=== PATIENT | female | born 1950 | race Caucasian/White ===

== ENCOUNTER 2020-09-25 08:26 | Outpatient (REF) | payer OTHER, SELFPAY ==
--- NOTE | 2020-09-25 08:32 | MM_ITS ---
EXAMINATION: MM SCREENING DIGITAL BREAST TOMOSYNTHESIS, BILATERAL CLINICAL INFORMATION: Left lumpectomy for breast cancer 2011. Due for yearly exam. COMPARISON: Mammography: 02/02/2019, 01/25/2018, 01/10/2017 TECHNIQUE: Digital breast tomosynthesis is performed in both the craniocaudal and mediolateral oblique views along with computer-aided detection (CAD). Synthesized 2D images are generated from the tomosynthesis. Additional exaggerated left view is provided. FINDINGS: There are scattered areas of fibroglandular density (ACR BI-RADS breast composition Category b). There are post therapy changes left breast with reduced breast size and scarring. There is a biopsy clip marker again seen adjacent to the scar and benign dystrophic calcifications within the scar. Bilateral breast parenchymal pattern is similar to prior studies. There is no developing density or interval mass or interval architectural abnormality. Scattered bilateral benign predominantly coarse calcifications and some vascular and punctate round calcifications are again seen. No significant changes from prior studies. MM/MM tomosynthesis screening BI IMPRESSION: No significant changes from prior studies. Post therapy changes left breast. ASSESSMENT: BI-RADS 2: Benign RECOMMENDATION: Routine annual mammography screening. This patient's information was entered into a reminder system with a target due date for their next mammogram.
--- NOTE | 2020-09-25 08:41 | MM_ITS ---
EXAMINATION: BONE DENSITOMETRY CLINICAL INDICATION: Osteopenia. COMPARISON: Previous BD dated 10/06/2017 and baseline BD dated 05/20/2013. TECHNIQUE: Using a [employer] DXA System (software version: 13.1) manufactured by [employer], dual-energy x-ray absorptiometry was performed of the lumbar spine and left hip. The images are of good technical quality. Summary results are attached. FINDINGS: AP SPINE L1-L4: Current: BMD 1.022 g/cm2, Z-score 0.4, T-score -1.3, osteopenia, 2.9% decrease from previous, 4.0% increase from baseline (<5% change is not significant). Prior: BMD 1.052 g/cm2. Baseline: BMD 0.983 g/cm2. LEFT FEMUR, NECK: Current: BMD 0.788 g/cm2, Z-score 0.0, T-score -1.8, osteopenia. Prior: BMD 0.762 g/cm2. Baseline: BMD 0.708 g/cm2. LEFT FEMUR, TOTAL: Current: BMD 0.859 g/cm2, Z-score 0.4, T-score -1.2, osteopenia, 1.3% increase from previous, 9.6% increase from baseline (<5% change is not significant). Prior: BMD 0.848 g/cm2. Baseline: BMD 0.784 g/cm2. IDENTIFIED RISK FACTORS: Early menopause, low calcium intake, osteoporosis, secondary osteoporosis, tobacco use (current smoker). HISTORY OF FRACTURE: None listed. MEDICATIONS: None listed. MM/XR DEXA axial skeleton IMPRESSION: 1. DIAGNOSIS: Osteopenia based on the lowest T-score value of -1.8 in the femoral neck applying World Health Organization criteria. 2. 10-YEAR FRACTURE RISK PREDICTION, FRAX: Major osteoporotic fracture (clinical spine, forearm, hip or shoulder) 11.7%. Hip fracture 3.4%. 3. Treatment Recommendations: NOF guidelines recommend consideration for treatment in postmenopausal women and men age 50 and older presenting with the following: -A hip or vertebral (clinical or morphometric) fracture. -T-score less than or equal to -2.5 at the femoral neck or spine after appropriate evaluation to exclude secondary causes. -Low bone mass at the hip or spine and a 10-year fracture probability by FRAX of greater than or equal to 3% for hip fracture or greater than or equal to 20% for major osteoporotic fracture based on the [place] adapted WHO algorithm. 4. Other Recommendations: All treatment decisions require clinical judgment and consideration of individual patient factors, including patient preferences, comorbidities, previous drug use, risk factors not captured in the FRAX model (e.g. frailty, falls, vitamin D deficiency, increased bone turnover, interval significant decline in bone density) and possible under or overestimation of fracture risk by FRAX. Additional medical evaluation for secondary cause of low bone mineral density may be appropriate. FUTURE SCAN RECOMMENDATION: People with diagnosed cases of osteoporosis or at high risk for fracture should have regular bone mineral density tests. For patients eligible for Medicare, routine testing is allowed once every 2 years. The testing frequency can be increased to one year for patients who have rapidly progressing disease, those who are receiving or discontinuing medical therapy to restore bone mass, or have additional risk factors.
== END 2020-09-25 08:27 | disposition home or self-care (01) ==
LOC: HO.MAMMO 08:26
PROVIDERS: PCP Physician Assistant; Visit Provider Physician Assistant
DX: M85.89 Other specified disorders of bone density and structure, multiple sites (principal); Z12.31 Encounter for screening mammogram for malignant neoplasm of breast
CPT/HCPCS: 77063; 77067; 77080

== ENCOUNTER 2021-05-31 06:36 | Outpatient (REF) | payer OTHER, SELFPAY ==
[2021-05-31 08:47] LABS: Hematocrit 41.3 % (37-47); Hemoglobin 13.5 g/dl (12.0-16.0); Mean Corpuscular HGB Conc 32.7 g/dl (31.0-35.0); Mean Corpuscular Hemoglobin 31.8 pg (27.0-33.0); Mean Corpuscular Volume 97.4 fL (80-98); Mean Platelet Volume 10.7 fL (9.4-12.3); Platelet Count 187 X10*3/uL (160-400); Red Blood Count 4.24 X10*6/uL (4.20-5.50); Red Cell Distribution Width 12.5 % (11.0-16.0); White Blood Count 7.7 X10*3/uL (4.8-10.8)
[2021-05-31 09:35] LABS: Alanine Aminotransferase 11 U/L (0-31); Albumin Level 3.8 g/dL (3.5-5.0); Alkaline Phosphatase 67 U/L (39-117); Anion Gap 12 (12-20); Aspartate Amino Transferase 16 U/L (5-31); Bilirubin Total 0.5 mg/dL (0.0-1.0); Blood Urea Nitrogen 12 mg/dL (9-16); Carbon Dioxide 26 mmol/L (22-29); Chloride 109 mmol/L (96-108); Cholesterol 260 mg/dL; Estimated Glomerular Filt Rate > 60; Glucose Fasting 92 mg/dL (60-99); HDL Cholesterol 36 mg/dL; LDL Cholesterol Calculated 175 mg/dl; Potassium 4.6 mmol/L (3.3-5.1); Sodium 142 mmol/L (135-145); Total Protein 6.8 g/dL (6.5-8.0); Triglycerides 246 mg/dL
[2021-05-31 09:39] LABS: TSH reflex Free T4 2.55 uIU/mL (0.32-4.0)
[2021-05-31 10:33] LABS: Creatinine Urine 42.93 mg/dL; Microalbumin Urine < 5.0 mg/L
== END 2021-05-31 06:37 | disposition home or self-care (01) ==
LOC: HO.LAB 06:36
PROVIDERS: Visit Provider Physician Assistant
DX: I10 Essential (primary) hypertension (principal)
CPT/HCPCS: 36415; 80053; 80061; 82043; 84443; 85027

== ENCOUNTER 2021-06-12 12:42 | Outpatient (REF) | payer OTHER, SELFPAY ==
--- NOTE | ~2021-06-12 | CT_ITS ---
EXAMINATION: CT HEAD WITHOUT CONTRAST CLINICAL INFORMATION: Benign paroxysmal vertigo. COMPARISON: CT brain 01/09/2016. TECHNIQUE: Contiguous axial imaging was performed from the skull base to vertex without intravenous administration of contrast. This CT examination was performed using dose optimization techniques as appropriate, variously including the following: *Automated exposure control *Adjustment of mA and/or kV according to patient size (this includes techniques or standardized protocols for targeted exams where dose is matched to indication/reason for exam; i.e. extremities or head) *Use of iterative reconstruction technique DLP: 677 mGy-cm FINDINGS: There is no acute intra-axial or extra-axial bleed, masses or midline shift. There is a focal hypodensity in the anterior limb of bilateral internal capsule slightly more prominent on the left side. This likely lies on previous 2016 scan. There is no acute infarct. Especially there is no abnormality seen in the posterior fossa. No abnormal mass effect or midline shift is seen. Bark[place] to white matter differentiation is well preserved. No extra-axial fluid collections are identified. The ventricles are normal in size. There is no abnormal attenuation within the brain parenchyma. The osseous structures and soft tissues are normal. The mastoid air cells and visualized portions of the paranasal sinuses are well aerated. CT/CT head/brain wo con IMPRESSION: No acute intracranial process seen. Likely chronic ischemic changes in the anterior limb of bilateral internal capsules slightly greater on the left, unchanged to 2016 CT exam.
== END 2021-06-12 12:43 | disposition home or self-care (01) ==
LOC: HO.CT 12:42
PROVIDERS: Visit Provider Physician Assistant
DX: H81.10 Benign paroxysmal vertigo, unspecified ear (principal)
CPT/HCPCS: 70450

== ENCOUNTER 2021-06-20 13:55 | Outpatient (REF) | payer OTHER, SELFPAY ==
--- NOTE | ~2021-06-20 | US_ITS ---
EXAMINATION: US EXTRACRANIAL CAROTID DUPLEX, BILATERAL CLINICAL INFORMATION: Other specified symptoms involving the circulatory system COMPARISON: Ultrasound 01/09/2016 TECHNIQUE: Real-time ultrasound and Doppler techniques (integrating B-mode 2-D vascular images, Doppler spectral analysis and color-flow Doppler imaging) were utilized to interrogate the extracranial carotid arteries, the vertebral arteries and proximal subclavian arteries bilaterally. The degree of stenosis is determined by criteria similar to NASCET. FINDINGS: Right Side: 1. There is extensive calcified atherosclerotic plaque seen in the bifurcation/proximal ICA region. 2. The common carotid artery PSV proximally is 99 cm/s and distally 87.4 cm/s. 3. The proximal internal carotid artery velocities are 110 cm/s systolic and 17.3 cm/s diastolic. The mid internal carotid artery velocities are 186 cm/s systolic and 47.1 cm/s diastolic. 4. The proximal external carotid artery PSV is 117 cm/s. 5. The vertebral artery shows antegrade flow. 6. The subclavian artery waveforms are normal. Left Side: 1. There is extensive calcified atherosclerotic plaque seen in the bifurcation/proximal ICA region. 2. The common carotid artery PSV proximally is 104 cm/s and distally 70.3 cm/s. 3. The proximal internal carotid artery velocities are 194 cm/s systolic and 52.4 cm/s diastolic. 4. The proximal external carotid artery PSV is 185 cm/s. 5. The vertebral artery shows antegrade flow. 6. The subclavian artery waveforms are high resistance high velocity with peak systolic velocity 471 cm/s. US/US carotid duplex BI IMPRESSION: 1. RIGHT: Minimal, non-hemodynamically significant stenosis of the proximal right internal carotid artery corresponding to a 0-49% stenosis by velocity criteria. There is probable moderate stenosis at the midportion of the right internal carotid artery. 2. LEFT: Moderate, hemodynamically significant stenosis of the proximal left internal carotid artery corresponding to a 50-79% stenosis by velocity criteria. 3. Elevated peak systolic velocity of the left subclavian artery suggestive of a subclavian artery stenosis. Further evaluation of probable stenosis can be considered with CT angiography.
== END 2021-06-20 13:56 | disposition home or self-care (01) ==
LOC: HO.US 13:55
PROVIDERS: PCP Physician Assistant; Visit Provider Physician Assistant
DX: R09.89 Other specified symptoms and signs involving the circulatory and respiratory systems (principal)
CPT/HCPCS: 93880

== ENCOUNTER → 2021-07-25 15:22 | Outpatient (BNVA) | payer OTHER, SELFPAY | PROVIDERS: PCP Physician Assistant; Visit Provider Surgery Vascular Surgery ==

== ENCOUNTER 2021-08-20 08:20 | Outpatient (REF) | payer OTHER, SELFPAY ==
[2021-08-20 09:33] LABS: Blood Urea Nitrogen 10 mg/dL (9-16); Estimated Glomerular Filt Rate > 60
== END 2021-08-20 08:21 | disposition home or self-care (01) ==
LOC: HO.LAB 08:20
PROVIDERS: PCP Physician Assistant; Visit Provider Surgery Vascular Surgery
DX: I65.23 Occlusion and stenosis of bilateral carotid arteries (principal)
CPT/HCPCS: 36415; 82565; 84520

== ENCOUNTER 2021-08-27 07:47 | Outpatient (REF) | payer OTHER, SELFPAY ==
--- NOTE | ~2021-08-27 | CT_ITS ---
EXAMINATION: CT ANGIOGRAM NECK CLINICAL INFORMATION: 70-year-old with left carotid stenosis by duplex carotid ultrasound. COMPARISON: 06/20/2021 duplex study. TECHNIQUE: Volumetric CT angiography of the neck was performed from the upper thorax to the base of the skull with multiplanar 2-D reformatted reconstructions and 3-D MIP reconstructions performed on the CT console following the bolus intravenous administration of 70 mL of Omnipaque 350 contrast material. The degree of stenosis determined by NASCET criteria. This CT examination was performed using dose optimization techniques as appropriate, variously including the following: *Automated exposure control *Adjustment of mA and/or kV according to patient size (this includes techniques or standardized protocols for targeted exams where dose is matched to indication/reason for exam; i.e. extremities or head) *Use of iterative reconstruction technique DLP: 283.30 mGy-cm. FINDINGS: VASCULAR: The thoracic aortic arch is normal in caliber and configuration. There are partially calcified atheromatous plaques within the thoracic aortic arch with no significant luminal diameter reduction. Calcified plaque is seen in the proximal left subclavian artery, with both calcified and noncalcified plaque at adjacent to the origin of the left vertebral artery. There is a moderate short-segment focal stenosis of the left subclavian artery at this level and there is mild stenosis at the origin of the left vertebral artery. There is luminal irregularity in the subclavian artery distal to this consistent with atheromatous change without significant focal stenosis. There is calcified plaque in the origin of the left common carotid artery without significant focal stenosis. Calcified plaques are seen within the proximal right subclavian artery and innominate artery with less than 50% the stenosis of the proximal right subclavian artery. There is luminal irregularity in the more distal aspect of the right subclavian artery without significant stenosis. There is a calcified plaque at the origin of the right vertebral artery without stenosis. The right vertebral artery is dominant and is normal in caliber throughout. The remainder of the left vertebral artery also demonstrates normal caliber. Multifocal calcified plaque is noted within the proximal right ICA and at the right carotid bifurcation, spanning the bulb. Based on NASCET criteria, there is a 70% diameter reduction stenosis within the origin of the right ICA and a less than 50% diameter reduction stenosis 1 cm distal to this. There is calcified plaque at the left carotid bifurcation with eccentric narrowing of the proximal left ICA, with 65% diameter reduction stenosis by NASCET criteria. More distally, the cervical ICAs are smoothly contoured and normal in caliber. The external carotid arteries are patent and normal in caliber. There is a luminal irregularity in the carotid siphons bilaterally with some mural calcifications without significant focal stenosis. The visualized intracranial vessels are patent and normal in caliber. NON-VASCULAR: Visualized brain parenchyma appears grossly unremarkable. Soft tissue neck structures appear unremarkable. Pulmonary emphysematous changes are noted bilaterally. Visualized mediastinum demonstrates multiple lymph nodes in the region of the AP window and prevascular anterior mediastinal space as well as the right paratracheal space, which are not pathologically enlarged. Skeletal structures: There is lordotic reversal centered at C4 with discogenic degenerative changes and spondylosis at C4-5 and C5-6. 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 CT/CT angio neck IMPRESSION: 1. Extensive the atheromatous calcified plaque at both carotid bifurcations and proximal ICAs as discussed above with 65% diameter reduction stenosis in the proximal left ICA and 70% diameter reduction stenosis in the proximal right ICA by NASCET criteria. The findings are concordant with duplex ultrasound on the left but are discordant on the right. 2. Moderate short-segment focal stenosis of the proximal left subclavian artery at the level of the origin of the left vertebral artery with a mild short-segment focal stenosis of the origin of the left vertebral artery, which is nondominant. 3. Skeletal findings as discussed above. 4. Pulmonary emphysematous changes.
[2021-08-27] MEDS: iohexoL 350 MG/ML 100 ML INFUS..BTL IV (09:19)
== END 2021-08-27 07:48 | disposition home or self-care (01) ==
LOC: HO.CT 07:47
PROVIDERS: PCP Physician Assistant; Visit Provider Surgery Vascular Surgery
DX: I63.233 Cerebral infarction due to unspecified occlusion or stenosis of bilateral carotid arteries (principal)
CPT/HCPCS: 70498; Q9967

== ENCOUNTER → 2021-09-10 09:58 | Outpatient (BNVA) | payer OTHER, SELFPAY | PROVIDERS: PCP Physician Assistant; Visit Provider Surgery Vascular Surgery ==

== ENCOUNTER → 2021-09-11 11:12 | Outpatient (BNVA) | payer OTHER, SELFPAY | PROVIDERS: PCP Physician Assistant; Referring Provider Physician Assistant; Visit Provider Internal Medicine Cardiovascular Disease | DX: Z01.810 Encounter for preprocedural cardiovascular examination (principal); I47.1 Supraventricular tachycardia; I65.23 Occlusion and stenosis of bilateral carotid arteries | CPT/HCPCS: 93005 ==

== ENCOUNTER → 2021-09-13 07:58 | Outpatient (REF) | payer OTHER, SELFPAY ==
--- NOTE | 2021-09-13 08:02 | CA_ITS ---
Transthoracic Echocardiogram Patient (Last, First, Middle): Laxmi Daley, Gender: Female Date of : 1950 Age: 70 Procedure Date: 09/13/2021 Procedure Type: Transthoracic Echocardiogram Location: OP Height: 160.02 cm Weight: 61.24 kg BSA: 1.64 m2 Heart Rate: bpm BP: 108 / 62 mmHg Shredded Filler Machine Wrapper Layer: COLE Referring MD: Jose Rodas MD Symptoms: Z01.810 - Encounter for preprocedural cardiovascular exam... Conclusions: - Normal left ventricular size, thickness, systolic function, and wall motion. The visually estimated ejection fraction is between 55-60%. - Normal right ventricular cavity size and systolic function. - No significant valvular or pericardial pathology. Findings Left Ventricle Normal left ventricular size, thickness, systolic function, and wall motion. The visually estimated ejection fraction is between 55-60%. Diastolic function is normal for age. Right Ventricle Normal right ventricular cavity size and systolic function. Atria Both atria are normal in size. Aortic Valve Normal aortic valve structure and function. There is no aortic valve stenosis. There is no aortic valve regurgitation. Mitral Valve Normal mitral valve structure and function. There is no mitral valve regurgitation. There is no mitral valve stenosis. Pulmonic Valve The pulmonic valve is likely normal. Tricuspid Valve Normal tricuspid valve structure and function. There is no tricuspid valve regurgitation. Normal right atrial pressure. There is no evidence of pulmonary hypertension. Great Vessels All visible segments of the aorta are normal in size. Venous The inferior vena cava is normal in size and collapses greater than 50% with inspiration. Pericardium/Pleural There is no evidence of pericardial effusion. Prior Study Comparison No prior study available for comparison. Measurements 2D Linear Measurements IVSd: 0.56 0.6-0.9/0.6-1.0 cm LVIDd: 4.14 3.9-5.3/4.2-5.9 cm LVIDd Index: 2.52 2.4-3.2/2.2-3.1 cm/m2 LVIDs: 2.50 2.0-3.6 cm LVPWd: 0.82 0.7-1.1 cm Ao Root: 2.10 2.1-3.5 cm LA Diam: 2.80 2.7-3.8/3.0-4.0 cm LAIDs Index: 1.71 1.5-2.3 cm/m2 LV Mass: 101.89 67-162/88-224 g LV Mass Index: 62.13 43-95/49-115 g/m2 LVOT Diam: 1.90 3.0+(-)1.3 cm 2D Systolic Function EF 4C: 66.60 >55% EF 2C: 60.30 >55% EF BiP: 65.90 >55% Mitral Valve MV Pk E: 0.85 MV PK A: 0.54 MV Decel Time: 206.00 E/A: 1.60 E'Lateral: 8.16 E'Medial: 7.62 E/E' Med: 11.20 E/E' Lat: 10.40 PHT: 60.00 MVA PHT: 3.67 Decel Juab: 4.12 Aortic Valve AoV Pk Robin: 1.13 AoV Pk Grad: 5.00 LVOT LVOT Pk Robin: 0.93 LVOT Mn Robin: 0.67 LVOT VTI: 0.22 LVOT Pk Grad: 3.00 LVOT Mn Grad: 2.00 LVOT Diam: 1.90 LVOT Area: 2.84 Diastolic Function MV Pk E: 0.85 MV Pk A: 0.54 E/A: 1.60 E'Medial: 7.62 E/E' Med: 11.20 E' Laterial: 8.16 E/E' Lat: 10.40 Right Ventricle TAPSE (mm): 2.18 Tricuspid Valve TR Pk Robin: 2.40 TR Pk Grad: 23.00 RA Press: 3.00 RVSP: 26.00 Great Vessels Aorta Ao Root-2D: 2.10 2.0-3.7 cm Ao Asc: 2.90 2.1-3.4 cm Updated in Other Vendor System with Status of Final Mark Huerta MD electronically signed on 09/15/2021 6:11:00 PM with status of Final
== END ==
LOC: HO.CARD 07:58
PROVIDERS: PCP Physician Assistant; Visit Provider Internal Medicine Cardiovascular Disease
DX: Z01.810 Encounter for preprocedural cardiovascular examination (principal)
CPT/HCPCS: 93306

== ENCOUNTER → 2021-09-16 08:34 | Outpatient (REF) | payer OTHER, SELFPAY ==
--- NOTE | ~2021-09-16 | NM_ITS ---
Lexiscan Myocardial perfusion study Indication: Chest pain Technique: The patient was brought in for a Lexiscan perfusion study on 09/16/2021 and was injected 0.4 mg of Lexiscan intravenously. Within a minute of this injection 25 mCi of sestamibi was given intravenously. Images were obtained using the SPECT gamma camera interlaced with the gating device. Images were obtained in supine position. Resting perfusion study was performed on 09/17/2021. Patient was administered 25 mCi of sestamibi intravenously at rest. Images were then obtained in supine position. Total DLP 81mGy-cm. Images were processed with the software and compared side to side in short axis, horizontal long axis and vertical long axis views. Findings: Raw acquisition was reviewed. The stress perfusion study showed mildly decreased tracer uptake in the basal inferior wall, which improves with CT attenuation correction suggesting diaphragmatic attenuation artifact. The gated study shows normal LV systolic function with calculated LVEF of >70%. LV cavity is normal in size. The gated study shows normal wall thickening and contraction of segments. Resting study shows mildly diminished tracer uptake in the basal inferior wall, that improves with CT attenuation correction. Gating at rest reveals normal wall motion with ejection fraction at >70%. The findings are consistent with normal myocardial perfusion. NM/VT cardiolite stress test Impression: 1. Myocardial perfusion imaging study shows normal myocardial perfusion. 2. Gated LVEF is > 70% during stress and rest. 3. Transient ischemic dilatation not present. EKG component of the test reported separately.
--- NOTE | 2021-09-16 08:42 | CA_ITS ---
Acquisition Time: 2021-09-16 08:44:51 Total Exercise Time: 00:01:52 Test Indications: Z01.810 Medications: SEE CHART Protocol: JAVON Max HR: 115 BPM 77% of Pred: 149 BPM Max BP: 160/062 mmHG Max Work Load: 4.3 METS Exercise stress test with exercise 1 min 52 sec of Javon protocol, with moderate shortness of breath and request to stop exercise. Treadmill stopped and pt assisted to sitting position. Once breathing improved, testing changed to a pharmacological stress test with Lexiscan injection, while sitting and kicking her legs, with isolated PAC and rare PVC, with normotensive response to injection, with nondiagnostic EKG for ischemia. In recovery she reported feeling shaky and was treated with Aminophylline 75mg IVP with resolution of symptom. Nuclear images pending. Test reviewed with Dr Rodas. Referred By: Jose Rodas Overread By: MANDA EPPS
== END ==
LOC: HO.CARD 08:34
PROVIDERS: PCP Physician Assistant; Visit Provider Internal Medicine Cardiovascular Disease
DX: Z01.810 Encounter for preprocedural cardiovascular examination (principal); R07.9 Chest pain, unspecified
CPT/HCPCS: 78452; 93017; A9500; J0280; J2785

== ENCOUNTER 2021-09-23 06:12 | Inpatient (IN) | payer OTHER, SELFPAY ==
[2021-09-18 11:49] VITALS: BP 128/63; RESP 16; O2SAT 96; BMI 24.3
--- NOTE | 2021-09-18 12:20 | HO.ANESPROP2 ---
Documented by User: Riya Howard NP 09/20/21 12:41 HPI - Anesthesia Eval Consult details Narrative: 70yo F for Right Carotid Endarterectomy LUE tingling, expressive aphasia Per cardiology If this is within normal limits, she would be low risk for perioperative cardiovascular morbidity mortality.? Stress and echo WNL h/o SVT - tx with metoprolol, vagal manuevers , stress reduction, stimulant avoidance. Only required ED for adenosine x 1 PMFSH Active Problems Active Problems: All Active Problems (Updated 09/18/21 @ 12:12 by Subha Box, [place]) Tinea (Acute) Osteopenia (Acute) Annual physical exam (Acute) BPPV (benign paroxysmal positional vertigo) (Acute) Bilateral carotid bruits (Acute) HLD (hyperlipidemia) (Acute) Left carotid stenosis (Acute) Subclavian arterial stenosis (Acute) Otalgia (Acute) Bilateral carotid artery stenosis (Acute) Carotid stenosis, right (Acute) Preoperative cardiovascular examination (Acute) Supraventricular tachycardia (Acute) Hypertension (Acute) Overweight (Acute) Tobacco abuse (Acute) Osteopenia (Acute) Anxiety and depression (Acute) Past Medical History Medical History Anxiety and depression Breast cancer Cataract Hx of earache Hx of vertigo Hypertension Osteopenia Osteoporosis Overweight Supraventricular tachycardia Tobacco abuse Tremor of left hand Family History Family History Father Medical history unknown Mother Medical history unknown Brother Throat cancer Brother Myocardial infarction H/O ETOH abuse Daughter Bone cancer Mental health disorder Substance use disorder Family history of problems with anesthesia: No Surgical History Surgical History History of colon surgery Hx of cholecystectomy S/P dilation and curettage History of Problems with Anesthesia: No Social History Social History Housing: Apartment Are you a primary child care attendant to a significant other at home: No Do you presently have visiting nurse or other home services: No Patient Tobacco Use Status: Current everyday Tobacco user Tobacco use type: Cigarette Cigarettes Per Day: 10 Years Smoked: 46 Smoked in Last 30 Days: Yes e-Cigarette/Vaping Use: Never Used Patient Interested in Nicotine Replacement: No Patient Given Instructions on How to Stop Smoking: No Second Hand Smoke Exposure: No Use of substances other than those prescribed or required for medical reasons: No Have you been hit, kicked, punched, or otherwise hurt by someone within the past year? If so, by whom?: No Spiritual Healthcare Practices: none Restorationism Healthcare Practices: none Cultural Healthcare Practices: none Are you DNR?: No Advance Directives: No Advance Directives Information Provided: Yes Advance Directives on File: No Recently lost weight without trying: Yes How much weight loss: 2-13 pounds Eating poorly because of decreased appetite: No Nutrition screen score: 3 service: No Current occupational status: retired Narrative Narrative: No recent illness No chest pain. [place] at baseline. [facility] smoker. Meds Allergies Allergy/AdvReac Type Severity Reaction Status Date / Time aspirin AdvReac Intermediate GI UPSET, Verified 09/23/21 06:14 upset stomach Home Medications Medication Instructions Recorded Confirmed Last Taken Type ibuprofen-diphenhydramine citrate 1 cap PO BEDTIME 10/05/20 09/18/21 Unknown History 200 mg-38 mg tablet (Advil PM) hydroxyzine HCl 50 mg tablet 50 mg PO DAILY tab 09/11/21 09/18/21 09/23/21 04:00 History clotrimazole-betamethasone 1 1 appl TOPICAL BID PRN 09/18/21 09/18/21 Unknown History %-0.05 % topical cream meclizine 25 mg tablet 25 mg PO DAILY PRN 09/18/21 09/18/21 Unknown History Exam Exam Date and Time: September 18, 2021 1220 Height,Weight and Vital Signs: Height 5 ft 3 in Weight 62.142 kg Last Vital Signs Resp 16 09/18/21 11:49 BP 128/63 09/18/21 11:49 Pulse Ox 96 09/18/21 11:49 Pertinent Lab Results Pertinent Lab Results: 09/18/21 12:59 Type and Screen Routine 09/18/21 13:04 Basic Metabolic Panel Routine Complete Blood Count no Diff Routine Partial Thromboplastin Time Routine Prothrombin Time INR Routine Laboratory Last Values WBC 9.2 X10*3/uL (4.8-10.8) 09/18/21 13:04 RBC 4.19 X10*6/uL (4.20-5.50) L 09/18/21 13:04 Hgb 13.5 g/dl (12.0-16.0) 09/18/21 13:04 Hct 40.2 % (37.0-47.0) 09/18/21 13:04 MCV 95.9 fL (80.0-98.0) 09/18/21 13:04 MCH 32.2 pg (27.0-33.0) 09/18/21 13:04 MCHC 33.6 g/dl (31.0-35.0) 09/18/21 13:04 RDW 12.6 % (11.0-16.0) 09/18/21 13:04 Plt Count 185 X10*3/uL (160-400) 09/18/21 13:04 MPV 10.2 fL (9.4-12.3) 09/18/21 13:04 Absolute Nucleated RBC 0.000 X10*3/uL (0.0-0.012) 09/18/21 13:04 Nucleated RBC % (auto) 0.0 /100WBC (0.0-0.2) 09/18/21 13:04 PT 11.3 SEC (9.9-13.0) 09/18/21 13:04 INR 1.0 (0.9-1.1) 09/18/21 13:04 APTT 32.5 SEC (24.1-38.0) 09/18/21 13:04 Sodium 140 mmol/L (135-145) 09/18/21 13:04 Potassium 4.4 mmol/L (3.3-5.1) 09/18/21 13:04 Chloride 108 mmol/L (96-108) 09/18/21 13:04 Carbon Dioxide 26 mmol/L (22-29) 09/18/21 13:04 Anion Gap 10 (12-20) L 09/18/21 13:04 BUN 10 mg/dL (9-16) 09/18/21 13:04 Creatinine 0.82 mg/dL (0.5-1.4) 09/18/21 13:04 Estim Creat Clear Calc 52.0 09/18/21 13:04 Estimated GFR > 60 09/18/21 13:04 Random Glucose 87 mg/dL (60-115) 09/18/21 13:04 Calcium 9.9 mg/dL (8.4-10.2) 09/18/21 13:04 Blood Type A Positive 09/18/21 12:59 Antibody Screen NEGATIVE 09/18/21 12:59 Narrative Narrative: EKG 08/2021 sinus bradycardia at 50 beats per minute with normal EKG ECHO 08/2021 Conclusions: - Normal left ventricular size, thickness, systolic function, and wall motion. The visually estimated ejection fraction is between 55-60%.? - Normal right ventricular cavity size and systolic function.? ? - No significant valvular or pericardial pathology.? ?? NM cardiolite stress test 09/2021 Impression: ? 1.? Myocardial perfusion imaging study shows normal myocardial perfusion. 2.? Gated LVEF is > 70% during stress and rest. 3. Transient ischemic dilatation not present. ? EKG component of the test reported separately. (nondiagnostic) CT angio neck 08/2021 IMPRESSION: 1. Extensive the atheromatous calcified plaque at both carotid bifurcations and proximal ICAs as discussed above with 65% diameter reduction stenosis in the proximal left ICA and 70% diameter reduction stenosis in the proximal right ICA by NASCET criteria. The findings are concordant with duplex ultrasound on the left but are discordant on the right. 2. Moderate short-segment focal stenosis of the proximal left subclavian artery at the level of the origin of the left vertebral artery with a mild short-segment focal stenosis of the origin of the left vertebral artery, which is nondominant. 3. Skeletal findings as discussed above. 4. Pulmonary emphysematous changes.? Airway Mallampati Class: I TM Dist: >3cm Neck ROM: Full Denture: Upper and Lower Heart: Pietro, RR Lungs: RUL coarse, clears with cough. Otherwise clear. Assessment and Plan Assessment Anesthesia Assessment: Anesthesia Plan Discussed (Reviewed GA with arterial line), Smoking Cess. Discussed and PAT Visit Final Anesthetic Review Family History of Problems with Anesthesia: No History of Problems with Anesthesia: No Documented by User: Miracle Nelson MD 09/23/21 09:05 [facility] Active Problems Active Problems: All Active Problems (Updated 09/18/21 @ 12:12 by Subha Box, [place]) Tinea (Acute) Osteopenia (Acute) Annual physical exam (Acute) BPPV (benign paroxysmal positional vertigo) (Acute) Bilateral carotid bruits (Acute) HLD (hyperlipidemia) (Acute) Left carotid stenosis (Acute) Subclavian arterial stenosis (Acute) Otalgia (Acute) Bilateral carotid artery stenosis (Acute) Carotid stenosis, right (Acute) Preoperative cardiovascular examination (Acute) Supraventricular tachycardia (Acute) Hypertension (Acute) Overweight (Acute) Tobacco abuse (Acute) Osteopenia (Acute) Anxiety and depression (Acute) Left subclavian artery stenosis. Difficut to appreciate pulse left wrist Past Medical History Medical History Anxiety and depression Breast cancer Cataract Hx of earache Hx of vertigo Hypertension Osteopenia Osteoporosis Overweight Supraventricular tachycardia Tobacco abuse Tremor of left hand Family History Family History Father Medical history unknown Mother Medical history unknown Brother Throat cancer Brother Myocardial infarction H/O ETOH abuse Daughter Bone cancer Mental health disorder Substance use disorder Surgical History Surgical History History of colon surgery Hx of cholecystectomy S/P dilation and curettage Social History Social History Housing: Apartment Are you a primary child care attendant to a significant other at home: No Do you presently have visiting nurse or other home services: No Patient Tobacco Use Status: Current everyday Tobacco user Tobacco use type: Cigarette Cigarettes Per Day: 10 Years Smoked: 46 Smoked in Last 30 Days: Yes e-Cigarette/Vaping Use: Never Used Patient Interested in Nicotine Replacement: No Patient Given Instructions on How to Stop Smoking: No Second Hand Smoke Exposure: No Use of substances other than those prescribed or required for medical reasons: No Have you been hit, kicked, punched, or otherwise hurt by someone within the past year? If so, by whom?: No Spiritual Healthcare Practices: none Restorationism Healthcare Practices: none Cultural Healthcare Practices: none Are you DNR?: No Advance Directives: No Advance Directives Information Provided: Yes Advance Directives on File: No Recently lost weight without trying: Yes How much weight loss: 2-13 pounds Eating poorly because of decreased appetite: No Nutrition screen score: 3 service: No Current occupational status: retired Meds Allergies Allergy/AdvReac Type Severity Reaction Status Date / Time aspirin AdvReac Intermediate GI UPSET, Verified 09/23/21 06:14 upset stomach Home Medications Medication Instructions Recorded Confirmed Last Taken Type ibuprofen-diphenhydramine citrate 1 cap PO BEDTIME 10/05/20 09/18/21 Unknown History 200 mg-38 mg tablet (Advil PM) hydroxyzine HCl 50 mg tablet 50 mg PO DAILY tab 09/11/21 09/18/21 09/23/21 04:00 History clotrimazole-betamethasone 1 1 appl TOPICAL BID PRN 09/18/21 09/18/21 Unknown History %-0.05 % topical cream meclizine 25 mg tablet 25 mg PO DAILY PRN 09/18/21 09/18/21 Unknown History Exam Height,Weight and Vital Signs: Height 5 ft 3 in Weight 62.142 kg Last Vital Signs Resp 16 09/18/21 11:49 BP 128/63 09/18/21 11:49 Pulse Ox 96 09/18/21 11:49 Vital Signs Temp Pulse Resp BP Pulse Ox 09/23/21 06:47 97.4 F 54 16 119/54 L 95 Airway Heart: Pietro, RRR Lungs: CTAB Assessment and Plan Assessment Anesthesia Assessment: Chart Reviewed Final Anesthetic Review NPO: Yes ASA Class: III Final Preanesthetic Review: No Changes in Pt Med Stat, Meds/Allgs Chart Reviewed, Consent Obtained/Reviewed and Anes Risks/Benef Reviewed Patient Risk: Intermediate Procedure Risk: Intermediate Assessment/Block/Sedation in SS: Assess/Block/Sedation-SS Anesthetic Plan Anesthetic Plan: GA and Other (Arterial line) Disposition: Standard PACU and Inp. Admit - ICU
[2021-09-18 13:10] LABS: Hematocrit 40.2 % (37.0-47.0); Hemoglobin 13.5 g/dl (12.0-16.0); Mean Corpuscular HGB Conc 33.6 g/dl (31.0-35.0); Mean Corpuscular Hemoglobin 32.2 pg (27.0-33.0); Mean Corpuscular Volume 95.9 fL (80.0-98.0); Mean Platelet Volume 10.2 fL (9.4-12.3); Platelet Count 185 X10*3/uL (160-400); Red Blood Count 4.19 X10*6/uL (4.20-5.50); Red Cell Distribution Width 12.6 % (11.0-16.0); White Blood Count 9.2 X10*3/uL (4.8-10.8)
[2021-09-18 13:32] LABS: Anion Gap 10 (12-20); Blood Urea Nitrogen 10 mg/dL (9-16); Calcium 9.9 mg/dL (8.4-10.2); Carbon Dioxide 26 mmol/L (22-29); Chloride 108 mmol/L (96-108); Estimated Glomerular Filt Rate > 60; Glucose Random 87 mg/dL (60-115); Potassium 4.4 mmol/L (3.3-5.1); Sodium 140 mmol/L (135-145)
[2021-09-18 13:35] LABS: Prothrombin Time 11.3 SEC (9.9-13.0)
[2021-09-18 13:38] LABS: Partial Thromboplastin Time 32.5 SEC (24.1-38.0)
[2021-09-23] VITALS (20 sets, daily range): BP systolic 94–144; BP diastolic 35–72; PULSE 53–96; RESP 8–18; TEMP 36.1–36.7; O2SAT 91–100
[2021-09-23 06:44] LABS: Hematocrit 41.7 % (37.0-47.0); Hemoglobin 13.6 g/dl (12.0-16.0); Mean Corpuscular HGB Conc 32.6 g/dl (31.0-35.0); Mean Corpuscular Hemoglobin 32.2 pg (27.0-33.0); Mean Corpuscular Volume 98.6 fL (80.0-98.0); Mean Platelet Volume 10.5 fL (9.4-12.3); Platelet Count 198 X10*3/uL (160-400); Red Blood Count 4.23 X10*6/uL (4.20-5.50); Red Cell Distribution Width 12.6 % (11.0-16.0); White Blood Count 8.2 X10*3/uL (4.8-10.8)
[2021-09-23] MEDS: Lactated Ringers 1,000 ML 100 ML IVCONT (06:49)
[2021-09-23 06:53] LABS: Anion Gap 11 (12-20); Blood Urea Nitrogen 14 mg/dL (9-16); Calcium 9.4 mg/dL (8.4-10.2); Carbon Dioxide 25 mmol/L (22-29); Chloride 108 mmol/L (96-108); Creatinine Clr Calc Pharmacy 52.6; Estimated Glomerular Filt Rate > 60; Glucose Random 89 mg/dL (60-115); Potassium 3.8 mmol/L (3.3-5.1); Sodium 140 mmol/L (135-145)
[2021-09-23 06:58] LABS: COVID-19 Test Negative (Negative)
[2021-09-23 07:02] LABS: Partial Thromboplastin Time 30.8 SEC (24.1-38.0)
--- NOTE | 2021-09-23 07:40 | MHC.SHP ---
Pre-Procedural Eval Section A Date of Service: 09/23/21 The patient is an INPATIENT: No The History & Physical has been completed within 30 days and I have reviewed it.: Yes Section B Chief Complaint: occlusion carotid artery Allergies: Allergies Allergy/AdvReac Type Severity Reaction Status Date / Time aspirin AdvReac Intermediate GI UPSET, Verified 09/23/21 06:14 upset stomach Plan I have reviewed the history and physical and performed a pertinent physical examination on my patient. No changes have occurred unless specified.
--- NOTE | 2021-09-23 11:45 | W.PM.OPN ---
Operative Note Operative Note Date of Service: 09/23/21 Narrative: Operative note by [facility] Preoperative diagnosis:Right carotid stenosis Postoperative diagnosis: same Procedure: right carotid endarterectomy Surgeon:Kyler Enciso M.D. Warp Dyeing Vat Tender: Dr. Hargrove Anesthesia: general Specimens: 1 Drains: 1 Estimated blood loss: 100 cc Indications: 70-year-old female who presented with asymptomatic high-grade right carotid stenosis. On CT angiogram was noted to have 70% stenosis. She now presents for operative intervention The patient has signed the informed consent after reviewing risks, complications, benefits, and alternatives previously discussed with the patient. The patient was given the opportunity to ask any additional questions or voice any concerns. All questions were answered to the patient's satisfaction. Procedure in detail: patient was brought to the operating room prior to which a time-out was called for patient identification site verification. Right neck was prepped and draped in standard surgical fashion. An incision was carried out over the anterior border of the sternocleidomastoid. We retracted back the sternocleidomastoid and expose the carotid sheath. We dissected down to the carotid sheath. We were able to isolate out the facial branch of the internal jugular. This was subsequently ligated. We then were able to isolate out the common carotid internal carotid and external carotid with silastic loops. Once this was done 5000 units of systemic heparin was administered. After 5 minutes of circulation time we clamped the internal carotid, common carotid and external carotid in that order. We made an arteriotomy from the common carotid to the internal carotid. A Serrato shunt was then placed. Once flow was established endarterectomy was performed. All loose debris was removed. And was flushed clear. Once this was all accomplished and any loose debris was removed we then sutured on [place] in a sure patch with a circumferential 6 0 Prolene suture. Prior to closure this was flushed clear shunt was removed. The patch was then closed. We then reestablished flow external common and internal in that order. Once this was accomplished adequate hemostasis was achieved. Several interrupted 6 0 in 7 0 sutures had to be placed to me sure there was absolute hemostasis. Snow and direct pressure was held for few minutes. Once this was all accomplished adequate hemostasis was noted. Seven flat Dennis-Contreras drain was then placed. Deep layer was reapproximated using 2 0 Polysorb superficial layer with 3-0 poly Sorb finally skin with a 4-0 Monocryl. Steri-Strips and a sterile dressing were applied. Patient awoke neurologically intact. This note is constructed using voice recognition software. While every effort has been made to ensure accuracy, photo mask inspector errors may have been included. Thank you for allowing me to participate in the care of your patient. Yours sincerely, Kyler Enciso MD, FACS, R.P.V.I.
[2021-09-23] MEDS: 0.9 % Sodium Chloride 1,000 ML 80 ML IVCONT (14:28)
[2021-09-23] MEDS: ceFAZolin Sodium/Dextrose,Iso 2 GM/50 ML PIGGYBACK IV (15:00)
--- NOTE | 2021-09-23 16:57 | PM.CCHP ---
History of Present Illness Date of Service: 09/23/21 Attending physician on admission: Kyler Enciso Mrs. Daley was admitted to the ICU this afternoon following elective right carotid endarterectomy by Dr. Enciso in the operating room. The patient is a 70-year-old female with past medical history of hyperlipidemia, hypertension, supraventricular tachycardia AV flakita reentry type for which she was put on Toprol, bilateral carotid stenosis, tobacco use, anxiety and depression, and breast cancer. Preop workup showed greater than 70% stenosis of the right internal carotid artery and 65-70% stenosis on the left. Echo on 09/13/2021 showed normal left ventricular size, thickness, and systolic function, with EF 55-60%.? There was normal right ventricular cavity size and systolic function.? There was no significant valvular or pericardial pathology.? Inferior vena cava was normal in size and collapsed greater than 50% with inspiration.? RVSP was 26 mm. Pharmacological stress test with Lexiscan showed a normotensive response to injection, with nondiagnostic EKG for ischemia.? The myocardial perfusion study showed normal myocardial perfusion. Intraop surgical course and general endotracheal anesthetic were generally unremarkable.? The patient was extubated at the end of surgery and recovered in the PACU.? She was then admitted to the ICU for overnight monitoring. On my exam, she is fully alert and appropriate.? Heart rate is 61, blood pressure about 120/50.? She is breathing easy, with sat of 94% on room air.? When she drifted off to sleep, sat dropped down to 90% on room air.? She is afebrile and normothermic.? No jugular venous distention with the head of the bed at about 30 degrees.? The dressing over her right carotid endarterectomy has minimal blood staining.? [facility] grenade has about 10-15 cc of thin blood in it. ?Chest is crytsal clear to auscultation.? Heart rate and rhythm are regular with normal-sounding S1 and S2, with no murmur or gallops.? The abdomen is benign.? She has no significant peripheral edema. PREOPERATIVE LABS are unremarkable, with a hemoglobin of 13, BUN and creatinine of 14/0.8, glucose of 89. IMPRESSION: 1. Bilateral carotid artery disease.? Status post right carotid endarterectomy. 2. Tobacco abuse 3. Chronic lung disease (by history) This is a 61-year-old woman who underwent elective right carotid endarterectomy without complications.? She is doing well postoperatively.? Her lower than normal hemoglobin oxygen saturation is undoubtedly due to chronic lung disease secondary to smoking. She will be monitored overnight in the ICU.? Follow-up per Dr. Enciso. [facility] Past Medical History Medical History Anxiety and depression Breast cancer Cataract Hx of earache Hx of vertigo Hypertension Osteopenia Osteoporosis Overweight Supraventricular tachycardia Tobacco abuse Tremor of left hand Family History Family History Father Medical history unknown Mother Medical history unknown Brother Throat cancer Brother Myocardial infarction H/O ETOH abuse Daughter Bone cancer Mental health disorder Substance use disorder Surgical History Surgical History History of colon surgery Hx of cholecystectomy S/P dilation and curettage Social History Social History Household Members: None Housing: Apartment Are you a primary long term care social worker to a significant other at home: No Do you presently have visiting nurse or other home services: No Patient Tobacco Use Status: Current everyday Tobacco user Tobacco use type: Cigarette Cigarettes Per Day: 10 Years Smoked: 46 Smoked in Last 30 Days: Yes e-Cigarette/Vaping Use: Currently Using Patient Interested in Nicotine Replacement: No Patient Given Instructions on How to Stop Smoking: Yes Date Education Initiated: 09/23/21 Second Hand Smoke Exposure: No Use of substances other than those prescribed or required for medical reasons: No Have you been hit, kicked, punched, or otherwise hurt by someone within the past year? If so, by whom?: No Do you feel safe in your current relationship?: Yes Is there a partner from a previous relationship who is making you feel unsafe now?: No Are you made to feel afraid or neglected: No Spiritual Healthcare Practices: none Mormon Healthcare Practices: none Cultural Healthcare Practices: none Are you DNR?: No Advance Directives: No Advance Directives Information Provided: Yes Advance Directives on File: No Do you have thoughts of harming others: None Do you have a plan to hurt others: No Plan Recently lost weight without trying: No How much weight loss: 2-13 pounds Eating poorly because of decreased appetite: No Nutrition screen score: 1 Nutrition Risks: No Nutritional Risk Patient : No : No Poor oral hygiene: No service: No Current occupational status: retired [employer] Allergies Allergy/AdvReac Type Severity Reaction Status Date / Time aspirin AdvReac Intermediate GI UPSET, Verified 09/23/21 06:14 upset stomach Active Medications: Current Medications Acetaminophen (Acetaminophen 325 Mg Tablet) 650 mg PO Q6H PRN PRN Reason: Pain, Mild (Pain Scale 1-3) Atorvastatin Calcium (Atorvastatin Calcium 20 Mg Tablet) 20 mg PO DAILY [facility] Hydroxyzine HCl (Hydroxyzine Hcl 50 Mg Tablet) 50 mg PO DAILY [facility] Sodium Chloride (Ns) 1,000 mls @ 80 mls/hr IVCONT .[id number] [facility] Last Admin: 09/23/21 14:28 Dose: 80 mls/hr Documented by: Metoprolol Succinate (Metoprolol Succinate Er 50 Mg Tab.Er.24h) 50 mg PO DAILY [facility]; Protocol Morphine Sulfate (Morphine Sulfate 2 Mg/Ml Cartridge) 2 mg IVPUSH Q4H PRN; Protocol PRN Reason: Pain, Severe (Pain Scale 7-10) Oxycodone HCl (Oxycodone Hcl Immed Release 5 Mg Tablet) 5 mg PO Q4H PRN PRN Reason: Pain, Moderate (Pain Scale 4-6 Sodium Chloride (0.9 % Sodium Chloride Flush 3 Ml Syringe) 3 ml IVFLUSH QSHIFT [facility] Last Admin: 09/23/21 15:46 Dose: Not Given Documented by: Vitamin D (Cholecalciferol (Vitamin D3) 25 Mcg Tablet) 50 mcg PO DAILY [facility] Home Medications Medication Instructions Recorded Confirmed Last Taken Type ibuprofen-diphenhydramine citrate 1 cap PO BEDTIME 10/05/20 09/18/21 Unknown History 200 mg-38 mg tablet (Advil PM) hydroxyzine HCl 50 mg tablet 50 mg PO DAILY tab 09/11/21 09/18/21 09/23/21 04:00 History clotrimazole-betamethasone 1 1 appl TOPICAL BID PRN 09/18/21 09/18/21 Unknown History %-0.05 % topical cream meclizine 25 mg tablet 25 mg PO DAILY PRN 09/18/21 09/18/21 Unknown History Physical Exam Vital Signs: Vital Signs: Last Vital Signs Temp 97.7 F 09/23/21 16:00 Pulse 67 09/23/21 16:00 Resp 13 09/23/21 16:00 BP 114/51 L 09/23/21 16:00 Pulse Ox 91 L 09/23/21 16:00 Body Mass Index 24.3 Results Labs CBC and Chem 7: 09/23/21 06:27 09/23/21 06:27 Labs: Laboratory Results - last 24 hr 09/23/21 09/23/21 09/23/21 06:15 06:27 06:27 MCV 98.6 H MCH 32.2 MCHC 32.6 RDW 12.6 Plt Count 198 MPV 10.5 Absolute Nucleated RBC 0.000 Nucleated RBC % (auto) 0.0 PT 11.0 INR 1.0 APTT 30.8 Anion Gap Estim Creat Clear Calc Estimated GFR Random Glucose Calcium COVID-19 ([facility]INEL) Negative COVID-19 Clin Com See Note 09/23/21 06:27 MCV MCH MCHC RDW Plt Count MPV Absolute Nucleated RBC Nucleated RBC % (auto) PT INR APTT Anion Gap 11 L Estim Creat Clear Calc 52.6 Estimated GFR > 60 Random Glucose 89 Calcium 9.4 COVID-19 ([facility]IN[facility]) COVID-19 Clin Com
[2021-09-23] MEDS: oxyCODONE HCl Immed Release 5 MG TABLET PO (19:28)
[2021-09-23] MEDS: diphenhydrAMINE HCL 25 MG TABLET PO (22:09)
[2021-09-24] VITALS (16 sets, daily range): BP systolic 91–130; BP diastolic 44–92; PULSE 56–82; RESP 11–18; TEMP 36.4–36.8; O2SAT 90–97
[2021-09-24] MEDS: diphenhydrAMINE HCL 25 MG TABLET PO (00:08)
[2021-09-24] MEDS: 0.9 % Sodium Chloride 1,000 ML 80 ML IVCONT (00:09)
[2021-09-24 05:52] LABS: MANUAL DIFF FLAG NO
[2021-09-24 06:06] LABS: Basophils Percent Auto 0.1 % (0-2); Hematocrit 32.7 % (37.0-47.0); Hemoglobin 10.6 g/dl (12.0-16.0); Imm Gran Abs Auto 0.09 X10*3/uL (0.00-0.03); Imm Gran Pct Auto 0.5 % (0.0-0.4); Lymphocytes Absolute Auto 1.7 X10*3/uL (1.2-4.9); Lymphocytes Percent Auto 10.3 % (20-40); Mean Corpuscular HGB Conc 32.4 g/dl (31.0-35.0); Mean Corpuscular Hemoglobin 31.5 pg (27.0-33.0); Mean Corpuscular Volume 97.3 fL (80.0-98.0); Monocytes Absolute Auto 1.2 X10*3/uL (0.1-1.2); Monocytes Percent Auto 7.1 % (2-11); Neutrophils Absolute Auto 13.4 x10*3/uL (2.0-8.3); Platelet Count 150 X10*3/uL (160-400); Red Blood Count 3.36 X10*6/uL (4.20-5.50); Red Cell Distribution Width 12.5 % (11.0-16.0); White Blood Count 16.4 X10*3/uL (4.8-10.8)
[2021-09-24 06:32] LABS: Anion Gap 8 (12-20); Blood Urea Nitrogen 12 mg/dL (9-16); Calcium 8.7 mg/dL (8.4-10.2); Carbon Dioxide 22 mmol/L (22-29); Chloride 113 mmol/L (96-108); Creatinine Clr Calc Pharmacy 57.6; Estimated Glomerular Filt Rate > 60; Glucose Random 175 mg/dL (60-115); Potassium 4.2 mmol/L (3.3-5.1); Sodium 139 mmol/L (135-145)
[2021-09-24] MEDS: Metoprolol Succinate ER 50 MG TAB.ER.24H PO (07:26)
[2021-09-24] MEDS: Atorvastatin Calcium 20 MG TABLET PO (07:26)
[2021-09-24] MEDS: hydrOXYzine HCL 50 MG TABLET PO (07:27)
[2021-09-24] MEDS: Cholecalciferol (Vitamin D3) 25 MCG TABLET 50 MCG PO (07:27)
[2021-09-24] MEDS: 0.9 % Sodium Chloride Flush 3 ML SYRINGE IVFLUSH (07:27)
--- NOTE | 2021-09-24 09:03 | HO.POSTANES ---
Post Anesthesia Evaluation Post Anesthesia Evaluation Vital Signs: Vital Signs Temp Pulse Resp BP Pulse Ox 09/24/21 08:00 98.2 F 70 17 111/92 H 93 09/24/21 07:26 70 118/90 H 09/24/21 07:00 68 12 110/76 96 09/24/21 06:00 97.7 F 60 16 108/73 94 09/24/21 05:00 67 15 95/67 96 09/24/21 04:00 97.7 F 69 17 102/67 93 09/24/21 03:00 60 17 91/68 95 09/24/21 02:00 65 12 109/61 97 09/24/21 01:00 97.5 F 56 11 L 103/72 95 09/24/21 00:00 56 11 L 107/64 97 09/23/21 23:00 98.1 F 65 8 L 94/69 95 09/23/21 22:00 68 14 120/72 95 Anesthesia: General Endotracheal-GETA Mental Status: Awake Pain Control: Satisfactory Nausea/Vomiting: None Hydration: Adequate Anesthesia-Related Issues: No Anes. Related Issues
--- NOTE | 2021-09-24 12:29 | MHC.CM.PN ---
Met with pt to discuss d/c planning needs: pt resides alone without services but has a significant other, Mike, who assists her with all transportation needs. Pt describes herself as independent with all ADL's and does not have adaptive equipment. D/C plan is for pt to return to home with outpt f/u - Mike to transport
--- NOTE | 2021-09-24 13:16 | HO.POSTANES ---
Post Anesthesia Evaluation Post Anesthesia Evaluation Vital Signs: Vital Signs Temp Pulse Resp BP Pulse Ox 09/24/21 12:00 98.2 F 67 14 105/44 L 91 L 09/24/21 11:00 63 14 100/45 L 93 09/24/21 10:00 72 15 109/45 L 90 L 09/24/21 09:06 92 09/24/21 09:00 82 12 101/78 92 09/24/21 08:00 98.2 F 70 17 111/92 H 93 09/24/21 07:26 70 118/90 H 09/24/21 07:00 68 12 110/76 96 09/24/21 06:00 97.7 F 60 16 108/73 94 09/24/21 05:00 67 15 95/67 96 09/24/21 04:00 97.7 F 69 17 102/67 93 09/24/21 03:00 60 17 91/68 95 09/24/21 02:00 65 12 109/61 97 Anesthesia: General Endotracheal-GETA Mental Status: Awake Pain Control: Satisfactory Nausea/Vomiting: None Hydration: Adequate Anesthesia-Related Issues: No Anes. Related Issues
--- NOTE | 2021-09-24 13:16 | PM.DS ---
DS: Providers Provider Date of Service: 09/24/21 Date of admission: 09/23/21 06:12 Primary care physician: Farzad Duron PA-C DS: Summary Hospital Course Hospital Course: Patient underwent elective right carotid endarterectomy. Postoperatively she did extremely well. She was observed in the ICU overnight. Postop day 1 BLADIMIR drain Crews and A-line were removed. She was tolerating a regular diet. She was subsequently discharged. Time Spent with Patient Time attestation: Total time spent providing and/or coordinating discharge services: Discharge coordination time: Greater than 30 minutes Quality: Stroke Does the patient have a stroke diagnosis?: No Physical Exam Vital Signs: Vital Signs: Last Vital Signs Temp 98.2 F 09/24/21 12:00 Pulse 67 09/24/21 12:00 Resp 14 09/24/21 12:00 BP 105/44 L 09/24/21 12:00 Pulse Ox 91 L 09/24/21 12:00 Body Mass Index 24.3 Const: General: cooperative, healthy appearing and no acute distress Orientation/consciousness: oriented to person, oriented to place and oriented to time HENMT: Head: Yes normal to inspection Neck: Carotids: no bruits Chest: Chest palpation & inspection: normal inspection of the chest Resp: Effort & Inspection: normal respiratory effort and able to speak in complete sentences Auscultation: clear to auscultation bilaterally Cardio: Rate: regular rate Heart sounds: S1 normal heart sound present and S2 normal heart sound present GI: Inspection: Yes normal to inspection Skin: General skin exam: no rashes or lesions noted Wounds: no wounds Neuro: General: oriented to person, oriented to place, oriented to time and CN's II-XI intact bilaterally Extrem: General: Yes normal to inspection, Yes full ROM and Yes no clubbing, cyanosis or edema Psych: Appearance: grossly normal and well kempt Speech and movement: Normal speech and movement present Affect: normal affect DS: Data Data Completed and Pending Pending studies at discharge: Pending at discharge 09/23/21 08:58 Surgical [PTH] Routine Labs on day of discharge: Laboratory Results - last 24 hr 09/24/21 09/24/21 05:30 05:30 WBC 16.4 H RBC 3.36 L D Hgb 10.6 L D Hct 32.7 L D MCV 97.3 MCH 31.5 MCHC 32.4 RDW 12.5 Plt Count 150 L MPV 11.0 Immature Gran % (Auto) 0.5 H Neut % (Auto) 82.0 H Lymph % (Auto) 10.3 L [place] % (Auto) 7.1 Eos % (Auto) 0.0 Baso % (Auto) 0.1 Lymph # (Auto) 1.7 [place] # (Auto) 1.2 Eos # (Auto) 0.0 Baso # (Auto) 0.0 Abs Immat Gran (auto) 0.09 H Absolute Neuts (auto) 13.4 H Absolute Nucleated RBC 0.000 Nucleated RBC % (auto) 0.0 Sodium 139 Potassium 4.2 Chloride 113 H Carbon Dioxide 22 Anion Gap 8 L BUN 12 Creatinine 0.74 Estim Creat Clear Calc 57.6 Estimated GFR > 60 Random Glucose 175 H Calcium 8.7 D Discharge Plan Discharge Patient Disposition: Home, Self-Care Discharge Diagnosis: Status post carotid endarterectomy Referrals: Farzad Duron PA-C [Primary Care Provider] - 1 Week Discharge Medications: New oxycodone-acetaminophen [Percocet] 5-325 mg tablet 1 tab PO Q8H PRN (Reason: pain) Qty: 10 RF: 0 Continued metoprolol succinate 50 mg tablet extended release 24 hr 50 mg PO DAILY Qty: 90 RF: 2 cholecalciferol (vitamin D3) 50 mcg (2,000 unit) capsule 50 mcg PO DAILY 90 Days Qty: 90 RF: 1 atorvastatin 20 mg tablet 20 mg PO DAILY 30 Days Qty: 30 RF: 3 meclizine 25 mg tablet 25 mg PO DAILY PRN (Reason: Vertigo) RF: 0 clotrimazole-betamethasone 1-0.05 % cream 1 appl topical BID PRN (Reason: Rash) RF: 0 Advil PM 200-38 mg tablet 1 cap PO BEDTIME RF: 0 hydroxyzine HCl 50 mg tablet 50 mg PO DAILY RF: 0 Discharge Orders: Discharge Order (Routine); Ordered 09/24/21 Ordered By: Kyler Enciso Diet: advance to usual diet Activity on Discharge: As tolerated Stand Alone Forms: Patient Portal Discharge page Care Plan Goals: Observed carotid disease Health Concerns: Status post carotid endarterectomy Plan of Treatment: Surveillance follow-up Assessment: Status post carotid endarterectomy
--- NOTE | 2021-09-24 13:28 | MHC.CM.PN ---
Pt to be discharged to home without services: friend Mike in room and will transport home. No services needed
--- NOTE | 2021-09-24 14:07 | MHC.STROKE ---
Patient refused smoking cessation options per nurse.
== END 2021-09-24 14:04 | disposition home or self-care (01) | DRG 30 ==
LOC: HO.SSSA 06:14 → HO.ICU 12:20
PROVIDERS: Nurse Practitioner; Admitting Provider Surgery Vascular Surgery; PCP Physician Assistant; Visit Provider Surgery Vascular Surgery
PROC: 03CH3ZZ Extirpation of Matter from Right Common Carotid Artery, Percutaneous Approach (ICD-10-PCS; CPT 35301; principal; 2021-09-23 07:30)
DX: I65.23 Occlusion and stenosis of bilateral carotid arteries (principal); E78.5 Hyperlipidemia, unspecified; I10 Essential (primary) hypertension; F17.210 Nicotine dependence, cigarettes, uncomplicated; Z20.822 Contact with and (suspected) exposure to COVID-19; Z71.6 Tobacco abuse counseling; Z79.1 Long term (current) use of non-steroidal anti-inflammatories (NSAID); Z79.899 Other long term (current) drug therapy
CPT/HCPCS: 36415; 80048; 85025; 85027; 85610; 85730; 86850; 86900; 86901; 87635; 88304; 88311; C1758; C1768; J0690; J1100; J1170; J2250; J2370; J2405; J3010; Q0163

== ENCOUNTER → 2021-10-08 10:43 | Outpatient (BNVA) | payer OTHER, SELFPAY | PROVIDERS: PCP Physician Assistant; Visit Provider Surgery Vascular Surgery ==

== ENCOUNTER 2021-11-19 08:36 | Outpatient (REF) | payer OTHER, SELFPAY ==
--- NOTE | ~2021-11-19 | MM_ITS ---
EXAMINATION: MM SCREENING DIGITAL BREAST TOMOSYNTHESIS, BILATERAL CLINICAL INFORMATION: Screening. Asymptomatic. Left lumpectomy for breast cancer, 2011. COMPARISON: Mammography: 09/25/2020, 02/02/2019, 01/25/2018 TECHNIQUE: Digital breast tomosynthesis is performed in both the craniocaudal and mediolateral oblique views along with computer-aided detection (CAD). Synthesized 2D images are generated from the tomosynthesis. FINDINGS: There are scattered areas of fibroglandular density (ACR BI-RADS breast composition Category b). Left breast status post therapy changes with reduced breast size and stable scarring. There are incidental coarse dystrophic calcifications in the scar. Scattered bilateral benign coarse round and rim calcifications are present. Neither breast shows interval mass or architectural abnormality or abnormal calcifications. No developing density. The axilla are unremarkable. No significant changes. MM/MM tomosynthesis screening BI IMPRESSION: No mammographic evidence of malignancy. ASSESSMENT: BI-RADS 2: Benign RECOMMENDATION: Routine annual mammography screening. This patient's information was entered into a reminder system with a target due date for their next mammogram.
== END 2021-11-19 08:37 | disposition home or self-care (01) ==
LOC: HO.MAMMO 08:36
PROVIDERS: Visit Provider Physician Assistant
DX: Z12.31 Encounter for screening mammogram for malignant neoplasm of breast (principal)
CPT/HCPCS: 77063; 77067

== ENCOUNTER 2022-01-07 09:45 | Outpatient (REF) | payer OTHER, SELFPAY ==
--- NOTE | ~2022-01-07 | US_ITS ---
EXAMINATION: US EXTRACRANIAL CAROTID DUPLEX, BILATERAL CLINICAL INFORMATION: Right CEA COMPARISON: Carotid ultrasound 06/20/2021 TECHNIQUE: Real-time ultrasound and Doppler techniques (integrating B-mode 2-D vascular images, Doppler spectral analysis and color-flow Doppler imaging) were utilized to interrogate the extracranial carotid arteries, the vertebral arteries and proximal subclavian arteries bilaterally. The degree of stenosis is determined by criteria similar to NASCET. FINDINGS: Right Side: 1. Right carotid endarterectomy with no significant recurrent plaque demonstrated. 2. The common carotid artery PSV proximally is 89 cm/s and distally 75 cm/s. 3. The proximal internal carotid artery velocities are 73 cm/s systolic and 17 cm/s diastolic. 4. The proximal external carotid artery PSV is 80 cm/s. 5. The vertebral artery shows antegrade flow. 6. The subclavian artery waveforms are normal. Left Side: 1. There is moderate atherosclerotic plaque seen in the bifurcation/proximal ICA region. 2. The common carotid artery PSV proximally is 93 cm/s and distally 60 cm/s. 3. The proximal internal carotid artery velocities are 261 cm/s systolic and 61 cm/s diastolic. 4. The proximal external carotid artery PSV is 617 cm/s. 5. The vertebral artery shows antegrade flow. 6. The subclavian artery waveforms are normal. US/US carotid duplex BI IMPRESSION: 1. RIGHT: Right carotid endarterectomy with no significant recurrent plaque demonstrated. Normal velocities. 2. LEFT: Moderate, hemodynamically significant stenosis of the proximal left internal carotid artery corresponding to a 50-79% stenosis by velocity criteria. 3. Right carotid endarterectomy since the previous exam. Left-sided internal carotid artery stenosis is similar to the previous exam.
== END 2022-01-07 09:46 | disposition home or self-care (01) ==
LOC: HO.US 09:45
PROVIDERS: PCP Physician Assistant; Visit Provider Surgery Vascular Surgery
DX: I65.23 Occlusion and stenosis of bilateral carotid arteries (principal)
CPT/HCPCS: 93880

== ENCOUNTER → 2022-01-14 09:30 | Outpatient (BNVA) | payer OTHER, SELFPAY | PROVIDERS: PCP Physician Assistant; Visit Provider Surgery Vascular Surgery ==

== ENCOUNTER 2022-01-30 10:48 | Outpatient (REF) | payer OTHER, SELFPAY ==
--- NOTE | ~2022-01-30 | MR_ITS ---
EXAMINATION: MR BRAIN WITHOUT AND WITH CONTRAST CLINICAL INFORMATION: Dizziness and sensorineural hearing loss. COMPARISON: Head CT from 06/12/2021.. TECHNIQUE: Multiplanar, multisequential imaging was obtained without and with intravenous contrast. Intravenous contrast: Gadavist 6 mL. FINDINGS: No diffusion abnormality is seen. There are [id number] small vessel ischemic changes in the cerebral white matter and brainstem with scattered small chronic lacunar infarcts in the gangliocapsular structures bilaterally. The ventricles are normal in size. No mass effect or midline shift is evident. No extra-axial fluid collections are noted. The cerebellum is normal. There is no abnormal parenchymal or leptomeningeal enhancement. The VII and VIII cranial nerve complexes are normal in course and caliber. No signal abnormality is visualized within the inner ear structures on the precontrast axial T1-weighted sequence. Fluid signal is preserved within the cochlea, semicircular canals, and vestibule on the high-resolution axial FIESTA sequence. No cerebellopontine angle lesion is noted. There is no abnormal labyrinthine or intracanalicular enhancement on postcontrast imaging. The craniovertebral junction, marrow signal, and midline structures are normal. The gradient refocused acquisition is normal. The visualized portions of the major intracranial flow voids at the level of the [place] of [place] are preserved. The dural venous sinus flow voids are maintained. The mastoid air cells and paranasal sinuses are well aerated. MR/MR head/brain wo/w con IMPRESSION: No retrocochlear pathology. 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 No acute process.
[2022-01-30 10:29] LABS: Blood Urea Nitrogen 11 mg/dL (9-16); Estimated Glomerular Filt Rate > 60
== END 2022-01-30 10:49 | disposition home or self-care (01) ==
LOC: HO.MRI 10:48
PROVIDERS: Visit Provider Otolaryngology
DX: H90.3 Sensorineural hearing loss, bilateral (principal); R42 Dizziness and giddiness
CPT/HCPCS: 36415; 70553; 82565; 84520; A9585

== ENCOUNTER 2022-06-13 13:09 | Outpatient (REF) | payer OTHER, SELFPAY ==
[2022-06-13 14:15] LABS: Hematocrit 41.1 % (37.0-47.0); Hemoglobin 13.6 g/dl (12.0-16.0); Mean Corpuscular HGB Conc 33.1 g/dl (31.0-35.0); Mean Corpuscular Hemoglobin 31.6 pg (27.0-33.0); Mean Corpuscular Volume 95.6 fL (80.0-98.0); Mean Platelet Volume 10.9 fL (9.4-12.3); Platelet Count 195 X10*3/uL (160-400); Red Cell Distribution Width 12.8 % (11.0-16.0)
[2022-06-13 14:19] LABS: Estimated Average Glucose 117 mg/dL; Hemoglobin A1c % 5.7 %
== END 2022-06-13 13:10 | disposition home or self-care (01) ==
LOC: HO.LAB 13:09
PROVIDERS: PCP Physician Assistant; Visit Provider Physician Assistant
DX: E78.2 Mixed hyperlipidemia (principal)
CPT/HCPCS: 36415; 83036; 85027

== ENCOUNTER 2022-06-14 06:59 | Outpatient (REF) | payer OTHER, SELFPAY ==
[2022-06-14 07:33] LABS: Alanine Aminotransferase 18 U/L (0-31); Alkaline Phosphatase 79 U/L (39-117); Anion Gap 13 (12-20); Aspartate Amino Transferase 21 U/L (5-31); Bilirubin Total 0.7 mg/dL (0.0-1.0); Blood Urea Nitrogen 14 mg/dL (9-16); Calcium 9.4 mg/dL (8.4-10.2); Carbon Dioxide 24 mmol/L (22-29); Chloride 108 mmol/L (96-108); Cholesterol 151 mg/dL; Estimated Glomerular Filt Rate > 60; Glucose Fasting 99 mg/dL (60-99); HDL Cholesterol 39 mg/dL; LDL Cholesterol Calculated 82 mg/dl; Potassium 4.4 mmol/L (3.3-5.1); Sodium 141 mmol/L (135-145); Total Protein 7.2 g/dL (6.5-8.0); Triglycerides 150 mg/dL
[2022-06-14 08:01] LABS: TSH reflex Free T4 1.63 uIU/mL (0.32-4.0)
== END 2022-06-14 07:00 | disposition home or self-care (01) ==
LOC: HO.LAB 06:59
PROVIDERS: PCP Physician Assistant; Visit Provider Physician Assistant
DX: E78.2 Mixed hyperlipidemia (principal)
CPT/HCPCS: 36415; 80053; 80061; 84443

== ENCOUNTER 2022-08-05 12:58 | Outpatient (REF) | payer OTHER, SELFPAY ==
--- NOTE | ~2022-08-05 | US_ITS ---
EXAMINATION: US EXTRACRANIAL CAROTID DUPLEX, BILATERAL CLINICAL INFORMATION: Carotid stenosis status post right endarterectomy in 2021 COMPARISON: Carotid duplex on 01/07/2022 TECHNIQUE: Real-time ultrasound and Doppler techniques (integrating B-mode 2-D vascular images, Doppler spectral analysis and color-flow Doppler imaging) were utilized to interrogate the extracranial carotid arteries, the vertebral arteries and proximal subclavian arteries bilaterally. The degree of stenosis is determined by criteria similar to NASCET. FINDINGS: Right Side: 1. There is no significant atherosclerotic plaque seen in the bifurcation/proximal ICA region. 2. The common carotid artery PSV proximally is 116 cm/s and distally 101 cm/s. 3. The proximal internal carotid artery velocities are 104 cm/s systolic and 20 cm/s diastolic. 4. The proximal external carotid artery PSV is 116 cm/s. 5. The vertebral artery shows antegrade flow. 6. The subclavian artery waveforms are normal. Left Side: 1. There is heterogeneous atherosclerotic plaque seen in the bifurcation/proximal ICA region. 2. The common carotid artery PSV proximally is 106 cm/s and distally 75 cm/s. 3. The proximal internal carotid artery velocities are 172 cm/s systolic and 26 cm/s diastolic. 4. The proximal external carotid artery PSV is 288 cm/s. 5. The vertebral artery shows antegrade flow. 6. The subclavian artery waveforms are normal. US/US carotid duplex BI IMPRESSION: 1. RIGHT: Normal right internal carotid artery without atherosclerotic plaque or hemodynamically significant stenosis. 2. LEFT: Moderate, hemodynamically significant stenosis of the proximal left internal carotid artery corresponding to a 50-79% stenosis by velocity criteria. 3. There is no change in the category severity of disease when compared to the previous study dated 01/07/2022.
== END 2022-08-05 12:59 | disposition home or self-care (01) ==
LOC: HO.US 12:58
PROVIDERS: Visit Provider Surgery Vascular Surgery
DX: I65.23 Occlusion and stenosis of bilateral carotid arteries (principal)
CPT/HCPCS: 93880

== ENCOUNTER 2022-11-27 07:38 | Outpatient (REF) | payer OTHER, SELFPAY ==
--- NOTE | ~2022-11-27 | MM_ITS ---
EXAMINATION: MM SCREENING DIGITAL BREAST TOMOSYNTHESIS, BILATERAL CLINICAL INFORMATION: Screening. Asymptomatic. Status post left breast lumpectomy. COMPARISON: Mammography: November 19, 2021 and studies dating back to October 10, 2015 TECHNIQUE: Digital breast tomosynthesis is performed in both the craniocaudal and mediolateral oblique views along with computer-aided detection (CAD). Synthesized 2D images are generated from the tomosynthesis. Exaggerated left craniocaudal view also performed. FINDINGS: There are scattered areas of fibroglandular density (ACR BI-RADS breast composition Category b). There are no new significant masses, abnormal calcifications, or other abnormalities. Architecture distortion from postsurgical change upper outer aspect of the left breast again seen. MM/MM tomosynthesis screening BI IMPRESSION: No significant changes from prior exam. ASSESSMENT: BI-RADS 2: Benign RECOMMENDATION: Routine annual mammography screening. This patient's information was entered into a reminder system with a target due date for their next mammogram.
== END 2022-11-27 07:39 | disposition home or self-care (01) ==
LOC: HO.MAMMO 07:38
PROVIDERS: PCP Physician Assistant; Visit Provider Physician Assistant
DX: Z12.31 Encounter for screening mammogram for malignant neoplasm of breast (principal)
CPT/HCPCS: 77063; 77067

== ENCOUNTER 2022-12-12 15:01 | Outpatient (REF) | payer OTHER, SELFPAY ==
--- NOTE | ~2022-12-12 | CT_ITS ---
EXAMINATION: CT CHEST SCREENING CLINICAL INFORMATION: Current smoker with 59 pack year history. COMPARISON: None. TECHNIQUE: Multidetector volumetric CT imaging of the chest is performed without contrast using low dose technique. Additional 2D coronal and sagittal reformatted images and axial 3D maximum intensity projection (MIP) images are generated on the CT workstation. This CT examination was performed using dose optimization techniques as appropriate, variously including the following: *Automated exposure control *Adjustment of mA and/or kV according to patient size (this includes techniques or standardized protocols for targeted exams where dose is matched to indication/reason for exam; i.e. extremities or head) *Use of iterative reconstruction technique DLP: 39 mGy-cm FINDINGS: LUNGS: Central airways are patent. No significant bronchial wall thickening. No bronchiectasis. Moderate changes of centrilobular emphysema present. Linear scarring present in both lower lobes. Multiple sub-4 mm densities are present bilaterally. No confluent airspace disease. There is bilateral apical pleural-parenchymal thickening. A few calcified granulomas are present. There is a 5 mm noncalcified nodule seen within the left lower lobe on image [address] series #5. There is a 6 mm noncalcified density seen within the left upper lobe on image 159 of 491. There is a 5 mm noncalcified density seen within the left upper lobe adjacent to the major fissure on image [address] series #5. There is a 4 mm noncalcified density seen within the left upper lobe on image 148 of 491. This is in a region with the appearance of tree-in-bud configuration. MEDIASTINUM: Heart normal size. No pericardial effusion. Coronary artery calcification is present. No thoracic aortic aneurysm. There is ostial calcified plaque seen involving the arch vessels and carotid arteries. Visualized thyroid gland appears unremarkable. No mediastinal or hilar lymphadenopathy. CORONARY ARTERY CALCIFICATION: Present PLEURA: There is no pleural effusion. No pleural mass or thickening. AXILLA: No lymphadenopathy. UPPER ABDOMEN: Status post cholecystectomy. Prominent calcified plaque ostium of the renal arteries. OSSEOUS STRUCTURES: No suspicious destructive bony lesions identified. Mild scoliosis thoracic spine convex right. CT/CT lung screening IMPRESSION: 1. Centrilobular emphysema. 2. Old granulomatous disease. 3. Noncalcified densities measuring up to 6 mm in diameter. ASSESSMENT: Lung-RADS category 2: Benign RECOMMENDATION: Routine annual low-dose CT screening in 12 months.
== END 2022-12-12 15:02 | disposition home or self-care (01) ==
LOC: HO.CT 15:01
PROVIDERS: PCP Physician Assistant; Visit Provider Physician Assistant Medical
DX: Z12.2 Encounter for screening for malignant neoplasm of respiratory organs (principal); F17.210 Nicotine dependence, cigarettes, uncomplicated
CPT/HCPCS: 71271; G0296

== ENCOUNTER 2023-06-12 07:10 | Outpatient (REF) | payer OTHER, SELFPAY ==
--- NOTE | ~2023-06-12 | CT_ITS ---
EXAMINATION: CT CHEST SCREENING CLINICAL INFORMATION: Smoker. COMPARISON: CT lung screening 12/12/2022. TECHNIQUE: Multidetector volumetric CT imaging of the chest is performed without contrast using low dose technique. Additional 2D coronal and sagittal reformatted images and axial 3D maximum intensity projection (MIP) images are generated on the CT workstation. This CT examination was performed using dose optimization techniques as appropriate, variously including the following: *Automated exposure control *Adjustment of mA and/or kV according to patient size (this includes techniques or standardized protocols for targeted exams where dose is matched to indication/reason for exam; i.e. extremities or head) *Use of iterative reconstruction technique DLP: 41 mGy-cm. FINDINGS: LUNGS: The lungs are expanded with bibasilar plate-like atelectasis. No acute pneumonic consolidation seen. Left upper lobe 6 mm nodule, axial image 159/491, and 5 mm nodule seen in left lower lobe previously on image 314/491 are not visualized. There is a 5 mm nodule left upper lobe, axial image 147/6, stable. 4 mm nodule left upper lobe adjacent to major fissure on axial image 151/6 is stable. There are no new nodules visualized. MEDIASTINUM: The thyroid lobes are symmetric and normal. The central trachea and bronchi are widely patent. Heart size and the great vessels are normal caliber. No pericardial effusion seen. No abnormal size mediastinal or hilar lymph nodes seen. CORONARY ARTERY CALCIFICATION: There is mild coronary artery calcifications present. PLEURA: There is no pleural effusion. No pleural mass or thickening. AXILLA: No lymphadenopathy. UPPER ABDOMEN: Visualized liver, spleen, pancreas and adrenal glands are unremarkable. The gallbladder has been surgically removed. OSSEOUS STRUCTURES: Unremarkable. CT/CT lung screen follow up IMPRESSION: The 6 mm nodule seen in the left upper lobe on the previous study is not seen at this time. The 5 mm nodule seen in the left lower lobe on the previous study is not visualized at this time. Smaller 4 mm nodules in the left upper lobe are stable. There are no new nodules seen. ASSESSMENT: Lung-RADS category 1: Negative RECOMMENDATION: Low-dose annual CT chest.
== END 2023-06-12 07:11 | disposition home or self-care (01) ==
LOC: HO.CT 07:10
PROVIDERS: PCP Physician Assistant; Visit Provider Physician Assistant Medical
DX: Z12.2 Encounter for screening for malignant neoplasm of respiratory organs (principal); F17.210 Nicotine dependence, cigarettes, uncomplicated; R91.1 Solitary pulmonary nodule
CPT/HCPCS: 71250

== ENCOUNTER 2023-07-21 09:26 | Outpatient (AMB) | payer OTHER, SELFPAY ==
--- NOTE | 2023-07-21 09:38 | A.OFFPC_ITS ---
Vital Signs 07/21/23 09:45 Height 5 ft 4 in Weight 4 oz BMI 0.0 BP 112/68 Blood Pressure Location Lt brachial Position Sitting Pulse 67 Pulse Source Pulse Oximeter Pulse Oximetry (%) 91 L Oxygen Delivery Method Room Air Intake Visit Reasons: physical Intake Note: Patient is here today for a physical. Mainframe Developer Required: No Wholesale Representative: Not Required per policy Accompanied by: Self / Same As Patient Allergies aspirin Adverse Reaction (Intermediate, Verified 07/21/23 09:59) GI UPSET, upset stomach Medication List - Last Reconciled 07/21/23 by Farzad Duron PA-C atorvastatin 20 mg PO DAILY cholecalciferol (vitamin D3) 50 mcg PO DAILY 90 days clotrimazole-betamethasone 1-0.05 % 1 appl topical BID PRN hydroxyzine HCl 50 mg PO DAILY PRN ibuprofen-diphenhydramine cit 200-38 mg (Advil PM) 1 cap PO BEDTIME metoprolol succinate ER 50 mg PO DAILY Tobacco use date assessed: 07/21/23 Fall risk assessment: No Falls in past year Last assessed Fall Risk: 07/21/23 Dental Screening Dental Screen Date: 07/21/23 Did you have a dental visit in the last 12 months?: No Did you have a dental problem in the last 6 months where you did not have access to dental care?: No Was dental information given to patient?: No (dentures) HPI physical HPI Details Patient is a 72-year-old female here today?for a an annual physical.? Patient has a past medical history significant for depression, osteopenia vitamin-D deficiency, essential hypertension, carotid stenosis status post endarterectomy,? smoker. Carotid stenosis : status post endarterectomy with Dr. Enciso? and doing very well. She has done well postoperatively.? She is now under surveillance with carotid ultrasounds every year. ?She does report as of recently noting floaters in her vision that only last a few seconds. She denies any dizziness, presyncopal episodes or headaches. ? . ? HTN: doesn't regularly check her BP .? Denies having any chest discomfort, shortness of breath or dizziness.? Today in office acceptable. ? . ? .. ?? ? Tobacco dependency: Patient does continue to smoke and knows she needs to quit, she has been working on weaning slowly.? She reports smoking over the last 45 years. now smoking 7 cigs per day since having her carotid endarterectomy. Unfortunately she does report some shortness of breath on minimal exertion over the last few months. Likely developing worsening COPD. Not interested in doing PFT testing though is interested in trying an inhaler to help her with her pulmonary symptoms. Colon cancer screening: Done in 2013 normal repeat 10 years Mammogram: Mammogram done November 2022 BI-RADS 2 Vaccines: Up-to-date with COVID vaccine common tetanus vaccine, need PCV-20 PFSH Medical History (Updated 07/23/23 @ 08:43 by Farzad Duron PA-C) Bilateral carotid artery stenosis Nicotine dependence, cigarettes, uncomplicated History of left breast cancer (~2011) Tremor of left hand Supraventricular tachycardia Subclavian arterial stenosis BPPV (benign paroxysmal positional vertigo) Osteopenia (~2012) Hypertension Surgical History History of tonsillectomy History of colonoscopy (~2013) History of left breast biopsy (~2011) History of dilation and curettage (~2015) History of cataract surgery (~2019) History of laparoscopic cholecystectomy (~2006) History of carotid endarterectomy (~2020) Family History Father Medical history unknown Mother Medical history unknown Brother Throat cancer Brother Myocardial infarction H/O ETOH abuse Daughter Bone cancer Mental health disorder Substance use disorder Social History Household Members: None Housing: Apartment Are you a primary manager care to a significant other at home: No Do you presently have visiting nurse or other home services: No Alcohol intake: never Patient Tobacco Use Status: Current everyday Tobacco user Tobacco use type: Cigarette Cigarette Packs Per Day: 0.5 Cigarettes Per Day: 10 Years Smoked: (onset 14 for 57 years at 1/2-3/4ppd, 35pyh) e-Cigarette/Vaping Use: Never Used Second Hand Smoke Exposure: Yes service: No Current occupational status: retired Cognitive needs: No Hearing needs: No Vision needs: Yes (reading glasses) Questionnaire PHQ-9 Over the last 2 weeks, how often have you been bothered by any of the following problems? 1. Little interest or pleasure in doing things: nearly every day 2. Feeling down, depressed, or hopeless: several days 3. Trouble falling or staying asleep, or sleeping too much: nearly every day 4. Feeling tired or having little energy: several days 5. Poor appetite or overeating: not at all 6. Feeling bad about yourself - or that you are a failure or have let yourself or your family down: several days 7. Trouble concentrating on things, such as reading the newspaper or watching television: not at all 8. Moving or speaking so slowly that other people could have noticed. Or the opposite - being so fidgety or restless that you have been moving around a lot more than usual: several days 9. Thoughts that you would be better off or of hurting yourself in some way: not at all Total score: 10 Depression Screening Interpretation: Positive 46123 - PHQ-9 Billing: Yes Source: Developed by Drs. Nabeel Markham, Jeanine Nettles, Raffi Daigle and colleagues, with an educational jodi from [employer]. Thrive Questionnaire Date Thrive assessed: 07/21/23 I am a: Patient What is your living situation today?: I have a steady place to live Within the past 12 months, did the food you bought not last and you didn't have the money to get more?: Never true Within the past 12 months, did you worry whether your food would run out before you got money to buy more?: Never true Do you have trouble paying for medicines?: No Do you have trouble getting transportation to medical appointments?: No Do you have trouble paying your heating and electricity bill?: No Do you have trouble taking care of your child, family member or friend?: No Do you have trouble with day-to-day activities such as bathing, preparing meals, shopping, managing finances, etc.?: No Are you currently unemployed and looking for a job?: No Are you interested in more education?: No Currently or been in a relationship where the following occur: no concerns reported AUDIT C Alcohol Use Questionnaire (AUDIT-C) 1. How often do you have a drink containing alcohol?: Never Total Score: 0 WHIT-7 AMB Questionnaire WHIT-7 Date WHIT - 7 assessed: 07/21/23 Feeling nervous, anxious, or on edge: 3 = Nearly every day Not being able to stop or control worryin = Nearly every day Worrying too much about different things: 3 = Nearly every day Trouble relaxin = Several days Being so restless that it is hard to sit still: 1 = Several days Becoming easily annoyed or irritable: 3 = Nearly every day Feeling afraid as if something awful might happen: 3 = Nearly every day Total WHIT-7 score (0-4 normal; 5-9 mild; 10-14 moderate; 15-21 severe): 17 Source: Developed by Drs. Nabeel Markham, Jeanine Nettles, Raffi Daigle and colleagues, with an educational jodi from [employer]. WHIT-7 Assessment Billing WHIT-7 Assessment Tool: WHIT-7 Assessment 45698 Review of Systems Const Denies body aches, Denies chills, Denies excessive sweating, Denies fatigue, Denies fever(s) and Denies headache(s) Eyes Denies blurry vision ENT Denies dysphagia, Denies vertigo, Denies dizziness, Denies headache(s), Denies hearing loss and Denies tinnitus Card Denies chest pain, Denies chest pain with activity, Denies syncope, Denies irregular heart rhythm and Denies dyspnea Resp Denies chest congestion, Denies cough, Denies hemoptysis, Denies dyspnea and Denies wheezing GI Denies abdominal pain, Denies melena, Denies hematochezia, Denies coffee ground emesis, Denies dysphagia, Denies diarrhea, Denies nausea and Denies vomiting Denies urinary frequency, Denies dysuria, Denies urinary hesitancy and Denies urinary urgency Musc Denies arthralgias, Denies limited range of motion, Denies muscle cramps and Denies muscle weakness Skin/Breast Denies rash and Denies skin ulcer Neuro Denies Abnormal speech present, Denies confusion, Denies vertigo, Denies dizziness, Denies syncope, Denies headache(s), Denies memory loss and Denies seizure-like activity Psych Denies anxiety, Denies confusion, Denies depression, Denies memory loss, Denies panic attacks and Denies paranoia Endo Denies excessive sweating, Denies fatigue, Denies flushing, Denies polydipsia and Denies polyuria Aller/Immun Denies wheezing Physical exam (Primary Care) Vital Signs: Last Vital Signs Pulse 67 07/21/23 09:45 BP 112/68 07/21/23 09:45 Pulse Ox 91 L 07/21/23 09:45 Oxygen Delivery Method Room Air 07/21/23 09:45 BMI result Body Mass Index 0.0 Tobacco/Smoking Status: Tobacco use Status Tobacco use date assessed 07/21/23 07/21/23 09:53 Patient Tobacco Use Status Current everyday Tobacco 07/21/23 09:38 Tobacco use type Cigarette 07/21/23 09:38 e-Cigarette/Vaping Use Never Used 07/21/23 09:53 PHQ-9: PHQ-9 Score PHQ-9: Total score 10 07/21/23 09:59 Depression Screening Interpretation: Positive Thrive Assessment: Date of Thrive Assessment Date Thrive assessed 07/21/23 07/21/23 09:53 Currently or been in a relationship where the following occur: no concerns reported Const General: cooperative, comfortable, no acute distress, alert and awake; No confusion Orientation/consciousness: oriented to person, oriented to place, patient oriented x3 and No confusion HENMT Head: Yes normocephalic Ears: external ears normal and TM's normal bilaterally Face and sinus: No sinus tenderness Mouth: Normal oral and palatal mucosa present and tongue normal Teeth and gingiva: dentition normal and gingiva normal Throat: Yes posterior oropharynx normal, Yes tonsils normal and Yes uvula midline Eyes Conjunctivae: conjunctivae normal Sclerae: sclerae normal Pupils: Equal, round and reactive pupils present EOM: EOMs intact bilaterally Direct Ophthalmoscopy: No no photophobia Neck Neck: Yes no lymphadenopathy, No tender and Yes no JVD Thyroid: Thyroid normal Carotids: no bruits Chest Chest palpation & inspection: no tenderness Resp Effort & Inspection: normal respiratory effort, no audible wheezes, not labored and no stridor Auscultation: no crackles, no rales, no rhonchi and no wheezes Cardio Jugular venous distension: no JVD Rate: regular rate, not bradycardic and not tachycardic Rhythm: regular rhythm Bruits: no carotid bruits Peripheral pulses: Peripheral pulses 2+ throughout GI Inspection: Yes normal to inspection, No abdominal wall ecchymosis and No visible herniation Palpation (GI): Soft to palpation, nontender, no guarding, not rigid and No hepatosplenomegaly present Auscultation: normoactive bowel sounds General: Yes no CVA tenderness Back/Spine/Pelvis Back: no CVA tenderness and No back tenderness Cervical Spine: cervical ROM normal Thoracic/Lumbar Spine: thoracic and lumbar spine normal to inspection, straight leg raise negative bilaterally, No thoraco-lumbar ROM limited and No lumbar spinal tenderness Skin Lesions: no lesions Rashes: no rashes Wounds: no wounds Neuro General: oriented to person, oriented to place, patient oriented x3, CN's II-XI intact bilaterally and No confusion Cranial nerves: Yes Equal, round and reactive pupils present and Yes Normal accommodation reflex present Cognition (Neuro): normal cognition Speech: No Abnormal speech present Gait exam (Neuro): Normal gait present Motor exam (neuro): 5/5 motor strength present throughout Extrem Right upper extremity: full ROM; no cyanosis Left upper extremity: full ROM; no cyanosis Right lower extremity: no edema Left lower extremity: no edema Psych Appearance: grossly normal Mental Status: mental status grossly normal Affect: normal affect Attitude: cooperative Thought process: Normal thought process present Assessment and Plan Assessment & Plan (1) Annual physical exam: Code(s): Z00.00 - Encounter for general adult medical examination without abnormal findings (2) Hypertension: Code(s): I10 - Essential (primary) hypertension Qualifiers: Hypertension type: essential hypertension Qualified Code(s): I10 - Essential (primary) hypertension Plan: Patient's blood pressure acceptable today in office. Will continue her current dose of antihypertensive medication with goal blood pressure remain below 140/90 (3) HLD (hyperlipidemia): Code(s): E78.5 - Hyperlipidemia, unspecified Qualifiers: Hyperlipidemia type: mixed hyperlipidemia Qualified Code(s): E78.2 - Mixed hyperlipidemia Plan: Patient continues on statin therapy without side effect. Most recent lipid panel showing appropriate total cholesterol and LDL. Goal LDL is to remain below 100 (4) Nicotine dependence, cigarettes, uncomplicated: Comment: (current smoker, onset 14yo, 1/2-34ppd x 58yrs, 35pyh, +fam hx lung ca) Code(s): F17.210 - Nicotine dependence, cigarettes, uncomplicated Plan: Patient does understand she needs to quit smoking. Does smoke half pack cigarettes per day. Is part of the lung cancer screening program in does have nodules that are stable. Unfortunately seems to be developing signs and symptoms of COPD thus will start maintenance inhaler. 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 Most recent mammogram BI-RADS 2. (6) COPD (chronic obstructive pulmonary disease): Code(s): J44.9 - Chronic obstructive pulmonary disease, unspecified Qualifiers: COPD type: chronic bronchitis Chronic bronchitis type: simple Qualified Code(s): J41.0 - Simple chronic bronchitis Plan: Patient reporting some shortness of breath on minimal exertion as of lately. Will supply patient with maintenance inhaler and albuterol inhaler for her shortness of breath. Advised on PFT testing the patient like to hold off on this for now. Again advised on smoking cessation. (7) MDD (major depressive disorder), recurrent episode, moderate: Code(s): F33.1 - Major depressive disorder, recurrent, moderate Plan: Patient's PHQ-9 score positive for major depressive disorder, again does not want to start any mental health medications or speak with a mental therapist at this time. (8) WHIT (generalized anxiety disorder): Code(s): F41.1 - Generalized anxiety disorder Plan: Patient's WHIT-7 score positive for moderate anxiety which has been existing condition for her. She is not interested in starting mental health medication or speak with mental health therapist at this time. (9) Bilateral carotid artery stenosis: Comment: (s/p right carotid endarterectomy 09/2021) Code(s): I65.23 - Occlusion and stenosis of bilateral carotid arteries Plan: Patient is followed by vascular surgeon. She is status post endarterectomy in 2020. Unfortunately has she has started to have symptoms of seeing floaters that last a few seconds at a time. Does not report any dizziness or syncopal episodes. Orders: Orders Microalbumin, Random (w Creat) 07/21/23 I10 - Essential (primary) hypertension Comprehensive [place]. Panel Fast 07/21/23 I10 - Essential (primary) hypertension Complete Blood Count no Diff 07/21/23 I10 - Essential (primary) hypertension Lipid Panel 07/21/23 E78.2 - Mixed hyperlipidemia Medications: New budesonide-formoterol 80-4.5 mcg/actuation (Symbicort) 1 inh inhalation BID 30 days 10.2 grams 2RF J41.0 - Simple chronic bronchitis albuterol sulfate 90 mcg/actuation 1 inh inhalation QID 30 days PRN 8.5 grams 0RF shortness of breath or wheezing J41.0 - Simple chronic bronchitis Changed From clotrimazole-betamethasone 1-0.05 % 1 appl topical BID PRN Rash To clotrimazole-betamethasone 1-0.05 % 1 appl topical BID 30 days PRN 45 grams 1RF Rash Coding Level of Care Code Est Pt Prev Care >65y(72835) Diagnoses Annual physical exam Z00.00 Essential hypertension I10 Hypertension type: essential hypertension Mixed hyperlipidemia E78.2 Hyperlipidemia type: mixed hyperlipidemia Nicotine dependence, cigarettes, uncomplicated F17.210 History of left breast cancer Z85.3 Simple chronic bronchitis J41.0 COPD type: chronic bronchitis Chronic bronchitis type: simple MDD (major depressive disorder), recurrent episode, moderate F33.1 WHIT (generalized anxiety disorder) F41.1 Bilateral carotid artery stenosis I65.23 Additional Codes WHIT-7 Assessment Billing - WHIT-7 Assessment Tool: WHIT-7 Assessment 85883 ([id number])
[2023-07-21 09:45] VITALS: BP 112/68; PULSE 67; O2SAT 91
== END 2023-07-21 10:22 | disposition home or self-care (01) ==
PROVIDERS: PCP Physician Assistant; Visit Provider Physician Assistant
DX: Z00.00 Encounter for general adult medical examination without abnormal findings (principal); F17.210 Nicotine dependence, cigarettes, uncomplicated; Z85.3 Personal history of malignant neoplasm of breast; I10 Essential (primary) hypertension; F33.1 Major depressive disorder, recurrent, moderate; J41.0 Simple chronic bronchitis; E78.2 Mixed hyperlipidemia; F41.1 Generalized anxiety disorder; I65.23 Occlusion and stenosis of bilateral carotid arteries
CPT/HCPCS: 99397

== ENCOUNTER 2023-08-19 09:46 | Outpatient (REF) | payer OTHER, SELFPAY ==
--- NOTE | ~2023-08-19 | US_ITS ---
EXAMINATION: US EXTRACRANIAL CAROTID DUPLEX, BILATERAL CLINICAL INFORMATION: Stenosis of the bilateral carotid arteries COMPARISON: Carotid duplex on 08/05/2022 TECHNIQUE: Real-time ultrasound and Doppler techniques (integrating B-mode 2-D vascular images, Doppler spectral analysis and color-flow Doppler imaging) were utilized to interrogate the extracranial carotid arteries, the vertebral arteries and proximal subclavian arteries bilaterally. The degree of stenosis is determined by criteria similar to NASCET. FINDINGS: Right Side: 1. There is mild atherosclerotic plaque seen in the bifurcation/proximal ICA region. 2. The common carotid artery PSV proximally is 89 cm/s and distally 94 cm/s. 3. The proximal internal carotid artery velocities are 77 cm/s systolic and 16 cm/s diastolic. 4. The proximal external carotid artery PSV is 111 cm/s. 5. The vertebral artery shows antegrade flow. 6. The subclavian artery waveforms are normal. Left Side: 1. There is moderate atherosclerotic plaque seen in the bifurcation/proximal ICA region. 2. The common carotid artery PSV proximally is 64 cm/s and distally 48 cm/s. 3. The proximal internal carotid artery velocities are 307 cm/s systolic and 73 cm/s diastolic. 4. The proximal external carotid artery PSV is 223 cm/s. 5. The vertebral artery shows antegrade flow. 6. The subclavian artery waveforms are normal. US/US carotid duplex BI IMPRESSION: 1. RIGHT: Minimal, non-hemodynamically significant stenosis of the proximal right internal carotid artery corresponding to a 0-49% stenosis by velocity criteria. 2. LEFT: Moderate, hemodynamically significant stenosis of the proximal left internal carotid artery corresponding to a 50-79% stenosis by velocity criteria. 3. Elevated velocities in the left external carotid artery suggesting stenosis. 4. There is no change in the category severity of disease when compared to the previous study dated 08/05/2022.
== END 2023-08-19 09:47 | disposition home or self-care (01) ==
LOC: HO.US 09:46
PROVIDERS: PCP Physician Assistant; Visit Provider Surgery Vascular Surgery
DX: I65.23 Occlusion and stenosis of bilateral carotid arteries (principal)
CPT/HCPCS: 93880

== ENCOUNTER 2023-09-15 08:46 | Outpatient (AMB) | payer OTHER, SELFPAY ==
--- NOTE | 2023-09-15 08:49 | MHC.OFFVIS ---
Intake Intake Visit Reasons: fu arterial us Intake Note: Pt here for FU arterial US on 08/19/23 Pt states there Allergies aspirin Adverse Reaction (Intermediate, Verified 09/15/23 08:50) GI UPSET, upset stomach HPI fu arterial us HPI Details Very pleasant 72-year-old female presents for routine follow-up regarding her carotids. She has undergone right carotid endarterectomy in September of 2021. She has had no significant interval issues. She reports she is doing fairly well in is asymptomatic in terms of her carotids. Of note she does continue to smoke 8-10 cigarettes daily. Now for routine surveillance follow-up. [facility] Medical History (Updated 09/18/23 @ 11:14 by Kyler Enciso MD) Bilateral carotid artery stenosis Nicotine dependence, cigarettes, uncomplicated History of left breast cancer (~2011) Tremor of left hand Supraventricular tachycardia Subclavian arterial stenosis BPPV (benign paroxysmal positional vertigo) Osteopenia (~2012) Hypertension Surgical History History of tonsillectomy History of colonoscopy (~2013) History of left breast biopsy (~2011) History of dilation and curettage (~2015) History of cataract surgery (~2019) History of laparoscopic cholecystectomy (~2006) History of carotid endarterectomy (~2020) Family History Father Medical history unknown Mother Medical history unknown Brother Throat cancer Brother Myocardial infarction H/O ETOH abuse Daughter Bone cancer Mental health disorder Substance use disorder Social History Household Members: None Housing: Apartment Are you a primary career counselor to a significant other at home: No Do you presently have visiting nurse or other home services: No Alcohol intake: never Patient Tobacco Use Status: Current everyday Tobacco user Tobacco use type: Cigarette Cigarette Packs Per Day: 0.5 Cigarettes Per Day: 10 Years Smoked: (onset 14 for 57 years at 1/2-3/4ppd, 35pyh) e-Cigarette/Vaping Use: Never Used Second Hand Smoke Exposure: Yes service: No Current occupational status: retired Cognitive needs: No Hearing needs: No Vision needs: Yes (reading glasses) Review of Systems Const All systems reviewed & are unremarkable except as noted in HPI and below Reports no additional complaints ENT Reports Normal hearing present Card Denies chest pain, Denies chest pain at rest, Denies chest pain with activity and Denies pedal edema Resp Denies cough GI Denies abdominal pain Musc Denies abnormal gait, Denies muscle cramps and Denies radiating pain into limb Skin/Breast Denies skin ulcer and Denies wounds Neuro Reports Normal hearing present and Denies abnormal gait Psych Reports no additional complaints Physical Exam Const General: cooperative, healthy appearing and comfortable Orientation/consciousness: oriented to person, oriented to place and oriented to time HEENT Head: Yes normal to inspection Neck Neck: Yes normal visual inspection Carotids: no bruits Chest Chest palpation & inspection: normal inspection of the chest Resp Effort & Inspection: normal respiratory effort and able to speak in complete sentences Auscultation: clear to auscultation bilaterally, no crackles, no rales, no rhonchi and no wheezes Cardio Rate: regular rate Rhythm: regular rhythm Heart sounds: S1 normal heart sound present and S2 normal heart sound present Bruits: no carotid bruits Peripheral pulses: Peripheral pulses 2+ throughout GI Inspection: Yes normal to inspection Skin Wounds: no wounds Hair: normal Neuro General: oriented to person, oriented to place and oriented to time Cranial nerves: Yes CN's II-XII intact bilaterally and Yes Normal hearing present Cognition (Neuro): normal cognition Motor exam (neuro): 5/5 motor strength present throughout Extrem Other: venous exam: No significant superficial varicosities or spider telangiectasias, minimal edema General: No clubbing, No cyanosis and No edema Psych Appearance: grossly normal Mental Status: mental status grossly normal Speech and movement: Normal speech and movement present Results Reviewed Results Reviewed: Carotid testing results dated 08/19/2023 demonstrates right-sided stenosis of 0-49 with left 50-79 with a peak systolic of 307. There is no significant change from her carotid ultrasound nearly a year ago. Written report and images were reviewed. Assessment & Plan Assessment & Plan (1) Bilateral carotid artery stenosis: Comment: 09/23/2021- right carotid endarterectomy Code(s): I65.23 - Occlusion and stenosis of bilateral carotid arteries Plan: In short patient has asymptomatic carotid disease. We have reviewed signs and symptoms of a stroke. We also discussed risk factor modification inclusive a healthy diet low in cholesterol. The patient will follow up with us with surveillance ultrasound of the carotids 1 year. Should there be any changes or signs or symptoms of a stroke we will be happy to see them back sooner. Thank you for allowing us to participate in this patient's care. If there are any questions or concerns please do not hesitate to contact us. Orders: Orders US carotid duplex BI 364 Days I65.23 - Occlusion and stenosis of bilateral carotid arteries Coding Level of Care Code Est Pt Level 4 (43857) Diagnoses Bilateral carotid artery stenosis I65.23
== END 2023-09-15 09:12 | disposition home or self-care (01) ==
PROVIDERS: PCP Physician Assistant; Visit Provider Surgery Vascular Surgery
DX: I65.23 Occlusion and stenosis of bilateral carotid arteries (principal)
CPT/HCPCS: 99213

== ENCOUNTER → 2023-09-15 08:46 | Outpatient (BNVA) | payer OTHER, SELFPAY | PROVIDERS: PCP Physician Assistant; Visit Provider Surgery Vascular Surgery ==

== ENCOUNTER 2023-11-20 07:07 | Outpatient (REF) | payer OTHER, SELFPAY ==
[2023-11-20 08:07] LABS: Alanine Aminotransferase 12 U/L (0-31); Alkaline Phosphatase 70 U/L (39-117); Anion Gap 11 (12-20); Aspartate Amino Transferase 19 U/L (5-31); Bilirubin Total 0.7 mg/dL (0.0-1.0); Blood Urea Nitrogen 15 mg/dL (9-16); Calcium 10.2 mg/dL (8.4-10.2); Carbon Dioxide 27 mmol/L (22-29); Chloride 108 mmol/L (96-108); Cholesterol 169 mg/dL (<200); Estimated Glomerular Filt Rate 56; Glucose Fasting 104 mg/dL (60-99); HDL Cholesterol 44 mg/dL (>40); LDL Cholesterol Calculated 97 mg/dL (<100); Potassium 4.3 mmol/L (3.3-5.1); Sodium 142 mmol/L (135-145); Total Protein 7.4 g/dL (6.5-8.0); Triglycerides 140 mg/dL (<150)
[2023-11-20 08:23] LABS: TSH reflex Free T4 3.14 uIU/mL (0.32-4.0)
== END 2023-11-20 07:08 | disposition home or self-care (01) ==
LOC: HO.LAB 07:07
PROVIDERS: PCP Physician Assistant; Visit Provider Physician Assistant
DX: I10 Essential (primary) hypertension (principal); E78.2 Mixed hyperlipidemia
CPT/HCPCS: 36415; 80053; 80061; 82043; 82570; 84443; 85027

== ENCOUNTER 2023-11-24 08:35 | Outpatient (AMB) | payer OTHER, SELFPAY ==
[2023-11-24 08:38] VITALS: BP 110/62; PULSE 67; O2SAT 95; BMI 23.7
--- NOTE | 2023-11-24 08:38 | MHC.PC.OV ---
Vital Signs 11/24/23 08:38 Height 5 ft 4 in Weight 138 lb 6 oz BMI 23.7 BP 110/62 Blood Pressure Location Lt brachial Position Sitting Pulse 67 Pulse Source Pulse Oximeter Pulse Oximetry (%) 95 Oxygen Delivery Method Room Air Intake Visit Reasons: f/u cOPD Knife Cutter Required: No Accompanied by: Self / Same As Patient Allergies aspirin Adverse Reaction (Intermediate, Verified 11/24/23 08:52) GI UPSET, upset stomach varenicline [From Chantix] Adverse Reaction (Intermediate, Verified 11/24/23 09:01) Anxiety Medication List - Last Reconciled 11/24/23 by Farzad Duron PA-C albuterol sulfate 90 mcg/actuation 1 inh inhalation QID PRN 30 days atorvastatin 20 mg PO DAILY budesonide-formoterol 80-4.5 mcg/actuation (Symbicort) 1 inh inhalation BID 30 days cholecalciferol (vitamin D3) 50 mcg PO DAILY 90 days clotrimazole-betamethasone 1-0.05 % 1 appl topical BID PRN 30 days hydroxyzine HCl 50 mg PO DAILY PRN ibuprofen-diphenhydramine cit 200-38 mg (Advil PM) 1 cap PO BEDTIME metoprolol succinate ER 50 mg PO DAILY Tobacco use date assessed: 11/24/23 Fall risk assessment: No Falls in past year Last assessed Fall Risk: 11/24/23 Dental Screening Dental Screen Date: 11/24/23 Did you have a dental visit in the last 12 months?: No Did you have a dental problem in the last 6 months where you did not have access to dental care?: No Was dental information given to patient?: Patient has dentist HPI f/u cOPD HPI Details Patient is a 73 year-old female here today?for a follow-up visit.? Patient has a past medical history significant for depression, osteopenia vitamin-D deficiency, essential hypertension, carotid stenosis status post endarterectomy,? smoker. Carotid stenosis : status post endarterectomy with Dr. Enciso? and doing very well. She has done well postoperatively.? She is now under surveillance with carotid ultrasounds every year. Most recent carotid ultrasound showing moderate stenosis on left carotid artery. She does report over the last 3 months having intermittent episodes of dizziness the last a few seconds and resolve without intervention. ? . ? HTN: doesn't regularly check her BP .? Denies having any chest discomfort, shortness of breath .? Today in office blood pressure acceptable. ? . ? .. ?? ? Tobacco dependency: Patient does continue to smoke and knows she needs to quit, she has been working on weaning slowly.? She reports smoking over the last 45 years. now smoking 7 cigs per day since having her carotid endarterectomy. Unfortunately she does report some shortness of breath on minimal exertion over the last few months. Likely developing worsening COPD. Not interested in doing PFT testing though is interested in trying an inhaler to help her with her pulmonary symptoms. PLAN: Will start Wellbutrin Laboratory Tests 06/13/22 06/14/22 06/14/22 13:19 07:06 07:06 RBC 4.30 D Creatinine 0.86 Fasting Glucose 99 Cholesterol 151 D LDL Cholesterol, C alc 82 TSH 1.63 Urine Microalbumin 11/20/23 11/20/23 11/20/23 07:16 07:16 07:20 RBC 4.62 Creatinine 0.97 Fasting Glucose 104 H Cholesterol 169 LDL Cholesterol, C alc 97 TSH 3.14 Urine Microalbumin 12.0 [facility] Medical History (Updated 11/24/23 @ 09:08 by Farzad Duron PA-C) Supraventricular tachycardia Bilateral carotid artery stenosis Nicotine dependence, cigarettes, uncomplicated History of left breast cancer (~2011) Tremor of left hand Subclavian arterial stenosis BPPV (benign paroxysmal positional vertigo) Osteopenia (~2012) Hypertension Surgical History History of tonsillectomy History of colonoscopy (~2013) History of left breast biopsy (~2011) History of dilation and curettage (~2015) History of cataract surgery (~2019) History of laparoscopic cholecystectomy (~2006) History of carotid endarterectomy (~2020) Family History Father Medical history unknown Mother Medical history unknown Brother Throat cancer Brother Myocardial infarction H/O ETOH abuse Daughter Bone cancer Mental health disorder Substance use disorder Social History Household Members: None Housing: Apartment Are you a primary health care facility administrator to a significant other at home: No Do you presently have visiting nurse or other home services: No Alcohol intake: never Comment: aware of trip hazard Patient Tobacco Use Status: Current everyday Tobacco user Tobacco use type: Cigarette Cigarette Packs Per Day: 0.5 Cigarettes Per Day: 10 Years Smoked: (onset 14 for 57 years at 1/2-3/4ppd, 35pyh) e-Cigarette/Vaping Use: Never Used Second Hand Smoke Exposure: Yes service: No Current occupational status: retired Cognitive needs: No Hearing needs: No Vision needs: Yes (reading glasses) Questionnaire PHQ-9 Over the last 2 weeks, how often have you been bothered by any of the following problems? 1. Little interest or pleasure in doing things: nearly every day 2. Feeling down, depressed, or hopeless: several days 3. Trouble falling or staying asleep, or sleeping too much: nearly every day 4. Feeling tired or having little energy: several days 5. Poor appetite or overeating: not at all 6. Feeling bad about yourself - or that you are a failure or have let yourself or your family down: several days 7. Trouble concentrating on things, such as reading the newspaper or watching television: not at all 8. Moving or speaking so slowly that other people could have noticed. Or the opposite - being so fidgety or restless that you have been moving around a lot more than usual: several days 9. Thoughts that you would be better off or of hurting yourself in some way: not at all Total score: 10 Depression Screening Interpretation: Positive Depression Screening Follow-up: Existing condition and Declines treatment Depression Screening Done: Yes 81595 - PHQ-9 Billing: Yes Source: Developed by Drs. Nabeel Markham, Jeanine Nettles, Raffi Daigle and colleagues, with an educational jodi from [employer]. Thrive Questionnaire Date Thrive assessed: 11/24/23 I am a: Patient What is your living situation today?: I have a steady place to live Within the past 12 months, did the food you bought not last and you didn't have the money to get more?: Never true Within the past 12 months, did you worry whether your food would run out before you got money to buy more?: Never true Do you have trouble paying for medicines?: No Do you have trouble getting transportation to medical appointments?: No Do you have trouble paying your heating and electricity bill?: No Do you have trouble taking care of your child, family member or friend?: No Do you have trouble with day-to-day activities such as bathing, preparing meals, shopping, managing finances, etc.?: No Are you currently unemployed and looking for a job?: No Are you interested in more education?: No Please select the resources that you would like help with: None Currently or been in a relationship where the following occur: no concerns reported AUDIT C Alcohol Use Questionnaire (AUDIT-C) 1. How often do you have a drink containing alcohol?: Never Total Score: 0 WHIT-7 AMB Questionnaire WHIT-7 Date WHIT - 7 assessed: 11/24/23 Feeling nervous, anxious, or on edge: 3 = Nearly every day Not being able to stop or control worryin = Nearly every day Worrying too much about different things: 3 = Nearly every day Trouble relaxin = Several days Being so restless that it is hard to sit still: 1 = Several days Becoming easily annoyed or irritable: 3 = Nearly every day Feeling afraid as if something awful might happen: 3 = Nearly every day Total WHIT-7 score (0-4 normal; 5-9 mild; 10-14 moderate; 15-21 severe): 17 Source: Developed by Drs. Nabeel Markham, Jeanine Nettles, Raffi Daigle and colleagues, with an educational jodi from [employer]. WHIT-7 Assessment Billing WHIT-7 Assessment Tool: WHIT-7 Assessment 38653 Review of Systems Const Denies headache(s) Eyes Denies loss of vision ENT Denies vertigo, Denies dizziness, Denies headache(s) and Denies sore throat Card Denies chest pain, Denies leg edema and Denies lightheadedness Resp Denies cough, Denies hemoptysis and Denies wheezing GI Denies abdominal pain, Denies melena, Denies constipation, Denies diarrhea and Denies vomiting Denies urinary frequency, Denies dysuria and Denies urinary urgency Musc Denies arthralgias, Denies joint swelling, Denies numbness and Denies tingling Neuro Denies Abnormal speech present, Denies behavioral changes, Denies vertigo, Denies dizziness, Denies headache(s), Denies loss of vision, Denies memory loss, Denies numbness and Denies tingling Psych Denies anxiety, Denies behavioral changes, Denies depression, Denies memory loss and Denies panic attacks Hever/Lymph Denies easy bleeding and Denies easy bruising Aller/Immun Denies wheezing Physical exam (Primary Care) Vital Signs: Last Vital Signs Pulse 67 11/24/23 08:38 BP 110/62 11/24/23 08:38 Pulse Ox 95 11/24/23 08:38 Oxygen Delivery Method Room Air 11/24/23 08:38 BMI result Body Mass Index 23.7 Tobacco/Smoking Status: Tobacco use Status Tobacco use date assessed 11/24/23 11/24/23 08:39 Patient Tobacco Use Status Current everyday Tobacco 11/24/23 08:39 Tobacco use type Cigarette 11/24/23 08:39 e-Cigarette/Vaping Use Never Used 11/24/23 08:39 Are you ready to quit: No Tobacco cessation counseling provided: Yes Items discussed: Nicotine replacement and QuitWorks Relapse Prevention: discussed the importance of a supportive environment, discussed negative mood or depression after quitting, weight gain after smoking is common and discussed dietary, exercise and/or lifestyle changes Number of minutes spent counselin CPT code: 99286 - 4-10 Minutes PHQ-9: PHQ-9 Score PHQ-9: Total score 10 11/24/23 08:39 Depression Screening Interpretation: Positive Depression Screening Follow-up: Existing condition and Declines treatment Thrive Assessment: Date of Thrive Assessment Date Thrive assessed 11/24/23 11/24/23 08:39 Currently or been in a relationship where the following occur: no concerns reported Const General: healthy appearing, no acute distress, alert and awake Nutritional Appearance: well nourished Orientation/consciousness: oriented to person, oriented to place and oriented to time HENMT Ears: TM's normal bilaterally General nose exam: Normal nasal mucous membranes and turbinates present Eyes Conjunctivae: conjunctivae normal Sclerae: sclerae normal Pupils: Equal, round and reactive pupils present Neck Neck: Yes no lymphadenopathy and Yes no JVD Thyroid: Thyroid normal Carotids: bruit bilateral Resp Effort & Inspection: normal respiratory effort and not tachypneic Auscultation: no crackles, no rales, no rhonchi and no wheezes Cardio Rate: regular rate Rhythm: regular rhythm Heart sounds: no murmurs and normal S1 and S2 GI Palpation (GI): Soft to palpation, nontender, no hepatomegaly and no splenomegaly Auscultation: normal bowel sounds Skin General skin exam: no rashes or lesions noted and dry skin Neuro General: oriented to person, oriented to place and oriented to time Cranial nerves: Yes Equal, round and reactive pupils present Speech: No Abnormal speech present Gait exam (Neuro): Normal gait present Motor exam (neuro): no tremor noted Extrem Right upper extremity: full ROM Left upper extremity: full ROM Right lower extremity: full ROM; no edema Left lower extremity: full ROM; no edema Psych Mental Status: mental status grossly normal Speech and movement: Normal speech and movement present Affect: normal affect Attitude: cooperative Thought process: Normal thought process present Assessment and Plan Assessment & Plan (1) Hypertension: Code(s): I10 - Essential (primary) hypertension Qualifiers: Hypertension type: essential hypertension Qualified Code(s): I10 - Essential (primary) hypertension Plan: Patient's blood pressure acceptable today in office. Will continue her current dose of antihypertensive medication with goal blood pressure remain below 140/90 (2) HLD (hyperlipidemia): Code(s): E78.5 - Hyperlipidemia, unspecified Qualifiers: Hyperlipidemia type: mixed hyperlipidemia Qualified Code(s): E78.2 - Mixed hyperlipidemia Plan: Patient continues on statin therapy without side effect. Most recent lipid panel showing appropriate total cholesterol and LDL. Goal LDL is to remain below 100 (3) Nicotine dependence, cigarettes, uncomplicated: Comment: (current smoker, onset 14yo, 1/2-34ppd x 58yrs, 35pyh, +fam hx lung ca) Code(s): F17.210 - Nicotine dependence, cigarettes, uncomplicated Plan: Patient does understand she needs to quit smoking. Does smoke half pack cigarettes per day. Is part of the lung cancer screening program in does have nodules that are stable. Patient willing to trial Wellbutrin for smoking cessation. (4) COPD (chronic obstructive pulmonary disease): Code(s): J44.9 - Chronic obstructive pulmonary disease, unspecified Qualifiers: COPD type: chronic bronchitis Chronic bronchitis type: simple Qualified Code(s): J41.0 - Simple chronic bronchitis Plan: Patient reporting some shortness of breath on minimal exertion as of lately. Will supply patient with maintenance inhaler and albuterol inhaler for her shortness of breath. Advised on PFT testing the patient like to hold off on this for now. Again advised on smoking cessation. (5) MDD (major depressive disorder), recurrent episode, moderate: Code(s): F33.1 - Major depressive disorder, recurrent, moderate Plan: Patient's PHQ-9 score positive for major depressive disorder, again does not want to start any mental health medications or speak with a mental therapist at this time. (6) WHIT (generalized anxiety disorder): Code(s): F41.1 - Generalized anxiety disorder Plan: Patient's WHIT-7 score positive for moderate anxiety which has been existing condition for her. She is not interested in starting mental health medication or speak with mental health therapist at this time. (7) Bilateral carotid artery stenosis: Comment: 09/23/2021- right carotid endarterectomy Code(s): I65.23 - Occlusion and stenosis of bilateral carotid arteries Plan: Patient is followed by vascular surgeon. She is status post endarterectomy in 2020. Unfortunately over the last 3 months has noted some intermittent episodes of dizziness/vertigo that is short-lived and go away without any intervention. Most recent carotid ultrasound showing moderate stenosis on left side. (8) Supraventricular tachycardia: Code(s): I47.1 - Supraventricular tachycardia Plan: Has history of supraventricular tachycardia. Continue some metoprolol with good effect on controlling heart rates. (9) BPPV (benign paroxysmal positional vertigo): Code(s): H81.10 - Benign paroxysmal vertigo, unspecified ear Qualifiers: Laterality: bilateral Qualified Code(s): H81.13 - Benign paroxysmal vertigo, bilateral Plan: Patient does report over the last 3 months having intermittent episodes about 2-3 times per week short-lived dizziness. Offered vestibular therapy though patient declines. Unclear if this is related to her arterial disease in her neck. Unfortunately continues to smoke and does understand she needs to completely quit smoking. Orders: Orders Lipid Panel 6 Months E78.2 - Mixed hyperlipidemia Comprehensive [place]. Panel Fast 6 Months I10 - Essential (primary) hypertension Complete Blood Count no Diff 6 Months I10 - Essential (primary) hypertension Medications: New bupropion HCl (Wellbutrin SR) 150 mg PO BID 30 days 60 tabs 2RF F17.210 - Nicotine dependence, cigarettes, uncomplicated Coding Level of Care Code Est Pt Level 4 (02240) Diagnoses Essential hypertension I10 Hypertension type: essential hypertension Mixed hyperlipidemia E78.2 Hyperlipidemia type: mixed hyperlipidemia Nicotine dependence, cigarettes, uncomplicated F17.210 Simple chronic bronchitis J41.0 COPD type: chronic bronchitis Chronic bronchitis type: simple MDD (major depressive disorder), recurrent episode, moderate F33.1 WHIT (generalized anxiety disorder) F41.1 Bilateral carotid artery stenosis I65.23 Supraventricular tachycardia I47.1 Benign paroxysmal positional vertigo due to bilateral vestibular disorder H81.13 Laterality: bilateral Additional Codes WHIT-7 Assessment Billing - WHIT-7 Assessment Tool: WHIT-7 Assessment 21552 ([id number]) Vital Signs *Quality* - CPT code: 27446 - 4-10 Minutes ([id number])
== END 2023-11-24 10:02 | disposition home or self-care (01) ==
PROVIDERS: PCP Physician Assistant; Visit Provider Physician Assistant
DX: I10 Essential (primary) hypertension (principal); J41.0 Simple chronic bronchitis; F33.1 Major depressive disorder, recurrent, moderate; I47.10 Supraventricular tachycardia, unspecified; E78.2 Mixed hyperlipidemia; F17.210 Nicotine dependence, cigarettes, uncomplicated; F41.1 Generalized anxiety disorder; I65.23 Occlusion and stenosis of bilateral carotid arteries; H81.13 Benign paroxysmal vertigo, bilateral
CPT/HCPCS: 99214

== ENCOUNTER 2023-11-30 07:48 | Outpatient (REF) | payer OTHER, SELFPAY ==
--- NOTE | ~2023-11-30 | MM_ITS ---
EXAMINATION: MM SCREENING DIGITAL BREAST TOMOSYNTHESIS, BILATERAL CLINICAL INFORMATION: Screening. Asymptomatic. The patient is status post left breast cancer surgery 2011. COMPARISON: Mammography: This study is compared with prior exams dating back to 2018. TECHNIQUE: Digital breast tomosynthesis is performed in both the craniocaudal and mediolateral oblique views along with computer-aided detection (CAD). Synthesized 2D images are generated from the tomosynthesis. FINDINGS: There are scattered areas of fibroglandular density (ACR BI-RADS breast composition Category b). There are no significant masses, abnormal calcifications, or other abnormalities. There are postsurgical changes in the upper outer quadrant of the left breast. There is benign dystrophic calcification in the surgical bed. There is a tissue marker in the superior aspect of the left breast from prior percutaneous biopsy. There are bilateral benign calcifications in each breast. MM/MM tomosynthesis screening BI IMPRESSION: No mammographic evidence of malignancy. ASSESSMENT: BI-RADS BI-RADS 2 - Benign Findings RECOMMENDATION: Routine annual mammography screening. 1 year F/U This examination should not preclude the clinical evaluation of a suspicious palpable abnormality. This patient's information was entered into a reminder system with a target due date for their next mammogram.
== END 2023-11-30 07:49 | disposition home or self-care (01) ==
LOC: HO.MAMMO 07:48
PROVIDERS: PCP Physician Assistant; Visit Provider Physician Assistant
DX: Z12.31 Encounter for screening mammogram for malignant neoplasm of breast (principal)
CPT/HCPCS: 77063; 77067

== ENCOUNTER → 2023-11-30 08:15 | Outpatient (BNV) | payer OTHER, SELFPAY | PROVIDERS: PCP Physician Assistant; Visit Provider Radiology Diagnostic Radiology | DX: Z12.31 Encounter for screening mammogram for malignant neoplasm of breast (principal) | CPT/HCPCS: 77063; 77067 ==

== ENCOUNTER 2023-12-23 07:30 | Outpatient (REF) | payer OTHER, SELFPAY ==
[2023-12-23 08:04] LABS: Hemoglobin 14.4 g/dl (12.0-16.0); Mean Corpuscular HGB Conc 32.7 g/dl (31.0-35.0); Mean Corpuscular Hemoglobin 31.6 pg (27.0-33.0); Mean Corpuscular Volume 96.5 fL (80.0-98.0); Mean Platelet Volume 10.4 fL (9.4-12.3); Platelet Count 204 X10*3/uL (160-400); Red Blood Count 4.56 X10*6/uL (4.20-5.50); Red Cell Distribution Width 12.7 % (11.0-16.0); White Blood Count 7.8 X10*3/uL (4.8-10.8)
[2023-12-23 08:23] LABS: Alanine Aminotransferase 10 U/L (0-31); Albumin Level 3.9 g/dL (3.5-5.0); Alkaline Phosphatase 67 U/L (39-117); Anion Gap 10 (12-20); Aspartate Amino Transferase 16 U/L (5-31); Bilirubin Total 0.5 mg/dL (0.0-1.0); Blood Urea Nitrogen 15 mg/dL (9-16); Calcium 10.3 mg/dL (8.4-10.2); Carbon Dioxide 28 mmol/L (22-29); Chloride 109 mmol/L (96-108); Cholesterol 155 mg/dL (<200); Estimated Glomerular Filt Rate 58; Glucose Fasting 99 mg/dL (60-99); HDL Cholesterol 46 mg/dL (>40); LDL Cholesterol Calculated 84 mg/dL (<100); Potassium 4.3 mmol/L (3.3-5.1); Sodium 143 mmol/L (135-145); Total Protein 7.3 g/dL (6.5-8.0); Triglycerides 129 mg/dL (<150)
[2023-12-23 09:10] LABS: Creatinine Urine 100.78 mg/dL; Microalbum/Creatinine Ratio Ur 30.7 ug/mg cr (<30)
== END 2023-12-23 07:31 | disposition home or self-care (01) ==
LOC: HO.LAB 07:30
PROVIDERS: PCP Physician Assistant; Visit Provider Physician Assistant
DX: I10 Essential (primary) hypertension (principal); E78.2 Mixed hyperlipidemia
CPT/HCPCS: 36415; 80053; 80061; 82043; 82570; 85027

== ENCOUNTER 2023-12-31 07:30 | Outpatient (REF) | payer OTHER, SELFPAY ==
--- NOTE | ~2023-12-31 | CT_ITS ---
EXAMINATION: CT ANGIOGRAM NECK WITH CONTRAST CLINICAL INFORMATION: 73-year-old undergoing follow-up for bilateral carotid stenosis. COMPARISON: 08/27/2021 CT angiogram. TECHNIQUE: Volumetric CT angiography of the neck was performed from the upper thorax to the skull base utilizing the bolus intravenous administration of 70 mL of Omnipaque 350 contrast material. 2D multiplanar reconstructions and 3D MIP renderings were performed either on an independent workstation or at the CT console workstation. The degree of stenosis determined by NASCET criteria. This CT examination was performed using dose optimization techniques as appropriate, variously including the following: *Automated exposure control. *Adjustment of mA and/or kV according to patient size (this includes techniques or standardized protocols for targeted exams where dose is matched to indication/reason for exam; i.e. extremities or head). *Use of iterative reconstruction technique. DLP: 302 mGy-cm FINDINGS: The visualized thoracic aortic arch is unchanged in caliber and configuration. There are foci of noncalcified and partially calcified atheromatous plaque throughout the aortic arch, involving the origins of the left subclavian, left common carotid and innominate artery, similar in appearance to the previous exam without significant brachiocephalic artery stenosis. Calcified plaque in the left subclavian artery again noted with mild stenosis of the left proximal subclavian artery proximal to the origin of the left vertebral artery and partially involving it with partially calcified plaque at the origin of the left vertebral artery, unchanged. Stable mild stenosis at the origin of the left vertebral artery. Small focus of calcified plaque at the origin of the right vertebral artery is unchanged. No significant stenosis of the right vertebral artery origin. Calcified plaque in the proximal right subclavian artery and innominate artery similar to previous exam without significant stenosis. Poor visualization of the right subclavian artery due to dense contrast material in the adjacent brachiocephalic vein. The cervical vertebral arteries are patent bilaterally without significant focal stenosis or segmental occlusion with the right being dominant, stable in appearance. Right Carotid: The right common carotid artery is patent and normal in caliber. Small foci of partially calcified plaque are seen along the anterior wall of the [id number] right common carotid artery without luminal diameter reduction, stable in appearance. It appears that the patient has undergone a right-sided carotid endarterectomy with a markedly improved appearance to the diameter of the carotid bifurcation and proximal right ICA. The right ECA is patent and normal in caliber. There is a small focus of partially calcified plaque along the anterior wall of the proximal right ICA. On retrospective review of the previous study, this plaque was present but was noncalcified on the previous exam. There is less than 50% diameter reduction stenosis related to this by NASCET criteria. More distally, the remainder of the right cervical ICA is patent, normal in caliber and smoothly contoured. There is slight contour irregularity of the carotid bulb/proximal ICA is noted which is consistent with previous endarterectomy. Left Carotid: Left common carotid artery is patent. There are some foci of noncalcified and calcified plaque in the proximal to mid segment which is similar to the previous exam with no significant luminal diameter reduction. Small foci of calcified plaque along the anterior wall of the upper portion of the left common carotid artery stable in appearance with no significant luminal diameter reduction. Fairly extensive predominantly calcified plaque at the left carotid bifurcation and proximal left ICA and ECA is again noted. Since the previous study, there has been progression of luminal diameter narrowing in the transverse dimension at the origin of the left ICA at the bifurcation, now with approximately 80-90% diameter reduction stenosis by NASCET criteria consistent with progression of stenosis and plaque. Calcified plaque is also noted more distally in the proximal left ICA without significant diameter reduction stenosis stable in appearance. More distally, the left cervical ICA is patent and normal in caliber. There is severe stenosis at the origin of the left ECA unchanged. There is some calcified plaque within the petrous segments of both ICAs. The intracranial ICAs are patent and normal in caliber. There are mural calcifications of both carotid siphons, right more than left, without significant diameter reduction. The intradural vertebral arteries are patent with the right being dominant without significant focal stenosis, stable in appearance. Basilar artery is patent and normal in caliber. Superior cerebellar and posterior cerebral arteries are patent and unchanged in appearance with a origin of the right CEMENT BREAKER, stable in appearance. The visualized middle cerebral and anterior cerebral artery territories show patency and no significant stenosis. orthoptist are patent and normal in caliber bilaterally. Nonvascular Images: Visualized brain parenchyma appears grossly unremarkable within the limitations of the exam. Bilateral intraocular lens replacements are noted. Otherwise, the visualized orbital structures appear within normal limits. The visualized calvarium and bony skull base are intact and the visualized airspaces are unopacified. Visualized soft tissue neck structures are unremarkable. The visualized lung parenchyma again demonstrates pulmonary emphysematous changes bilaterally. The visualized mediastinum is unremarkable. There is stable-appearing mediastinal lymph nodes. Skeletal: Redemonstrated is lordotic reversal centered at C4 with discogenic degenerative changes and spondylosis at C4-C5 and C5-C6 largely unchanged in appearance. There is S-shaped cervicothoracic scoliosis, stable in appearance. Mild TMJ arthropathy bilaterally is unchanged. CT/CT angio neck IMPRESSION: 1. Since the previous study, the patient has undergone a right-sided carotid endarterectomy with a markedly improved appearance to the diameter of the right carotid bifurcation and proximal right ICA with only a small focus of partially calcified plaque along the anterior wall of the proximal right ICA with less than 50% diameter reduction stenosis by NASCET criteria. 2. Extensive predominantly calcified plaque at the left carotid bifurcation and proximal left ICA and ECA again noted with interval progression of luminal diameter reduction at the origin of the left ICA, now with approximately 80-90% diameter reduction stenosis by NASCET criteria. Severe stenosis at the origin of the left ECA stable in appearance. 3. Atheromatous vascular calcifications of both carotid siphons, right more than left, as described above with mild stenoses at the origins of the vertebral arteries and proximal left subclavian artery largely unchanged in appearance. 4. Pulmonary emphysematous changes bilaterally and stable-appearing mediastinal lymph nodes. Fleischner guidelines were followed.
[2023-12-31] MEDS: iohexoL 350 MG/ML 100 ML INFUS..BTL 70 ML IV (08:54)
== END 2023-12-31 07:31 | disposition home or self-care (01) ==
LOC: HO.CT 07:30
PROVIDERS: PCP Physician Assistant; Visit Provider Surgery Vascular Surgery
DX: I65.23 Occlusion and stenosis of bilateral carotid arteries (principal)
CPT/HCPCS: 70498; Q9967

== ENCOUNTER 2024-02-04 08:51 | Outpatient (AMB) | payer OTHER, SELFPAY ==
[2024-02-04 08:55] VITALS: BP 104/58; BMI 23.7
--- NOTE | 2024-02-04 08:55 | MHC.OFFVIS ---
Intake Vital Signs 02/04/24 08:55 02/04/24 09:03 Height 5 ft 4 in Weight 138 lb BMI 23.7 BP 104/58 L 110/60 Blood Pressure Location Lt brachial Rt femoral Position Sitting Sitting Intake Visit Reasons: follow up CTA neck 12/31/2023 Intake Note: follow up was not due until next August 2025 for carotid stenosis, however PCP reached out about pt having dizzy spells/ vertigo and vision issues and ambulating. States it can happen at any time w/ or w/o ambulation. Hx of R CEA in 09/2021. We ordered a CTA Neck 12/31/23 Accompanied by: Friend Allergies aspirin Adverse Reaction (Intermediate, Verified 02/04/24 09:00) GI UPSET, upset stomach varenicline [From Chantix] Adverse Reaction (Intermediate, Verified 02/04/24 09:00) Anxiety HPI follow up CTA neck 12/31/2023 HPI Details Very pleasant 73-year-old female well known to us regarding her carotids. She had actually undergone right carotid endarterectomy in September of 2021 with us. She had no interval issues she had had routine surveillance follow-up. She reported a dizzy spell. She was seen by her primary care. We subsequently obtained a CT angiogram and she now presents for follow-up regarding that. She continues to smoke about a half pack per day. She can climb a flight of stairs in is able to walk 2-3 blocks. She does have occasional shortness of breath. She now presents for follow-up. [facility] Medical History Supraventricular tachycardia Bilateral carotid artery stenosis Nicotine dependence, cigarettes, uncomplicated History of left breast cancer (~2011) Tremor of left hand Subclavian arterial stenosis BPPV (benign paroxysmal positional vertigo) Osteopenia (~2012) Hypertension Surgical History History of tonsillectomy History of colonoscopy (~2013) History of left breast biopsy (~2011) History of dilation and curettage (~2015) History of cataract surgery (~2019) History of laparoscopic cholecystectomy (~2006) History of carotid endarterectomy (~2020) Family History Father Medical history unknown Mother Medical history unknown Brother Throat cancer Brother Myocardial infarction H/O ETOH abuse Daughter Bone cancer Mental health disorder Substance use disorder Social History Household Members: None Housing: Apartment Are you a primary health care coordinator to a significant other at home: No Do you presently have visiting nurse or other home services: No Alcohol intake: never Comment: aware of trip hazard Patient Tobacco Use Status: Current everyday Tobacco user Tobacco use type: Cigarette Cigarette Packs Per Day: 0.5 Cigarettes Per Day: 10 Years Smoked: (onset 14 for 58 years at 1/2-3/4ppd, 35pyh) e-Cigarette/Vaping Use: Never Used Second Hand Smoke Exposure: Yes service: No Current occupational status: retired Cognitive needs: No Hearing needs: No Vision needs: Yes (reading glasses) Review of Systems Const All systems reviewed & are unremarkable except as noted in HPI and below Reports no additional complaints ENT Reports Normal hearing present Card Denies chest pain, Denies chest pain at rest, Denies chest pain with activity and Denies pedal edema Resp Denies cough GI Denies abdominal pain Musc Denies abnormal gait, Denies muscle cramps and Denies radiating pain into limb Skin/Breast Denies skin ulcer and Denies wounds Neuro Reports Normal hearing present and Denies abnormal gait Psych Reports no additional complaints Physical Exam Vital Signs: Last Vital Signs BP 110/60 02/04/24 09:03 BMI result Body Mass Index 23.7 Const General: cooperative, healthy appearing and comfortable Orientation/consciousness: oriented to person, oriented to place and oriented to time HEENT Head: Yes normal to inspection Neck Neck: Yes normal visual inspection Carotids: no bruits Chest Chest palpation & inspection: normal inspection of the chest Resp Effort & Inspection: normal respiratory effort and able to speak in complete sentences Auscultation: clear to auscultation bilaterally, no crackles, no rales, no rhonchi and no wheezes Cardio Rate: regular rate Rhythm: regular rhythm Heart sounds: S1 normal heart sound present and S2 normal heart sound present Bruits: no carotid bruits Peripheral pulses: Peripheral pulses 2+ throughout GI Inspection: Yes normal to inspection Skin Wounds: no wounds Hair: normal Neuro General: oriented to person, oriented to place and oriented to time Cranial nerves: Yes CN's II-XII intact bilaterally and Yes Normal hearing present Cognition (Neuro): normal cognition Motor exam (neuro): 5/5 motor strength present throughout Extrem Other: venous exam: No significant superficial varicosities or spider telangiectasias, minimal edema General: No clubbing, No cyanosis and No edema Psych Appearance: grossly normal Mental Status: mental status grossly normal Speech and movement: Normal speech and movement present Results Reviewed Results Reviewed: CT angiogram dated 12/31/2023 demonstrates left-sided stenosis of 80-90%. Written report and images were reviewed. Assessment & Plan Assessment & Plan (1) Left carotid stenosis: Code(s): I65.22 - Occlusion and stenosis of left carotid artery Plan: In short patient has high-grade left carotid stenosis. She will require left carotid endarterectomy. Risks benefits complications including bleeding infection stroke and were discussed in detail with the patient. She understood and consented and would like to move forward. In addition she will require cardiac risk stratification and pulmonary evaluation prior to surgery. Thank you for allowing us to assist in her care. If there are any questions or concerns please do not hesitate to contact us. Coding Level of Care Code Est Pt Level 4 (00056) Diagnoses Left carotid stenosis I65.22
[2024-02-04 09:03] VITALS: BP 110/60
== END 2024-02-04 09:58 | disposition home or self-care (01) ==
PROVIDERS: PCP Physician Assistant; Visit Provider Surgery Vascular Surgery
DX: I65.22 Occlusion and stenosis of left carotid artery (principal)
CPT/HCPCS: 99214

== ENCOUNTER → 2024-02-04 08:51 | Outpatient (BNVA) | payer OTHER, SELFPAY | PROVIDERS: PCP Physician Assistant; Visit Provider Surgery Vascular Surgery ==

== ENCOUNTER 2024-02-23 14:31 | Outpatient (AMB) | payer OTHER, SELFPAY ==
[2024-02-23 15:15] VITALS: BP 114/62; PULSE 58; BMI 23.4
--- NOTE | 2024-02-23 15:15 | MHC.OFFVIS ---
Intake Vital Signs 02/23/24 15:15 Height 5 ft 4 in Weight 136 lb 3.931 oz BMI 23.4 BP 114/62 Blood Pressure Location Lt brachial Position Sitting Pulse 58 Pulse Source Monitor Intake Visit Reasons: Preop Dr. Enciso /card[facility]) Mud Analysis Supervisor Required: No Allergies aspirin Adverse Reaction (Intermediate, Verified 02/23/24 15:18) GI UPSET, upset stomach varenicline [From Chantix] Adverse Reaction (Intermediate, Verified 02/23/24 15:18) Anxiety Medication List - Last Reconciled 02/23/24 by Maria De Jesus Olsen [employer]PERATOR-C albuterol sulfate 90 mcg/actuation 1 inh inhalation QID PRN 30 days atorvastatin 20 mg PO DAILY cholecalciferol (vitamin D3) 50 mcg PO DAILY 90 days clotrimazole-betamethasone 1-0.05 % 1 appl topical BID PRN 30 days hydroxyzine HCl 50 mg PO DAILY PRN ibuprofen-diphenhydramine cit 200-38 mg (Advil PM) 1 cap PO BEDTIME metoprolol succinate ER 50 mg PO DAILY HPI Preop Dr. Enciso /card[facility] ([facility]) HPI Details Laxmi is a 73-year-old female with past medical history of hypertension, hyperlipidemia, smoking, carotid stenosis, right carotid endarterectomy, SVT who presents for follow-up and preop evaluation. Her last prior visit to our office was 09/11/2021. Today she reports that she does get heart palpitations with her SVT up to 2 times weekly. She says the episodes are brief and will go away when she lays on her back. She has become used to it and it does not cause her much concern. She has no chest discomfort at rest or with activity. No shortness of breath, lightheadedness, presyncope, syncope, falls. No PND, orthopnea or edema. She reports good activity tolerance and is able to climb stairs without any concerning symptoms. She takes her metoprolol as directed. [facility] Medical History Supraventricular tachycardia Bilateral carotid artery stenosis Nicotine dependence, cigarettes, uncomplicated History of left breast cancer (~2011) Tremor of left hand Subclavian arterial stenosis BPPV (benign paroxysmal positional vertigo) Osteopenia (~2012) Hypertension Surgical History History of tonsillectomy History of colonoscopy (~2013) History of left breast biopsy (~2011) History of dilation and curettage (~2015) History of cataract surgery (~2019) History of laparoscopic cholecystectomy (~2006) History of carotid endarterectomy (~2020) Family History Father Medical history unknown Mother Medical history unknown Brother Throat cancer Brother Myocardial infarction H/O ETOH abuse Daughter Bone cancer Mental health disorder Substance use disorder Social History Household Members: None Housing: Apartment Are you a primary health care coordinator to a significant other at home: No Do you presently have visiting nurse or other home services: No Alcohol intake: never Comment: aware of trip hazard Patient Tobacco Use Status: Current everyday Tobacco user Tobacco use type: Cigarette Cigarette Packs Per Day: 0.5 Cigarettes Per Day: 10 Years Smoked: (onset 14 for 58 years at 1/2-3/4ppd, 35pyh) e-Cigarette/Vaping Use: Never Used Second Hand Smoke Exposure: Yes service: No Current occupational status: retired Cognitive needs: No Hearing needs: No Vision needs: Yes (reading glasses) Review of Systems Const All systems reviewed & are unremarkable except as noted in HPI and below ENT Denies dizziness Card Details: palpitations 2-3 times a week Denies chest pain, Denies chest pain at rest, Denies chest pain with activity, Reports rapid heart rate, Denies pedal edema, Denies edema, Denies leg edema, Denies lightheadedness, Reports palpitations, Denies dyspnea, Denies dyspnea on exertion and Denies orthopnea Resp Denies cough, Denies dyspnea and Denies dyspnea on exertion GI Denies hematochezia and Denies change in stool character Musc Denies abnormal gait, Denies limited range of motion, Denies muscle cramps, Denies muscle weakness, Denies numbness, Denies radiating pain into limb, Denies stiffness and Denies tingling Neuro Denies abnormal gait, Denies dizziness, Denies numbness and Denies tingling Endo Reports palpitations Physical Exam Vital Signs: Last Vital Signs Pulse 58 02/23/24 15:15 BP 114/62 02/23/24 15:15 BMI result Body Mass Index 23.4 Const General: cooperative, healthy appearing, comfortable and no acute distress Orientation/consciousness: patient oriented x3 Neck Neck: Yes normal visual inspection Resp Effort & Inspection: normal respiratory effort Auscultation: clear to auscultation bilaterally, no crackles, no rales, no rhonchi and no wheezes Cardio Jugular venous distension: no JVD Rate: regular rate Rhythm: regular rhythm Heart sounds: S1 normal heart sound present, S2 normal heart sound present, no murmurs and no rubs Neuro General: patient oriented x3 Extrem General: Yes normal to inspection and No no pedal edema Psych Appearance: grossly normal Mental Status: mental status grossly normal Speech and movement: Normal speech and movement present Office Procedures EKG Details: Today, read by me, sinus bradycardia, rate 58, QTC 394 milliseconds [id number], Complete Assessment & Plan Assessment & Plan (1) Supraventricular tachycardia: Code(s): I47.1 - Supraventricular tachycardia (2) Hypertension: Code(s): I10 - Essential (primary) hypertension Qualifiers: Hypertension type: essential hypertension Qualified Code(s): I10 - Essential (primary) hypertension Plan: Known history of SVT. She has been on metoprolol XL 50 mg daily to help suppress. Last echocardiogram done 08/2021 showed EF 55-60%, no valve abnormalities. Today she reports that she does get frequent episodes of SVT up to 2 times weekly which are short-lived and will resolve if she lays on her back. Briefly discussed potential for ablation with her and she declines saying that she is used to this symptom and it does not cause her concern. EKG done today showing sinus bradycardia, heart rate 58, QTC 394 milliseconds. With the elevated heart rates during SVT will recheck echocardiogram to assess for any rate related cardiomyopathy. Will check a Holter monitor to assess for SVT and rates. Continue on metoprolol. Vagal maneuvers reviewed. Cardiology follow-up 6 months, sooner if needed (3) Bilateral carotid artery stenosis: Comment: 09/23/2021- right carotid endarterectomy Code(s): I65.23 - Occlusion and stenosis of bilateral carotid arteries Plan: History of bilateral carotid artery stenosis. She has undergone a right endarterectomy in the past. She now needs a left carotid endarterectomy. No neurological changes. Follows with Dr. Enciso. (4) Preoperative cardiovascular examination: Code(s): Z01.810 - Encounter for preprocedural cardiovascular examination Plan: Preop for left carotid endarterectomy 03/14/[address] Enciso. Patient has no known history of CAD. She denies any anginal sounding symptoms. She can tolerate 4 Mets of activity without symptoms. She does have known longstanding history of SVT. Her episodes are easily controlled with laying on her back according to her. Will be checking an echocardiogram and Holter monitor as above. If no significant findings then she can proceed with her surgery with a low to intermediate cardiac risk. Continue metoprolol. Call/consult Cardiology if needed. Plan Time spent on chart review, documentation, interview and assessment Orders: Orders CA echo transthoracic complete Today I47.1 - Supraventricular tachycardia ECG 5 day holter monitor Today I47.1 - Supraventricular tachycardia Coding Level of Care Code Est Pt Level 4 (19432) Diagnoses Supraventricular tachycardia I47.1 Essential hypertension I10 Hypertension type: essential hypertension Bilateral carotid artery stenosis I65.23 Preoperative cardiovascular examination Z01.810 CPT Codes EKG - CPT: [id number], Complete ([id number]) Time Spent (min) 28
== END 2024-02-23 15:48 | disposition home or self-care (01) ==
PROVIDERS: PCP Physician Assistant; Visit Provider Nurse Practitioner Family
DX: I47.10 Supraventricular tachycardia, unspecified (principal); I10 Essential (primary) hypertension; I65.23 Occlusion and stenosis of bilateral carotid arteries; Z01.810 Encounter for preprocedural cardiovascular examination
CPT/HCPCS: 93010; 99214

== ENCOUNTER → 2024-02-23 14:31 | Outpatient (BNVA) | payer OTHER, SELFPAY | PROVIDERS: PCP Physician Assistant; Visit Provider Nurse Practitioner Family | DX: Z01.810 Encounter for preprocedural cardiovascular examination (principal); I47.10 Supraventricular tachycardia, unspecified; I10 Essential (primary) hypertension; I65.23 Occlusion and stenosis of bilateral carotid arteries; Z79.899 Other long term (current) drug therapy | CPT/HCPCS: 93005 ==

== ENCOUNTER → 2024-03-02 08:37 | Outpatient (REF) | payer OTHER, SELFPAY ==
--- NOTE | 2024-03-02 08:49 | HM_ITS ---
* Total monitoring time 4 days. * Underlying rhythm is sinus with an average rate of 66/Min. * Occasional supraventricular ectopy with a burden of 0.5%. No significant runs. * Rare ventricular ectopy. * No significant pauses or AV blocks. * Patient marker used 6 times, in association with sinus rhythm. * Shortness of breath and dizziness in patient diary correlates with sinus rhythm. MTDD
--- NOTE | 2024-03-02 08:49 | CA_ITS ---
Transthoracic Echocardiogram Patient (Last, First, Middle): Laxmi Daley J Gender: Female Date of : 1950 Age: 73 Procedure Date: 03/02/2024 Procedure Type: Transthoracic Echocardiogram Location: OP Height: 162.56 cm Weight: 61.69 kg BSA: 1.66 m2 Heart Rate: 54 bpm BP: 114 / 62 mmHg Pedodontist: SB Referring MD: Maria De Jesus Olsen [employer] Symptoms: I47.1 - Supraventricular tachycardia Study Quality: Fair but adequate ECG Rhythm: Bradycardia Conclusions: - The left ventricular systolic function is normal. The calculated ejection fraction is 61% by biplane method. - No obvious valvular pathology seen on this study. Findings Left Ventricle Normal left ventricular cavity size. There is normal left ventricular wall thickness. The left ventricular systolic function is normal. The calculated ejection fraction is 61% by biplane method. There is no evidence of regional wall motion abnormalities. Diastolic function is normal for age. Right Ventricle Normal right ventricular cavity size and systolic function. Atria Both atria are normal in size. Aortic Valve There is a normal trileaflet aortic valve. There is no aortic valve stenosis. There is no aortic valve regurgitation. Mitral Valve The mitral valve appears normal. There is no mitral valve regurgitation. There is no mitral valve stenosis. Pulmonic Valve The pulmonic valve is likely normal. Tricuspid Valve Normal tricuspid valve structure. There is trace tricuspid valve regurgitation. There is no evidence of pulmonary hypertension. Great Vessels The asc aorta is normal in size. Small plaque is seen in the sino tubular ridge. Venous The inferior vena cava is normal in size and collapses greater than 50% with inspiration. Pericardium/Pleural There is no evidence of pericardial effusion. Prior Study Comparison No significant change compared to prior study dated: 09/13/2021. Recommendations, Care & Conclusions No obvious valvular pathology seen on this study. Measurements 2D Linear Measurements IVSd: 0.50 0.6-0.9/0.6-1.0 cm LVIDd: 4.35 3.9-5.3/4.2-5.9 cm LVIDd Index: 2.62 2.4-3.2/2.2-3.1 cm/m2 LVIDs: 2.96 2.0-3.6 cm LVPWd: 0.56 0.7-1.1 cm LA Diam: 2.90 2.7-3.8/3.0-4.0 cm LAIDs Index: 1.75 1.5-2.3 cm/m2 LV Mass: 79.71 67-162/88-224 g LV Mass Index: 48.02 43-95/49-115 g/m2 LVOT Diam: 2.10 3.0+(-)1.3 cm 2D Systolic Function EF 4C: 56.50 >55% EF 2C: 63.80 >55% EF BiP: 60.60 >55% Mitral Valve MV Pk E: 0.80 MV PK A: 0.70 MV Decel Time: 252.00 E/A: 1.10 E'Lateral: 7.29 E'Medial: 6.42 E/E' Med: 12.40 E/E' Lat: 10.90 PHT: 74.00 MVA PHT: 2.97 Decel [place]: 3.16 Aortic Valve AoV Pk Robin: 1.16 AoV Pk Grad: 5.00 RACHEL: 2.60 LVOT LVOT Pk Robin: 0.87 LVOT Mn Robin: 0.62 LVOT VTI: 0.22 LVOT Pk Grad: 3.00 LVOT Mn Grad: 2.00 LVOT Diam: 2.10 LVOT Area: 3.46 Diastolic Function MV Pk E: 0.80 MV Pk A: 0.70 E/A: 1.10 E'Medial: 6.42 E/E' Med: 12.40 E' Laterial: 7.29 E/E' Lat: 10.90 Right Ventricle TAPSE (mm): 20.80 TVS' Robin: 11.50 Tricuspid Valve TR Pk Robin: 1.68 TR Pk Grad: 11.00 RA Press: 3.00 RVSP: 14.00 Great Vessels Aorta Sinus of Valsalva: 2.70 2.0-3.5 cm Ao Asc: 3.00 2.1-3.4 cm Pulmonary Veins Pulm Vein S/D 1.00 Pulmonary Valve PV Pk Robin: 0.81 Peak PV Grad: 3.00 Updated in Other Vendor System with Status of Final Chris Gilliam MD electronically signed on 03/04/2024 8:46:34 AM with status of Final
== END ==
LOC: HO.CARD 08:37
PROVIDERS: Visit Provider Nurse Practitioner Family
DX: I47.10 Supraventricular tachycardia, unspecified (principal)
CPT/HCPCS: 93242; 93306

== ENCOUNTER → 2024-03-02 08:49 | Outpatient (BNV) | payer OTHER, SELFPAY | PROVIDERS: Visit Provider Internal Medicine | DX: I47.10 Supraventricular tachycardia, unspecified (principal) | CPT/HCPCS: 93244; 93306 ==

== ENCOUNTER 2024-03-21 06:07 | Inpatient (IN) | payer OTHER, SELFPAY ==
[2024-03-07 12:53] VITALS: BP 113/53; PULSE 61; RESP 20; O2SAT 94; BMI 23.2
--- NOTE | 2024-03-07 13:16 | P.CONAN_ITS ---
Documented by User: Riya Howard NP 03/18/24 09:19 HPI - Anesthesia Eval Consult details Narrative: 73yo F for Left Carotid Endarterectomy, 03/21/24 s/p Right side 2020 with GA-ETT 7, Patti No recent illness No CP. [place] with stairs. Cardiac cleared: Preop for left carotid endarterectomy 03/14/2024. Nuclear stress test done 09/16/2021 showing normal myocardial perfusion imaging. She has no known history of CAD. She has no anginal symptoms and can perform activity greater than 4 Mets without concerning symptoms. Echocardiogram done 03/02/2024 showing EF 61%, no valve abnormalities and no regional wall motion abnormalities. Holter monitor done on 03/02/2024 for 4 days showing sinus rhythm with average heart rate 66, SVE 0.5% of time, rare ectopy. She has a known history of SVT and is on metoprolol XL. She can proceed with surgery with low to intermediate cardiac risk. Continue metoprolol. She tells me if she lays on her back she can break her SVT. Call/consult Cardiology if needed. COPD. Smoker since age 13. O2 sat steady at 94% at PAT. Has not been using symbicort or albuterol. Will start symbicort daily and albuternol prn leading up to DOS. BPPV. Occurs almost daily for a minute or less PMFSH Active Problems Active Problems: All Active Problems WHIT (generalized anxiety disorder) (Acute) MDD (major depressive disorder), recurrent episode, moderate (Acute) COPD (chronic obstructive pulmonary disease) (Acute) HLD (hyperlipidemia) (Acute) Supraventricular tachycardia (Acute) Bilateral carotid artery stenosis (Acute) History of left breast cancer (Acute ~2011) Hypertension (Acute) Osteopenia (Acute ~2012) BPPV (benign paroxysmal positional vertigo) (Acute) Nicotine dependence, cigarettes, uncomplicated (Acute) Past Medical History Medical History Breast cancer, left Heartburn Anxiety Depression COPD (chronic obstructive pulmonary disease) Nicotine dependence, cigarettes, uncomplicated History of left breast cancer (~2011) Tremor of left hand Supraventricular tachycardia Bilateral carotid artery stenosis Subclavian arterial stenosis BPPV (benign paroxysmal positional vertigo) Osteopenia (~2012) Hypertension Family History Family History Father Medical history unknown Mother Medical history unknown Brother Throat cancer Brother Myocardial infarction H/O ETOH abuse Daughter Bone cancer Mental health disorder Substance use disorder Family history of problems with anesthesia: No Surgical History Surgical History History of tonsillectomy History of colonoscopy (~2013) History of left breast biopsy (~2011) History of dilation and curettage (~2015) History of cataract surgery (~2019) History of laparoscopic cholecystectomy (~2006) History of carotid endarterectomy (~2020) History of Problems with Anesthesia: No Social History Social History Household Members: None Housing: Apartment Are you a primary healthcare insurance sales agent to a significant other at home: No Do you presently have visiting nurse or other home services: No Alcohol intake: never Comment: aware of trip hazard Patient Tobacco Use Status: Current everyday Tobacco user Tobacco use type: Cigarette Cigarette Packs Per Day: 0.5 Cigarettes Per Day: 10 Years Smoked: 60 e-Cigarette/Vaping Use: Never Used Patient Interested in Nicotine Replacement: Yes Second Hand Smoke Exposure: Yes Have you been hit, kicked, punched, or otherwise hurt by someone within the past year? If so, by whom?: No Are you DNR?: No Advance Directives Information Provided: Yes (as above noted) Advance Directives on File: No Recently lost weight without trying: No Eating poorly because of decreased appetite: No Nutrition Risks: No Nutritional Risk Poor oral hygiene: No (upper full denture-no lower teeth, no lower denture) service: No Current occupational status: retired Cognitive needs: No Hearing needs: No Vision needs: Yes (reading glasses) Meds Allergies Allergy/AdvReac Type Severity Reaction Status Date / Time aspirin AdvReac Intermediate Gastrointestinal Verified 03/21/24 06:26 Upset varenicline [From Chantix] AdvReac Intermediate Anxiety Verified 03/21/24 06:26 Home Medications ?Medication ?Instructions ?Recorded ?Confirmed ?Last Taken ?Type ibuprofen-diphenhydramine citrate 1 cap PO BEDTIME 10/05/20 03/07/24 Unknown History 200 mg-38 mg tablet (Advil PM) atorvastatin 20 mg tablet 20 mg PO QAM 03/07/24 03/07/24 Unknown History budesonide-formoterol HFA 80 1 puff inhalation BID 03/07/24 03/07/24 03/21/24 History mcg-4.5 mcg/actuation aerosol inhaler (Symbicort) cholecalciferol (vitamin D3) 50 50 mcg PO QAM 03/07/24 03/07/24 Unknown History mcg (2,000 unit) capsule hydroxyzine HCl 50 mg tablet 50 mg PO QAM for panic attack 03/07/24 03/07/24 Unknown History metoprolol succinate 50 mg 50 mg PO QAM 03/07/24 03/07/24 03/21/24 History tablet,extended release 24 hr Exam Height,Weight and Vital Signs: Height 5 ft 4 in Weight 61.235 kg Last Vital Signs Pulse 61 03/07/24 12:53 Resp 20 03/07/24 12:53 BP 113/53 L 03/07/24 12:53 Pulse Ox 94 03/07/24 12:53 O2 Del Method Room Air 03/07/24 12:53 Pertinent Lab Results Pertinent Lab Results: Labs DOS Narrative Narrative: EKG 02/2024 sinus bradycardia, rate 58, QTC 394 milliseconds ECHO 02/2024 Conclusions: - The left ventricular systolic function is normal. The calculated ejection fraction is 61% by biplane method. - No obvious valvular pathology seen on this study. NM cardiolite stress test 2020 Impression: 1. Myocardial perfusion imaging study shows normal myocardial perfusion. 2. Gated LVEF is > 70% during stress and rest. 3. Transient ischemic dilatation not present. CT angio neck 12/2023 IMPRESSION: 1. Since the previous study, the patient has undergone a right-sided carotid endarterectomy with a markedly improved appearance to the diameter of the right carotid bifurcation and proximal right ICA with only a small focus of partially calcified plaque along the anterior wall of the proximal right ICA with less than 50% diameter reduction stenosis by NASCET criteria. 2. Extensive predominantly calcified plaque at the left carotid bifurcation and proximal left ICA and ECA again noted with interval progression of luminal diameter reduction at the origin of the left ICA, now with approximately 80-90% diameter reduction stenosis by NASCET criteria. Severe stenosis at the origin of the left ECA stable in appearance. 3. Atheromatous vascular calcifications of both carotid siphons, right more than left, as described above with mild stenoses at the origins of the vertebral arteries and proximal left subclavian artery largely unchanged in appearance. 4. Pulmonary emphysematous changes bilaterally and stable-appearing mediastinal lymph nodes. Airway Mallampati Class: I TM Dist: >3cm Neck ROM: Full Denture: Upper Loose/Missing/Broken Teeth: Yes (No lower teeth) Heart: RRR Lungs: Expiratory wheeze upper left, otherwise clear Assessment and Plan Assessment Anesthesia Assessment: Anesthesia Plan Discussed, Smoking Cess. Discussed and PAT Visit Final Anesthetic Review Family History of Problems with Anesthesia: No History of Problems with Anesthesia: No Documented by User: Miracle Nelson MD 03/21/24 07:12 [facility] Active Problems Active Problems: All Active Problems WHIT (generalized anxiety disorder) (Acute) MDD (major depressive disorder), recurrent episode, moderate (Acute) COPD (chronic obstructive pulmonary disease) (Acute) - has been using inhalers for past 1.5 weeks HLD (hyperlipidemia) (Acute) Supraventricular tachycardia (Acute) Bilateral carotid artery stenosis (Acute) History of left breast cancer (Acute ~2011) Hypertension (Acute) Osteopenia (Acute ~2013) BPPV (benign paroxysmal positional vertigo) (Acute) Nicotine dependence, cigarettes, uncomplicated (Acute) - last cigarette yesterday Past Medical History Medical History Breast cancer, left Heartburn Anxiety Depression COPD (chronic obstructive pulmonary disease) Nicotine dependence, cigarettes, uncomplicated History of left breast cancer (~2011) Tremor of left hand Supraventricular tachycardia Bilateral carotid artery stenosis Subclavian arterial stenosis BPPV (benign paroxysmal positional vertigo) Osteopenia (~2012) Hypertension Family History Family History Father Medical history unknown Mother Medical history unknown Brother Throat cancer Brother Myocardial infarction H/O ETOH abuse Daughter Bone cancer Mental health disorder Substance use disorder Family history of problems with anesthesia: No Surgical History Surgical History History of tonsillectomy History of colonoscopy (~2013) History of left breast biopsy (~2011) History of dilation and curettage (~2015) History of cataract surgery (~2019) History of laparoscopic cholecystectomy (~2006) History of carotid endarterectomy (~2020) History of Problems with Anesthesia: No Social History Social History Household Members: None Housing: Apartment Are you a primary healthcare insurance sales agent to a significant other at home: No Do you presently have visiting nurse or other home services: No Alcohol intake: never Comment: aware of trip hazard Patient Tobacco Use Status: Current everyday Tobacco user Tobacco use type: Cigarette Cigarette Packs Per Day: 0.5 Cigarettes Per Day: 10 Years Smoked: 60 e-Cigarette/Vaping Use: Never Used Patient Interested in Nicotine Replacement: Yes Second Hand Smoke Exposure: Yes Have you been hit, kicked, punched, or otherwise hurt by someone within the past year? If so, by whom?: No Are you DNR?: No Advance Directives Information Provided: Yes (as above noted) Advance Directives on File: No Recently lost weight without trying: No Eating poorly because of decreased appetite: No Nutrition Risks: No Nutritional Risk Poor oral hygiene: No (upper full denture-no lower teeth, no lower denture) service: No Current occupational status: retired Cognitive needs: No Hearing needs: No Vision needs: Yes (reading glasses) Meds Allergies Allergy/AdvReac Type Severity Reaction Status Date / Time aspirin AdvReac Intermediate Gastrointestinal Verified 03/21/24 06:26 Upset varenicline [From Chantix] AdvReac Intermediate Anxiety Verified 03/21/24 06:26 Home Medications ?Medication ?Instructions ?Recorded ?Confirmed ?Last Taken ?Type ibuprofen-diphenhydramine citrate 1 cap PO BEDTIME 10/05/20 03/07/24 Unknown History 200 mg-38 mg tablet (Advil PM) atorvastatin 20 mg tablet 20 mg PO QAM 03/07/24 03/07/24 Unknown History budesonide-formoterol HFA 80 1 puff inhalation BID 03/07/24 03/07/24 03/21/24 History mcg-4.5 mcg/actuation aerosol inhaler (Symbicort) cholecalciferol (vitamin D3) 50 50 mcg PO QAM 03/07/24 03/07/24 Unknown History mcg (2,000 unit) capsule hydroxyzine HCl 50 mg tablet 50 mg PO QAM for panic attack 03/07/24 03/07/24 Unknown History metoprolol succinate 50 mg 50 mg PO QAM 03/07/24 03/07/24 03/21/24 History tablet,extended release 24 hr Exam Height,Weight and Vital Signs: Height 5 ft 4 in Weight 61.235 kg Last Vital Signs Pulse 61 03/07/24 12:53 Resp 20 03/07/24 12:53 BP 113/53 L 03/07/24 12:53 Pulse Ox 94 03/07/24 12:53 O2 Del Method Room Air 03/07/24 12:53 Vital Signs Temp Pulse Resp BP Pulse Ox O2 Del Method 03/21/24 06:38 97.9 F 55 18 157/53 H 94 Room Air Pertinent Lab Results Pertinent Lab Results: Labs DOS Lab Results 03/07/24 03/07/24 03/21/24 Range/Units 13:55 13:58 06:49 WBC 6.8 (4.8-10.8) X10*3/uL RBC 4.19 L (4.20-5.50) X10*6/uL Hgb 13.2 (12.0-16.0) g/dl Hct 39.7 (37.0-47.0) % MCV 94.7 (80.0-98.0) fL MCH 31.5 (27.0-33.0) pg MCHC 33.2 (31.0-35.0) g/dl RDW 12.9 (11.0-16.0) % Plt Count 174 (160-400) X10*3/uL MPV 10.3 (9.4-12.3) fL Absolute Nucleated RBC 0.000 (0.0-0.012) X10*3/uL Nucleated RBC % (auto) 0.0 (0.0-0.2) /100WBC Sodium 142 (135-145) mmol/L Potassium 4.1 (3.3-5.1) mmol/L Chloride 109 H (96-108) mmol/L Carbon Dioxide 19 L (22-29) mmol/L Anion Gap 18 (12-20) BUN 14 11 (9-16) mg/dL Creatinine 0.87 0.82 (0.5-1.4) mg/dL Estim Creat Clear Calc 49.0 51.9 Estimated GFR > 60 > 60 Random Glucose 94 (60-115) mg/dL Calcium 10.3 H (8.4-10.2) mg/dL Blood Type A Positive Antibody Screen NEGATIVE Airway Mallampati Class: II TM Dist: >3cm Neck ROM: Full Denture: Upper Lungs: Diminished. Mild crackles bases Other: For respiratory treatment Assessment and Plan Assessment Anesthesia Assessment: Anesthesia Plan Discussed, Smoking Cess. Discussed, PAT Visit and Chart Reviewed Final Anesthetic Review Family History of Problems with Anesthesia: No History of Problems with Anesthesia: No NPO: Yes ASA Class: III Final Preanesthetic Review: No Changes in Pt Med Stat, Meds/Allgs Chart Reviewed, Consent Obtained/Reviewed and Anes Risks/Benef Reviewed Patient Risk: Intermediate Procedure Risk: Intermediate Assessment/Block/Sedation in SS: Assess/Block/Sedation-SS Anesthetic Plan Anesthetic Plan: GA and Other (Arterial line) Disposition: Inp. Admit - ICU
[2024-03-07 14:34] LABS: Blood Urea Nitrogen 14 mg/dL (9-16); Estimated Glomerular Filt Rate > 60
[2024-03-21] VITALS (25 sets, daily range): BP systolic 107–189; BP diastolic 45–92; PULSE 55–76; RESP 11–18; TEMP 36.3–36.7; O2SAT 90–100; BMI 23.7
[2024-03-21] MEDS: Lactated Ringers 1,000 ML 100 ML IVCONT (06:29)
[2024-03-21] MEDS: Albuterol Sulfate (0.083%) 2.5 MG/3 ML VIAL.NEB INHALE (06:46)
[2024-03-21 07:07] LABS: Hematocrit 39.7 % (37.0-47.0); Hemoglobin 13.2 g/dl (12.0-16.0); Mean Corpuscular HGB Conc 33.2 g/dl (31.0-35.0); Mean Corpuscular Hemoglobin 31.5 pg (27.0-33.0); Mean Corpuscular Volume 94.7 fL (80.0-98.0); Mean Platelet Volume 10.3 fL (9.4-12.3); Platelet Count 174 X10*3/uL (160-400); Red Blood Count 4.19 X10*6/uL (4.20-5.50); Red Cell Distribution Width 12.9 % (11.0-16.0); White Blood Count 6.8 X10*3/uL (4.8-10.8)
[2024-03-21 07:09] LABS: Anion Gap 18 (12-20); Blood Urea Nitrogen 11 mg/dL (9-16); Calcium 10.3 mg/dL (8.4-10.2); Carbon Dioxide 19 mmol/L (22-29); Chloride 109 mmol/L (96-108); Creatinine Clr Calc Pharmacy 51.9; Estimated Glomerular Filt Rate > 60; Glucose Random 94 mg/dL (60-115); Potassium 4.1 mmol/L (3.3-5.1); Sodium 142 mmol/L (135-145)
[2024-03-21 07:17] LABS: INTERNATIONAL NORM RATIO 0.9 (0.9-1.1); Prothrombin Time 10.4 SEC (11.1-13.3)
[2024-03-21 07:20] LABS: Partial Thromboplastin Time 28.6 SEC (26.0-36.8)
--- NOTE | 2024-03-21 07:40 | MHC.SHP ---
Pre-Procedural Eval Section A - 24 Hr Update-Section A only Date of Service: 03/21/24 The patient is an INPATIENT: No Changes since office visit: Yes Patient answered all questions The patient has been examined within 24 hours of the surgical procedure. The History & Physical has been completed within 30 days and I have reviewed it.: Yes Section B - Complete if H&P > 30 days Chief Complaint: post op Allergies: Allergies Allergy/AdvReac Type Severity Reaction Status Date / Time aspirin AdvReac Intermediate Gastrointestinal Verified 03/21/24 06:26 Upset varenicline [From Chantix] AdvReac Intermediate Anxiety Verified 03/21/24 06:26 Plan I have reviewed the history and physical and performed a pertinent physical examination on my patient. No changes have occurred unless specified. Time Spent With Patient Time: Total time managing care of this patient today ____ minutes.
--- NOTE | 2024-03-21 10:40 | P.OP_ITS ---
Operative Note Operative Note Date of Service: 03/21/24 Narrative: Operative note by [facility] Preoperative diagnosis:1. Left Carotid stenosis 2. Prior cerebrovascular accident Postoperative diagnosis: Same Procedure: Left Carotid endarterectomy with patch angioplasty 2. Insertion of femoral arterial line Surgeon:Kyler Enciso M.D. Marine Pipe Welder: Dr. Hargrove Anesthesia: General Specimens: 1 Drains: 1 Estimated blood loss: 100 mL Indications: 73-year-old female with a prior history of right carotid endarterectomy on surveillance was found to have high-grade left carotid stenosis. She now presents for left carotid endarterectomy. The patient has signed the informed consent after reviewing risks, complications, benefits, and alternatives previously discussed with the patient. The patient was given the opportunity to ask any additional questions or voice any concerns. All questions were answered to the patient's satisfaction. Procedure in detail: Patient was taken to the operating room and placed in a supine position and prepped and draped in sterile manner with ChloraPrep. We were unable to get a radial arterial line. Under ultrasound guidance right common femoral arterial line was placed. This was done with a 5 [place]bourg[place] precision sheath. Once in position it was attached to arterial line. We then turned our attention to the carotid Longitudinal incision was made along the left anterior border of the sternocleidomastoid carried down through the subcutaneous fat and fascia. Hemostasis was obtained with electrocautery. The platysma muscle was then divided. The carotid sheath was identified in open. The vagus nerve, Ancef cervicalis, and hypoglossal nerves were identified and avoided. The common internal and external carotids were then freed from the surrounding tissue. At this point, 5000 units of heparin was administered and allowed to circulate for 5 minutes time to take effect. The internal, common, external carotids were clamped in that order. Once this was accomplished, we proceeded with the procedure. The carotid bulb was opened with an 11 blade and extended with Boogie scissors through the very tight lesion into normal internal carotid artery. This was then extended down into the common carotid artery. We then placed a Serrato shunt. Then the plaque was sharply excised proximally and an eversion endarterectomy was performed successfully at the external. The plaque tapered nicely on to the internal and no tacking sutures were necessary. Heparinized saline was injected and no evidence of flapping or other debris was noted. The remaining carotid was examined, which showed no debris or flaps present. At this point a XenoSure patch was brought on to the field. This was anastomosed to the artery using a 6 0 Prolene in a running fashion. Once approximately 4/5 of the patch was sewn in the shunt was then removed. Prior to the last stitch the internal carotid was back bled through this. Heparinized saline was instilled into the carotid. The last stitch was tied. Hemostasis was excellent. The internal carotid was gently occluded while while of the external and internal were open in that order. Finally the internal was then opened and flow was restored to the entire system. Hemostasis was achieved with interrupted 7-0 Prolene sutures. The wound was irrigated thoroughly. We then placed a 7 flat Dennis-Contreras drain. Deep layer was reapproximated using a 2-0 poly Sorb and finally the superficial layer with a 3-0 Polysorb. The skin was closed in a subcuticular manner. The patient awoke and neurologic status was checked and appeared to be intact. Sponge, needle and instrument counts were correct. The patient tolerated the procedure well. Returned to recovery with stable vitals. This note is constructed using voice recognition software. While every effort has been made to ensure accuracy, maintenance supervisor electrical errors may have been included. Thank you for allowing me to participate in the care of your patient. Yours sincerely, Kyler Enciso MD, FACS, R.P.V.I.
[2024-03-21] MEDS: Morphine Sulfate 2 MG/ML CARTRIDGE IVPUSH (11:23)
--- NOTE | 2024-03-21 12:30 | PM.CCHP ---
History of Present Illness Date of Service: 03/21/24 Chief Complaint: Status post elective left carotid endarterectomy 73-year-old lady with underlying history of hyperlipidemia, hypertension, supraventricular tachycardia, breast cancer, and anxiety now postoperative day 0 after an elective left carotid endarterectomy being monitored in the intensive care unit. Review of Systems Constitutional: Constitutional: Denies daytime sleepiness, Denies excessive sweating, Denies fatigue, Denies fever(s), Denies lethargy, Denies malaise, Denies night sweats, Denies snoring and Denies weight loss Eyes: Eyes: Denies blurry vision and Denies itchy eyes ENT: Denies nasal congestion, Denies post nasal drip, Denies sinus pain, Denies sinus pressure and Denies other ( Thrush) Cardiovascular: Cardiovascular: Denies chest pain, Denies pedal edema, Denies dyspnea, Denies orthopnea and Denies paroxysmal nocturnal dyspnea Respiratory: Respiratory: Denies cough, Denies hemoptysis, Denies excessive phlegm production, Denies dyspnea, Denies snoring and Denies wheezing Gastrointestinal: Gastrointestinal: Denies abdominal pain and Denies heartburn Musculoskeletal: Musculoskeletal: Denies myalgias, Denies arthralgias and Denies joint swelling Integumentary/Breasts: Skin/Breast: Denies rash Neurologic: Denies memory loss and Denies seizure-like activity Psychiatric: Psychiatric: Denies abnormal sleep pattern, Denies anxiety and Denies memory loss Endocrine: Endocrine: Denies excessive sweating, Denies fatigue and Denies heat intolerance Hematologic/Lymphatic: Hematologic/Lymphatic: Denies easy bruising Allergic/Immunologic: Allergic/Immunologic: Denies itchy eyes, Denies seasonal rhinorrhea and Denies wheezing PMFSH Past Medical History Medical History Breast cancer, left Heartburn Anxiety Depression COPD (chronic obstructive pulmonary disease) Nicotine dependence, cigarettes, uncomplicated History of left breast cancer (~2011) Tremor of left hand Supraventricular tachycardia Bilateral carotid artery stenosis Subclavian arterial stenosis BPPV (benign paroxysmal positional vertigo) Osteopenia (~2012) Hypertension Family History Family History Father Medical history unknown Mother Medical history unknown Brother Throat cancer Brother Myocardial infarction H/O ETOH abuse Daughter Bone cancer Mental health disorder Substance use disorder Surgical History Surgical History History of tonsillectomy History of colonoscopy (~2013) History of left breast biopsy (~2011) History of dilation and curettage (~2015) History of cataract surgery (~2019) History of laparoscopic cholecystectomy (~2006) History of carotid endarterectomy (~2020) Social History Social History Household Members: None Housing: Apartment Are you a primary career and guidance counselor to a significant other at home: No Do you presently have visiting nurse or other home services: No Alcohol intake: never Comment: aware of trip hazard Patient Tobacco Use Status: Current everyday Tobacco user Tobacco use type: Cigarette Cigarette Packs Per Day: 0.5 Cigarettes Per Day: 10 Years Smoked: 60 e-Cigarette/Vaping Use: Never Used Patient Interested in Nicotine Replacement: Yes Second Hand Smoke Exposure: Yes Have you been hit, kicked, punched, or otherwise hurt by someone within the past year? If so, by whom?: No Are you DNR?: No Advance Directives Information Provided: Yes (as above noted) Advance Directives on File: No Recently lost weight without trying: No Eating poorly because of decreased appetite: No Nutrition Risks: No Nutritional Risk Poor oral hygiene: No (upper full denture-no lower teeth, no lower denture) service: No Current occupational status: retired Cognitive needs: No Hearing needs: No Vision needs: Yes (reading glasses) Meds Allergies Allergy/AdvReac Type Severity Reaction Status Date / Time aspirin AdvReac Intermediate Gastrointestinal Verified 03/21/24 06:26 Upset varenicline [From Chantix] AdvReac Intermediate Anxiety Verified 03/21/24 06:26 Active Medications: Current Medications Acetaminophen (Acetaminophen 325 Mg Tablet) 650 mg PO Q6H PRN PRN Reason: Pain, Mild (Pain Scale 1-3) Albuterol Sulfate (Albuterol Sulfate 90 Mcg 8 Gm Inhaler) 1 puff INHALE QID PRN PRN Reason: shortness of breath or wheezing Atorvastatin Calcium (Atorvastatin Calcium 20 Mg Tablet) 20 mg PO QAM GEORGE Sodium Chloride (Ns) 1,000 mls @ 80 mls/hr IVCONT .[id number] [facility] Cefazolin Sodium/Dextrose (Ancef) 2 gm in 50 mls @ 100 mls/hr IV POSTOP ONE Stop: 03/21/24 14:29 Metoprolol Succinate (Metoprolol Succinate Er 50 Mg Tab.Er.24h) [facility] Protocol Morphine Sulfate (Morphine Sulfate 2 Mg/Ml Cartridge) 2 mg IVPUSH Q4H PRN; Protocol PRN Reason: Pain, Severe (Pain Scale 7-10) Last Admin: 03/21/24 11:23 Dose: 2 mg Non-Formulary Medication (Clotrimazole-Betamethasone) 1 appl TOPICAL BID PRN PRN Reason: Rash Ondansetron HCl (Ondansetron Hcl 4 Mg/2 Ml Vial) 4 mg IVPUSH ONCE PRN PRN Reason: Nausea and Vomiting Stop: 03/21/24 16:15 Oxycodone HCl (Oxycodone Hcl Immed Release 5 Mg Tablet) 5 mg PO Q4H PRN PRN Reason: Pain, Moderate(Pain Scale 4-6) Sodium Chloride (0.9 % Sodium Chloride Flush 3 Ml Syringe) 3 ml IVFLUSH [facility] Vitamin D (Cholecalciferol (Vitamin D3) 25 Mcg Tablet) 50 mcg PO [facility] Home Medications ?Medication ?Instructions ?Recorded ?Confirmed ?Last Taken ?Type ibuprofen-diphenhydramine citrate 1 cap PO BEDTIME 10/05/20 03/07/24 Unknown History 200 mg-38 mg tablet (Advil PM) atorvastatin 20 mg tablet 20 mg PO QAM 03/07/24 03/07/24 Unknown History budesonide-formoterol HFA 80 1 puff inhalation BID 03/07/24 03/07/24 03/21/24 History mcg-4.5 mcg/actuation aerosol inhaler (Symbicort) cholecalciferol (vitamin D3) 50 50 mcg PO QAM 03/07/24 03/07/24 Unknown History mcg (2,000 unit) capsule hydroxyzine HCl 50 mg tablet 50 mg PO QAM for panic attack 03/07/24 03/07/24 Unknown History metoprolol succinate 50 mg 50 mg PO QAM 03/07/24 03/07/24 03/21/24 History tablet,extended release 24 hr Physical Exam Vital Signs: Vital Signs: Last Vital Signs Temp 97.3 F 03/21/24 10:45 Pulse 63 03/21/24 12:14 Resp 12 03/21/24 12:14 BP 159/67 H 03/21/24 12:14 Pulse Ox 96 03/21/24 12:14 O2 Del Method Nasal Cannula wit h Capnography 03/21/24 12:14 O2 Flow Rate 2 03/21/24 12:14 BMI result Body Mass Index 23.7 Const: General: no acute distress, alert and awake Eyes: Sclerae: sclerae normal EOM: EOMs intact bilaterally Neck: Neck: Yes no lymphadenopathy, Yes trachea midline, Yes supple and Yes other (Left carotid endarterectomy site with small hematoma and mild oozing) Resp: Effort & Inspection: normal respiratory effort and no respiratory distress Auscultation: clear to auscultation bilaterally Cardio: Rate: regular rate Rhythm: regular rhythm Heart sounds: no gallops, no murmurs and no rubs GI: Palpation (GI): Soft to palpation and Other GI palpation findings present ( Nontender) Auscultation: normal bowel sounds Extrem: General: Yes no pedal edema, No clubbing and No cyanosis Results Labs 03/21/24 06:49 03/21/24 06:49 Labs: Laboratory Results - last 24 hr 03/21/24 06:49 MCV 94.7 MCH 31.5 MCHC 33.2 RDW 12.9 Plt Count 174 MPV 10.3 Absolute Nucleated RBC 0.000 Nucleated RBC % (auto) 0.0 PT 10.4 L INR 0.9 APTT 28.6 Anion Gap 18 Estim Creat Clear Calc 51.9 Estimated GFR > 60 Random Glucose 94 Calcium 10.3 H Assessment and Plan (1) Bilateral carotid artery stenosis: Status: Acute (2) COPD (chronic obstructive pulmonary disease): Qualifiers: COPD type: chronic bronchitis Chronic bronchitis type: simple Qualified Code(s): J41.0 - Simple chronic bronchitis Status: Acute (3) WHIT (generalized anxiety disorder): Status: Acute Plan Assessment: 73-year-old lady postoperative day 0 after an elective left carotid endarterectomy being monitored in the intensive care unit. Plan: Neuro: No acute issues. Cardiac: Postoperative day 0 after left carotid endarterectomy. Vascular surgery service care appreciated. Maintain systolic blood pressure under 160. Pulmonary: No acute issues. Renal: No acute issues. Endo: No acute issues. GI: No acute issues. ID: No acute issues Heme/Onc: No acute issues. Psych: No acute issues. Miscellaneous: No acute issues. Prophylaxis: Per vascular surgery Diet: Per vascular surgery
[2024-03-21] MEDS: 0.9 % Sodium Chloride 1,000 ML 80 ML IVCONT (12:45)
[2024-03-21] MEDS: Atorvastatin Calcium 20 MG TABLET PO (12:53)
[2024-03-21] MEDS: Cholecalciferol (Vitamin D3) 25 MCG TABLET 50 MCG PO (12:54)
[2024-03-21] MEDS: Metoprolol Succinate ER 50 MG TAB.ER.24H PO (12:56)
--- NOTE | 2024-03-21 13:08 | PHA.MEDREC ---
Pharmacy Consult ? Medication Reconciliation Pharmacy has reviewed the medication reconciliation completed by nursing. Moraima Howard, ReginaldD
[2024-03-21 14:12] LABS: MANUAL DIFF FLAG NO
[2024-03-21 14:16] LABS: Basophils Absolute Auto 0.1 X10*3/uL (0.0-0.2); Basophils Percent Auto 0.4 % (0-2); Eosinophils Percent Auto 0.1 % (0-4); Hematocrit 39.2 % (37.0-47.0); Hemoglobin 13.2 g/dl (12.0-16.0); Imm Gran Abs Auto 0.04 X10*3/uL (0.00-0.03); Imm Gran Pct Auto 0.3 % (0.0-0.4); Lymphocytes Absolute Auto 1.1 X10*3/uL (1.2-4.9); Lymphocytes Percent Auto 8.7 % (20-40); Mean Corpuscular HGB Conc 33.7 g/dl (31.0-35.0); Mean Corpuscular Hemoglobin 32.1 pg (27.0-33.0); Mean Corpuscular Volume 95.4 fL (80.0-98.0); Mean Platelet Volume 10.2 fL (9.4-12.3); Monocytes Absolute Auto 0.2 X10*3/uL (0.1-1.2); Monocytes Percent Auto 1.3 % (2-11); Neutrophils Absolute Auto 10.8 x10*3/uL (2.0-8.3); Neutrophils Percent Auto 89.2 % (45-73); Platelet Count 189 X10*3/uL (160-400); Red Blood Count 4.11 X10*6/uL (4.20-5.50); White Blood Count 12.1 X10*3/uL (4.8-10.8)
[2024-03-21] MEDS: Labetalol HCL 100 MG/20 ML VIAL 20 MG IVPUSH (14:24)
[2024-03-21 14:29] LABS: Anion Gap 11 (12-20); Blood Urea Nitrogen 10 mg/dL (9-16); Calcium 10.1 mg/dL (8.4-10.2); Carbon Dioxide 25 mmol/L (22-29); Chloride 108 mmol/L (96-108); Creatinine Clr Calc Pharmacy 48.4; Estimated Glomerular Filt Rate > 60; Glucose Random 137 mg/dL (60-115); Potassium 4.3 mmol/L (3.3-5.1); Sodium 140 mmol/L (135-145)
[2024-03-21] MEDS: ceFAZolin Sodium/Dextrose,Iso 2 GM/50 ML PIGGYBACK IV (14:46)
[2024-03-21] MEDS: NeoMY/Polymyx/Dexameth Oph Sus 5 ML BOTTLE 1 DROP EYE-RIGHT ×2 (17:17→19:45)
[2024-03-21] MEDS: Melatonin 3 MG TABLET 6 MG PO (21:41)
[2024-03-22] VITALS (16 sets, daily range): BP systolic 104–155; BP diastolic 43–65; PULSE 54–74; RESP 13–21; TEMP 36.4; O2SAT 89–98; BMI 25.8
[2024-03-22] MEDS: 0.9 % Sodium Chloride 1,000 ML 80 ML IVCONT (00:28)
[2024-03-22] MEDS: Acetaminophen 325 MG TABLET 650 MG PO (05:57)
[2024-03-22 06:07] LABS: MANUAL DIFF FLAG NO
[2024-03-22 06:09] LABS: Basophils Absolute Auto 0.1 X10*3/uL (0.0-0.2); Basophils Percent Auto 0.5 % (0-2); Eosinophils Percent Auto 0.1 % (0-4); Hematocrit 33.9 % (37.0-47.0); Hemoglobin 11.1 g/dl (12.0-16.0); Imm Gran Abs Auto 0.04 X10*3/uL (0.00-0.03); Imm Gran Pct Auto 0.3 % (0.0-0.4); Lymphocytes Absolute Auto 2.1 X10*3/uL (1.2-4.9); Lymphocytes Percent Auto 16.6 % (20-40); Mean Corpuscular HGB Conc 32.7 g/dl (31.0-35.0); Mean Corpuscular Hemoglobin 31.4 pg (27.0-33.0); Mean Platelet Volume 10.5 fL (9.4-12.3); Monocytes Absolute Auto 1.2 X10*3/uL (0.1-1.2); Monocytes Percent Auto 9.3 % (2-11); Neutrophils Absolute Auto 9.4 x10*3/uL (2.0-8.3); Neutrophils Percent Auto 73.2 % (45-73); Platelet Count 173 X10*3/uL (160-400); Red Blood Count 3.53 X10*6/uL (4.20-5.50); Red Cell Distribution Width 13.3 % (11.0-16.0); White Blood Count 12.9 X10*3/uL (4.8-10.8)
[2024-03-22 06:34] LABS: Albumin Level 3.2 g/dL (3.5-5.0); Anion Gap 12 (12-20); Blood Urea Nitrogen 9 mg/dL (9-16); Calcium 9.2 mg/dL (8.4-10.2); Carbon Dioxide 22 mmol/L (22-29); Chloride 111 mmol/L (96-108); Estimated Glomerular Filt Rate > 60; Glucose Random 134 mg/dL (60-115); Magnesium 1.8 mg/dL (1.6-2.6); Phosphorus 2.9 mg/dL (2.7-4.5); Potassium 4.2 mmol/L (3.3-5.1); Sodium 141 mmol/L (135-145)
[2024-03-22] MEDS: Atorvastatin Calcium 20 MG TABLET PO (08:13)
[2024-03-22] MEDS: Metoprolol Succinate ER 50 MG TAB.ER.24H PO (08:13)
[2024-03-22] MEDS: Cholecalciferol (Vitamin D3) 25 MCG TABLET 50 MCG PO (08:13)
--- NOTE | 2024-03-22 08:15 | P.PNCC_ITS ---
Subjective Subjective Date of Service: 03/22/24 Interval History: no significant overnight events Critical Care Time (minutes): 0 Physical Exam 2 Vital Signs: Vital Signs: Last Vital Signs Temp 97.5 F 03/22/24 08:00 Pulse 70 03/22/24 08:00 Resp 21 H 03/22/24 08:00 BP 146/65 H 03/22/24 08:00 Pulse Ox 92 03/22/24 08:00 O2 Del Method Room Air 03/22/24 08:00 O2 Flow Rate 1 03/21/24 18:00 BMI result Body Mass Index 25.8 Const: General: comfortable, no acute distress, well developed, alert, awake and Physically active Orientation/consciousness: patient oriented x3 HEENT: Other: appreciable bandage L neck; clean; no appreciable fluctuance, induration Head: Yes normal to inspection, Yes normocephalic and Yes atraumatic Eyes: General: appearance normal, both eyes and all related structures Neck: Neck: Yes normal visual inspection, Yes full ROM, Yes no meningeal signs and Yes supple Chest: Chest palpation & inspection: normal inspection of the chest Resp: Other: no appreciable rales, rhonchi, wheezing Effort & Inspection: normal respiratory effort Cardio: Rate: regular rate Rhythm: regular rhythm GI: Inspection: Yes normal to inspection, No Abdominal wall edema and No distended Palpation (GI): Soft to palpation, not firm, nontender, no guarding and not rigid Skin: General skin exam: no rashes or lesions noted Neuro: General: patient oriented x3, gait normal, tone normal, moves all extremities, no meningeal signs and no focal motor deficits Extrem: General: Yes normal to inspection, Yes full ROM, Yes capillary refill normal and Yes no clubbing, cyanosis or edema Psych: Appearance: grossly normal Objective Data Labs 03/22/24 05:32 03/22/24 05:32 Labs: Laboratory Results - last 24 hr 03/21/24 03/22/24 13:43 05:32 WBC 12.1 H 12.9 H RBC 4.11 L 3.53 L Hgb 13.2 11.1 L Hct 39.2 33.9 L MCV 95.4 96.0 MCH 32.1 31.4 MCHC 33.7 32.7 RDW 13.0 13.3 Plt Count 189 173 MPV 10.2 10.5 Immature Gran % (Auto) 0.3 0.3 Neut % (Auto) 89.2 H 73.2 H Lymph % (Auto) 8.7 L 16.6 L Heard % (Auto) 1.3 L 9.3 Eos % (Auto) 0.1 0.1 Baso % (Auto) 0.4 0.5 Lymph # (Auto) 1.1 L 2.1 Heard # (Auto) 0.2 1.2 Eos # (Auto) 0.0 0.0 Baso # (Auto) 0.1 0.1 Abs Immat Gran (auto) 0.04 H 0.04 H Absolute Neuts (auto) 10.8 H 9.4 H Absolute Nucleated RBC 0.000 0.000 Nucleated RBC % (auto) 0.0 0.0 Sodium 140 141 Potassium 4.3 4.2 Chloride 108 111 H Carbon Dioxide 25 22 Anion Gap 11 L 12 BUN 10 9 Creatinine 0.88 0.71 Estim Creat Clear Calc 48.4 66.0 Estimated GFR > 60 > 60 Random Glucose 137 H 134 H Calcium 10.1 9.2 D Phosphorus 2.9 Magnesium 1.8 Albumin 3.2 L Progress Note: A&P Assessment and plan (1) Bilateral carotid artery stenosis: Status: Acute (2) Hypertension: Status: Acute (3) HLD (hyperlipidemia): Status: Acute (4) COPD (chronic obstructive pulmonary disease): Status: Acute Plan Patient is a 73 Y F with breast cancer, COPD, hypertension, hyperlipidemia, and bilateral carotid artery stenosis, now POD 1 after elective L carotid endarterectomy N: no acute issues CV: bilateral carotid artery stenosis, s/p L carotid endarterectomy R: no acute issues GI: no acute issues : no acute issues H: no acute issues ID: no acute issues E: no acute issues P: no acute issues Quality Stroke Does the patient have a stroke diagnosis?: No VTE Prior VTE?: No VTE Risk Level:: Medical - moderate - high VTE Device Contraindication: N/A - Device Ordered VTE Drug Contraindication: Treatment Not Tolerated
[2024-03-22] MEDS: 0.9 % Sodium Chloride Flush 3 ML SYRINGE IVFLUSH (08:16)
[2024-03-22] MEDS: Albumin Human 25 % 100 ML IV (08:16)
[2024-03-22] MEDS: NeoMY/Polymyx/Dexameth Oph Sus 5 ML BOTTLE 1 DROP EYE-RIGHT (08:20)
[2024-03-22] MEDS: oxyCODONE HCl Immed Release 5 MG TABLET PO (08:20)
--- NOTE | 2024-03-22 11:20 | MHC.CM.PN ---
Met with pt and friend Garcia to review d/c planning needs: pt resides alone, has assistance from Garcia and grandchild and states she is independent with all care needs. Garcia will transport pt to home: no service needs identified.
--- NOTE | 2024-03-22 12:54 | P.DS_ITS ---
DS: Providers Provider Date of Service: 03/22/24 Date of admission: 03/21/24 06:07 Primary care physician: Farzad Duron PA-C DS: Diagnosis Discharge Diagnosis (1) Bilateral carotid artery stenosis: Status: Acute (2) Hypertension: Status: Acute (3) HLD (hyperlipidemia): Status: Acute (4) COPD (chronic obstructive pulmonary disease): Status: Acute DS: Summary Hospital Course Hospital Course: Patient underwent left carotid endarterectomy on 03/22/2024. Postoperatively no significant issues. She did have a little bleeding and hematoma but overall stabilized. Postop day 1 voiding freely tolerating regular diet neurologically intact. She was subsequently discharged. Status at Discharge Functional status at discharge: independent ambulation Overall status at discharge: patient is back to baseline Time Attestation Total time managing care of this patient today: 35 mintues. Discharge Coordination Time (in mins): 35 Quality: Safe Use of Opioids Does Pt have an Active Cancer Diagnosis on the Problem List?: No Quality: Stroke Does the patient have a stroke diagnosis?: No Physical Exam Vital Signs: Vital Signs: Last Vital Signs Temp 97.5 F 03/22/24 08:00 Pulse 54 03/22/24 12:00 Resp 15 03/22/24 12:00 BP 155/47 H 03/22/24 12:00 Pulse Ox 90 L 03/22/24 12:00 O2 Del Method Room Air 03/22/24 12:00 O2 Flow Rate 1 03/21/24 18:00 BMI result Body Mass Index 25.8 Const: General: cooperative, healthy appearing and no acute distress Orientation/consciousness: oriented to person, oriented to place and oriented to time HEENT: Head: Yes normal to inspection Neck: Carotids: no bruits Chest: Chest palpation & inspection: normal inspection of the chest Resp: Effort & Inspection: normal respiratory effort and able to speak in complete sentences Auscultation: clear to auscultation bilaterally Cardio: Rate: regular rate Heart sounds: S1 normal heart sound present and S2 normal heart sound present GI: Inspection: Yes normal to inspection Skin: Other: Left neck bruising General skin exam: no rashes or lesions noted Wounds: no wounds Neuro: General: oriented to person, oriented to place, oriented to time and CN's II-XI intact bilaterally Extrem: General: Yes normal to inspection, Yes full ROM and Yes no clubbing, cyanosis or edema Psych: Appearance: grossly normal and well kempt Speech and movement: Normal speech and movement present Affect: normal affect DS: Data Data Completed and Pending Completed studies during hospitalization [Text1]: Pending at discharge 03/21/24 09:51 Surgical [PTH] Routine Procedures Extirpation of Matter from Right Common Carotid Artery, Percutaneous Approach (09/23/21) Extirpation of Matter from Right External Carotid Artery, Percutaneous Approach (09/23/21) Extirpation of Matter from Right Internal Carotid Artery, Percutaneous Approach (09/23/21) Supplement Right Common Carotid Artery with Synthetic Substitute, Percutaneous Approach (09/23/21) Supplement Right Internal Carotid Artery with Synthetic Substitute, Percutaneous Approach (09/23/21) Labs on day of discharge: Laboratory Results - last 24 hr 03/21/24 03/22/24 13:43 05:32 WBC 12.1 H 12.9 H RBC 4.11 L 3.53 L Hgb 13.2 11.1 L Hct 39.2 33.9 L MCV 95.4 96.0 MCH 32.1 31.4 MCHC 33.7 32.7 RDW 13.0 13.3 Plt Count 189 173 MPV 10.2 10.5 Immature Gran % (Auto) 0.3 0.3 Neut % (Auto) 89.2 H 73.2 H Lymph % (Auto) 8.7 L 16.6 L Grimes % (Auto) 1.3 L 9.3 Eos % (Auto) 0.1 0.1 Baso % (Auto) 0.4 0.5 Lymph # (Auto) 1.1 L 2.1 Grimes # (Auto) 0.2 1.2 Eos # (Auto) 0.0 0.0 Baso # (Auto) 0.1 0.1 Abs Immat Gran (auto) 0.04 H 0.04 H Absolute Neuts (auto) 10.8 H 9.4 H Absolute Nucleated RBC 0.000 0.000 Nucleated RBC % (auto) 0.0 0.0 Sodium 140 141 Potassium 4.3 4.2 Chloride 108 111 H Carbon Dioxide 25 22 Anion Gap 11 L 12 BUN 10 9 Creatinine 0.88 0.71 Estim Creat Clear Calc 48.4 66.0 Estimated GFR > 60 > 60 Random Glucose 137 H 134 H Calcium 10.1 9.2 D Phosphorus 2.9 Magnesium 1.8 Albumin 3.2 L Discharge Plan Discharge Anticipated Discharge Date/Time: 03/22/24 12:44 Patient Disposition: Home, Self-Care Discharge Diagnosis: Status post left carotid endarterectomy Referrals: Farzad Duron PA-C [Primary Care Provider] - 1 Week Discharge Medications: New oxycodone-acetaminophen [Percocet] 5-325 mg tablet 1 tab PO TID PRN (Reason: pain) Qty: 10 0RF Rx Instructions: Partial Fill upon patient request. Continued albuterol sulfate 90 mcg/actuation HFA aerosol inhaler 1 inh inhalation QID PRN (Reason: shortness of breath or wheezing) 30 Days Qty: 8.5 3RF atorvastatin 20 mg tablet 20 mg PO QAM metoprolol succinate 50 mg tablet extended release 24 hr 50 mg PO QAM hydroxyzine HCl 50 mg tablet 50 mg PO QAM cholecalciferol (vitamin D3) 50 mcg (2,000 unit) capsule 50 mcg PO QAM budesonide-formoterol [Symbicort] 80-4.5 mcg/actuation HFA aerosol inhaler 1 puff inhalation BID Advil PM 200-38 mg tablet 1 cap PO BEDTIME clotrimazole-betamethasone 1-0.05 % cream 1 appl topical BID PRN (Reason: Rash) 30 Days Qty: 45 1RF Discharge Orders: Discharge Order (Routine); Ordered 03/22/24 Ordered By: Kyler Enciso Diet: Advance to usual diet Activity on Discharge: As tolerated Stand Alone Forms: Patient Portal Discharge page Print Language: Slovenian Care Plan Goals: Carotid surveillance Health Concerns: Carotid stenosis Plan of Treatment: Surveillance follow-up of carotid Assessment: Status post left carotid endarterectomy
== END 2024-03-22 13:31 | disposition home or self-care (01) | DRG 24 ==
LOC: HO.SSSA 06:25 → HO.ICU 11:16
PROVIDERS: Admitting Provider Surgery Vascular Surgery; PCP Physician Assistant; Visit Provider Internal Medicine Pulmonary Disease
PROC: 03CN0ZZ Extirpation of Matter from Left External Carotid Artery, Open Approach (ICD-10-PCS; CPT 35301; principal; 2024-03-21 07:30)
DX: I65.22 Occlusion and stenosis of left carotid artery (principal); E78.5 Hyperlipidemia, unspecified; F17.210 Nicotine dependence, cigarettes, uncomplicated; F41.1 Generalized anxiety disorder; I10 Essential (primary) hypertension; Z71.6 Tobacco abuse counseling; Z86.73 Personal history of transient ischemic attack (TIA), and cerebral infarction without residual deficits; Z85.3 Personal history of malignant neoplasm of breast; Z79.899 Other long term (current) drug therapy
CPT/HCPCS: 36415; 80048; 82040; 82565; 83735; 84100; 84520; 85025; 85027; 85610; 85730; 86850; 86900; 86901; 88304; 88311; A4649; C1758; C1768; J0131; J0690; J1100; J1596; J1644; J1805; J1920; J2250; J2270; J2305; J2371; J2405; J2704; J2795; J3010; P9047

== ENCOUNTER → 2024-03-21 06:07 | Outpatient (BNV) | payer OTHER, SELFPAY | PROVIDERS: Admitting Provider Surgery Vascular Surgery; PCP Physician Assistant; Visit Provider Internal Medicine Pulmonary Disease | DX: I65.23 Occlusion and stenosis of bilateral carotid arteries (principal); J41.0 Simple chronic bronchitis; F41.1 Generalized anxiety disorder | CPT/HCPCS: 99222 ==

== ENCOUNTER → 2024-03-21 06:07 | Outpatient (BNV) | payer OTHER, SELFPAY | PROVIDERS: Admitting Provider Surgery Vascular Surgery; PCP Physician Assistant; Visit Provider Surgery Vascular Surgery | DX: I65.23 Occlusion and stenosis of bilateral carotid arteries (principal); I10 Essential (primary) hypertension; E78.2 Mixed hyperlipidemia; J41.0 Simple chronic bronchitis | CPT/HCPCS: 35301; 99024 ==

== ENCOUNTER → 2024-03-21 06:07 | Outpatient (BNV) | payer OTHER, SELFPAY | PROVIDERS: Admitting Provider Surgery Vascular Surgery; PCP Physician Assistant; Visit Provider Internal Medicine Critical Care Medicine | DX: I65.23 Occlusion and stenosis of bilateral carotid arteries (principal); I10 Essential (primary) hypertension; E78.2 Mixed hyperlipidemia; J41.0 Simple chronic bronchitis | CPT/HCPCS: 99221 ==

== ENCOUNTER 2024-03-28 15:51 | Outpatient (AMB) | payer OTHER, SELFPAY ==
--- NOTE | 2024-03-28 15:54 | A.OFFPC_ITS ---
Vital Signs 3 03/28/24 15:55 Height 5 ft 4 in Weight 135 lb BMI 23.2 BP 140/68 H Blood Pressure Location Lt brachial Position Sitting Pulse 60 Pulse Source Pulse Oximeter Pulse Oximetry (%) 93 Oxygen Delivery Method Room Air Intake Visit Reasons: TCM Intake Note: Patient is here for hospital discharge follow up. 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 Allergies aspirin Adverse Reaction (Intermediate, Verified 03/28/24 16:05) Gastrointestinal Upset varenicline [From Chantix] Adverse Reaction (Intermediate, Verified 03/28/24 16:05) Anxiety Medication List - Last Reconciled 03/28/24 by Farzad Duron PA-C albuterol sulfate 90 mcg/actuation 1 inh inhalation QID PRN 30 days atorvastatin 20 mg PO QAM budesonide-formoterol 80-4.5 mcg/actuation (Symbicort) 1 puff inhalation BID cholecalciferol (vitamin D3) 50 mcg PO QAM clotrimazole-betamethasone 1-0.05 % 1 appl topical BID PRN 30 days hydroxyzine HCl 50 mg PO QAM ibuprofen-diphenhydramine cit 200-38 mg (Advil PM) 1 cap PO BEDTIME metoprolol succinate ER 50 mg PO QAM oxycodone-acetaminophen 5-325 mg (Percocet) 1 tab PO TID PRN Tobacco use date assessed: 03/28/24 Fall risk assessment: No Falls in past year Last assessed Fall Risk: 03/28/24 Dental Screening Dental Screen Date: 11/24/23 HPI TCM 2 HPI0 Details Patient is a 73 year-old female here today?for a follow-up hospital discharge. Recently underwent a 2nd endarterectomy and has done well. ? Patient has a past medical history significant for depression, osteopenia vitamin-D deficiency, essential hypertension, carotid stenosis status post endarterectomy,? smoker. Carotid stenosis : Had recurrent intermittent dizziness and found to critical stenosis of left carotid. Now status post endarterectomy with Dr. Enciso? and doing very well. She has done well postoperatively.? Most recent carotid ultrasound showing moderate stenosis on left carotid artery. ? . ? HTN: Blood pressure slightly elevated today in office. Does report to be in some pain status post vascular surgery. doesn't regularly check her BP at home .? Denies having any chest discomfort, shortness of breath .? . ? .. ?? ? Tobacco dependency: Patient does continue to smoke and knows she needs to quit, she has been working on weaning slowly.? She reports smoking over the last 45 years. now smoking 5-7 cigs per day since having her carotid endarterectomy. She has tried nicotine replacement and Wellbutrin in the past though have not been effective. She reports very difficult for her to complete quit smoking. TCM 2 TCM Information0 Date of Discharge 03/22/24 Discharged From [facility] Interactive Contact Date (Reference documentation from this date) 03/28/24 [facility] Medical History Breast cancer, left Heartburn Anxiety Depression COPD (chronic obstructive pulmonary disease) Nicotine dependence, cigarettes, uncomplicated History of left breast cancer (~2011) Tremor of left hand Supraventricular tachycardia Bilateral carotid artery stenosis Subclavian arterial stenosis BPPV (benign paroxysmal positional vertigo) Osteopenia (~2012) Hypertension Surgical History History of tonsillectomy History of colonoscopy (~2013) History of left breast biopsy (~2011) History of dilation and curettage (~2015) History of cataract surgery (~2019) History of laparoscopic cholecystectomy (~2006) History of carotid endarterectomy (~2020) Family History Father Medical history unknown Mother Medical history unknown Brother Throat cancer Brother Myocardial infarction H/O ETOH abuse Daughter Bone cancer Mental health disorder Substance use disorder Social History Household Members: None Housing: Apartment Are you a primary animal daycare provider to a significant other at home: No Do you presently have visiting nurse or other home services: No Alcohol intake: never Comment: aware of trip hazard Patient Tobacco Use Status: Current everyday Tobacco user Tobacco use type: Cigarette Cigarette Packs Per Day: 0.5 Cigarettes Per Day: 10 Years Smoked: 60 Packs Per Year: 30 Packs per year/per ci.00 e-Cigarette/Vaping Use: Never Used Second Hand Smoke Exposure: Yes service: No Current occupational status: retired Cognitive needs: No Hearing needs: No Vision needs: Yes (reading glasses) Questionnaire Thrive Questionnaire Date Thrive assessed: 03/22/24 AUDIT C Alcohol Use Questionnaire (AUDIT-C) 1. How often do you have a drink containing alcohol?: Never 3. How often do you have six or more drinks on one occasion?: Never Total Score: 0 WHIT-7 AMB Questionnaire WHIT-7 Date WHIT - 7 assessed: 11/24/23 Source: Developed by Drs. Nabeel Markham, Jeanine Nettles, Raffi Daigle and colleagues, with an educational jodi from [employer]. Review of Systems Const Denies headache(s) Eyes Denies loss of vision ENT Denies vertigo, Denies dizziness, Denies headache(s) and Denies sore throat Card Denies chest pain, Denies leg edema and Denies lightheadedness Resp Denies cough, Denies hemoptysis and Denies wheezing GI Denies abdominal pain, Denies melena, Denies constipation, Denies diarrhea and Denies vomiting Denies urinary frequency, Denies dysuria and Denies urinary urgency Musc Denies arthralgias, Denies joint swelling, Denies numbness and Denies tingling Neuro Denies Abnormal speech present, Denies behavioral changes, Denies vertigo, Denies dizziness, Denies headache(s), Denies loss of vision, Denies memory loss, Denies numbness and Denies tingling Psych Denies anxiety, Denies behavioral changes, Denies depression, Denies memory loss and Denies panic attacks Hever/Lymph Denies easy bleeding and Denies easy bruising Aller/Immun Denies wheezing Physical exam (Primary Care) Vital Signs: Last Vital Signs Pulse 60 03/28/24 15:55 BP 140/68 H 03/28/24 15:55 Pulse Ox 93 03/28/24 15:55 Oxygen Delivery Method Room Air 03/28/24 15:55 BMI result Body Mass Index 23.2 Tobacco/Smoking Status: Tobacco use Status Tobacco use date assessed 03/28/24 03/28/24 15:57 Patient Tobacco Use Status Current everyday Tobacco 03/28/24 15:57 Tobacco use type Cigarette 03/28/24 15:57 e-Cigarette/Vaping Use Never Used 03/28/24 15:57 Are you ready to quit: No Tobacco cessation counseling provided: Yes Items discussed: Nicotine replacement and QuitWorks Relapse Prevention: discussed the importance of a supportive environment, discussed negative mood or depression after quitting, weight gain after smoking is common and discussed dietary, exercise and/or lifestyle changes Number of minutes spent counselin CPT code: 87143 - 4-10 Minutes Thrive Assessment: Date of Thrive Assessment Date Thrive assessed 03/22/24 03/28/24 15:57 Const General: healthy appearing, no acute distress, alert and awake Nutritional Appearance: well nourished Orientation/consciousness: oriented to person, oriented to place and oriented to time HENMT Ears: TM's normal bilaterally General nose exam: Normal nasal mucous membranes and turbinates present Eyes Conjunctivae: conjunctivae normal Sclerae: sclerae normal Pupils: Equal, round and reactive pupils present Neck Neck: Yes no lymphadenopathy and Yes no JVD Thyroid: Thyroid normal Carotids: no bruits Neck images: 2 1. HEALING SURGICAL SCAR NOTED OVER LEFT ANTERIOR ASPECT OF NECK. NOTED SOME LOCALIZED SURROUNDING ECCHYMOSIS Resp Effort & Inspection: normal respiratory effort and not tachypneic Auscultation: no crackles, no rales, no rhonchi and no wheezes Cardio Rate: regular rate Rhythm: regular rhythm Heart sounds: no murmurs and normal S1 and S2 GI Palpation (GI): Soft to palpation, nontender, no hepatomegaly and no splenomegaly Auscultation: normal bowel sounds Skin General skin exam: no rashes or lesions noted and dry skin Neuro General: oriented to person, oriented to place and oriented to time Cranial nerves: Yes Equal, round and reactive pupils present Speech: No Abnormal speech present Gait exam (Neuro): Normal gait present Motor exam (neuro): no tremor noted Extrem Right upper extremity: full ROM Left upper extremity: full ROM Right lower extremity: full ROM; no edema Left lower extremity: full ROM; no edema Psych Mental Status: mental status grossly normal Speech and movement: Normal speech and movement present Affect: normal affect Attitude: cooperative Thought process: Normal thought process present Assessment and Plan Assessment & Plan (1) Hospital discharge follow-up: Code(s): Z09 - Encounter for follow-up examination after completed treatment for conditions other than malignant neoplasm Plan: As per HPI (2) Hypertension: Code(s): I10 - Essential (primary) hypertension Qualifiers: Hypertension type: essential hypertension Qualified Code(s): I10 - Essential (primary) hypertension Plan: Patient's blood pressure slightly elevated today in office, does report bit of pain in her surgical areas. Advised to monitor blood pressure at home. Will continue her current dose of antihypertensive medication with goal blood pressure remain below 140/90 (3) Bilateral carotid artery stenosis: Comment: 09/23/2021- right carotid endarterectomy Code(s): I65.23 - Occlusion and stenosis of bilateral carotid arteries Plan: Patient is followed by vascular surgeon. Recently underwent a 2nd endarterectomy and did well postoperatively. Does have bruising around her surgical incision sites. Does report some right groin pain upon movement likely secondary to access point. (4) HLD (hyperlipidemia): Code(s): E78.5 - Hyperlipidemia, unspecified Qualifiers: Hyperlipidemia type: mixed hyperlipidemia Qualified Code(s): E78.2 - Mixed hyperlipidemia Plan: Patient continues on statin therapy without side effect. Most recent lipid panel showing appropriate total cholesterol and LDL. Goal LDL is to remain below 100 (5) Nicotine dependence, cigarettes, uncomplicated: Comment: (current smoker, onset 14yo, 1/2-34ppd x 58yrs, 35pyh, +fam hx lung ca) Code(s): F17.210 - Nicotine dependence, cigarettes, uncomplicated Plan: Patient does understand she needs to quit smoking. Unfortunately has had a hard time quitting smoking. She has cut down to few cigarettes per day. Has tried Wellbutrin though was not effective. Offered her smoking cessation counseling though she declines at this time. She will continue working on reducing the amount of cigarettes he smokes daily Orders: Orders 2 Lipid Panel 03/28/24 E78.2 - Mixed hyperlipidemia Comprehensive [place]. Panel Fast 03/28/24 I10 - Essential (primary) hypertension Complete Blood Count no Diff 03/28/24 I10 - Essential (primary) hypertension Medications: Changed 2 From oxycodone-acetaminophen 5-325 mg (Percocet) Partial Fill upon patient request. 1 tab PO TID PRN 10 tabs 0RF pain I65.23 - Occlusion and stenosis of bilateral carotid arteries To oxycodone-acetaminophen 5-325 mg (Percocet) Partial Fill upon patient request. 1 tab PO TID PRN 6 tabs 0RF pain 2 days I65.23 - Occlusion and stenosis of bilateral carotid arteries Patient Instructions: Goal: Blood pressure to remain below 140/90, cut down and quit smoking Barriers: Adherence to healthy eating habits and physical activity, availability of cigarettes. Coding Level of Care Code Est Pt Level 4 (82008) Diagnoses Hospital discharge follow-up Z09 Essential hypertension I10 Hypertension type: essential hypertension Bilateral carotid artery stenosis I65.23 Mixed hyperlipidemia E78.2 Hyperlipidemia type: mixed hyperlipidemia Nicotine dependence, cigarettes, uncomplicated F17.210 Additional Codes Vital Signs *Quality* - CPT code: 50458 - 4-10 Minutes ([id number])
[2024-03-28 15:55] VITALS: BP 140/68; PULSE 60; O2SAT 93; BMI 23.2
== END 2024-03-28 17:01 | disposition home or self-care (01) ==
PROVIDERS: PCP Physician Assistant; Visit Provider Physician Assistant
DX: I10 Essential (primary) hypertension (principal); Z09 Encounter for follow-up examination after completed treatment for conditions other than malignant neoplasm; I65.23 Occlusion and stenosis of bilateral carotid arteries; E78.2 Mixed hyperlipidemia; F17.210 Nicotine dependence, cigarettes, uncomplicated
CPT/HCPCS: 99214

== ENCOUNTER 2024-04-05 09:31 | Outpatient (AMB) | payer OTHER, SELFPAY ==
[2024-04-05 09:36] VITALS: BP 108/60; BMI 23.2
--- NOTE | 2024-04-05 09:36 | A.OFFVIS_ITS ---
Vital Signs 04/05/24 09:36 04/05/24 09:42 Height 5 ft 4 in Weight 135 lb BMI 23.2 BP 108/60 102/60 Blood Pressure Location Rt femoral Lt brachial Position Sitting Sitting Intake Visit Reasons: 2 week follow up Left CEA Intake Note: 2 week post op Left CEA 03/21/24. Pt states she has been feeling good, she has her steri strip hanging off the incision, causing irritation. Accompanied by: Self / Same As Patient Allergies aspirin Adverse Reaction (Intermediate, Verified 04/05/24 09:39) Gastrointestinal Upset varenicline [From Chantix] Adverse Reaction (Intermediate, Verified 04/05/24 09:39) Anxiety HPI HPI 2 week follow up Left CEA: Details: Very pleasant 73-year-old female status post left carotid endarterectomy. She had minimal postoperative issues. She did have some mild headaches and some bruising which all appear to have resolved. She is tolerating regular diet doing her daily activities with no difficulty at the current time. She is now for postoperative follow-up. [facility] Medical History (Updated 04/05/24 @ 10:53 by Kyler Enciso MD) Breast cancer, left Heartburn Anxiety Depression COPD (chronic obstructive pulmonary disease) Nicotine dependence, cigarettes, uncomplicated History of left breast cancer (~2011) Tremor of left hand Supraventricular tachycardia Bilateral carotid artery stenosis Subclavian arterial stenosis BPPV (benign paroxysmal positional vertigo) Osteopenia (~2012) Hypertension Surgical History (Updated 04/05/24 @ 09:41 by MIRA Robles) History of tonsillectomy History of colonoscopy (~2013) History of left breast biopsy (~2011) History of dilation and curettage (~2015) History of cataract surgery (~2019) History of laparoscopic cholecystectomy (~2006) History of carotid endarterectomy (~2020) Family History Father Medical history unknown Mother Medical history unknown Brother Throat cancer Brother Myocardial infarction H/O ETOH abuse Daughter Bone cancer Mental health disorder Substance use disorder Social History Household Members: None Housing: Apartment Are you a primary intensive care anaesthetist to a significant other at home: No Do you presently have visiting nurse or other home services: No Alcohol intake: never Comment: aware of trip hazard Patient Tobacco Use Status: Current everyday Tobacco user Tobacco use type: Cigarette Cigarette Packs Per Day: 0.5 Cigarettes Per Day: 10 Years Smoked: 60 e-Cigarette/Vaping Use: Never Used Second Hand Smoke Exposure: Yes service: No Current occupational status: retired Cognitive needs: No Hearing needs: No Vision needs: Yes (reading glasses) Review of Systems Const All systems reviewed & are unremarkable except as noted in HPI and below Reports no additional complaints ENT Reports Normal hearing present Card Denies chest pain, Denies chest pain at rest, Denies chest pain with activity and Denies pedal edema Resp Denies cough GI Denies abdominal pain Musc Denies abnormal gait, Denies muscle cramps and Denies radiating pain into limb Skin/Breast Denies skin ulcer and Denies wounds Neuro Reports Normal hearing present and Denies abnormal gait Psych Reports no additional complaints Physical Exam Vital Signs: Last Vital Signs BP 102/60 04/05/24 09:42 BMI result Body Mass Index 23.2 Const General: cooperative, healthy appearing and comfortable Orientation/consciousness: oriented to person, oriented to place and oriented to time HEENT Head: Yes normal to inspection Neck Neck: Yes normal visual inspection Carotids: no bruits Chest Chest palpation & inspection: normal inspection of the chest Resp Effort & Inspection: normal respiratory effort and able to speak in complete sentences Auscultation: clear to auscultation bilaterally, no crackles, no rales, no rhonchi and no wheezes Cardio Rate: regular rate Rhythm: regular rhythm Heart sounds: S1 normal heart sound present and S2 normal heart sound present Bruits: no carotid bruits Peripheral pulses: Peripheral pulses 2+ throughout GI Inspection: Yes normal to inspection Skin Other: Left neck incision healing well Wounds: no wounds Hair: normal Neuro General: oriented to person, oriented to place and oriented to time Cranial nerves: Yes CN's II-XII intact bilaterally and Yes Normal hearing present Cognition (Neuro): normal cognition Motor exam (neuro): 5/5 motor strength present throughout Extrem Other: venous exam: No significant superficial varicosities or spider telangiectasias, minimal edema General: No clubbing, No cyanosis and No edema Psych Appearance: grossly normal Mental Status: mental status grossly normal Speech and movement: Normal speech and movement present Assessment & Plan Assessment & Plan (1) Bilateral carotid artery stenosis: Comment: 09/23/2021- right carotid endarterectomy 03/21/2024 - left carotid endarterectomy Code(s): I65.23 - Occlusion and stenosis of bilateral carotid arteries Category: Medical Plan: In short patient has done extremely well from her carotid endarterectomy. We did discuss routine risk factor modification. She is scheduled for 3 month carotid surveillance follow-up. Thank you for allowing us to assist in her care. Orders: Orders US carotid duplex BI 3 Months I65.23 - Occlusion and stenosis of bilateral carotid arteries Coding Level of Care Code Global (23130) Diagnoses Bilateral carotid artery stenosis I65.23
[2024-04-05 09:42] VITALS: BP 102/60
== END 2024-04-05 09:58 | disposition home or self-care (01) ==
PROVIDERS: PCP Physician Assistant; Visit Provider Surgery Vascular Surgery
DX: I65.23 Occlusion and stenosis of bilateral carotid arteries (principal)
CPT/HCPCS: 99024

== ENCOUNTER → 2024-04-05 09:31 | Outpatient (BNVA) | payer OTHER, SELFPAY | PROVIDERS: PCP Physician Assistant; Visit Provider Surgery Vascular Surgery ==

== ENCOUNTER 2024-07-06 09:31 | Outpatient (REF) | payer BC, SELFPAY ==
--- NOTE | ~2024-07-06 | US_ITS ---
EXAMINATION: US EXTRACRANIAL CAROTID DUPLEX, BILATERAL CLINICAL INFORMATION: Occlusion/stenosis bilateral carotid arteries COMPARISON: Carotid ultrasound August 19, 2023 TECHNIQUE: Real-time ultrasound and Doppler techniques (integrating B-mode 2-D vascular images, Doppler spectral analysis and color-flow Doppler imaging) were utilized to interrogate the extracranial carotid arteries, the vertebral arteries and proximal subclavian arteries bilaterally. The degree of stenosis is determined by criteria similar to NASCET. FINDINGS: Right Side: 1. There is mild atherosclerotic plaque seen in the bifurcation/proximal ICA region. 2. The common carotid artery PSV proximally is 85 cm/s and distally 69 cm/s. 3. The proximal internal carotid artery velocities are 45 cm/s systolic and 15 cm/s diastolic. 4. The proximal external carotid artery PSV is 72 cm/s. 5. The vertebral artery shows antegrade flow. 6. The subclavian artery waveforms are normal. Left Side: 1. There is mild atherosclerotic plaque seen in the bifurcation/proximal ICA region. 2. The common carotid artery PSV proximally is 121 cm/s and distally 82 cm/s. 3. The proximal internal carotid artery velocities are 113 cm/s systolic and 43 cm/s diastolic. 4. The proximal external carotid artery PSV is 80 cm/s. 5. The vertebral artery shows antegrade flow. 6. The subclavian artery waveforms are normal. US/US carotid duplex BI IMPRESSION: 1. RIGHT: Minimal, non-hemodynamically significant stenosis of the proximal right internal carotid artery corresponding to a 0-49% stenosis by velocity criteria. 2. LEFT: Minimal, non-hemodynamically significant stenosis of the proximal left internal carotid artery corresponding to a 0-49% stenosis by velocity criteria. 3. There is no change in the category severity of disease when compared to the previous study dated carotid ultrasound August 19, 2023. Electronically signed by: Nicola Florian DO 07/12/2024 12:07 PM EDT
== END 2024-07-06 09:32 | disposition home or self-care (01) ==
LOC: HO.US 09:31
PROVIDERS: PCP Physician Assistant; Visit Provider Surgery Vascular Surgery
DX: I65.23 Occlusion and stenosis of bilateral carotid arteries (principal)
CPT/HCPCS: 93880

== ENCOUNTER 2024-07-25 08:50 | Outpatient (AMB) | payer BC, SELFPAY ==
--- NOTE | 2024-07-25 09:11 | MHC.PC.OV ---
Vital Signs 07/25/24 09:12 Height 5 ft 4 in Weight 139 lb 2 oz BMI 23.9 BP 132/66 Blood Pressure Location Lt brachial Position Sitting Pulse 63 Pulse Source Pulse Oximeter Oxygen Delivery Method Room Air Intake Visit Reasons: pe Intake Note: Patient is here today for a physical. Pt was expose to COVID two weeks ago and did received the covid shot last week at [facility]. 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 Accompanied by: Self / Same As Patient Allergies aspirin Adverse Reaction (Intermediate, Verified 07/25/24 09:36) Gastrointestinal Upset varenicline [From Chantix] Adverse Reaction (Intermediate, Verified 07/25/24 09:36) Anxiety Medication List - Last Reconciled 07/25/24 by Farzad Duron PA-C albuterol sulfate 90 mcg/actuation 1 inh inhalation QID PRN 30 days atorvastatin 20 mg PO QAM budesonide-formoterol 80-4.5 mcg/actuation (Symbicort) 1 puff inhalation BID cholecalciferol (vitamin D3) 50 mcg PO QAM clotrimazole-betamethasone 1-0.05 % 1 appl topical BID PRN 30 days hydroxyzine HCl 50 mg PO QAM 15 days ibuprofen-diphenhydramine cit 200-38 mg (Advil PM) 1 cap PO BEDTIME metoprolol succinate ER 50 mg PO QAM Tobacco use date assessed: 03/28/24 Dental Screening Dental Screen Date: 11/24/23 HPI pe HPI Details Patient is a 73 year-old female here today?for a routine annual physical ? Patient has a past medical history significant for depression, osteopenia vitamin-D deficiency, essential hypertension, carotid stenosis status post endarterectomy,? smoker. Concern--> reports over the last 72 hours having a cough, nasal congestion sinus pressure. Reports she was exposed to COVID over 2 weeks ago. Recently had COVID vaccine. Carotid stenosis : Patient is status post endarterectomy with Dr. Enciso? and doing very well. She has done well postoperatively.? Most recent carotid ultrasound showing moderate stenosis on left carotid artery. ? . ? HTN: Blood pressure acceptable today in office.. Does report to be in some pain status post vascular surgery. doesn't regularly check her BP at home .? Denies having any chest discomfort, shortness of breath .? . ? .. ?? ? Tobacco dependency: Patient does continue to smoke and knows she needs to quit, she has been working on weaning slowly.? She reports smoking over the last 45 years. now smoking 5-7 cigs per day since having her carotid endarterectomy. She has tried nicotine replacement and Wellbutrin in the past though have not been effective. She reports very difficult for her to complete quit smoking. Vaccines: Up-to-date with COVID vaccine, tetanus, considering shingles vaccine Mammogram: Done in November of 2023, BI-RADS 2 Colon cancer screening: Colonoscopy done in 2013-normal- needs repeat colonoscopy [facility] Medical History (Updated 07/25/24 @ 11:17 by aFrzad Duron PA-C) Breast cancer, left Heartburn Anxiety Depression COPD (chronic obstructive pulmonary disease) Nicotine dependence, cigarettes, uncomplicated History of left breast cancer (~2011) Tremor of left hand Supraventricular tachycardia Bilateral carotid artery stenosis Subclavian arterial stenosis BPPV (benign paroxysmal positional vertigo) Osteopenia (~2012) Hypertension Surgical History History of tonsillectomy History of colonoscopy (~2013) History of left breast biopsy (~2011) History of dilation and curettage (~2015) History of cataract surgery (~2019) History of laparoscopic cholecystectomy (~2006) History of carotid endarterectomy (~2020) Family History Father Medical history unknown Mother Medical history unknown Brother Throat cancer Brother Myocardial infarction H/O ETOH abuse Daughter Bone cancer Mental health disorder Substance use disorder Social History Household Members: None Housing: Apartment Are you a primary customer care manager to a significant other at home: No Do you presently have visiting nurse or other home services: No Alcohol intake: never Comment: aware of trip hazard Patient Tobacco Use Status: Current everyday Tobacco user Tobacco use type: Cigarette Cigarette Packs Per Day: 0.5 Cigarettes Per Day: 10 Years Smoked: 60 e-Cigarette/Vaping Use: Never Used Second Hand Smoke Exposure: Yes service: No Current occupational status: retired Cognitive needs: No Hearing needs: No Vision needs: Yes (reading glasses) Questionnaire PHQ-9 Over the last 2 weeks, how often have you been bothered by any of the following problems? 1. Little interest or pleasure in doing things: not at all 2. Feeling down, depressed, or hopeless: not at all 3. Trouble falling or staying asleep, or sleeping too much: not at all 4. Feeling tired or having little energy: not at all 5. Poor appetite or overeating: not at all 6. Feeling bad about yourself - or that you are a failure or have let yourself or your family down: not at all 7. Trouble concentrating on things, such as reading the newspaper or watching television: not at all 8. Moving or speaking so slowly that other people could have noticed. Or the opposite - being so fidgety or restless that you have been moving around a lot more than usual: not at all 9. Thoughts that you would be better off or of hurting yourself in some way: not at all Total score: 0 Depression Screening Interpretation: Negative Depression Screening Done: Yes 41798 - PHQ-9 Billing: Yes Source: Developed by Drs. Nabeel Markham, Jeanine Nettles, Raffi Daigle and colleagues, with an educational jodi from [employer]. Thrive Questionnaire Date Thrive assessed: 07/25/24 I am a: Patient What is your living situation today?: I have a steady place to live Within the past 12 months, did the food you bought not last and you didn't have the money to get more?: Never true Within the past 12 months, did you worry whether your food would run out before you got money to buy more?: Never true Do you have trouble paying for medicines?: No Do you have trouble getting transportation to medical appointments?: No Do you have trouble paying your heating and electricity bill?: No Do you have trouble taking care of your child, family member or friend?: No Do you have trouble with day-to-day activities such as bathing, preparing meals, shopping, managing finances, etc.?: No Are you currently unemployed and looking for a job?: No Are you interested in more education?: No Please select the resources that you would like help with: None Currently or been in a relationship where the following occur: No concerns reported THRIVE Score: 0 AUDIT C Alcohol Use Questionnaire (AUDIT-C) 1. How often do you have a drink containing alcohol?: Never 3. How often do you have six or more drinks on one occasion?: Never Total Score: 0 WHIT-7 AMB Questionnaire WHIT-7 Date WHIT - 7 assessed: 07/25/24 Feeling nervous, anxious, or on edge: 3 = Nearly every day Not being able to stop or control worryin = Nearly every day Worrying too much about different things: 3 = Nearly every day Trouble relaxin = Nearly every day Being so restless that it is hard to sit still: 3 = Nearly every day Becoming easily annoyed or irritable: 3 = Nearly every day Feeling afraid as if something awful might happen: 3 = Nearly every day Total WHIT-7 score (0-4 normal; 5-9 mild; 10-14 moderate; 15-21 severe): 21 Source: Developed by Drs. Nabeel Markham, Jeanine Nettles, Raffi Daigle and colleagues, with an educational jodi from [employer]. WHIT-7 Assessment Billing WHIT-7 Assessment Tool: WHIT-7 Assessment 28233 Review of Systems Const Denies body aches, Denies chills, Denies excessive sweating, Denies fatigue, Denies fever(s) and Denies headache(s) Eyes Denies blurry vision ENT Denies dysphagia, Denies vertigo, Denies dizziness, Denies headache(s), Denies hearing loss and Denies tinnitus Card Denies chest pain, Denies chest pain with activity, Denies syncope, Denies irregular heart rhythm and Denies dyspnea Resp Denies chest congestion, Denies cough, Denies hemoptysis, Denies dyspnea and Denies wheezing GI Denies abdominal pain, Denies melena, Denies hematochezia, Denies coffee ground emesis, Denies dysphagia, Denies diarrhea, Denies nausea and Denies vomiting Denies urinary frequency, Denies dysuria, Denies urinary hesitancy and Denies urinary urgency Musc Denies arthralgias, Denies limited range of motion, Denies muscle cramps and Denies muscle weakness Skin/Breast Denies rash and Denies skin ulcer Neuro Denies Abnormal speech present, Denies confusion, Denies vertigo, Denies dizziness, Denies syncope, Denies headache(s), Denies memory loss and Denies seizure-like activity Psych Denies anxiety, Denies confusion, Denies depression, Denies memory loss, Denies panic attacks and Denies paranoia Endo Denies excessive sweating, Denies fatigue, Denies flushing, Denies polydipsia and Denies polyuria Aller/Immun Denies wheezing Physical exam (Primary Care) Vital Signs: Last Vital Signs Pulse 63 07/25/24 09:12 BP 132/66 07/25/24 09:12 Oxygen Delivery Method Room Air 07/25/24 09:12 BMI result Body Mass Index 23.9 Tobacco/Smoking Status: Tobacco use Status Tobacco use date assessed 03/28/24 07/25/24 09:17 Patient Tobacco Use Status Current everyday Tobacco 07/25/24 09:17 Tobacco use type Cigarette 07/25/24 09:17 e-Cigarette/Vaping Use Never Used 07/25/24 09:17 Are you ready to quit: No Tobacco cessation counseling provided: Yes Items discussed: Nicotine replacement and QuitWorks Relapse Prevention: discussed the importance of a supportive environment, discussed negative mood or depression after quitting, weight gain after smoking is common and discussed dietary, exercise and/or lifestyle changes Number of minutes spent counselin CPT code: 70563 - 4-10 Minutes PHQ-9: PHQ-9 Score PHQ-9: Total score 0 07/25/24 09:17 Depression Screening Interpretation: Negative Thrive Assessment: Date of Thrive Assessment Date Thrive assessed 07/25/24 07/25/24 09:17 Currently or been in a relationship where the following occur: No concerns reported Const General: cooperative, comfortable, no acute distress, alert and awake; No confusion Orientation/consciousness: oriented to person, oriented to place, patient oriented x3 and No confusion HENMT Head: Yes normocephalic Ears: external ears normal and TM's normal bilaterally Face and sinus: No sinus tenderness Mouth: Normal oral and palatal mucosa present and tongue normal Teeth and gingiva: dentition normal and gingiva normal Throat: Yes posterior oropharynx normal, Yes tonsils normal and Yes uvula midline Eyes Conjunctivae: conjunctivae normal Sclerae: sclerae normal Pupils: Equal, round and reactive pupils present EOM: EOMs intact bilaterally Direct Ophthalmoscopy: No no photophobia Neck Neck: Yes no lymphadenopathy, No tender and Yes no JVD Thyroid: Thyroid normal Carotids: no bruits Chest Chest palpation & inspection: no tenderness Resp Effort & Inspection: normal respiratory effort, no audible wheezes, not labored and no stridor Auscultation: no crackles, no rales, no rhonchi and no wheezes Cardio Jugular venous distension: no JVD Rate: regular rate, not bradycardic and not tachycardic Rhythm: regular rhythm Bruits: no carotid bruits Peripheral pulses: Peripheral pulses 2+ throughout GI Inspection: Yes normal to inspection, No abdominal wall ecchymosis and No visible herniation Palpation (GI): Soft to palpation, nontender, no guarding, not rigid and No hepatosplenomegaly present Auscultation: normoactive bowel sounds General: Yes no CVA tenderness Back/Spine/Pelvis Back: no CVA tenderness and No back tenderness Cervical Spine: cervical ROM normal Thoracic/Lumbar Spine: thoracic and lumbar spine normal to inspection, straight leg raise negative bilaterally, No thoraco-lumbar ROM limited and No lumbar spinal tenderness Skin Lesions: no lesions Rashes: no rashes Wounds: no wounds Neuro General: oriented to person, oriented to place, patient oriented x3, CN's II-XI intact bilaterally and No confusion Cranial nerves: Yes Equal, round and reactive pupils present and Yes Normal accommodation reflex present Cognition (Neuro): normal cognition Speech: No Abnormal speech present Gait exam (Neuro): Normal gait present Motor exam (neuro): 5/5 motor strength present throughout Extrem Right upper extremity: full ROM; no cyanosis Left upper extremity: full ROM; no cyanosis Right lower extremity: no edema Left lower extremity: no edema Psych Appearance: grossly normal Mental Status: mental status grossly normal Affect: normal affect Attitude: cooperative Thought process: Normal thought process present Assessment and Plan Assessment & Plan (1) Annual physical exam: Code(s): Z00.00 - Encounter for general adult medical examination without abnormal findings (2) Hypertension: Code(s): I10 - Essential (primary) hypertension Qualifiers: Hypertension type: essential hypertension Qualified Code(s): I10 - Essential (primary) hypertension Plan: Patient's blood pressure acceptable today in office. Advised to monitor blood pressure at home. Will continue her current dose of antihypertensive medication with goal blood pressure remain below 140/90 (3) Bilateral carotid artery stenosis: Comment: 09/23/2021- right carotid endarterectomy 03/21/2024 - left carotid endarterectomy Code(s): I65.23 - Occlusion and stenosis of bilateral carotid arteries Plan: Patient is followed by vascular surgeon. Doing well without any further dizziness. Unfortunately continues to smoke and does understand she needs to quit. (4) HLD (hyperlipidemia): Code(s): E78.5 - Hyperlipidemia, unspecified Qualifiers: Hyperlipidemia type: mixed hyperlipidemia Qualified Code(s): E78.2 - Mixed hyperlipidemia Plan: Patient continues on statin therapy without side effect. Most recent lipid panel showing appropriate total cholesterol and LDL. Goal LDL is to remain below 100 (5) Nicotine dependence, cigarettes, uncomplicated: Comment: (current smoker, onset 14yo, 1/2-34ppd x 58yrs, 35pyh, +fam hx lung ca) Code(s): F17.210 - Nicotine dependence, cigarettes, uncomplicated Plan: Patient does understand she needs to quit smoking. Unfortunately has had a hard time quitting smoking. She has cut down to few cigarettes per day. Has tried Wellbutrin though was not effective. Offered her smoking cessation counseling though she declines at this time. She will continue working on reducing the amount of cigarettes he smokes daily (6) Upper respiratory infection: Code(s): J06.9 - Acute upper respiratory infection, unspecified Qualifiers: URI type: unspecified viral URI Qualified Code(s): J06.9 - Acute upper respiratory infection, unspecified Plan: Has been sinus pain nasal congestion and a mild cough over the last 3 days. She does report being exposed to COVID recently by her daughter. Tested for RSV flu and COVID today in office. Will call with results. (7) Breast cancer, left: Comment: 2012-w/lumpectomy & chemotherpy/radiation Code(s): C50.912 - Malignant neoplasm of unspecified site of left female breast Qualifiers: Breast location: unspecified site of breast Estrogen receptor status: negative Patient sex: female Qualified Code(s): C50.912 - Malignant neoplasm of unspecified site of left female breast; Z17.1 - Estrogen receptor negative status [ER-] Plan: Had history of left breast cancer in 2012, is status post lumpectomy and radiation. Now continued get screening mammograms Orders: Orders SARS-CoV2/FLU/RSV Today R09.89 - Other specified symptoms and signs involving the circulatory and respiratory systems Patient Instructions: Goal: Blood pressure to be below 140/90, completely quit smoking Barriers: Adherence to physical activity and healthy eating habits Coding Level of Care Code Est Pt Prev Care >65y(09698) Diagnoses Annual physical exam Z00.00 Essential hypertension I10 Hypertension type: essential hypertension Bilateral carotid artery stenosis I65.23 Mixed hyperlipidemia E78.2 Hyperlipidemia type: mixed hyperlipidemia Nicotine dependence, cigarettes, uncomplicated F17.210 Viral upper respiratory tract infection J06.9 URI type: unspecified viral URI Malignant neoplasm of left breast in female, estrogen receptor negative, unspecified site of breast C50.912; Z17.1 Breast location: unspecified site of breast Estrogen receptor status: negative Patient sex: female Additional Codes WHIT-7 Assessment Billing - WHIT-7 Assessment Tool: WHIT-7 Assessment 05342 ([id number]) Vital Signs *Quality* - CPT code: 70859 - 4-10 Minutes ([id number])
[2024-07-25 09:12] VITALS: BP 132/66; PULSE 63; BMI 23.9
== END 2024-07-25 10:30 | disposition home or self-care (01) ==
PROVIDERS: PCP Physician Assistant; Visit Provider Physician Assistant
DX: Z00.00 Encounter for general adult medical examination without abnormal findings (principal); C50.912 Malignant neoplasm of unspecified site of left female breast; I10 Essential (primary) hypertension; I65.23 Occlusion and stenosis of bilateral carotid arteries; E78.2 Mixed hyperlipidemia; F17.210 Nicotine dependence, cigarettes, uncomplicated; J06.9 Acute upper respiratory infection, unspecified; Z17.1 Estrogen receptor negative status [ER-]
CPT/HCPCS: 99397

== ENCOUNTER 2024-07-25 09:20 | Outpatient (REF) | payer BC, SELFPAY ==
[2024-07-25 10:13] LABS: Influenza A PCR NEGATIVE (Negative); Influenza B PCR NEGATIVE (Negative); Resp Syncy Virus RNA Qual PCR NEGATIVE (Negative); SARS COV2 PCR INHOUSE NEGATIVE (Negative)
== END 2024-07-25 09:21 | disposition home or self-care (01) ==
LOC: HO.LAB 09:20
PROVIDERS: Visit Provider Physician Assistant
DX: R09.89 Other specified symptoms and signs involving the circulatory and respiratory systems (principal)
CPT/HCPCS: 0241U

== ENCOUNTER 2024-08-15 07:46 | Outpatient (AMB) | payer BC, SELFPAY ==
[2024-08-15 08:21] VITALS: BP 120/62; PULSE 56; BMI 24.2
--- NOTE | 2024-08-15 08:21 | A.OFFVIS_ITS ---
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 Required: No Accompanied by: Self / Same As Patient Allergies aspirin Adverse Reaction (Intermediate, Verified 07/25/24 09:36) Gastrointestinal Upset varenicline [From Chantix] Adverse Reaction (Intermediate, Verified 07/25/24 09:36) Anxiety Medication List - Last Reconciled 08/15/24 by Jose Rodas MD albuterol sulfate 90 mcg/actuation 1 inh inhalation QID PRN 30 days atorvastatin 20 mg PO QAM budesonide-formoterol 80-4.5 mcg/actuation (Symbicort) 1 puff inhalation BID cholecalciferol (vitamin D3) 50 mcg PO QAM clotrimazole-betamethasone 1-0.05 % 1 appl topical BID PRN 30 days hydroxyzine HCl 50 mg PO QAM 15 days ibuprofen-diphenhydramine cit 200-38 mg (Advil PM) 1 cap PO BEDTIME metoprolol succinate ER 50 mg PO QAM HPI Comments Details: Laxmi comes for follow-up. She has been complaining of dizziness which she describes as the world spinning in any positions. Sometimes while she was watching TV sometimes while she was walking and feels a little disequilibrium with it. No falls. Denies any lightheadedness or syncopal episodes. Also continues to have episodes of palpitations which last for few seconds with rapid heart rate happen about 3 times a week which resolves very quickly after she lays down and holds her leg into her abdomen. She is currently not taking aspirin due to GI upset. She unfortunately continues smoke. Denies any exertional chest pain or shortness of breath. No prolonged palpitation requiring ED presentation. No heart failure symptoms. [facility], [facility] Medical History Breast cancer, left Heartburn Anxiety Depression COPD (chronic obstructive pulmonary disease) Nicotine dependence, cigarettes, uncomplicated History of left breast cancer (~2011) Tremor of left hand Supraventricular tachycardia Bilateral carotid artery stenosis Subclavian arterial stenosis BPPV (benign paroxysmal positional vertigo) Osteopenia (~2012) Hypertension Surgical History History of tonsillectomy History of colonoscopy (~2013) History of left breast biopsy (~2011) History of dilation and curettage (~2015) History of cataract surgery (~2019) History of laparoscopic cholecystectomy (~2006) History of carotid endarterectomy (~2020) Family History Father Medical history unknown Mother Medical history unknown Brother Throat cancer Brother Myocardial infarction H/O ETOH abuse Daughter Bone cancer Mental health disorder Substance use disorder Social History Household Members: None Housing: Apartment Are you a primary associate director career services to a significant other at home: No Do you presently have visiting nurse or other home services: No Alcohol intake: never Comment: aware of trip hazard Patient Tobacco Use Status: Current everyday Tobacco user Tobacco use type: Cigarette Cigarette Packs Per Day: 0.5 Cigarettes Per Day: 10 Years Smoked: 60 e-Cigarette/Vaping Use: Never Used Second Hand Smoke Exposure: Yes service: No Current occupational status: retired Cognitive needs: No Hearing needs: No Vision needs: Yes (reading glasses) Review of Systems Const Denies chills, Denies fatigue, Denies fever(s), Denies frequent falls, Denies weakness, Denies weight gain and Denies weight loss ENT Reports dizziness Card Denies chest pain, Denies leg edema, Denies lightheadedness, Denies palpitations, Denies dyspnea and Denies dyspnea on exertion Resp Denies cough, Denies dyspnea and Denies dyspnea on exertion GI Denies hematochezia Musc Denies abnormal gait, Denies muscle weakness, Denies numbness, Denies radiating pain into limb and Denies tingling Neuro Denies abnormal gait, Reports dizziness, Denies frequent falls, Denies numbness, Denies tingling and Denies weakness Endo Denies fatigue and Denies palpitations Physical Exam Vital Signs: Last Vital Signs Pulse 56 08/15/24 08:21 BP 120/62 08/15/24 08:21 BMI result Body Mass Index 24.2 Const General: cooperative, healthy appearing, comfortable and no acute distress Orientation/consciousness: patient oriented x3 Neck Neck: Yes normal visual inspection Resp Effort & Inspection: normal respiratory effort Auscultation: clear to auscultation bilaterally, no crackles, no rales, no rhonchi and no wheezes Cardio Jugular venous distension: no JVD Rate: regular rate Rhythm: regular rhythm Heart sounds: S1 normal heart sound present, S2 normal heart sound present, no murmurs and no rubs Neuro General: patient oriented x3 Extrem General: Yes normal to inspection and No no pedal edema Psych Appearance: grossly normal Mental Status: mental status grossly normal Speech and movement: Normal speech and movement present Office Procedures EKG Details: EKG shows normal sinus rhythm with sinus arrhythmia otherwise normal EKG 85323-[id number], Complete Assessment & Plan Assessment & Plan (1) Supraventricular tachycardia: Comment: follows w/[facility] Code(s): I47.1 - Supraventricular tachycardia Category: Medical Plan: Patient with prior history of SVT that required ED presentation. No recurrent ED presentation. She was short episodes of palpitation last for few weeks could represent short bursts of PACs. Although this is not life-limiting at this point time. If she has another episode that requires ED presentation will refer for ablation. Can not maximize metoprolol therapy. Continue the same. Avoidance of stimulants was discussed. Stress mitigation strategies discussed. We discussed about vagal maneuvers. She understands and agrees. (2) Bilateral carotid artery stenosis: Comment: 09/23/2021- right carotid endarterectomy 03/21/2024 - left carotid endarterectomy Code(s): I65.23 - Occlusion and stenosis of bilateral carotid arteries Category: Medical Plan: Bilateral carotid disease with bilateral endarterectomy. Importance of aggressive risk factor modification and medical therapy was discussed importance of antiplatelet agents were discussed she can not tolerate aspirin therapy due to GI upset. Will prescribe a Plavix 75 mg daily. Continue high-intensity statin therapy with target goal LDL closer to 60 mg/dL. Complete smoking cessation was advised. Continue aggressive blood pressure control, which is well optimized at this point time. Follow up in the clinic in 1 year's time, sooner p.r.n.. Thank you for allowing me to partake in his care Medications: New clopidogrel (Plavix) 75 mg PO DAILY 30 tabs 5RF Coding Level of Care Code Est Pt Level 4 (53973) Diagnoses Supraventricular tachycardia I47.1 Bilateral carotid artery stenosis I65.23 CPT Codes EKG - CPT: 06067-[id number], Complete ([id number])
== END 2024-08-15 08:59 | disposition home or self-care (01) ==
PROVIDERS: PCP Physician Assistant; Visit Provider Internal Medicine Cardiovascular Disease
DX: I47.10 Supraventricular tachycardia, unspecified (principal); I65.23 Occlusion and stenosis of bilateral carotid arteries
CPT/HCPCS: 93010; 99214

== ENCOUNTER → 2024-08-15 07:46 | Outpatient (BNVA) | payer BC, SELFPAY | PROVIDERS: PCP Physician Assistant; Visit Provider Internal Medicine Cardiovascular Disease | DX: I47.10 Supraventricular tachycardia, unspecified (principal); I65.23 Occlusion and stenosis of bilateral carotid arteries; Z79.899 Other long term (current) drug therapy | CPT/HCPCS: 93005 ==

== ENCOUNTER 2024-08-16 09:40 | Outpatient (AMB) | payer BC, SELFPAY ==
[2024-08-16 09:55] VITALS: BP 112/72; BMI 24.2
--- NOTE | 2024-08-16 09:55 | MHC.OFFVIS ---
Vital Signs 08/16/24 09:55 08/16/24 10:02 Height 5 ft 4 in Weight 141 lb BMI 24.2 BP 112/72 116/68 Blood Pressure Location Rt brachial Lt brachial Position Sitting Sitting Intake Visit Reasons: overdue 3 mo follow up carotid US 07/06/24 Intake Note: 3 mo follow up carotid US 07/06/24 s/p Left CEA 03/21/24. Pt states she has some dizziness, she states shes been having some issues with her ear. No other complaints. Accompanied by: Self / Same As Patient Allergies aspirin Adverse Reaction (Intermediate, Verified 08/16/24 09:59) Gastrointestinal Upset varenicline [From Chantix] Adverse Reaction (Intermediate, Verified 08/16/24 09:59) Anxiety HPI HPI overdue 3 mo follow up carotid US 07/06/24: Details: Very pleasant 73-year-old female who had undergone left CEA with us back in March of this year. Reports she is doing fairly well. Now for her 3 month surveillance follow-up. She is being maintained on Plavix and statin. Of note she continues to smoke a half a pack a day [facility] Medical History Breast cancer, left Heartburn Anxiety Depression COPD (chronic obstructive pulmonary disease) Nicotine dependence, cigarettes, uncomplicated History of left breast cancer (~2011) Tremor of left hand Supraventricular tachycardia Bilateral carotid artery stenosis Subclavian arterial stenosis BPPV (benign paroxysmal positional vertigo) Osteopenia (~2012) Hypertension Surgical History History of tonsillectomy History of colonoscopy (~2013) History of left breast biopsy (~2011) History of dilation and curettage (~2015) History of cataract surgery (~2019) History of laparoscopic cholecystectomy (~2006) History of carotid endarterectomy (~2020) Family History Father Medical history unknown Mother Medical history unknown Brother Throat cancer Brother Myocardial infarction H/O ETOH abuse Daughter Bone cancer Mental health disorder Substance use disorder Social History Household Members: None Housing: Apartment Are you a primary manager respiratory care to a significant other at home: No Do you presently have visiting nurse or other home services: No Alcohol intake: never Comment: aware of trip hazard Patient Tobacco Use Status: Current everyday Tobacco user Tobacco use type: Cigarette Cigarette Packs Per Day: 0.5 Cigarettes Per Day: 10 Years Smoked: 60 e-Cigarette/Vaping Use: Never Used Second Hand Smoke Exposure: Yes service: No Current occupational status: retired Cognitive needs: No Hearing needs: No Vision needs: Yes (reading glasses) Review of Systems Const All systems reviewed & are unremarkable except as noted in HPI and below Reports no additional complaints ENT Reports Normal hearing present Card Denies chest pain, Denies chest pain at rest, Denies chest pain with activity and Denies pedal edema Resp Denies cough GI Denies abdominal pain Musc Denies abnormal gait, Denies muscle cramps and Denies radiating pain into limb Skin/Breast Denies skin ulcer and Denies wounds Neuro Reports Normal hearing present and Denies abnormal gait Psych Reports no additional complaints Physical Exam Vital Signs: Last Vital Signs BP 116/68 08/16/24 10:02 BMI result Body Mass Index 24.2 Const General: cooperative, healthy appearing and comfortable Orientation/consciousness: oriented to person, oriented to place and oriented to time HEENT Head: Yes normal to inspection Neck Neck: Yes normal visual inspection Carotids: no bruits Chest Chest palpation & inspection: normal inspection of the chest Resp Effort & Inspection: normal respiratory effort and able to speak in complete sentences Auscultation: clear to auscultation bilaterally, no crackles, no rales, no rhonchi and no wheezes Cardio Rate: regular rate Rhythm: regular rhythm Heart sounds: S1 normal heart sound present and S2 normal heart sound present Bruits: no carotid bruits Peripheral pulses: Peripheral pulses 2+ throughout GI Inspection: Yes normal to inspection Skin Wounds: no wounds Hair: normal Neuro General: oriented to person, oriented to place and oriented to time Cranial nerves: Yes CN's II-XII intact bilaterally and Yes Normal hearing present Cognition (Neuro): normal cognition Motor exam (neuro): 5/5 motor strength present throughout Extrem Other: venous exam: No significant superficial varicosities or spider telangiectasias, minimal edema General: No clubbing, No cyanosis and No edema Psych Appearance: grossly normal Mental Status: mental status grossly normal Speech and movement: Normal speech and movement present Results Reviewed Results Reviewed: Noninvasive carotid testing demonstrates bilateral 0-49% stenosis with right side peak systolic of 45 and left side of 113. Assessment & Plan Assessment & Plan (1) Bilateral carotid artery stenosis: Comment: 09/23/2021- right carotid endarterectomy 03/21/2024 - left carotid endarterectomy Code(s): I65.23 - Occlusion and stenosis of bilateral carotid arteries Category: Medical Plan: In short patient appears to be doing well from bilateral carotid endarterectomy. We have reviewed signs and symptoms of a stroke. We also discussed risk factor modification inclusive a healthy diet low in cholesterol. The patient will follow up with us with surveillance ultrasound of the carotids 6 months. Should there be any changes or signs or symptoms of a stroke we will be happy to see them back sooner. Thank you for allowing us to participate in this patient's care. If there are any questions or concerns please do not hesitate to contact us. Please note a longitudinal relationship has been created with the patient and we have been following and surveillance this chronic condition. Orders: Orders US carotid duplex BI 6 Months I65.23 - Occlusion and stenosis of bilateral carotid arteries Coding Level of Care Code Est Pt Level 4 (49103) Complex EM visit Add On G2211 Diagnoses Bilateral carotid artery stenosis I65.23
[2024-08-16 10:02] VITALS: BP 116/68
== END 2024-08-16 10:28 | disposition home or self-care (01) ==
PROVIDERS: PCP Physician Assistant; Visit Provider Surgery Vascular Surgery
DX: I65.23 Occlusion and stenosis of bilateral carotid arteries (principal)
CPT/HCPCS: 99214

== ENCOUNTER → 2024-08-16 09:40 | Outpatient (BNVA) | payer BC, SELFPAY | PROVIDERS: PCP Physician Assistant; Visit Provider Surgery Vascular Surgery ==

== ENCOUNTER 2024-08-18 08:50 | Outpatient (REF) | payer BC, SELFPAY ==
--- NOTE | ~2024-08-18 | CT_ITS ---
EXAMINATION: CT LOW-DOSE SCREENING CHEST WITHOUT CONTRAST CLINICAL INFORMATION: Nicotine dependence, cigarettes, uncomplicated. The patient is a current smoker with a 30 pack-year history of smoking. COMPARISON: CT chest 06/12/2023 and 12/12/2022. TECHNIQUE: Multidetector volumetric CT imaging of the chest is performed on a Siemens SOMATOM Definition scanner without contrast using low dose technique. Additional 2D coronal and sagittal reformatted images and axial 3D maximum intensity projection (MIP) images are generated on the CT workstation. This CT examination was performed using dose optimization techniques as appropriate, variously including the following: *Automated exposure control. *Adjustment of mA and/or kV according to patient size (this includes techniques or standardized protocols for targeted exams where dose is matched to indication/reason for exam; i.e. extremities or head). *Use of iterative reconstruction technique. TOTAL EXAM DLP: 36 mGy-cm. CTDIvol: 1.12 mGy. FINDINGS: PULMONARY NODULES: Some small pulmonary nodules are seen (see saved wilkerson images). No new, increasing-sized or suspicious nodule. LUNGS: Lungs bilaterally symmetrically expanded. There is moderate emphysema. Mild bronchial thickening. Some minimal subpleural reticulation most prominent in the left upper lobe. No effusion or pneumothorax. Central airways patent. MEDIASTINUM: No mediastinal, hilar or axillary adenopathy or free fluid collection. CORONARY ARTERY CALCIFICATION: [id number]. THYROID GLAND: Unremarkable to the extent seen. CARDIOVASCULAR STRUCTURES: Aortic and heart size normal. No pericardial effusion. CHEST WALL/AXILLA: Unremarkable. Dense calcification in the left breast, unchanged. UPPER ABDOMEN: Included portions of the solid organs in the upper abdomen unremarkable on noncontrast imaging. Status post cholecystectomy. OSSEOUS STRUCTURES: No suspicious focal findings. CT/CT lung screening IMPRESSION: No findings seen suspicious for malignancy. ASSESSMENT: 1. Lung-RADS Category 2: Benign appearance or behavior of nodules. N/A. 2. Lung-RADS Category S: Negative. There are no clinically significant or potentially clinically significant findings not related to the lungs requiring urgent additional evaluation. RECOMMENDATION: Continued routine annual low-dose CT lung screening in 1 year is recommended. An order for CT CHEST LOW DOSE CANCER SCREENING ([id number]) can be placed. Electronically signed by: Qasim Ballard MD 10/03/2024 10:39 PM [facility] [place]
== END 2024-08-18 08:51 | disposition home or self-care (01) ==
LOC: HO.CT 08:50
PROVIDERS: PCP Physician Assistant; Visit Provider Physician Assistant Medical
DX: Z12.2 Encounter for screening for malignant neoplasm of respiratory organs (principal); F17.210 Nicotine dependence, cigarettes, uncomplicated
CPT/HCPCS: 71271

== ENCOUNTER 2024-12-09 12:57 | Outpatient (REF) | payer BC, SELFPAY | END 2024-12-09 12:58 | disposition home or self-care (01) | LOC: HO.MAMMO 12:57 | PROVIDERS: PCP Physician Assistant; Visit Provider Physician Assistant | DX: Z12.31 Encounter for screening mammogram for malignant neoplasm of breast (principal) | CPT/HCPCS: 77063; 77067 ==

== ENCOUNTER → 2024-12-09 13:30 | Outpatient (BNV) | payer BC, SELFPAY | PROVIDERS: PCP Physician Assistant; Visit Provider Internal Medicine | DX: Z12.31 Encounter for screening mammogram for malignant neoplasm of breast (principal) | CPT/HCPCS: 77063; 77067 ==

== ENCOUNTER 2025-02-07 10:07 | Outpatient (REF) | payer BC, SELFPAY ==
--- NOTE | ~2025-02-07 | US_ITS ---
EXAMINATION: BILATERAL CAROTID ULTRASOUND WITH DOPPLER HISTORY: I65.23 - Occlusion and stenosis of bilateral carotid arteries COMPARISON: Comparison is made with the prior examination dated 07/06/2024. TECHNIQUE: Real time and Color and Spectral doppler ultrasonography of the carotid and vertebral arteries was performed in multiple planes. FINDINGS: There is mild plaque at both carotid bulbs. VERTEBRAL FLOW DIRECTION: Antegrade bilaterally. PEAK SYSTOLIC VELOCITIES (in cm/sec): RIGHT: CCA: Prox: 92.6 Dist: 69.3 ICA: Prox: 76.2 Mid: 71.8 Dist: 81.1 ICA/CCA Ratio: 0.88 ECA: 84.5 Peak ICA EDV: 23.6 LEFT: CCA: Prox: 116 Dist: 109 ICA: Prox: 128 Mid: 96.7 Dist: 102 ICA/CCA Ratio: 0.88 ECA: 106 Peak ICA EDV: 39.2 US/US carotid duplex BI IMPRESSION: Findings consistent with 0-49% stenosis of the bilateral internal carotid arteries. Electronically signed by: Nabeel Kaye MD 02/07/2025 11:41 AM EDT
== END 2025-02-07 10:08 | disposition home or self-care (01) ==
LOC: HO.US 10:07
PROVIDERS: PCP Physician Assistant; Visit Provider Surgery Vascular Surgery
DX: I65.23 Occlusion and stenosis of bilateral carotid arteries (principal)
CPT/HCPCS: 93880

== ENCOUNTER → 2025-02-07 10:10 | Outpatient (BNV) | payer BC, SELFPAY | PROVIDERS: PCP Physician Assistant; Visit Provider Radiology Diagnostic Radiology | DX: I65.23 Occlusion and stenosis of bilateral carotid arteries (principal) | CPT/HCPCS: 93880 ==

== ENCOUNTER 2025-02-16 09:53 | Outpatient (AMB) | payer BC, SELFPAY ==
[2025-02-16 09:56] VITALS: BP 114/64; BMI 24.2
--- NOTE | 2025-02-16 09:56 | MHC.OFFVIS ---
Vital Signs 02/16/25 09:56 Height 5 ft 4 in Weight 141 lb BMI 24.2 BP 114/64 Blood Pressure Location Lt brachial Position Sitting Intake Visit Reasons: 6m follow up s/p Carotid US 02/07/25 Intake Note: 6 mo follow up carotid US 02/07/25 w/ hx of Left CEA 03/21/24. Pt states she does have some dizziness w/ loss of balance, States it can happen when she is walking. Watermelon Inspector Required: No Accompanied by: Friend Allergies aspirin Adverse Reaction (Intermediate, Verified 02/16/25 10:00) Gastrointestinal Upset varenicline [From Chantix] Adverse Reaction (Intermediate, Verified 02/16/25 10:00) Anxiety HPI HPI 6m follow up s/p Carotid US 02/07/25: Details: Laxmi is presenting today on a follow up to a 6m carotid US, performed on 02/07/25. She denies any CVA/TIA symptoms. She states she continues with feeling off but denies dizziness/lightheadedness; this has been an ongoing symptom. She states her anxiety has been increasing and she has been smoking more, from 1/2ppd to 1ppd. She denies any blurry vision, headaches, or weakness. [facility] Medical History Breast cancer, left Heartburn Anxiety Depression COPD (chronic obstructive pulmonary disease) Nicotine dependence, cigarettes, uncomplicated History of left breast cancer (~2011) Tremor of left hand Supraventricular tachycardia Bilateral carotid artery stenosis Subclavian arterial stenosis BPPV (benign paroxysmal positional vertigo) Osteopenia (~2012) Hypertension Surgical History History of tonsillectomy History of colonoscopy (~2013) History of left breast biopsy (~2011) History of dilation and curettage (~2015) History of cataract surgery (~2019) History of laparoscopic cholecystectomy (~2006) History of carotid endarterectomy (~2020) Family History Father Medical history unknown Mother Medical history unknown Brother Throat cancer Brother Myocardial infarction H/O ETOH abuse Daughter Bone cancer Mental health disorder Substance use disorder Social History (Updated 02/16/25 @ 10:03 by MIRA Robles) Household Members: None Housing: Apartment Are you a primary personal care worker to a significant other at home: No Do you presently have visiting nurse or other home services: No Alcohol intake: never Comment: aware of trip hazard Patient Tobacco Use Status: Current everyday Tobacco user Tobacco use type: Cigarette Cigarette Packs Per Day: 1 Cigarettes Per Day: 20 Years Smoked: 60 e-Cigarette/Vaping Use: Never Used Second Hand Smoke Exposure: Yes service: No Current occupational status: retired Cognitive needs: No Hearing needs: No Vision needs: Yes (reading glasses) Review of Systems Const Reports as per HPI and Denies weakness ENT Reports Normal hearing present and Denies dizziness Card Reports as per HPI, Denies chest pain, Denies chest pain at rest, Denies chest pain with activity, Denies dyspnea and Denies dyspnea on exertion Resp Reports as per HPI, Denies cough, Denies dyspnea and Denies dyspnea on exertion GI Reports as per HPI, Denies abdominal pain, Denies nausea and Denies vomiting Musc Denies numbness Skin/Breast Reports as per HPI, Denies erythema and Denies wounds Neuro Reports Normal hearing present, Denies dizziness, Denies numbness, Denies Sensory deficit (Neuro) and Denies weakness Psych Reports no additional complaints Endo Reports no additional complaints Physical Exam Vital Signs: Last Vital Signs BP 114/64 02/16/25 09:56 BMI result Body Mass Index 24.2 Const General: healthy appearing and no acute distress Orientation/consciousness: patient oriented x3 HEENT Head: Yes normal to inspection Ears: hearing grossly normal bilaterally Mouth: Normal oral and palatal mucosa present Resp Effort & Inspection: normal respiratory effort and able to speak in complete sentences Auscultation: clear to auscultation bilaterally Cardio Jugular venous distension: no JVD Rate: regular rate Rhythm: regular rhythm Heart sounds: S1 normal heart sound present and S2 normal heart sound present Bruits: no abdominal aortic bruits, no carotid bruits, no femoral bruits and no renal bruits Peripheral pulses: Peripheral pulses 2+ throughout GI Inspection: Yes normal to inspection Palpation (GI): No Abdominal aortic bruit present Skin General skin exam: no rashes or lesions noted Wounds: no wounds Hair: normal Neuro General: patient oriented x3 Cranial nerves: Yes Normal hearing present Cognition (Neuro): normal cognition Gait exam (Neuro): Normal gait present Motor exam (neuro): 5/5 motor strength present throughout Sensory Exam: No Sensory deficit (Neuro) Extrem General: Yes normal to inspection, Yes full ROM, Yes capillary refill normal and Yes normal gait Results Reviewed Results Reviewed: Duplex Carotid Arterial US: Findings consistent with 0-49% stenosis of the bilateral internal carotid arteries. Assessment & Plan Assessment & Plan (1) Bilateral carotid artery stenosis: Comment: 09/23/2021- right carotid endarterectomy 03/21/2024 - left carotid endarterectomy Code(s): I65.23 - Occlusion and stenosis of bilateral carotid arteries Category: Medical Plan: Laxmi is presenting today for a 6m follow up with carotid US. She is s/p right carotid endart on 09/23/21 and left carotid endart on 03/21/24. The US revealed findings consistent with 0-49% stenosis of the internal carotid arteries, unchanged from 07/06/24. She remains asymptomatic. She states her anxiety has been increasing recently, and it has caused her to smoke more; she was smoking 1/2ppd and is now up to 1ppd. We discussed the importance of smoking cessation. I discussed with her to reach out to her PCP for further evaluation of her anxiety and other possible treatment options. We discussed the importance of a healthy, well balanced diet. We discussed that if she experienced any signs/symptoms of a stroke, including weakness, facial droop, etc, to get to the ER immediately. We will have her follow up with us in 1y for a follow up carotid US; we did discuss if she had any concerns before then to reach out to us. Thank you for allowing us to participate in the patient's care. If there are any questions or concerns, please do not hesitate to reach out to us. Please note a longitudinal relationship has been created with the patient and we have been following and surveillance this chronic condition. Orders: Orders US carotid duplex BI 1 Year I65.23 - Occlusion and stenosis of bilateral carotid arteries Coding Level of Care Code Est Pt Level 4 (87774) Diagnoses Bilateral carotid artery stenosis I65.23 Comment review of carotid arterial US
== END 2025-02-16 10:44 | disposition home or self-care (01) ==
LOC: HO.HVS 09:54
PROVIDERS: PCP Physician Assistant; Visit Provider Physician Assistant Surgical
DX: I65.23 Occlusion and stenosis of bilateral carotid arteries (principal)
CPT/HCPCS: 99214

== ENCOUNTER 2025-08-01 08:51 | Outpatient (AMB) | payer BC, SELFPAY ==
[2025-08-01 08:53] VITALS: BP 122/70; PULSE 76; TEMP 36.2; O2SAT 91; BMI 22.7
--- NOTE | 2025-08-01 08:53 | A.OFFPC_ITS ---
Vital Signs 08/01/25 08:53 Height 5 ft 4 in Weight 132 lb BMI 22.7 BP 122/70 Blood Pressure Location Lt brachial Position Sitting Pulse 76 Pulse Source Pulse Oximeter Temp 97.1 F Temp Source Temporal Artery Scan Pulse Oximetry (%) 91 L Oxygen Delivery Method Room Air Intake Visit Reasons: Annual Exam Allergies aspirin Adverse Reaction (Intermediate, Verified 08/01/25 09:00) Gastrointestinal Upset varenicline (From Chantix) Adverse Reaction (Intermediate, Verified 08/01/25 09:00) Anxiety Medication List - Last Reconciled 08/01/25 by Farzad Duron PA-C albuterol sulfate 90 mcg/actuation 1 inh inhalation QID PRN 30 days atorvastatin 20 mg PO QAM budesonide-formoterol 80-4.5 mcg/actuation (Symbicort) 1 puff inhalation BID cholecalciferol (vitamin D3) 50 mcg PO QAM clopidogrel 75 mg PO DAILY clotrimazole-betamethasone 1-0.05 % 1 appl topical BID PRN 30 days hydroxyzine HCl 50 mg PO QAM 90 days ibuprofen-diphenhydramine cit 200-38 mg (Advil PM) 1 cap PO BEDTIME metoprolol succinate ER 50 mg PO QAM Tobacco use date assessed: 08/01/25 Fall risk assessment: No Falls in past year Last assessed Fall Risk: 08/01/25 Dental Screening Dental Screen Date: 08/01/25 Did you have a dental visit in the last 12 months?: No Did you have a dental problem in the last 6 months where you did not have access to dental care?: No Was dental information given to patient?: Patient declined HPI Annual Exam HPI Details Patient is a 74 year-old female here today?for a routine annual physical ? Patient has a past medical history significant for depression, osteopenia vitamin-D deficiency, essential hypertension, SVT, carotid stenosis status post endarterectomy,? smoker. Concern--> The patient reports experiencing sciatica for the past couple of months, primarily affecting her left side. The pain is described as severe and has been persistent despite the use of mitt-sep-bomwefv medications such as ibuprofen and Tylenol. The pain radiates from the lower back down to the ankle, sometimes affecting the buttock and causing significant discomfort during activities such as shopping or prolonged standing. The patient has been unable to attend events like the [employer] due to the severity of the pain, indicating a significant impact on her daily activities. She has tried various home remedies, including positioning with pillows at night, but continues to experience frustration due to the lack of relief. Carotid stenosis : Patient is status post endarterectomy with Dr. Enciso? and doing very well. She has done well postoperatively.? Most recent carotid ultrasound showing moderate stenosis on left carotid artery. ? . ? HTN: Blood pressure acceptable today in office.. Does report to be in some pain status post vascular surgery. doesn't regularly check her BP at home .? Denies having any chest discomfort, shortness of breath . .. SVT: Patient followed by Cardiology on an annual basis. Has not had any episodes of palpitations. She is well managed with current beta-yesenia regime.? . ? .. ?? ? Tobacco dependency: Patient does continue to smoke and knows she needs to quit, she has been working on weaning slowly.? She reports smoking over the last 45 years. now smoking 1 pack day She has tried nicotine replacement and Wellbutrin in the past though have not b een effective. She reports very difficult for her to complete quit smoking. Vaccines: Up-to-date with COVID vaccine, needs tetanus, considering shingles vaccine, Need PCV Mammogram: Done in November of 2024, BI-RADS 2 Colon cancer screening: Colonoscopy done in 2013-normal- refuses colonoscopy - willing to do cologaurd [facility] Medical History Breast cancer, left Heartburn Anxiety Depression COPD (chronic obstructive pulmonary disease) Nicotine dependence, cigarettes, uncomplicated History of left breast cancer (~2011) Tremor of left hand Supraventricular tachycardia Bilateral carotid artery stenosis Subclavian arterial stenosis BPPV (benign paroxysmal positional vertigo) Osteopenia (~2012) Hypertension Surgical History History of tonsillectomy History of colonoscopy (~2013) History of left breast biopsy (~2011) History of dilation and curettage (~2015) History of cataract surgery (~2019) History of laparoscopic cholecystectomy (~2006) History of carotid endarterectomy (~2020) Family History Father Medical history unknown Mother Medical history unknown Brother Throat cancer Brother Myocardial infarction H/O ETOH abuse Daughter Bone cancer Mental health disorder Substance use disorder Social History Household Members: None Housing: Apartment Are you a primary youth career specialist to a significant other at home: No Do you presently have visiting nurse or other home services: No Alcohol intake: never Comment: aware of trip hazard Patient Tobacco Use Status: Current everyday Tobacco user Tobacco use type: Cigarette Cigarette Packs Per Day: 1 Cigarettes Per Day: 20 Years Smoked: 60 e-Cigarette/Vaping Use: Never Used Second Hand Smoke Exposure: Yes service: No Current occupational status: retired Cognitive needs: No Hearing needs: No Vision needs: Yes (reading glasses) Questionnaire PHQ-9 Over the last 2 weeks, how often have you been bothered by any of the following problems? 1. Little interest or pleasure in doing things: several days 2. Feeling down, depressed, or hopeless: several days 3. Trouble falling or staying asleep, or sleeping too much: several days 4. Feeling tired or having little energy: several days 5. Poor appetite or overeating: not at all 6. Feeling bad about yourself - or that you are a failure or have let yourself or your family down: several days 7. Trouble concentrating on things, such as reading the newspaper or watching television: several days 8. Moving or speaking so slowly that other people could have noticed. Or the opposite - being so fidgety or restless that you have been moving around a lot more than usual: several days 9. Thoughts that you would be better off or of hurting yourself in some way: several days Total score: 8 Depression Screening Interpretation: Positive Depression Screening Follow-up: Existing condition Depression Screening Done: Yes 51582 - PHQ-9 Billing: Yes Source: Developed by Drs. Nabeel Markham, Jeanine Nettles, Raffi Daigle and colleagues, with an educational jodi from [employer]. Thrive Questionnaire Date Thrive assessed: 07/25/25 I am a: Patient What is your living situation today?: I have a steady place to live Within the past 12 months, did the food you bought not last and you didn't have the money to get more?: Sometimes True Within the past 12 months, did you worry whether your food would run out before you got money to buy more?: Sometimes True Do you have trouble paying for medicines?: No Do you have trouble getting transportation to medical appointments?: No Do you have trouble paying your heating and electricity bill?: No Do you have trouble taking care of your child, family member or friend?: I choose not to answer this question Do you have trouble with day-to-day activities such as bathing, preparing meals, shopping, managing finances, etc.?: No Are you currently unemployed and looking for a job?: No Are you interested in more education?: No Please select the resources that you would like help with: Food Currently or been in a relationship where the following occur: No concerns reported THRIVE Score: 2 AUDIT C Alcohol Use Questionnaire (AUDIT-C) 1. How often do you have a drink containing alcohol?: Never 3. How often do you have six or more drinks on one occasion?: Never Total Score: 0 WHIT-7 AMB Questionnaire WHIT-7 Date WHIT - 7 assessed: 08/01/25 Feeling nervous, anxious, or on edge: 1 = Several days Not being able to stop or control worryin = Several days Worrying too much about different things: 3 = Nearly every day Trouble relaxin = Nearly every day Being so restless that it is hard to sit still: 1 = Several days Becoming easily annoyed or irritable: 3 = Nearly every day Feeling afraid as if something awful might happen: 3 = Nearly every day Total WHIT-7 score (0-4 normal; 5-9 mild; 10-14 moderate; 15-21 severe): 15 Source: Developed by Drs. Nabeel Markham, Jeanine Nettles, Raffi Daigle and colleagues, with an educational jodi from [employer]. WHIT-7 Assessment Billing WHIT-7 Assessment Tool: WHIT-7 Assessment 83162 Review of Systems Const Denies body aches, Denies chills, Denies excessive sweating, Denies fatigue, Denies fever(s) and Denies headache(s) Eyes Denies blurry vision ENT Denies dysphagia, Denies vertigo, Denies dizziness, Denies headache(s), Denies hearing loss and Denies tinnitus Card Denies chest pain, Denies chest pain with activity, Denies syncope, Denies irregular heart rhythm and Denies dyspnea Resp Denies chest congestion, Denies cough, Denies hemoptysis, Denies dyspnea and Denies wheezing GI Denies abdominal pain, Denies melena, Denies hematochezia, Denies coffee ground emesis, Denies dysphagia, Denies diarrhea, Denies nausea and Denies vomiting Denies urinary frequency, Denies dysuria, Denies urinary hesitancy and Denies urinary urgency Musc Denies arthralgias, Denies limited range of motion, Denies muscle cramps and Denies muscle weakness Skin/Breast Denies rash and Denies skin ulcer Neuro Denies Abnormal speech present, Denies confusion, Denies vertigo, Denies dizziness, Denies syncope, Denies headache(s), Denies memory loss and Denies seizure-like activity Psych Denies anxiety, Denies confusion, Denies depression, Denies memory loss, Denies panic attacks and Denies paranoia Endo Denies excessive sweating, Denies fatigue, Denies flushing, Denies polydipsia and Denies polyuria Aller/Immun Denies wheezing Physical exam (Primary Care) Vital Signs: Last Vital Signs Temp 97.1 F 08/01/25 08:53 Pulse 76 08/01/25 08:53 BP 122/70 08/01/25 08:53 Pulse Ox 91 L 08/01/25 08:53 Oxygen Delivery Method Room Air 08/01/25 08:53 BMI result Body Mass Index 22.7 Tobacco/Smoking Status: Tobacco use Status Tobacco use date assessed 08/01/25 08/01/25 08:57 Patient Tobacco Use Status Current everyday Tobacco 08/01/25 08:57 Tobacco use type Cigarette 08/01/25 08:57 e-Cigarette/Vaping Use Never Used 08/01/25 08:57 Are you ready to quit: Yes Tobacco cessation counseling provided: Yes Items discussed: Nicotine replacement Relapse Prevention: discussed the importance of a supportive environment, discussed negative mood or depression after quitting, weight gain after smoking is common and discussed dietary, exercise and/or lifestyle changes Number of minutes spent counselin CPT code: 24896 - 4-10 Minutes PHQ-9: PHQ-9 Score PHQ-9: Total score 8 08/01/25 09:26 Depression Screening Interpretation: Positive Depression Screening Follow-up: Existing condition Thrive Assessment: Date of Thrive Assessment Date Thrive assessed 07/25/25 08/01/25 08:57 Currently or been in a relationship where the following occur: No concerns reported Const General: cooperative, comfortable, no acute distress, alert and awake; No confusion Orientation/consciousness: oriented to person, oriented to place, patient oriented x3 and No confusion HENMT Head: Yes normocephalic Ears: external ears normal and TM's normal bilaterally Face and sinus: No sinus tenderness Mouth: Normal oral and palatal mucosa present and tongue normal Teeth and gingiva: dentition normal and gingiva normal Throat: Yes posterior oropharynx normal, Yes tonsils normal and Yes uvula midline Eyes Conjunctivae: conjunctivae normal Sclerae: sclerae normal Pupils: Equal, round and reactive pupils present EOM: EOMs intact bilaterally Direct Ophthalmoscopy: No no photophobia Neck Neck: Yes no lymphadenopathy, No tender and Yes no JVD Thyroid: Thyroid normal Carotids: no bruits Chest Chest palpation & inspection: no tenderness Resp Effort & Inspection: normal respiratory effort, no audible wheezes, not labored and no stridor Auscultation: no crackles, no rales, no rhonchi and no wheezes Cardio Jugular venous distension: no JVD Rate: regular rate, not bradycardic and not tachycardic Rhythm: regular rhythm Bruits: no carotid bruits Peripheral pulses: Peripheral pulses 2+ throughout GI Inspection: Yes normal to inspection, No abdominal wall ecchymosis and No visible herniation Palpation (GI): Soft to palpation, nontender, no guarding, not rigid and No hepatosplenomegaly present Auscultation: normoactive bowel sounds General: Yes no CVA tenderness Back/Spine/Pelvis Back: no CVA tenderness and No back tenderness Cervical Spine: cervical ROM normal Thoracic/Lumbar Spine: thoracic and lumbar spine normal to inspection, straight leg raise negative bilaterally, No thoraco-lumbar ROM limited and No lumbar spinal tenderness Skin Lesions: no lesions Rashes: no rashes Wounds: no wounds Neuro General: oriented to person, oriented to place, patient oriented x3, CN's II-XI intact bilaterally and No confusion Cranial nerves: Yes Equal, round and reactive pupils present and Yes Normal accommodation reflex present Cognition (Neuro): normal cognition Speech: No Abnormal speech present Gait exam (Neuro): Normal gait present Motor exam (neuro): 5/5 motor strength present throughout Extrem Right upper extremity: full ROM; no cyanosis Left upper extremity: full ROM; no cyanosis Right lower extremity: no edema Left lower extremity: no edema Psych Appearance: grossly normal Mental Status: mental status grossly normal Affect: normal affect Attitude: cooperative Thought process: Normal thought process present Coding Level of Care Code Est Pt Prev Care >65y(16269) Diagnoses Annual physical exam Z00.00 Lumbar radicular pain M54.16 Simple chronic bronchitis J41.0 COPD type: chronic bronchitis Chronic bronchitis type: simple MDD (major depressive disorder), recurrent episode, moderate F33.1 Mixed hyperlipidemia E78.2 Hyperlipidemia type: mixed hyperlipidemia Essential hypertension I10 Hypertension type: essential hypertension Nicotine dependence, cigarettes, uncomplicated F17.210 Malignant neoplasm of left breast in female, estrogen receptor negative, unspecified site of breast C50.912; Z17.1 Breast location: unspecified site of breast Estrogen receptor status: negative Patient sex: female Supraventricular tachycardia I47.1 Additional Codes WHIT-7 Assessment Billing - WHIT-7 Assessment Tool: WHIT-7 Assessment 53543 ([id number]) PHQ-9 - 97577 - PHQ-9 Billing: Yes ([id number]) Vital Signs *Quality* - CPT code: 60639 - 4-10 Minutes ([id number]) Assessment & Plan Assessment & Plan (1) Annual physical exam: Code(s): Z00.00 - Encounter for general adult medical examination without abnormal findings Category: Medical Plan: As per HPI (2) Lumbar radicular pain: Code(s): M54.16 - Radiculopathy, lumbar region Category: Medical Plan: The plan for sciatica includes a prednisone taper to reduce inflammation and a muscle relaxer to aid in sleep and muscle relaxation. Physical therapy is recommended to help alleviate symptoms, and an x-ray of the lumbar spine may be considered to assess for advanced arthritis. (3) COPD (chronic obstructive pulmonary disease): Code(s): J44.9 - Chronic obstructive pulmonary disease, unspecified Category: Medical Qualifiers: COPD type: chronic bronchitis Chronic bronchitis type: simple Qualified Code(s): J41.0 - Simple chronic bronchitis Plan: Patient somewhat interested in completely quitting smoking. She is interested in trying nicotine replacement both lozenges and patches. She does report she has wheezing at times and has to use her albuterol inhaler. (4) MDD (major depressive disorder), recurrent episode, moderate: Code(s): F33.1 - Major depressive disorder, recurrent, moderate Category: Medical Plan: Patient's PHQ-9 score positive for depression which has been existing condition for her. Patient not interested in mental health therapy or mental health medication at this time. (5) HLD (hyperlipidemia): Code(s): E78.5 - Hyperlipidemia, unspecified Category: Medical Qualifiers: Hyperlipidemia type: mixed hyperlipidemia Qualified Code(s): E78.2 - Mixed hyperlipidemia Plan: Advised patient to get fasting lipid panel to assess for appropriate LDL and total cholesterol. Goal LDL is to optimally be below 70 due to her history of atherosclerosis (6) Hypertension: Code(s): I10 - Essential (primary) hypertension Category: Medical Qualifiers: Hypertension type: essential hypertension Qualified Code(s): I10 - Essential (primary) hypertension Plan: Patient's blood pressure acceptable today in office. Will continue her current dose of metoprolol. Goal blood pressures to remain below 140/90 (7) Nicotine dependence, cigarettes, uncomplicated: Comment: (current smoker, onset 14yo, 1/2-34ppd x 58yrs, 35pyh, +fam hx lung ca) Code(s): F17.210 - Nicotine dependence, cigarettes, uncomplicated Category: Medical Plan: Patient does understand she needs to quit smoking. She admits to smoking now nearly a pack-a-day.. Again will try nicotine replacement to help her quit smoking. (8) Breast cancer, left: Comment: 2012-w/lumpectomy & chemotherpy/radiation Code(s): C50.912 - Malignant neoplasm of unspecified site of left female breast Category: Medical Qualifiers: Breast location: unspecified site of breast Estrogen receptor status: negative Patient sex: female Qualified Code(s): C50.912 - Malignant neoplasm of unspecified site of left female breast; Z17.1 - Estrogen receptor negative status [ER-] Plan: Has a history of breast cancer in the left side, has been in remission for quite some time. Continues to get annual mammograms (9) Supraventricular tachycardia: Comment: follows w/[facility] Code(s): I47.1 - Supraventricular tachycardia Category: Medical Plan: Has been doing well from a cardiovascular standpoint. Continues to follow cardiology on an annual basis. Continues on metoprolol which has regulated her heart rates. Orders: Orders Complete Blood Count no Diff 08/01/25 I10 - Essential (primary) hypertension Comprehensive [place]. Panel Fast 08/01/25 I10 - Essential (primary) hypertension Lipid Panel 08/01/25 E78.2 - Mixed hyperlipidemia Microalbumin, Random (w Creat) 08/01/25 I10 - Essential (primary) hypertension Medications: New nicotine 1 patch transdermal DAILY 14 ea 0RF 14 days F17.200 - Nicotine dependence, unspecified, uncomplicated, F17.210 - Nicotine dependence, cigarettes, uncomplicated nicotine 1 patch transdermal Q24H 14 ea 0RF 14 days F17.210 - Nicotine dependence, cigarettes, uncomplicated prednisone Take 3 tablets x3 days, 2 tablets x3 days, 1 tablet x3 days 10 mg PO DIRECTED 18 tabs 0RF 9 days M54.16 - Radiculopathy, lumbar region baclofen 10 mg PO BEDTIME 14 tabs 0RF 14 days M54.16 - Radiculopathy, lumbar region nicotine 1 patch transdermal DAILY 14 ea 0RF 14 days F17.200 - Nicotine dependence, unspecified, uncomplicated, F17.210 - Nicotine dependence, cigarettes, uncomplicated nicotine (polacrilex) (Nicorette) 2 mg buccal Q8H PRN 108 ea 0RF nicotine cravings 4 weeks F17.210 - Nicotine dependence, cigarettes, uncomplicated Changed From hydroxyzine HCl 50 mg PO QAM 30 days 30 tabs 3RF for panic attack F41.1 - Generalized anxiety disorder To hydroxyzine HCl 50 mg PO QAM 90 tabs 2RF for panic attack 90 days F41.1 - Generalized anxiety disorder Patient Instructions: Goal: Blood pressure to remain below 140/90, LDL to be optimally below 70. QUIT SMOKING Barriers: Adherence to physical activity and healthy eating habits
== END 2025-08-01 09:22 | disposition home or self-care (01) ==
LOC: HO.HMCH 08:52
PROVIDERS: PCP Physician Assistant; Visit Provider Physician Assistant
DX: Z00.00 Encounter for general adult medical examination without abnormal findings (principal); M54.16 Radiculopathy, lumbar region; J41.0 Simple chronic bronchitis; F33.1 Major depressive disorder, recurrent, moderate; E78.2 Mixed hyperlipidemia; I10 Essential (primary) hypertension; F17.210 Nicotine dependence, cigarettes, uncomplicated; C50.912 Malignant neoplasm of unspecified site of left female breast; Z17.1 Estrogen receptor negative status [ER-]; I47.10 Supraventricular tachycardia, unspecified

== ENCOUNTER → 2025-08-01 08:51 | Outpatient (BNVA) | payer BC, SELFPAY | PROVIDERS: PCP Physician Assistant; Visit Provider Physician Assistant | DX: Z00.00 Encounter for general adult medical examination without abnormal findings (principal); M54.32 Sciatica, left side; I10 Essential (primary) hypertension; M54.16 Radiculopathy, lumbar region; J41.0 Simple chronic bronchitis; F33.1 Major depressive disorder, recurrent, moderate; E78.2 Mixed hyperlipidemia; C50.912 Malignant neoplasm of unspecified site of left female breast; I47.10 Supraventricular tachycardia, unspecified; F41.1 Generalized anxiety disorder; F17.210 Nicotine dependence, cigarettes, uncomplicated; Z17.1 Estrogen receptor negative status [ER-] | CPT/HCPCS: 96127 ==

== ENCOUNTER 2025-08-10 08:26 | Outpatient (AMB) | payer BC, SELFPAY ==
[2025-08-10 08:30] VITALS: BP 124/62; PULSE 72; BMI 22.2
--- NOTE | 2025-08-10 08:30 | MHC.OFFVIS ---
Vital Signs 08/10/25 08:30 Height 5 ft 4 in Weight 129 lb 10.109 oz BMI 22.2 BP 124/62 Blood Pressure Location Lt brachial Position Sitting Pulse 72 Pulse Source Monitor Intake Visit Reasons: 1 yr f/up Treating Engineer Helper Required: No Allergies aspirin Adverse Reaction (Intermediate, Verified 08/10/25 08:33) Gastrointestinal Upset varenicline (From Chantix) Adverse Reaction (Intermediate, Verified 08/10/25 08:33) Anxiety Medication List - Last Reconciled 08/10/25 by Maria De Jesus Olsen NURSERY SUPERVISOR-C atorvastatin 20 mg PO QAM baclofen 10 mg PO BEDTIME 14 days cholecalciferol (vitamin D3) 50 mcg PO QAM clopidogrel 75 mg PO DAILY clotrimazole-betamethasone 1-0.05 % 1 appl topical BID PRN 30 days hydroxyzine HCl 50 mg PO QAM 90 days ibuprofen-diphenhydramine cit 200-38 mg (Advil PM) 1 cap PO BEDTIME metoprolol succinate ER 50 mg PO QAM nicotine 1 patch transdermal DAILY 14 days nicotine 1 patch transdermal DAILY 14 days nicotine (polacrilex) (Nicorette) 2 mg buccal Q8H PRN 4 weeks prednisone 10 mg PO DIRECTED 9 days HPI HPI 1 yr f/up: Details: Laxmi is a 74-year-old female past medical history of hypertension, smoking, COPD, carotid stenosis with bilateral carotid endarterectomies, SVT who presents for follow-up. Today she reports she does have episodes where she feels her heart going fast. To slow it down she either needs to sit in a chair or better yet lay down with her knees bent. The episodes then resolve. She tells me she only had 1 episode in the past where she had to go to the emergency room. She is not interested in ablation at this time. She says if she needs to go to the emergency room again then she would consider it. She is taking her medications as directed. She continues to smoke and has not tried the nicotine patch yet. She is having issues with sciatica. She has no chest discomfort at rest or with activity. She does have shortness of breath which she relates to her COPD. No PND, orthopnea or edema. No lightheadedness, presyncope, syncope. She admits to being mostly sedentary. [facility] Medical History Breast cancer, left Heartburn Anxiety Depression COPD (chronic obstructive pulmonary disease) Nicotine dependence, cigarettes, uncomplicated History of left breast cancer (~2011) Tremor of left hand Supraventricular tachycardia Bilateral carotid artery stenosis Subclavian arterial stenosis BPPV (benign paroxysmal positional vertigo) Osteopenia (~2012) Hypertension Surgical History History of tonsillectomy History of colonoscopy (~2013) History of left breast biopsy (~2011) History of dilation and curettage (~2015) History of cataract surgery (~2019) History of laparoscopic cholecystectomy (~2006) History of carotid endarterectomy (~2020) Family History Father Medical history unknown Mother Medical history unknown Brother Throat cancer Brother Myocardial infarction H/O ETOH abuse Daughter Bone cancer Mental health disorder Substance use disorder Social History Household Members: None Housing: Apartment Are you a primary critical care nurse practitioner to a significant other at home: No Do you presently have visiting nurse or other home services: No Alcohol intake: never Comment: aware of trip hazard Patient Tobacco Use Status: Current everyday Tobacco user Tobacco use type: Cigarette Cigarette Packs Per Day: 1 Cigarettes Per Day: 20 Years Smoked: 60 e-Cigarette/Vaping Use: Never Used Second Hand Smoke Exposure: Yes service: No Current occupational status: retired Cognitive needs: No Hearing needs: No Vision needs: Yes (reading glasses) Review of Systems Const All systems reviewed & are unremarkable except as noted in HPI and below ENT Denies dizziness Card Denies chest pain, Denies chest pain at rest, Denies chest pain with activity, Reports rapid heart rate, Denies pedal edema, Denies edema, Denies leg edema, Denies lightheadedness, Denies palpitations, Denies dyspnea, Denies dyspnea on exertion and Denies orthopnea Resp Denies cough, Denies dyspnea and Denies dyspnea on exertion GI Denies hematochezia and Denies change in stool character Musc Details: sciatica pain Denies abnormal gait, Denies limited range of motion, Denies muscle cramps, Denies muscle weakness, Denies numbness, Denies radiating pain into limb, Denies stiffness and Denies tingling Neuro Denies abnormal gait, Denies dizziness, Denies numbness and Denies tingling Endo Denies palpitations Physical Exam Vital Signs: Last Vital Signs Pulse 72 08/10/25 08:30 BP 124/62 08/10/25 08:30 BMI result Body Mass Index 22.2 Const General: cooperative, healthy appearing, comfortable and no acute distress Orientation/consciousness: patient oriented x3 Neck Neck: Yes normal visual inspection Resp Effort & Inspection: normal respiratory effort Auscultation: clear to auscultation bilaterally, no rales, no rhonchi and no wheezes Cardio Rate: regular rate Rhythm: regular rhythm Heart sounds: S1 normal heart sound present, S2 normal heart sound present, no gallops, no murmurs and no rubs Neuro General: patient oriented x3 Extrem General: Yes normal to inspection, No no pedal edema and No calf tenderness Psych Appearance: grossly normal Mental Status: mental status grossly normal Speech and movement: Normal speech and movement present Office Procedures EKG Details: Today, read by me, normal sinus rhythm, rate 72, Qtc 424ms [id number], Complete Assessment & Plan Assessment & Plan (1) Supraventricular tachycardia: Comment: follows w/[facility] Code(s): I47.1 - Supraventricular tachycardia Category: Medical Plan: History of paroxysmal supraventricular tachycardia treated with metoprolol. Her episodes occur periodically and she is able to control them with body position changes, specifically laying down with her knees bent. No recent ER visits required. Discussed SVT ablation with her and she declines at this time. She may consider it in the future if she has a prolonged episode. Reviewed avoidance of caffeinated beverages, maintain good hydration, activity as tolerated. Continue metoprolol. Cardiology follow-up 1 year, sooner if needed. (2) Bilateral carotid artery stenosis: Comment: 09/23/2021- right carotid endarterectomy 03/21/2024 - left carotid endarterectomy Code(s): I65.23 - Occlusion and stenosis of bilateral carotid arteries Category: Medical Plan: History of carotid stenosis, bilateral carotid endarterectomies. Last carotid ultrasound 02/07/2025 shows 0-49% bilateral ICA stenosis. Continue Plavix and atorvastatin. (3) Hypertension: Code(s): I10 - Essential (primary) hypertension Category: Medical Qualifiers: Hypertension type: essential hypertension Qualified Code(s): I10 - Essential (primary) hypertension Plan: Blood pressure goal less than 130/80, well controlled at this time. Continue metoprolol. (4) HLD (hyperlipidemia): Code(s): E78.5 - Hyperlipidemia, unspecified Category: Medical Qualifiers: Hyperlipidemia type: mixed hyperlipidemia Qualified Code(s): E78.2 - Mixed hyperlipidemia Plan: LDL goal less than 100, ideally less than 70 in patient with peripheral vascular disease. Labs done 12/23/2023 showed LDL 84. She is due for updated labs and orders are in place. Continue atorvastatin. Plan Time spent on chart review, documentation, interview and assessment Coding Level of Care Code Est Pt Level 4 (42122) Complex EM visit Add On G2211 Diagnoses Supraventricular tachycardia I47.1 Bilateral carotid artery stenosis I65.23 Essential hypertension I10 Hypertension type: essential hypertension Mixed hyperlipidemia E78.2 Hyperlipidemia type: mixed hyperlipidemia CPT Codes EKG - CPT: 77027-[id number], Complete ([id number]) Time Spent (min) 28
== END 2025-08-10 09:01 | disposition home or self-care (01) ==
LOC: HO.HCS 08:27
PROVIDERS: PCP Physician Assistant; Visit Provider Nurse Practitioner Family
DX: I47.10 Supraventricular tachycardia, unspecified (principal); I65.23 Occlusion and stenosis of bilateral carotid arteries; I10 Essential (primary) hypertension; E78.2 Mixed hyperlipidemia
CPT/HCPCS: 93010; 99214

== ENCOUNTER → 2025-08-10 08:26 | Outpatient (BNVA) | payer BC, SELFPAY | PROVIDERS: PCP Physician Assistant; Visit Provider Nurse Practitioner Family | DX: I47.10 Supraventricular tachycardia, unspecified (principal); I65.23 Occlusion and stenosis of bilateral carotid arteries; I10 Essential (primary) hypertension; E78.5 Hyperlipidemia, unspecified; Z79.02 Long term (current) use of antithrombotics/antiplatelets; Z79.899 Other long term (current) drug therapy | CPT/HCPCS: 93005 ==

== ENCOUNTER 2025-08-23 09:51 | Outpatient (REF) | payer BC, SELFPAY ==
--- NOTE | ~2025-08-23 | CT_ITS ---
CLINICAL HISTORY: F17.210 - Nicotine dependence, cigarettes, uncomplicated CT lung cancer screening (LDCT) Comparison: CT/NM/SR - CT LUNG SCREENING - 08/18/24 09:15 EDT Technique: Axial CT images of the chest using low-dose technique. Referring provider counseled the patient on shared decision-making for LDCT screening. Additional counseling was provided on smoking cessation. Effective radiation dose total: DLP 28.9 mGycm, CTDIvol 0.9 mGy. Findings: There is interval development of a large irregular anterior mediastinal mass inseparable from the aorta and pulmonary artery measuring 5.9 x 4.8 x 5.5 cm. There is mild centrilobular emphysema. There is interval development of a localized irregular area of consolidation in the left upper lobe best seen on images 74 through 81 of series number 5. There is some associated mucous plugging and likely bronchiolitis. A 7.5 mm nodule is also seen in the vicinity. The there are [id number] coronary artery calcifications. Limited upper abdomen: Unremarkable This is best seen on image number 90 of series 5. IMPRESSION: 1. There is interval development of a large irregular anterior mediastinal mass inseparable from the aorta and pulmonary artery measuring 5.9 x 4.8 x 5.5 cm. This is highly suspicious for malignancy. Tissue diagnosis is recommended. 2. There is interval development of a localized irregular area of consolidation in the left upper lobe best seen on images 74 through 81 of series number 5. There is some associated mucous plugging and likely bronchiolitis. A 7.5 mm nodule is also seen in the vicinity. I suspect this is infectious/inflammatory in nature with localized bronchitis/bronchiolitis and peribronchial consolidation. Given the other finding however a neoplastic process is not entirely excluded. LungRADS 4B - Suspicious: Diagnostic Chest CT with or without contrast, PET/CT, and/or tissue sampling recommended depending on the probability of malignancy and comorbidities. ##L4B# This document has been electronically signed by: Carlton Chow MD on 08/24/2025 12:07:58
== END 2025-08-23 09:52 | disposition home or self-care (01) ==
LOC: HO.CT 09:51
PROVIDERS: PCP Physician Assistant; Visit Provider Physician Assistant Medical
DX: Z12.2 Encounter for screening for malignant neoplasm of respiratory organs (principal); F17.210 Nicotine dependence, cigarettes, uncomplicated
CPT/HCPCS: 71271

== ENCOUNTER → 2025-08-23 09:53 | Outpatient (BNV) | payer BC, SELFPAY | PROVIDERS: PCP Physician Assistant; Visit Provider Radiology Diagnostic Radiology | DX: Z12.2 Encounter for screening for malignant neoplasm of respiratory organs (principal); F17.210 Nicotine dependence, cigarettes, uncomplicated | CPT/HCPCS: 71271 ==

== ENCOUNTER → 2025-09-14 08:43 | Day surgery (SDC) | payer BC, SELFPAY ==
[2025-09-14 09:35] VITALS: BP 155/64; PULSE 73; RESP 15; TEMP 36.7; O2SAT 90
[2025-09-14 09:56] LABS: MANUAL DIFF FLAG NO
[2025-09-14 09:59] LABS: Hematocrit 44.7 % (37.0-47.0); Hemoglobin 14.1 g/dl (12.0-16.0); Imm Gran Abs Auto 0.03 X10*3/uL (0.00-0.03); Imm Gran Pct Auto 0.4 % (0.0-0.4); Lymphocytes Absolute Auto 2.0 X10*3/uL (1.2-4.9); Mean Corpuscular HGB Conc 31.5 g/dl (31.0-35.0); Mean Corpuscular Hemoglobin 30.8 pg (27.0-33.0); Mean Corpuscular Volume 97.6 fL (80.0-98.0); NRBC Abs Auto 0.000 X10*3/uL (0.0-0.012); NRBC Pct Auto 0.0 /100WBC (0.0-0.2); Platelet Count 204 X10*3/uL (160-400); Red Blood Count 4.58 X10*6/uL (4.20-5.50); White Blood Count 8.0 X10*3/uL (4.8-10.8)
[2025-09-14 10:09] LABS: INTERNATIONAL NORM RATIO 1.0 (0.9-1.1); Prothrombin Time 11.0 SEC (10.9-12.4)
[2025-09-14 10:16] LABS: Anion Gap 12 (12-20); Blood Urea Nitrogen 16 mg/dL (9-16); Calcium 10.2 mg/dL (8.4-10.2); Carbon Dioxide 30 mmol/L (22-29); Chloride 107 mmol/L (96-108); Estimated Glomerular Filt Rate > 60; Potassium 5.0 mmol/L (3.3-5.1); Sodium 144 mmol/L (135-145)
--- NOTE | 2025-09-14 10:28 | PC.NURSE ---
late entry-929 pt took plavix yesterday. dr navarro made aware and pt cancelled for today. will be called to reschedule
== END ==
LOC: HO.SSS 08:44
PROVIDERS: Radiology Diagnostic Radiology; PCP Physician Assistant; Visit Provider Physician Assistant Medical
DX: J98.59 Other diseases of mediastinum, not elsewhere classified (principal); Z53.09 Procedure and treatment not carried out because of other contraindication; Z79.02 Long term (current) use of antithrombotics/antiplatelets
CPT/HCPCS: 36415; 80048; 85025; 85610

== ENCOUNTER 2025-09-19 12:42 | Day surgery (SDC) | payer BC, SELFPAY ==
[2025-09-19] VITALS (17 sets, daily range): BP systolic 111–170; BP diastolic 47–95; PULSE 74–96; RESP 13–20; TEMP 36.6; O2SAT 85–96; BMI 22.7
--- NOTE | ~2025-09-19 | XR_ITS ---
EXAMINATION: XR CHEST CLINICAL INFORMATION: s/p mediastinal mass biopsy COMPARISON: CT lung biopsy earlier same day. Correlation made with low-dose CT chest 08/23/2025. TECHNIQUE: AP view of the chest was obtained. FINDINGS: Cardiac size is normal. Hilar contours are normal. There is a lobular anterior mediastinal mass abutting the aortic arch. Lungs demonstrate patchy opacities in the left midlung. There is no perceptible left pneumothorax. There is no pleural effusion. No focal osseous or soft tissue abnormality. There are cholecystectomy clips present. There is mild S-shaped scoliosis of the thoracic spine. XR/XR chest 1V IMPRESSION: 1. No evidence of pneumothorax after left anterior mediastinal mass biopsy. 2. Patchy opacities in the left midlung. Electronically signed by: Jl Alexander MD 09/19/2025 05:05 PM [facility]
--- NOTE | ~2025-09-19 | CT_ITS ---
Mediastinal mass PROCEDURES: 1. Limited preprocedure CT of the chest. Permanent images saved in PACS. 2. CT-guided biopsy of the mediastinal mass. 3. Limited postprocedure CT of the chest. Permanent images saved in PACS. CLINICIANS: Ricardo Singh NP MEDICATIONS: -Versed , Fentanyl , and lidocaine 1% 10 mL SQ -Antibiotics: None -For additional details, please see nursing flowsheet. COMPLICATIONS: None ESTIMATED BLOOD LOSS: < 5 ml CONTRAST: None SPECIMENS: 5 x 20 g cores were sent for pathology MODERATE SEDATION TIME: 40 min PROCEDURE NOTE: The procedure, risks, benefits, and alternatives were carefully explained to the patient and written informed consent was obtained. The patient was placed supine on the CT table. A timeout was performed. A limited CT of the chest was performed to localize the mediastinal mass and choose appropriate needle entry and trajectory. The patient was prepped and draped in usual sterile fashion. The skin and deeper soft tissues were anesthetized with lidocaine. Under CT guidance, a17 gague trocar needle was advanced to the mediastinal mass. A 18 gauge biopsy device was inserted through the trocar needle and advanced into the mass. A total of 5 cores were performed. The specimens were placed in formalin and sent to pathology. The needle was removed. A dry dressing was applied and secured with Tegaderm. A limited postprocedure CT of the chest was performed, which did not demonstrate any pneumothorax or hemothorax. There were no immediate complications. The patient was stable after the procedure and was transferred to the post anesthesia care unit. The procedure was done under moderate sedation with a dedicated nurse for monitoring of vital signs. CT/CT biopsy lung LT Impression: CT-guided mediastinal mass biopsy This procedure was performed by Ricardo Singh NP and supervised by Mike Bobby M.D.. Electronically signed by: Mike Bobby MD 09/20/2025 07:34 AM [facility] Workstation: [id number]
--- NOTE | 2025-09-19 14:38 | PC.NURSE ---
signed out patient only
== END 2025-09-19 19:08 | disposition home or self-care (01) ==
PROVIDERS: PCP Physician Assistant; Visit Provider Physician Assistant Medical
DX: C38.1 Malignant neoplasm of anterior mediastinum (principal); J98.59 Other diseases of mediastinum, not elsewhere classified; M41.84 Other forms of scoliosis, thoracic region; M85.80 Other specified disorders of bone density and structure, unspecified site; I65.23 Occlusion and stenosis of bilateral carotid arteries; I10 Essential (primary) hypertension; I47.10 Supraventricular tachycardia, unspecified; R25.1 Tremor, unspecified; E55.9 Vitamin D deficiency, unspecified; Z85.3 Personal history of malignant neoplasm of breast; H81.10 Benign paroxysmal vertigo, unspecified ear; F32.A Depression, unspecified; Z79.899 Other long term (current) drug therapy; Z79.1 Long term (current) use of non-steroidal anti-inflammatories (NSAID); Z88.6 Allergy status to analgesic agent; Z88.8 Allergy status to other drugs, medicaments and biological substances; Z98.890 Other specified postprocedural states; Z90.49 Acquired absence of other specified parts of digestive tract; F17.210 Nicotine dependence, cigarettes, uncomplicated
CPT/HCPCS: 32408; 71045; 88304; 88341; 88342; 99152; J2003; J2250; J3010

== ENCOUNTER → 2025-09-19 16:15 | Outpatient (BNV) | payer BC, SELFPAY | PROVIDERS: PCP Physician Assistant; Visit Provider Radiology Diagnostic Radiology | DX: J98.59 Other diseases of mediastinum, not elsewhere classified (principal) | CPT/HCPCS: 32408; 71045 ==

== ENCOUNTER → 2025-09-28 08:53 | Outpatient (BNV) | payer BC, SELFPAY | PROVIDERS: PCP Physician Assistant; Referring Provider Physician Assistant; Visit Provider Internal Medicine | DX: C34.02 Malignant neoplasm of left main bronchus (principal); C78.1 Secondary malignant neoplasm of mediastinum | CPT/HCPCS: 99204 ==

== ENCOUNTER → 2025-10-06 14:50 | Outpatient (BNV) | payer BC, SELFPAY | PROVIDERS: PCP Physician Assistant; Visit Provider Radiology Diagnostic Radiology | DX: I67.82 Cerebral ischemia (principal); R90.82 White matter disease, unspecified; C34.90 Malignant neoplasm of unspecified part of unspecified bronchus or lung | CPT/HCPCS: 70553 ==

== ENCOUNTER 2025-10-06 14:52 | Outpatient (REF) | payer BC, SELFPAY ==
--- NOTE | ~2025-10-06 | MR_ITS ---
EXAMINATION: MR BRAIN WITHOUT AND WITH CONTRAST CLINICAL INFORMATION: Staging small cell lung cancer. COMPARISON: MR brain 01/30/2022. TECHNIQUE: Multiplanar, multisequence MRI of the brain was obtained before and after the intravenous administration of 6 mL Gadavist. Examination performed on a 1.5 Julianne Siemens high-field unit. FINDINGS: There is no diffusion restriction. There is no intracranial hemorrhage, acute infarction, mass effect, or edema. Ventricles, sulci, and cisterns are normal in size and configuration for patient age. No shift of midline. No abnormal hemosiderin deposition is identified. After the administration of contrast there is no abnormal intra or extra-axial enhancement. There are scattered punctate and mildly confluent foci of white matter T2 hyperintensity in the periventricular, subcortical, and hemispheric deep white matter, as well as the central fatimah. These foci are nonspecific but statistically relate to moderate small vessel ischemic changes. There are old lacunar type infarcts in the bilateral subinsular regions and anterior gangliocapsular regions. Old lacunar infarct also noted in the right caudate head. Midline structures appear normally formed. Partial empty sella noted. Posterior fossa structures appear normal. Cerebellar tonsils are appropriately located. Major flow voids are preserved within the skull base. The globes and orbital contents demonstrate no abnormalities. There are bilateral lens replacements. Paranasal sinuses are clear bilaterally. The mastoids and tympanic cavities are normally aerated. Extracranial soft tissues demonstrate no abnormalities. No suspicious bone marrow changes are evident. Atlantoaxial joint demonstrates mild to moderate degenerative changes. MR/MR head/brain wo/w con IMPRESSION: 1. No evidence of intracranial hemorrhage, acute infarction, mass effect, or edema. No pathological contrast enhancement to suggest metastatic disease. 2. Moderate white matter changes of small vessel ischemia. 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 Electronically signed by: Jl Alexander MD 10/06/2025 03:52 PM EST
== END 2025-10-06 14:53 | disposition home or self-care (01) ==
LOC: HO.MRI 14:52
PROVIDERS: PCP Physician Assistant; Visit Provider Internal Medicine
DX: C34.90 Malignant neoplasm of unspecified part of unspecified bronchus or lung (principal)
CPT/HCPCS: 70553; A9585

== ENCOUNTER → 2025-10-09 08:44 | Day surgery (SDC) | payer BC, SELFPAY ==
[2025-10-09] VITALS (12 sets, daily range): BP systolic 120–164; BP diastolic 54–66; PULSE 59–75; RESP 8–18; TEMP 36.2–36.6; O2SAT 88–97; BMI 22.5
--- NOTE | ~2025-10-09 | IR_ITS ---
PROCEDURE: IR INSERTION OF TUNNEL CATHETER CLINICAL INFORMATION: Lung cancer COMPARISON: None available. TECHNIQUE: Procedure risks and benefits including bleeding, infection and pneumothorax were discussed with the patient and informed consent was obtained. All elements of maximal sterile barrier technique followed including use of cap, mask, sterile gown, sterile gloves, a sterile full body drape and hand hygiene. Also followed skin preparation with 2% chlorhexidine for cutaneous antisepsis, and sterile ultrasound preparation with sterile gel and probe cover when applicable. The right neck and upper chest were prepped and draped in the usual sterile fashion. The skin and soft tissues of the right lower neck were anesthetized with 1% lidocaine plain. Guidance and a 5 B[place]ian micropuncture system, right internal jugular vein access was obtained. Over an 018 wire, a 5 B[place]udian dilator was positioned in the SVC. The skin and soft tissues of the right upper anterior chest were anesthetized with 1% lidocaine plain. A small incision was made. A subcutaneous pocket was created using blunt dissection. A subcutaneous tunnel from the chest in the neck incision was anesthetized with 1% lidocaine plain. Using a tunneler, catheter was tunneled from the chest to the neck incision. The catheter was attached to the port. The port was positioned of the subcutaneous pocket and secured using two 2.0 absorbable sutures. Subcutaneous pocket was irrigated with Ancef solution. An 035 guidewire was advanced through the 5 B[place]udian dilator into the IVC. The 5 [place]udian dilator was exchanged for a 7 [place]udian peel-away sheath. Using bent wire technique, catheter length was estimated and catheter was cut. Catheter length is 21.5 cm. The catheter was fed centrally through the peel-away sheath. The neck incision was closed using a 4-0 absorbable subcuticular suture. The chest incision was closed using four 3-0 absorbable interrupted sutures followed by a running absorbable 4-0 subcuticular suture. The port was accessed. There was good blood return, flushed easily and instilled heparin 5 mL 100 unit per mL solution. Real-time ultrasound guidance was used to document vein patency and for needle entry. A formal ultrasound pressure was recorded. Patient received conscious sedation provided by registered nurse under my direct supervision with continuous hemodynamic monitoring. Patient received 1 mg of intravenous Versed and 50 mcg of intravenous fentanyl during the procedure. Total procedure time was 43 minutes. Cumulative DAP 0.012 mgy/sq m. Fluoroscopy time 0.2 minutes. FINDINGS: There is a right internal jugular Port-A-Cath with tip projecting over the cavoatrial junction. IR/IR cvc insert tunnel w prt/motor tune up specialist IMPRESSION: Right internal jugular 6.6 B[place]udian single lumen Port-A-Cath placement. Electronically signed by: Abby Mirza MD 10/09/2025 02:53 PM [facility]
--- NOTE | ~2025-10-09 | IR_ITS ---
IR ultrasound guidance venous. See combined Port-A-Cath insertion report from the same day. Electronically signed by: Abby Mirza MD 10/09/2025 04:15 PM [facility]
[2025-10-09 10:16] LABS: INTERNATIONAL NORM RATIO 1.0 (0.9-1.1); Prothrombin Time 12.5 SEC (11.2-13.5)
== END | disposition home or self-care (01) ==
PROVIDERS: Radiology Diagnostic Radiology; PCP Physician Assistant; Visit Provider Internal Medicine
DX: Z45.2 Encounter for adjustment and management of vascular access device (principal); C34.92 Malignant neoplasm of unspecified part of left bronchus or lung; J44.9 Chronic obstructive pulmonary disease, unspecified; I10 Essential (primary) hypertension; F32.9 Major depressive disorder, single episode, unspecified; F41.1 Generalized anxiety disorder; M85.80 Other specified disorders of bone density and structure, unspecified site; I47.10 Supraventricular tachycardia, unspecified; H81.10 Benign paroxysmal vertigo, unspecified ear; R25.1 Tremor, unspecified; Z85.3 Personal history of malignant neoplasm of breast; Z92.21 Personal history of antineoplastic chemotherapy; Z92.3 Personal history of irradiation; Z79.1 Long term (current) use of non-steroidal anti-inflammatories (NSAID); Z79.899 Other long term (current) drug therapy; Z88.6 Allergy status to analgesic agent; Z88.8 Allergy status to other drugs, medicaments and biological substances; Z98.890 Other specified postprocedural states; F17.210 Nicotine dependence, cigarettes, uncomplicated
CPT/HCPCS: 36415; 36561; 76937; 85610; 99152; 99153; C1769; C1788; J0690; J1642; J1644; J2003; J2250; J3010

== ENCOUNTER → 2025-10-09 10:17 | Outpatient (BNV) | payer BC, SELFPAY | PROVIDERS: PCP Physician Assistant; Visit Provider Radiology Diagnostic Radiology | DX: C34.90 Malignant neoplasm of unspecified part of unspecified bronchus or lung (principal) | CPT/HCPCS: 36561; 76937 ==

== ENCOUNTER 2025-10-29 09:29 | Inpatient (IN) | payer BC, SELFPAY ==
[2025-10-29] VITALS (9 sets, daily range): BP systolic 111–198; BP diastolic 66–95; PULSE 70–130; RESP 13–20; TEMP 36.3–36.8; O2SAT 86–94; BMI 22.8
--- NOTE | ~2025-10-29 | CT_ITS ---
CLINICAL HISTORY: +lung CA, SOB, R O pulmonary embolism Exam: Contrast-enhanced chest CT pulmonary angiogram with multiplanar reformats. Comparison: CT chest 09/19/2025. Findings: There is no pulmonary embolism or thoracic aortic dissection. Previously noted large mediastinal mass to the left of the midline measuring up to 5.8 x 6.0 cm AP and transverse dimension (measured on 8; 147) appears grossly similar compared with the prior recent CT exam. No definable new or enlarging mediastinal or hilar masses or adenopathy. No pleural or pericardial effusions. Images below the diaphragms reveal no acute abnormalities. Lungs reveal increasing subpleural patchy consolidative and nodular opacities within left upper lobe with peribronchovascular nodules measuring up to 16 and 12 mm (8; 201), and subpleural opacity measuring up to 18 mm transverse dimension (8; 203), likely related to some interval progression of the disease versus superimposed multifocal pneumonia/infection. No other new quita consolidation. Bilateral dependent atelectasis is present. Centrilobular and paraseptal emphysematous changes are re-identified. No pneumothorax. Osseous structures reveal no destructive osseous lesions. Impression: 1. No pulmonary embolism or aortic dissection. 2. Similar-appearing large left mediastinal mass. 3. Mild interval progression of the left upper lobe peribronchovascular nodules consolidation and subpleural nodules/consolidation, concerning for some interval progression of the disease versus superimposed left upper lobe pneumonia. This document has been electronically signed by: Ignacio Torres MD on 10/29/2025 12:56:03
--- NOTE | ~2025-10-29 | CT_ITS ---
CLINICAL HISTORY: ca Exam: CT neck soft tissues with multiplanar reformats. Comparison: Same-day CT chest. Findings: Mucosal structures reveal prominence of the epiglottis measuring up to 8 mm AP thickness (measured near the base on 18; 47), raising concern for pharyngitis or developing epiglottitis (greater than 1 cm epiglottis thickness is considered definitive for epiglottitis). There is some mild effacement of the right piriform sinus (16; 200), again raising concern for some nonspecific pharyngitis. No other significant mucosal thickening or evidence of focal mucosal lesions. No neck adenopathy or masses. Salivary glands and thyroid gland appear unremarkable. Visualized vascular structures appear patent. Visualized pulmonary apices reveal partially imaged mediastinal mass, please see same day CT chest report. Visualized brain parenchyma reveals no acute abnormalities. Visualized paranasal sinuses and mastoid air cells appear clear. No destructive osseous lesions. Impression: 1. Mild thickening of the epiglottis (8 mm AP thickness), with some effacement of the right piriform sinus, findings suggest pharyngitis or developing epiglottitis. 2. Partially imaged mediastinal mass, please see same day CT chest report. This document has been electronically signed by: Ignacio Torres MD on 10/29/2025 13:09:13
--- NOTE | 2025-10-29 09:45 | ECG_ITS ---
Test Reason : chest pain Blood Pressure : */* mmHG Vent. Rate : 75 BPM Atrial Rate : 75 BPM P-R Int : 132 ms QRS Dur : 72 ms QT Int : 358 ms P-R-T Axes : 66 35 51 degrees QTcB Int : 399 ms Normal sinus rhythm Normal ECG When compared with ECG of 21-Jun-2018 12:23, No significant change was found Referred By: Generic ED Physician Electronically Signed By: ADVID PEREZ MD
--- NOTE | 2025-10-29 10:03 | ED_ITS ---
HPI - SOB/Dyspnea General Chief Complaint: Dyspnea Stated Complaint: SOB Time Seen by Provider: 10/29/25 10:02 Source: patient and old records reviewed Mode of arrival: ambulatory Limitations: no limitations History of Present Illness ED Provider: DR. Panchal HPI Narrative: 74-year-old female with underlying history of HLD, HTN, SVT, breast cancer, Left carotid endarterectomy, anxiety, lung cancer stage II s/p chemotherapy started last week, came in today for multiple complaints, patient been complaining of feeling a mass stuck in her throat causing her difficult to swallow, patient also been having difficulty breathing for the last 2 days. Patient also complaining of chest pain and pressure since yesterday. Related Data Home Medications ?Medication ?Instructions ?Recorded ?Confirmed ibuprofen-diphenhydramine citrate 1 cap PO BEDTIME 10/20/25 200 mg-38 mg tablet (Advil PM) hydroxyzine HCl 50 mg tablet 50 mg PO DAILY 09/28/25 1 12/21/24 ibuprofen-diphenhydramine citrate See Rx Instructions .Route .COMPLEX 09/28/25 10/20/25 200 mg-38 mg tablet (Advil PM) atorvastatin 20 mg tablet 20 mg PO DAILY 10/29/25 cholecalciferol (vitamin D3) 50 50 mcg PO DAILY mcg (2,000 unit) capsule metoprolol succinate 50 mg 50 mg PO DAILY 10/29/25 tablet,extended release 24 hr Previous Rx's ?Medication ?Instructions ?Recorded clotrimazole-betamethasone 1 1 appl topical BID PRN Ra sh 30 02/17/25 %-0.05 % topical cream days #45 grams nicotine (polacrilex) 2 mg buccal 2 mg buccal Q8H PRN nicotine 08/01/25 lozenge (Nicorette) cravings 4 weeks #108 ea nicotine 14 mg/24 hr daily 1 patch transdermal DAILY 1 4 days 08/01/25 transdermal patch #14 ea nicotine 21 mg/24 hr daily 1 patch transdermal DAILY 1 4 days 08/01/25 transdermal patch #14 ea clopidogrel 75 mg tablet 75 mg PO DAILY #90 tabs 07/17 07/10 albuterol sulfate 90 mcg/actuation 1 puff inhalation Q ID PRN 09/25/25 aerosol inhaler (Ventolin HFA) shortness of breath or wheezing 4 weeks #8.5 grams budesonide-formoterol HFA 160 1 puff inhalation BID 4 weeks 09/25/25 mcg-4.5 mcg/actuation aerosol #10.2 grams inhaler (Symbicort) ondansetron 8 mg disintegrating 8 mg PO Q8H PRN Nausea And 10/23/25 tablet Vomiting #30 tabs Allergies Allergy/AdvReac Type Severity Reaction Status Date / Time aspirin AdvReac Intermediate Gastrointestinal Verified 10/29/25 09:44 Upset varenicline (From Chantix) AdvReac Intermediate Anxiety Verified 10/29/25 09:44 Review of Systems 2 Review of Systems: All other systems are reviewed and are negative Constitutional: Reports as per HPI and Reports no additional constitutional complaints Eyes: Reports as per HPI and Reports no additional eye complaints Reports system reviewed and no additional complaints, except as documented Cardiovascular: Reports as per HPI and Reports no additional cardiovascular complaints Respiratory: Reports as per HPI and Reports no additional respiratory complaints Gastrointestinal: Reports as per HPI and Reports no additional gastrointestinal complaints Genitourinary: Reports no additional female genitourinary complaints Musculoskeletal: Reports no additional musculoskeletal complaints Skin/Breast: Reports system reviewed and no additional complaints, except as docu Psychiatric: Reports no additional psychiatric complaints Endocrine: Reports no additional endocrine complaints Hematologic/Lymphatic: Reports no additional hematologic/lymphatic complaints Allergic/Immunologic: Reports no additional allergic/immunologic complaints Reports system reviewed and no additional complaints, except as documented and Reports Abnormal speech present [facility] Past Medical History Medical History WHIT (generalized anxiety disorder) MDD (major depressive disorder), recurrent episode, moderate Heartburn COPD (chronic obstructive pulmonary disease) Nicotine dependence, cigarettes, uncomplicated History of left breast cancer (~2011) Tremor of left hand Supraventricular tachycardia Bilateral carotid artery stenosis Subclavian arterial stenosis BPPV (benign paroxysmal positional vertigo) Osteopenia (~2012) Hypertension Surgical History History of tonsillectomy History of tonsillectomy History of colonoscopy (~2013) History of left breast biopsy (~2011) History of dilation and curettage (~2015) History of cataract surgery (~2019) History of laparoscopic cholecystectomy (~2006) History of carotid endarterectomy (~2020) Family History Family History Father Medical history unknown Mother Medical history unknown Brother Throat cancer Brother Myocardial infarction H/O ETOH abuse Daughter Bone cancer Mental health disorder Substance use disorder Social History Social History Household Members: None Housing: Apartment Are you a primary healthcare facility administrator to a significant other at home: No Do you presently have visiting nurse or other home services: No Alcohol intake: never Comment: aware of trip hazard Patient Tobacco Use Status: Current everyday Tobacco user Tobacco use type: Cigarette Cigarette Packs Per Day: 1 Cigarettes Per Day: 5 Years Smoked: 60 e-Cigarette/Vaping Use: Never Used Second Hand Smoke Exposure: Yes Advance Directives: No Advance Directives Information Provided: No service: No Current occupational status: retired Cognitive needs: No Hearing needs: No Vision needs: Yes (reading glasses) Physical Exam 2 Vital Signs: Vital Signs: Last Vital Signs Temp 98.2 F 10/29/25 12:35 Pulse 78 10/29/25 12:35 Resp 20 10/29/25 12:35 BP 198/71 H 10/29/25 12:35 Pulse Ox 93 10/29/25 12:35 O2 Del Method Nasal Cannula 10/29/25 12:35 O2 Flow Rate 2 10/29/25 12:35 Oxygen Flow Rate 2 10/29/25 09:37 BMI result Body Mass Index 22.8 Vital signs have been reviewed and appear to be correct. Blood pressure elevated. Heart rate normal. Respiratory rate normal. Temperature normal. Oxygen saturation normal. Appearance: Alert. Oriented X3. No acute distress. Head: Normal external exam. Normocephalic. Atraumatic. No Benoit signs noted. No raccoon eyes noted Eyes: PERRLA. EOMI. Conjunctiva and sclera normal. Eyelids normal. ENT: TM's Normal. Pharynx normal. Uvula midline. Moist mucous membranes. No trismus noted. No drooling noted. No muffled voice noted. Neck: Normal inspection. Neck supple. FROM. No adenopathy. Thyroid Normal. No meningeal signs. No neck mass noted. CVS: Normal heart rate and rhythm. Heart sound normal. No murmurs noted. Pulses normal throughout. Respiratory: No respiratory distress. Painless inspiration. Breath sounds normal. No wheezes/rales/rhonchi noted. Chest nontender. No accessory muscle usage noted or decreased air movement noted. Abdomen: Soft and nontender. Bowel sounds normal in all 4 quadrants. No distention noted. No organomegaly noted. No visible injury noted. Back: No CVA tenderness. Full range of motion noted. Skin: Skin warm and dry. Normal skin color. Normal skin turgor. No rashes/lesions/lacerations noted. Extremities: No lower extremity edema. Extremities exhibit normal range of motion. Extremities nontender. Neuro: Oriented X 3. Cranial nerve exam: II-XII are grossly intact No motor deficit. No sensory deficit. Reflexes normal. Course Reevaluation(s) Reevaluation #1: initial hypoxia improved with 2 L of nasal cannula oxygen secondary to COPD exacerbation. CTA shows no pneumonia, no pulmonary embolism. CT with IV contrast soft tissue neck shows no neck mass or compromise of airway. Bronchodilator and Solu-Medrol for COPD and hypoxia. Admit for further monitoring. Time: 14:10 Medications Administered Discontinued Medications Generic Name Dose Route Start Last Admin Trade Name Freq PRN Reason Stop Dose Admin Iohexol 100 ml 10/29/25 11:23 10/29/25 11:23 Iohexol 350 Mg/Ml 100 Ml Infus..Btl IV 10/29/25 11:24 85 ml ONCE ONE Administration Methylprednisolone Sodium Succinate 125 mg 10/29/25 13:55 10/29/25 14:44 Methylprednisolone Sod Succ 125 Mg/2 Ml Vial IVPUSH 10/29/25 13:56 125 mg ONCE ONE Administration Medical Decision Making Differential Diagnosis Differential Diagnoses: The differential diagnosis associated with the presentation includes ( Pneumonia, pneumothorax, pleural effusion, pulmonary embolism, pulmonary mass, upper airway compromise, throat mass, electrolyte derangement, COPD exacerbation.) Admission/Observation Consideration of admission/observation: Escalation of care including admission/observation considered Consult Healthcare Provider Management of the patient was discussed with: Hospitalist Brunilda) Lab Data MDM Lab Attestation statement: I reviewed the patient's lab results. 10/29/25 10:37 10/29/25 10:37 Labs: Lab Results 10/29/25 10/29/25 Range/Units 10:03 10:37 WBC 11.3 H (4.8-10.8) X10*3/uL RBC 4.37 (4.20-5.50) X10*6/uL Hgb 13.4 (12.0-16.0) g/dl Hct 40.6 (37.0-47.0) % MCV 92.9 (80.0-98.0) fL MCH 30.7 (27.0-33.0) pg MCHC 33.0 (31.0-35.0) g/dl RDW 12.4 (11.0-16.0) % Plt Count 156 L D (160-400) X10*3/uL MPV 10.4 (9.4-12.3) fL Immature Gran % (Auto) Cancelled Neut % (Auto) Cancelled Lymph % (Auto) Cancelled [place] % (Auto) Cancelled Eos % (Auto) Cancelled Baso % (Auto) Cancelled Lymph # (Auto) Cancelled [place] # (Auto) Cancelled Eos # (Auto) Cancelled Baso # (Auto) Cancelled Abs Immat Gran (auto) Cancelled Absolute Neuts (auto) Cancelled Absolute Nucleated RBC 0.000 (0.0-0.012) X10*3/uL Nucleated RBC % (auto) 0.0 (0.0-0.2) /100WBC Neutrophils % (Manual) 83 H (45-73) % Band Neutrophils % 1 L (3-5) % Lymphocytes % (Manual) 11 L (20-40) % Eosinophils % (Manual) 3 (0-4) % Basophils % (Manual) 2 (0-2) % Abs Neuts (Manual) 9.5 H (2.0-8.3) X10*3/uL Lymphocytes # (Manual) 1.2 (1.2-4.9) X10*3/uL Eosinophils # (Manual) 0.3 (0.0-0.4) X10*3/uL Basophils # (Manual) 0.2 (0.0-0.2) X10*3/uL Toxic Granulation PRESENT Platelet Estimate SLIGHTLY DECREASED (NORMAL) Plt Morphology Comment NORMAL RBC Morphology NORMAL Sodium 134 L (135-145) mmol/L Potassium 4.8 (3.3-5.1) mmol/L Chloride 103 (96-108) mmol/L Carbon Dioxide 23 (22-29) mmol/L Anion Gap 13 (12-20) BUN 21 H (9-16) mg/dL Creatinine 0.89 (0.5-1.4) mg/dL Estim Creat Clear Calc 45.1 Estimated GFR > 60 Random Glucose 83 (60-115) mg/dL Calcium 9.9 (8.4-10.2) mg/dL Total Bilirubin 1.7 H (0.0-1.0) mg/dL Direct Bilirubin 0.4 (0.0-0.5) mg/dL AST 48 H (5-31) U/L ALT 72 H (0-31) U/L Alkaline Phosphatase 95 (39-117) U/L Troponin I High Sens < 2.7 (<3.5-17.0) ng/L NT-Pro-B Natriuret Pep 548.2 H (<300) pg/mL Total Protein 7.0 (6.5-8.0) g/dL Albumin 3.8 (3.5-5.0) g/dL Lipase 18 (8-78) U/L COVID-19 (DARINEL) Negative (Negative) COVID-19 Clin Com See Note Influenza Type A (JOSE) Negative (Negative) Influenza Type B (JOSE) Negative (Negative) Influenza A & B Note See Note Independent Interpretation I performed an independent interpretation of an: CT Scan ( CT chest / CT Neck:1. Mild thickening of the epiglottis (8 mm AP thickness), with some effacement of the right piriform sinus, findings suggest pharyngitis or developing epiglottitis.) Radiology Impression Discussion of test interpretation with radiology: I have reviewed the radiologist's reading. Critical Care Time Critical Care Time Critical Care Time: Yes Total Critical Care Time: 60 Attestation: The patient was critically ill with a high probability of imminent or life- threatening deterioration. I spent greater than 30 minutes of discontinuous time evaluating the patient, delivering critical care at the bedside, discussing evaluating data with consultants. Critical care time does not include time spent performing separately billable procedures or teaching. Time spent performing critical care was 60 minutes. Discharge Plan Discharge Clinical Impression: COPD exacerbation, Hypoxia Patient Disposition: Admitted As Inpatient
--- OUTSIDE RECORDS SUMMARY | 2025-10-29 10:03 | XMS_ITS | Clinical Summary ---
Author Organization [facility] Address [address] [place] [address] Phone Care Team Providers Care Recreation Programmer Name Role Phone Unavailable Primary Care Provider Unavailabl e Encounters Date Type Department Care Team Description 10/17/2025 8:17 AM EST - 10/17/2025 11:59 PM EST Hospital Encounter [facility] PET Scan [address] [place] [address] Small cell lung cancer, left upper lobe (CMS/HCC V24, CMS/[facility] V28) Discharge Disposition: Home or Self Care from Last 3 Months Surgical History Surgery Date Site/Laterality Comments TONSILLECTOMY ADENOIDECTOMY, BILATERAL MYRINGOTOMY AND TUBES PROCEDURE: [place] TONSILLECTOMY & ADENOIDECTOMY <AGE 11 CHOLECYSTECTOMY PROCEDURE: [place] LAPAROSCOPY SURG CHOLECYSTECTOMY TUBAL LIGATION PROCEDURE: HISTORICAL TUBAL LIGATION Medical History Medical History Date Comments Smoking 09/27/2012 DX:Smoking Family History Medical History Relation Name Comments Lung cancer Brother 1 living Hypertension Brother 2 Relation Name Status Comments Brother 1 Brother 2 Brother 3 Alive Brother 4 Alive Father Mother Social History Tobacco Use Types Packs/Day Years Used Date Smoking Tobacco: Every Day Cigarettes Smokeless Tobacco: Never Alcohol Use Standard Drinks/Week Comments No 0 (1 standard drink = 0.6 oz pur e alcohol) Comments Unknown Sex and Gender Information Value Date Recorded Sex Assigned at Not on file Legal Sex Female 11:39 PM EST Gender Identity Not on file Sexual Orientation Not on file Plan of Treatment Health Maintenance Due Date Last Done Comments Colorectal Cancer Screening: Colonoscopy 1950 Zoster Vaccines (1 of 2) 1968 DTaP,Tdap,and Td Vaccines (2 - Td or Tdap) 01/12/2013 01/12/2003 Falls Risk Assessment 09/18/2024 Hepatitis C Screening 09/18/2024 Osteoporosis Screening (Bone Density Screening) 09/18/2024 Social Influencers of Health Screening 09/18/2024 Depression Screening 11/16/2024 COVID-19 Vaccine (9 - Moderna risk season) 2026 08/03/2025, 07/14/2024, 01/22/2024, Additional history exists Pneumococcal Vaccine: 50+ Years Completed 07/17/2017, 01/17/2016 Influenza Vaccine Completed 08/03/2025, , 09/10/2023, Additional history exists RSV Immunization Adult Patients Completed 08/03/2025 HIB Vaccines Aged Out No longer eligi ble based on patient's age to complete this topic HPV Vaccines Aged Out No longer eligi ble based on patient's age to complete this topic Hepatitis A Vaccines Aged Out No long er eligible based on patient's age to complete this topic Hepatitis B Vaccines Aged Out No long er eligible based on patient's age to complete this topic IPV Vaccines Aged Out No longer eligi ble based on patient's age to complete this topic MMR Vaccines Aged Out No longer eligi ble based on patient's age to complete this topic Meningococcal ACWY Vaccine Aged Out N o longer eligible based on patient's age to complete this topic Meningococcal B Vaccine Aged Out No l onger eligible based on patient's age to complete this topic RSV Immunization Patients Under 20 months Aged Out No longer eligible based on patient's age to complete this topic Varicella Vaccines Aged Out No longer eligible based on patient's age to complete this topic Procedures Procedure Name Priority Date/Time Associated Diagnosis Comments PET CT SKULL TO MID THIGH INITIAL Routine 10/17/2025 10:48 AM EST Small cell lung cancer, left upper lobe ([facility] V24, [facility] V28) from Last 3 Months Results * PET CT Skull to Mid Thigh Initial (10/17/2025 10:48 AM EST) Anatomical Region Laterality Modality Body Radiographic Vicky ging 10/19/2025 7:13 AM EST Impressions 10/19/2025 8:54 AM EST 1. FDG avid anterior mediastinal mass extending into the left upper lobe in keeping with biopsy-proven lung carcinoma 2. FDG avid left upper lobe/lingular nodules/opacities, thoracic and abdominal lymphadenopathy and liver and osseous lesions suspicious for metastatic disease Please note: The CT was acquired at a low radiation dose settings. The images are of nondiagnostic quality and used solely for purposes of attenuation correction and slice localization for the PET scan. If a diagnostic CT study is desired it must be ordered separately. -------- FINAL REPORT -------- Dictated By: Liliana Monet Dictated Date: 10/19/2025 07:13 ET Assigned Physician: Liliana Monet Reviewed and Electronically Signed By: Liliana Monet Signed Date: 10/19/2025 08:54 ET Workstation ID: [id number] Transcribed By: Self Edit Transcribed Date: 10/19/2025 07:13 ET Narrative 10/19/2025 8:54 AM EST INDICATION: SMALL CELL LEFT LUNG CANCER. Staging. Large irregular anterior mediastinal mass with consolidation in the left upper lobe with sampling demonstrating small cell carcinoma. History of left breast cancer status post lumpectomy and chemoradiation. TECHNIQUE: FDG PET-CT imaging was performed from the skull bases through the thighs in a single acquisition with data set reconstructed in axial, coronal, and sagittal planes at the computer workstation with fused data from both the PET imaging study and attenuation correction CT. The CT portion of the examination was done strictly for attenuation correction and is not a true diagnostic CT examination. DLP: 385 mGy-cm Radiopharmaceutical: 11.9 mCi of F-18 FDG IV. Blood glucose: 88 mg/dl. COMPARISON: Outside chest CT dated August 2025. FINDINGS: HEAD AND NECK: Nonspecific nonenlarged asymmetric left supraclavicular lymph node SUV max 1.7. No FDG avid cervical lymphadenopathy. THORAX: FDG avid anterior mediastinal mass extending into the left upper lobe SUV max 11.4. FDG avid left upper and lingular nodules/opacities measuring up to SUV Max 9.2 suspicious for metastatic disease. Indeterminate 6 mm left lower lobe pulmonary nodule SUV Max 2.1. FDG avid thoracic lymphadenopathy. For example, left upper paratracheal SUV max 6.6, subcarinal SUV Max 7.4, left hilar SUV max 11.5 Right-sided Port-A-Cath with tip in the distal SVC. Coronary artery calcifications. Postsurgical appearance of the left breast without significant FDG activity. No FDG avid axillary lymphadenopathy. ABDOMEN/PELVIS: Multiple FDG avid liver lesions (at least 7) measuring up to SUV max 5.9. FDG avid caval and right sided retroperitoneal lymph nodes measuring up to SUV Max 3.4 suspicious for metastatic disease. Cholecystectomy. Nonspecific activity within the stomach SUV Max 4.0. MUSCULOSKELETAL: FDG avid osseous lesion in the left iliac bone SUV max 2.7 and L1 SUV Max 2.5 suspicious for metastatic disease. Procedure Note Liliana Monet MD - 10/19/2025 INDICATION: SMALL CELL LEFT LUNG CANCER. Staging. Large irregularanterior mediastinal mass with consolidation in the left upper lobe withsampling demonstrating small cell carcinoma. History of left breastcancer status post lumpectomy and chemoradiation. TECHNIQUE: FDG PET-CT imaging was performed from the skull bases throughthe thighs in a single acquisition with data set reconstructed in axial,coronal, and sagittal planes at the computer workstation with fused datafrom both the PET imaging study and attenuation correction CT. The CTportion of the examination was done strictly for attenuation correctionand is not a true diagnostic CT examination. DLP: 385 mGy-cm Radiopharmaceutical: 11.9 mCi of F-18 FDG IV. Blood glucose: 88 mg/dl. COMPARISON: Outside chest CT dated August 2025. FINDINGS: HEAD AND NECK: Nonspecific nonenlarged asymmetric left supraclavicularlymph node SUV max 1.7. No FDG avid cervical lymphadenopathy. THORAX: FDG avid anterior mediastinal mass extending into the left upperlobe SUV max 11.4. FDG avid left upper and lingular nodules/opacitiesmeasuring up to SUV Max 9.2 suspicious for metastatic disease.Indeterminate 6 mm left lower lobe pulmonary nodule SUV Max 2.1. FDG avid thoracic lymphadenopathy. For example, left upper paratrachealSUV max 6.6, subcarinal SUV Max 7.4, left hilar SUV max 11.5 Right-sided Port-A-Cath with tip in the distal SVC. Coronary arterycalcifications. Postsurgical appearance of the left breast withoutsignificant FDG activity. No FDG avid axillary lymphadenopathy. ABDOMEN/PELVIS: Multiple FDG avid liver lesions (at least 7) measuring upto SUV max 5.9. FDG avid caval and right sided retroperitoneal lymph nodes measuring up toSUV Max 3.4 suspicious for metastatic disease. Cholecystectomy. Nonspecific activity within the stomach SUV Max 4.0. MUSCULOSKELETAL: FDG avid osseous lesion in the left iliac bone SUV max2.7 and L1 SUV Max 2.5 suspicious for metastatic disease. IMPRESSION: 1. FDG avid anterior mediastinal mass extending into the left upper lobein keeping with biopsy-proven lung carcinoma 2. FDG avid left upper lobe/lingular nodules/opacities, thoracic andabdominal lymphadenopathy and liver and osseous lesions suspicious formetastatic disease Please note: The CT was acquired at a low radiation dose settings. The images are ofnondiagnostic quality and used solely for purposes of attenuationcorrection and slice localization for the PET scan. If a diagnostic CTstudy is desired it must be ordered separately. -------- FINAL REPORT -------- Dictated By: Liliana Monet Dictated Date: 10/19/2025 07:13 ET Assigned Physician: Liliana Monet Reviewed and Electronically Signed By: Liliana Monet Signed Date: 10/19/2025 08:54 ET Workstation ID: [id number] Transcribed By: Self Edit Transcribed Date: 10/19/2025 07:13 ET Shanna Ortiz MD IM NM PROCEDURES Final Result from Last 3 Months Insurance * Guarantor: Laxmi Krishnamurthy Account Type Relation to Patient Date of Phone Billing Address Personal/Family Self 1950 [phone] (Work) [address] [place] [id number] [facility]
[2025-10-29 10:26] LABS: COVID-19 Test Negative (Negative); IDNOW Serial# 08D9AD1C; IDNOW Serial# 6674DD1D; Influenza B2 Negative (Negative)
[2025-10-29 10:43] LABS: Hematocrit 40.6 % (37.0-47.0); Hemoglobin 13.4 g/dl (12.0-16.0); Mean Corpuscular HGB Conc 33.0 g/dl (31.0-35.0); Mean Corpuscular Hemoglobin 30.7 pg (27.0-33.0); Mean Corpuscular Volume 92.9 fL (80.0-98.0); NRBC Abs Auto 0.000 X10*3/uL (0.0-0.012); NRBC Pct Auto 0.0 /100WBC (0.0-0.2); Red Blood Count 4.37 X10*6/uL (4.20-5.50)
[2025-10-29 10:49] LABS: WBC ABN SCTR FOR CBC 1
[2025-10-29 10:57] LABS: Alanine Aminotransferase 72 U/L (0-31); Albumin Level 3.8 g/dL (3.5-5.0); Alkaline Phosphatase 95 U/L (39-117); Anion Gap 13 (12-20); Aspartate Amino Transferase 48 U/L (5-31); Blood Urea Nitrogen 21 mg/dL (9-16); Calcium 9.9 mg/dL (8.4-10.2); Carbon Dioxide 23 mmol/L (22-29); Chloride 103 mmol/L (96-108); Creatinine Clr Calc Pharmacy 45.1; Estimated Glomerular Filt Rate > 60; Lipase 18 U/L (8-78); Potassium 4.8 mmol/L (3.3-5.1); Sodium 134 mmol/L (135-145); Total Protein 7.0 g/dL (6.5-8.0)
[2025-10-29 11:03] LABS: NT Pro B Type Natriuretic Pept 548.2 pg/mL (<300)
[2025-10-29 11:05] LABS: Troponin-I High Sensitivity < 2.7 ng/L (<3.5-17.0)
[2025-10-29 11:11] LABS: Band Neutrophils Percent 1 % (3-5); Basophils Percent Manual 2 % (0-2); Eosinophils Percent Manual 3 % (0-4); Lymphocytes Percent Manual 11 % (20-40); Neutrophils Percent Manual 83 % (45-73)
[2025-10-29 11:14] LABS: RBC Morphology NORMAL; Toxic Granulation PRESENT
[2025-10-29 11:16] LABS: Basophils Abs Manual 0.2 X10*3/uL (0.0-0.2); Eosinophils Absolute Manual 0.3 X10*3/uL (0.0-0.4); Lymphocytes Absolute Manual 1.2 X10*3/uL (1.2-4.9); Neutrophils Absolute Manual 9.5 X10*3/uL (2.0-8.3); White Blood Count 11.3 X10*3/uL (4.8-10.8)
[2025-10-29 11:17] LABS: Platelet Count 156 X10*3/uL (160-400)
[2025-10-29] MEDS: iohexoL 350 MG/ML 100 ML INFUS..BTL IV (11:23)
--- NOTE | 2025-10-29 12:57 | PC.NURSE ---
hypoxic on RA 86%. low 90s on 2L. states I am always short of breath no matter what I do states she does not use O2 at home
--- NOTE | 2025-10-29 13:31 | PC.NURSE ---
pt does not have portacath card on them. unknown if power port. MD states access peripheral line
--- NOTE | 2025-10-29 14:42 | PM.IMHP ---
History of Present Illness Date of Service: 10/29/25 Attending physician on admission: Jody Michele Chief Complaint: sore throat, cough This is a 74-year-old female with history of small-cell lung cancer currently undergoing chemotherapy who presents to the emergency department with shortness of breath and sore throat. Patient began chemotherapy this past Thursday, October 23. She had chemotherapy on Thursday, Thursday, Thursday. Last night she developed a severe sore throat. Although she is able to swallow she reports that it is painful. She also reports a dry cough. No associated fever, chills, recent sick contacts. In the emergency department she was noted to have white count 11.3, platelets of 156. CT chest with mild interval progression of the left upper lobe peribronchovascular nodules consolidation sub pleural nodule/consolidation concerning for interval progression of disease versus superimposed left upper lobe pneumonia. CT scan of the neck showed mild thickening of the epiglottis with findings suggestive of pharyngitis or developing epiglottitis. Patient was initially hypoxic with an oxygen saturation of 86% on room air, she was placed on supplemental oxygen and is currently saturating 93% on 2 L. Review of Systems Review of Systems: Yes all other systems are reviewed and are negative Constitutional: Constitutional: Denies chills and Denies fever(s) ENT: Reports sore throat Cardiovascular: Cardiovascular: Denies chest pain and Denies palpitations Respiratory: Respiratory: Reports cough Endocrine: Endocrine: Denies palpitations [facility] Medical History WHIT (generalized anxiety disorder) MDD (major depressive disorder), recurrent episode, moderate Heartburn COPD (chronic obstructive pulmonary disease) Nicotine dependence, cigarettes, uncomplicated History of left breast cancer (~2011) Tremor of left hand Supraventricular tachycardia Bilateral carotid artery stenosis Subclavian arterial stenosis BPPV (benign paroxysmal positional vertigo) Osteopenia (~2012) Hypertension Family History Father Medical history unknown Mother Medical history unknown Brother Throat cancer Brother Myocardial infarction H/O ETOH abuse Daughter Bone cancer Mental health disorder Substance use disorder Surgical History History of tonsillectomy History of tonsillectomy History of colonoscopy (~2013) History of left breast biopsy (~2011) History of dilation and curettage (~2015) History of cataract surgery (~2019) History of laparoscopic cholecystectomy (~2006) History of carotid endarterectomy (~2020) Social History Household Members: None Housing: Apartment Are you a primary care director rn to a significant other at home: No Do you presently have visiting nurse or other home services: No Alcohol intake: never Comment: aware of trip hazard Patient Tobacco Use Status: Current everyday Tobacco user Tobacco use type: Cigarette Cigarette Packs Per Day: 1 Cigarettes Per Day: 5 Years Smoked: 60 e-Cigarette/Vaping Use: Never Used Second Hand Smoke Exposure: Yes Advance Directives: No Advance Directives Information Provided: No service: No Current occupational status: retired Cognitive needs: No Hearing needs: No Vision needs: Yes (reading glasses) Meds Allergies Allergy/AdvReac Type Severity Reaction Status Date / Time aspirin AdvReac Intermediate Gastrointestinal Verified 10/29/25 09:44 Upset varenicline (From Chantix) AdvReac Intermediate Anxiety Verified 10/29/25 09:44 Active Medications: Current Medications Acetaminophen (Acetaminophen 325 Mg Tablet) 650 mg PO Q6H PRN PRN Reason: Pain, Mild 1-3,fever,headache Albuterol/Ipratropium (Albuterol/Iprat 2.5/0.5mg 3 Ml Ampul.Neb) 3 ml INHALE Q4H PRN PRN Reason: Shortness of Breath/Wheezing Benzocaine (Throat Lozenge, Medicated Lozenge) 1 lozenge MUCOUS MEM Q2H PRN PRN Reason: Sore Throat Calcium Carbonate (Calcium Carbonate 750 Mg Tab.Chew) 750 mg PO Q4H PRN PRN Reason: Heartburn Enoxaparin Sodium (Enoxaparin Sodium 40 Mg/0.4 Ml Syringe) 40 mg SUBCUT Q24H GEORGE Guaifenesin/Dextromethorphan (Guaifenesin Dm 100/10/5 Ml 5 Ml Syrup) 5 ml PO Q6H PRN PRN Reason: Cough Ceftriaxone Sodium 1 gm/ (Sodium Chloride) 50 mls @ 100 mls/hr IV Q24H GEORGE Magnesium Hydroxide (Milk Of Magnesia 30 Ml Oral.Susp) 30 ml PO DAILY PRN PRN Reason: Constipation Melatonin (Melatonin 3 Mg Tablet) 6 mg PO BEDTIME PRN PRN Reason: Insomnia Pharmacy Consult (Consult Rx Vancomycin Dosing) 1 each MISCELLANE DAILY PRN PRN Reason: Consult order Sodium Chloride (0.9 % Sodium Chloride Flush 3 Ml Syringe) 3 ml IVFLUSH QSHIFT [facility] Home Medications ?Medication ?Instructions ?Recorded ?Confirmed ?Last Taken ?Type ibuprofen-diphenhydramine citrate 1 cap PO BEDTIME 10/05/20 10/20/25 Unknown History 200 mg-38 mg tablet (Advil PM) hydroxyzine HCl 50 mg tablet 50 mg PO DAILY 09/28/25 10/20/25 Unknown History ibuprofen-diphenhydramine citrate See Rx Instructions .Route .COMPLEX 09/28/25 10/20/25 Unknown History 200 mg-38 mg tablet (Advil PM) atorvastatin 20 mg tablet 20 mg PO DAILY 10/29/25 Unknown History cholecalciferol (vitamin D3) 50 50 mcg PO DAILY 10/29/25 Unknown History mcg (2,000 unit) capsule metoprolol succinate 50 mg 50 mg PO DAILY 10/29/25 Unknown History tablet,extended release 24 hr Physical Exam Vital Signs and Narrative: Vital Signs: Last Vital Signs Temp 98.2 F 10/29/25 12:35 Pulse 78 10/29/25 12:35 Resp 20 10/29/25 12:35 BP 198/71 H 10/29/25 12:35 Pulse Ox 93 10/29/25 12:35 O2 Del Method Nasal Cannula 10/29/25 12:35 O2 Flow Rate 2 10/29/25 12:35 Oxygen Flow Rate 2 10/29/25 09:37 BMI result Body Mass Index 22.8 Const: General: cooperative, comfortable, alert and awake Nutritional Appearance: average body habitus Orientation/consciousness: patient oriented x3 HEENT: Other: difficult to visualize, erythematous; managing secretions without difficulty; no muffled voice Resp: Other: no wheeze;left side crackles Effort & Inspection: normal respiratory effort, able to speak in complete sentences, no respiratory distress and no use of accessory muscles Cardio: Rate: regular rate GI: Inspection: No distended Palpation (GI): Soft to palpation Neuro: General: patient oriented x3, moves all extremities and CN's II-XI intact bilaterally Extrem: General: No pedal edema Results Labs 10/29/25 10:37 10/29/25 10:37 Labs: Laboratory Results - last 24 hr 10/29/25 10/29/25 10:03 10:37 MCV 92.9 MCH 30.7 MCHC 33.0 RDW 12.4 Plt Count 156 L D MPV 10.4 Immature Gran % (Auto) Cancelled Neut % (Auto) Cancelled Lymph % (Auto) Cancelled [place] % (Auto) Cancelled Eos % (Auto) Cancelled Baso % (Auto) Cancelled Lymph # (Auto) Cancelled [place] # (Auto) Cancelled Eos # (Auto) Cancelled Baso # (Auto) Cancelled Abs Immat Gran (auto) Cancelled Absolute Neuts (auto) Cancelled Absolute Nucleated RBC 0.000 Nucleated RBC % (auto) 0.0 Neutrophils % (Manual) 83 H Band Neutrophils % 1 L Lymphocytes % (Manual) 11 L Eosinophils % (Manual) 3 Basophils % (Manual) 2 Abs Neuts (Manual) 9.5 H Lymphocytes # (Manual) 1.2 Eosinophils # (Manual) 0.3 Basophils # (Manual) 0.2 Toxic Granulation PRESENT Platelet Estimate SLIGHTLY DECREASED Plt Morphology Comment NORMAL RBC Morphology NORMAL Anion Gap 13 Estim Creat Clear Calc 45.1 Estimated GFR > 60 Random Glucose 83 Calcium 9.9 Total Bilirubin 1.7 H Direct Bilirubin 0.4 AST 48 H ALT 72 H Alkaline Phosphatase 95 Troponin I High Sens < 2.7 NT-Pro-B Natriuret Pep 548.2 H Total Protein 7.0 Albumin 3.8 Lipase 18 COVID-19 (DARINEL) Negative COVID-19 Clin Com See Note Influenza Type A (JOSE) Negative Influenza Type B (JOSE) Negative Influenza A & B Note See Note Assessment and Plan (1) Hypoxia: Status: Acute Plan This is a 74-year-old female with history of recently diagnosed squamous cell lung cancer who initiated chemotherapy on October 23, history of COPD, bilateral carotid stenosis status post carotid endarterectomy, hypertension, SVT who presents to the emergency department with shortness of breath, cough, sore throat found to have pneumonia, pharyngitis and possible epiglottitis Acute respiratory failure with hypoxia due to community-acquired pneumonia in a patient with recently diagnosed SCLC on chemotherapy IV ceftriaxone, vancomycin started 10/29 Pharyngitis/early epiglottitis No difficulty swallowing IV antibiotics as above IV steroids Symptomatic support COPD no wheezing on exam will be on steroids as above continue baseline inhalers thrombocytopenia ?due to chemo follow cbc med rec pending at the time of admission DVT prophylaxis-Lovenox. Monitor platelets closely Code status-full code Patient will likely require 2 midnight stay in the hospital for management of respiratory failure, pneumonia/pharyngitis/epiglottitis requiring IV steroids, IV antibiotics close monitoring of respiratory status in an immune compromised patient which can not be done in a lesser acute setting Quality Stroke Does the patient have a stroke diagnosis?: No VTE Prior VTE?: No VTE Risk Level:: Medical - moderate - high VTE Device Contraindication: N/A - Device Ordered VTE Drug Contraindication: N/A - Med Ordered
[2025-10-29] MEDS: Albuterol/Iprat 2.5/0.5MG 3 ML AMPUL.NEB INHALE (15:03)
--- NOTE | 2025-10-29 16:07 | PHA.MEDREC ---
Pharmacy Consult ? Medication Reconciliation Pharmacy has completed the medication reconciliation. Spoke to patient at bedside, also present with a discharge summary from this facility. Patient able to confirm medications
--- NOTE | 2025-10-29 20:16 | HO.NURTONUR ---
Pt from home with complaint of difficulty swallowing, having a feeling of mass in throat, difficulty breathing the last 2 days, and chest pressure/pain. Pt recently diagnosed with lung cx about a month ago recently started chemo on 10/23, M, T, W. Upon arrival pt noted to be hypoxic with O2 sat in upper 80s on RA, pt placed on 2L with little improvement, pt placed on 4L with improvement to 90s. Pt denies any home O2. Pt being admitted for further observation, Acute respiratory failure with hypoxia due to community-acquired pneumonia, and pharyngitis/early epiglottitis. Pt ca&o x3, able to make her needs known, stand by assist to the commode, has 20G IV in Lwrist, pt has portacath but unknown if power port and per previous RN noted MD states access peripheral line. Soft neck tissue CT: Impression: 1. Mild thickening of the epiglottis (8 mm AP thickness), with some effacement of the right piriform sinus, findings suggest pharyngitis or developing epiglottitis. 2. Partially imaged mediastinal mass, please see same day CT chest report. Chest CTA: Impression: 1. No pulmonary embolism or aortic dissection. 2. Similar-appearing large left mediastinal mass. 3. Mild interval progression of the left upper lobe peribronchovascular nodules consolidation and subpleural nodules/consolidation, concerning for some interval progression of the disease versus superimposed left upper lobe pneumonia. Lab: WBC- 11.3 sodium- 134 BUN- 21 Total Bili- 1.7 AST- 48 ALT- 72 BNP- 548.2 PMH: COPD,HLD,HTN, SVT, breast cancer, left carotid endarterectomy, anxiety
[2025-10-29] MEDS: 0.9 % Sodium Chloride Flush 3 ML SYRINGE IVFLUSH (21:36)
[2025-10-30 03:41] VITALS: BP 147/75; PULSE 72; RESP 18; TEMP 36.4; O2SAT 93
[2025-10-30 06:09] LABS: Hematocrit 38.5 % (37.0-47.0); Hemoglobin 12.5 g/dl (12.0-16.0); Mean Corpuscular HGB Conc 32.5 g/dl (31.0-35.0); Mean Corpuscular Hemoglobin 30.3 pg (27.0-33.0); Mean Corpuscular Volume 93.4 fL (80.0-98.0); NRBC Abs Auto 0.000 X10*3/uL (0.0-0.012); NRBC Pct Auto 0.0 /100WBC (0.0-0.2); Platelet Count 131 X10*3/uL (160-400); Red Blood Count 4.12 X10*6/uL (4.20-5.50); White Blood Count 5.2 X10*3/uL (4.8-10.8)
[2025-10-30 06:26] LABS: Anion Gap 13 (12-20); Blood Urea Nitrogen 29 mg/dL (9-16); Calcium 10.2 mg/dL (8.4-10.2); Carbon Dioxide 25 mmol/L (22-29); Chloride 106 mmol/L (96-108); Creatinine Clr Calc Pharmacy 44.6; Estimated Glomerular Filt Rate > 60; Lymphocytes Absolute Manual 0.5 X10*3/uL (1.2-4.9); Lymphocytes Percent Manual 9 % (20-40); Monocytes Absolute Manual 0.2 X10*3/uL (0.1-1.2); Monocytes Percent Manual 4 % (2-11); Neutrophils Percent Manual 87 % (45-73); Potassium 5.0 mmol/L (3.3-5.1); Sodium 139 mmol/L (135-145)
[2025-10-30 06:27] LABS: Large Platelet PRESENT; Macrocytosis 1+ (5-14) /OIF; RBC Morphology NORMAL; Spherocytes 1+ (0-2) /OIF; Toxic Vacuolation PRESENT
[2025-10-30 06:29] LABS: Band Neutrophils Percent 0 % (3-5); Neutrophils Absolute Manual 4.5 X10*3/uL (2.0-8.3)
[2025-10-30 07:54] VITALS: BP 171/89; PULSE 71; RESP 18; TEMP 36.6; O2SAT 92
[2025-10-30] MEDS: 0.9 % Sodium Chloride Flush 3 ML SYRINGE IVFLUSH ×3 (08:00→22:22)
[2025-10-30] MEDS: Metoprolol Succinate ER 50 MG TAB.ER.24H PO (08:01)
--- NOTE | 2025-10-30 08:26 | HE.PHANOTE ---
RE: Vanco Renal slightly improved. Continue current dose of 1250mg q12h with predicted AUC 566, predicted trough 16.6. Next trough 10/31 @ 1400.
--- NOTE | 2025-10-30 09:10 | P.CNHO_ITS ---
Subjective - Subjective Chief complaint: Cough, shortness of breath and sore throat Patient: known to practice within the last 3 years Consult date: 10/30/25 Primary Care Provider: Farzad Duron PA-C Medical Summary: Diagnosis: Extensive stage small-cell lung cancer, 2024 CT chest performed 08/23/2025 for lung cancer screening revealed large irregular anterior mediastinal mass inseparable from aorta and pulmonary artery measuring 5.9 x 4.8 x 5.5 cm. There was centrilobular emphysema. Interval development of localized irregular area of consolidation/mass in the left upper lobe. This was read as suspicious, patient underwent CT-guided biopsy of anterior mediastinal mass on 09/19/2025. Pathology revealed small-cell carcinoma. Immunostains revealed positivity for TTF 1, chromogranin and synaptophysin. Patient's past medical history significant for breast cancer diagnosed in 2012, she underwent left breast lumpectomy, she had ER positive [place] negative HER2 positive left breast cancer. She received chemotherapy with AC followed by Taxol and Herceptin, she underwent radiation therapy followed by 5 years of tamoxifen. Family history significant for small-cell lung cancer in her daughter who of metastatic disease at age 45. Clinical Dietetic Technician Utilized?: No - Citizen Of The [place] Speaking HPI - Consult Narrative Reason for consult: Patient with metastatic lung cancer, on chemotherapy, admitted for pneumoni Narrative: Laxmi Daley is a 74 year old female with recently diagnosed extensive stage/metastatic small-cell lung cancer who started 1st cycle chemotherapy last week, presented yesterday with symptoms of cough, shortness of breath as well as sore throat. She did not have any fever or chills. She has been feeling poorly since Thursday. She denied any other symptoms such as abdominal discomfort, nausea or emesis, no diarrhea or dysuria. No headache or dizziness. Imaging demonstrated increased consolidation in the right lower lobe concerning for either worsening disease near. CT neck demonstrated pharyngitis and epiglottitis. She has been started on IV antibiotics and steroids. She is feeling better. She is also on oxygen by nasal cannula and wants to know if she can be discharged home with home O2. Review of Systems - Constitutional Reports as per HPI, Reports fatigue, Reports malaise - Cardiovascular Reports no additional cardiovascular complaints, Denies chest pain - Respiratory Reports no additional respiratory complaints, Reports cough, Reports dyspnea PMFSH Medical History: Medical History (Last Reviewed 10/29/25 @ 14:53 by NARGIS Hough) Bilateral carotid artery stenosis BPPV (benign paroxysmal positional vertigo) COPD (chronic obstructive pulmonary disease) WHIT (generalized anxiety disorder) Heartburn History of left breast cancer Onset Date: ~2011 Hypertension MDD (major depressive disorder), recurrent episode, moderate Nicotine dependence, cigarettes, uncomplicated Osteopenia Onset Date: ~2012 Subclavian arterial stenosis Supraventricular tachycardia Tremor of left hand Family History: Family History (Last Reviewed 10/29/25 @ 14:53 by NARGIS Hough) Father Medical history unknown Mother Medical history unknown Brother Throat cancer Brother Myocardial infarction H/O ETOH abuse Daughter Bone cancer Mental health disorder Substance use disorder Surgical History: Surgical History (Last Reviewed 10/29/25 @ 14:53 by NARGIS Hough) History of carotid endarterectomy Onset Date: ~2020 History of cataract surgery Onset Date: ~2019 History of colonoscopy Onset Date: ~2013 History of dilation and curettage Onset Date: ~2015 History of laparoscopic cholecystectomy Onset Date: ~2006 History of left breast biopsy Onset Date: ~2011 History of tonsillectomy History of tonsillectomy Social History: Social History (Last Reviewed 10/29/25 @ 14:53 by NARGIS Hough) Living Situation History: Household Members: None Housing: Apartment Are you a primary healthcare administrative assistant to a significant other at home: No Do you presently have visiting nurse or other home services: No Tobacco History: Patient Tobacco Use Status: Never used Tobacco Tobacco use type: Cigarette Cigarette Packs Per Day: 1 Cigarettes Per Day: 5 Years Smoked: 60 e-Cigarette/Vaping Use: Never Used Second Hand Smoke Exposure: Yes Occupation Assessmet: service: No Current occupational status: retired Home Medications and Allergies Current Medications: Current Medications Acetaminophen (Acetaminophen 325 Mg Tablet) 650 mg PO Q6H PRN PRN Reason: Pain, Mild 1-3,fever,headache Last Admin: 10/29/25 21:35 Dose: 650 mg Albuterol/Ipratropium (Albuterol/Iprat 2.5/0.5mg 3 Ml Ampul.Neb) 3 ml INHALE Q4H PRN PRN Reason: Shortness of Breath/Wheezing Last Admin: 10/29/25 15:03 Dose: 3 ml Atorvastatin Calcium (Atorvastatin Calcium 20 Mg Tablet) 20 mg PO DAILY [facility] Last Admin: 10/30/25 08:01 Dose: 20 mg Benzocaine (Throat Lozenge, Medicated Lozenge) 1 lozenge MUCOUS MEM Q2H PRN PRN Reason: Sore Throat Calcium Carbonate (Calcium Carbonate 750 Mg Tab.Chew) 750 mg PO Q4H PRN PRN Reason: Heartburn Clopidogrel Bisulfate (Clopidogrel Bisulfate 75 Mg Tablet) 75 mg PO DAILY [facility] Last Admin: 10/30/25 08:01 Dose: 75 mg Enoxaparin Sodium (Enoxaparin Sodium 40 Mg/0.4 Ml Syringe) 40 mg SUBCUT Q24H [facility] Last Admin: 10/29/25 16:07 Dose: 40 mg Fluticasone/Vilanterol (Fluticasone/Vilanterol 200/25 Blst.W.Dev) 1 puff INHALE RDAILY [facility] Guaifenesin/Dextromethorphan (Guaifenesin Dm 100/10/5 Ml 5 Ml Syrup) 5 ml PO Q6H PRN PRN Reason: Cough Hydroxyzine HCl (Hydroxyzine Hcl 50 Mg Tablet) 50 mg PO DAILY [facility] Last Admin: 10/30/25 08:00 Dose: 50 mg Ceftriaxone Sodium 1 gm/ (Sodium Chloride) 50 mls @ 100 mls/hr IV Q24H [facility] Last Infusion: 10/29/25 16:52 Dose: Infused Vancomycin HCl 1,250 mg/ (Sodium Chloride) 250 mls @ 166.667 mls/hr IV Q24H [facility] Magnesium Hydroxide (Milk Of Magnesia 30 Ml Oral.Susp) 30 ml PO DAILY PRN PRN Reason: Constipation Melatonin (Melatonin 3 Mg Tablet) 6 mg PO BEDTIME PRN PRN Reason: Insomnia Last Admin: 10/29/25 21:35 Dose: 6 mg Methylprednisolone Sodium Succinate (Methylprednisolone Sod Succ 125 Mg/2 Ml Vial) 60 mg IVPUSH Q12H [facility] Last Admin: 10/30/25 08:00 Dose: 60 mg Metoprolol Succinate (Metoprolol Succinate Er 50 Mg Tab.Er.24h) 50 mg PO DAILY [facility]; Protocol Last Admin: 10/30/25 08:01 Dose: 50 mg Pharmacy Consult (Consult Rx Vancomycin Dosing) 1 each MISCELLANE DAILY PRN PRN Reason: Consult order Sodium Chloride (0.9 % Sodium Chloride Flush 3 Ml Syringe) 3 ml IVFLUSH QSHIFT [facility] Last Admin: 10/30/25 08:00 Dose: 3 ml Vitamin D (Cholecalciferol (Vitamin D3) 25 Mcg Tablet) 50 mcg PO DAILY [facility] Last Admin: 10/30/25 08:00 Dose: 50 mcg Home Medications ?Medication ?Instructions ?Recorded ?Confirmed ?Type ibuprofen-diphenhydramine citrate 2 cap PO BEDTIME 10/05/20 10/29/25 Histo ry 200 mg-38 mg tablet (Advil PM) hydroxyzine HCl 50 mg tablet 50 mg PO DAILY 09/28/25 10/29/25 History atorvastatin 20 mg tablet 20 mg PO DAILY 10/29/25 10/29/25 History cholecalciferol (vitamin D3) 50 50 mcg PO DAILY 10/29/25 10/29/25 Histor y mcg (2,000 unit) capsule metoprolol succinate 50 mg 50 mg PO DAILY 10/29/25 10/29/25 History tablet,extended release 24 hr Allergies Allergy/AdvReac Type Severity Reaction Status Date / Time aspirin AdvReac Intermediate Gastrointestinal Verified 10/29/25 09:44 Upset varenicline (From Chantix) AdvReac Intermediate Anxiety Verified 10/29/25 09:44 Physical Exam Vital signs: Vital Signs Temp 97.8 F 10/30/25 07:54 Pulse 71 10/30/25 07:54 Resp 18 10/30/25 07:54 BP 171/89 H 10/30/25 07:54 Pulse Ox 92 10/30/25 07:54 O2 Del Method Nasal Cannula 10/30/25 07:54 O2 Flow Rate 2 10/30/25 07:54 Intake & Output 10/29/25 10/30/25 10/30/25 18:59 06:59 18:59 Intake Total 550 / 790 240 / 790 Balance 550 / 790 240 / 790 Intake: Intake, Oral Amount 240 / 240 Intake, IV Amount 550 / 550 cefTRIAXone sodium 1 gm In 0.9 50 / 50 % Sodium Chloride 50 ml @ 100 mls/hr IV Q24H [facility] Rx#: [id number] vancomycin HCL 1,500 mg In 0.9 500 / 500 % Sodium Chloride 500 ml @ 333. 333 mls/hr IV ONCE ONE Rx#: [id number] Other: Number of Unmeasured Voids 1 Urine Bathroom Urine Color Yellow Last Bowel Movement 10/29/25 Weight 58.3 kg 58.3 kg Weight 58.3 kg - Constitutional Present: no acute distress - Routine HEENT Exam Head: Present: normal inspection Eye: Present: EOMI, PERRL - Routine Neck Exam Present: supple. Absent: lymphadenopathy - Routine Respiratory Exam Present: CTAB. Absent: wheezes - Routine Cardiovascular Exam Cardiovascular: Present: RRR, S1, S2 - Routine Abdominal Exam Present: soft - Routine Extremities Exam Present: pulses intact - Routine Skin Exam Present: intact - Routine Neurological Exam Present: alert, oriented X3 Hem/Onc Consult Result - Labs CBC & Chem 7: 10/30/25 05:35 10/30/25 05:35 Labs: Short CBC 10/29/25 10/30/25 Range/Units 10:37 05:35 WBC 11.3 H 5.2 (4.8-10.8) X10*3/uL Hgb 13.4 12.5 (12.0-16.0) g/dl Hct 40.6 38.5 (37.0-47.0) % Plt Count 156 L D 131 L (160-400) X10*3/uL BMP 10/29/25 10/30/25 10:37 05:35 Sodium 134 L 139 Potassium 4.8 5.0 Chloride 103 106 Carbon Dioxide 23 25 BUN 21 H 29 H Creatinine 0.89 0.90 Calcium 9.9 10.2 Liver Function 10/29/25 Range/Units 10:37 Total Bilirubin 1.7 H (0.0-1.0) mg/dL Direct Bilirubin 0.4 (0.0-0.5) mg/dL AST 48 H (5-31) U/L ALT 72 H (0-31) U/L Alkaline Phosphatase 95 (39-117) U/L Albumin 3.8 (3.5-5.0) g/dL Assessment and Plan Patient Active problem list reviewed?: Yes (1) Small cell carcinoma of lung Problem details: 09/19/25 mediastinal mass/ LT lung nodule - bx = small cell carcinoma) Status: Acute Assessment and plan: 1. This is a 74-year-old woman with metastatic small-cell lung cancer, on chemotherapy who presented with shortness of breath and sore throat. CT scan of the chest and neck revealed left upper lobe peribronchovascular consolidation concerning for interval progression of disease versus superimposed left upper lobe pneumonia. CT of the neck showed mild thickening of the epiglottis, findings suggestive of pharyngitis or developing epiglottitis. She was also noted to be hypoxic with oxygen saturation of 86% on room air, she improved to 93% on 2 L oxygen. She is receiving IV antibiotics with ceftriaxone and Solu-Medrol. She is feeling a lot better. She has remained afebrile. Agree with current management. She can be discharged home with oral antibiotics and short course of prednisone. Patient may need home O2 as her O2 sats have gradually been dropping. She has received Neulasta after chemotherapy. Thrombocytopenia is secondary to recent chemotherapy. Thank you for the consultation. She was advised to follow up with oncology clinic next week. - Time Spent With Patient Time Spent with Patient (in minutes): 20
[2025-10-30] MEDS: Fluticasone/Vilanterol 200/25 BLST.W.DEV 1 PUFF INHALE (11:27)
[2025-10-30 11:32] VITALS: PULSE 63; RESP 18; O2SAT 95
[2025-10-30 12:05] VITALS: BP 155/72
--- NOTE | 2025-10-30 13:42 | HO.PM.IMPN ---
Subjective Subjective Date of Service: 10/30/25 Interval History: very pleasant reports significant improvement in her symptoms globus sensation has resolved resolution of painful swallowing imrpovement in wheezing and dyspnoea Review of Systems Review of Systems: Yes all other systems are reviewed and are negative Physical Exam Exam: Exam: General: A&O x3, oriented to time place person and situation, comfortable, no pain Cardiac: S1, S2 auscultated with no S3/4, no MRG. Well perfused. Respiratory: Normal breath sounds auscultated throughout all lung zones, without wheezing, rales. Normal rate. GI/ : No abdominal pain on palpation, no masses or distentions. MSK: Normal ambulation without pain at bony prominences or musculature Neurological: Normal neurological examination on overview, without obvious CN II-XII abnormalities. Vital Signs: Vital Signs: Last Vital Signs Temp 97.8 F 10/30/25 07:54 Pulse 63 10/30/25 11:32 Resp 18 10/30/25 11:32 BP 171/89 H 10/30/25 07:54 Pulse Ox 92 10/30/25 07:54 O2 Del Method Nasal Cannula 10/30/25 07:54 O2 Flow Rate 2 10/30/25 07:54 Oxygen Flow Rate 2 10/29/25 09:37 BMI result Body Mass Index 22.8 Objective Data Active Medications Acetaminophen (Acetaminophen 325 Mg Tablet) 650 mg PO Q6H PRN PRN Reason: Pain, Mild 1-3,fever,headache Last Admin: 10/29/25 21:35 Dose: 650 mg Documented By: LEFEBVA Albuterol/Ipratropium (Albuterol/Iprat 2.5/0.5mg 3 Ml Ampul.Neb) 3 ml INHALE Q4H PRN PRN Reason: Shortness of Breath/Wheezing Last Admin: 10/29/25 15:03 Dose: 3 ml Documented By: STEVE Atorvastatin Calcium (Atorvastatin Calcium 20 Mg Tablet) 20 mg PO DAILY [facility] Last Admin: 10/30/25 08:01 Dose: 20 mg Documented By: ROSY Benzocaine (Throat Lozenge, Medicated Lozenge) 1 lozenge MUCOUS MEM Q2H PRN PRN Reason: Sore Throat Calcium Carbonate (Calcium Carbonate 750 Mg Tab.Chew) 750 mg PO Q4H PRN PRN Reason: Heartburn Clopidogrel Bisulfate (Clopidogrel Bisulfate 75 Mg Tablet) 75 mg PO DAILY [facility] Last Admin: 10/30/25 08:01 Dose: 75 mg Documented By: ROSY Enoxaparin Sodium (Enoxaparin Sodium 40 Mg/0.4 Ml Syringe) 40 mg SUBCUT Q24H [facility] Last Admin: 10/29/25 16:07 Dose: 40 mg Documented By: KIKI Fluticasone/Vilanterol (Fluticasone/Vilanterol 200/25 Blst.W.Dev) 1 puff INHALE RDAILY [facility] Last Admin: 10/30/25 11:27 Dose: 1 puff Documented By: JOSE D Guaifenesin/Dextromethorphan (Guaifenesin Dm 100/10/5 Ml 5 Ml Syrup) 5 ml PO Q6H PRN PRN Reason: Cough Hydroxyzine HCl (Hydroxyzine Hcl 50 Mg Tablet) 50 mg PO DAILY [facility] Last Admin: 10/30/25 08:00 Dose: 50 mg Documented By: ROSY Vancomycin HCl 1,250 mg/ (Sodium Chloride) 250 mls @ 166.667 mls/hr IV Q24H [facility] Ceftriaxone Sodium 1 gm/ (Sodium Chloride) 50 mls @ 100 mls/hr IV Q24H [facility] Magnesium Hydroxide (Milk Of Magnesia 30 Ml Oral.Susp) 30 ml PO DAILY PRN PRN Reason: Constipation Melatonin (Melatonin 3 Mg Tablet) 6 mg PO BEDTIME PRN PRN Reason: Insomnia Last Admin: 10/29/25 21:35 Dose: 6 mg Documented By: DELILAH Methylprednisolone Sodium Succinate (Methylprednisolone Sod Succ 125 Mg/2 Ml Vial) 60 mg IVPUSH Q12H [facility] Last Admin: 10/30/25 08:00 Dose: 60 mg Documented By: ROSY Comments: [id number] Metoprolol Succinate (Metoprolol Succinate Er 50 Mg Tab.Er.24h) 50 mg PO DAILY [facility]; Protocol Last Admin: 10/30/25 08:01 Dose: 50 mg Documented By: ROSY Pharmacy Consult (Consult Rx Vancomycin Dosing) 1 each MISCELLANE DAILY PRN PRN Reason: Consult order Sodium Chloride (0.9 % Sodium Chloride Flush 3 Ml Syringe) 3 ml IVFLUSH QSHIFT [facility] Last Admin: 10/30/25 08:00 Dose: 3 ml Documented By: ROSY Vitamin D (Cholecalciferol (Vitamin D3) 25 Mcg Tablet) 50 mcg PO DAILY [facility] Last Admin: 10/30/25 08:00 Dose: 50 mcg Documented By: ROSY Labs 10/30/25 05:35 10/30/25 05:35 Labs: Laboratory Results - last 24 hr 10/30/25 05:35 MCV 93.4 MCH 30.3 MCHC 32.5 RDW 12.0 Plt Count 131 L MPV 10.8 Immature Gran % (Auto) Cancelled Neut % (Auto) Cancelled Lymph % (Auto) Cancelled [place] % (Auto) Cancelled Eos % (Auto) Cancelled Baso % (Auto) Cancelled Lymph # (Auto) Cancelled [place] # (Auto) Cancelled Eos # (Auto) Cancelled Baso # (Auto) Cancelled Abs Immat Gran (auto) Cancelled Absolute Neuts (auto) Cancelled Absolute Nucleated RBC 0.000 Nucleated RBC % (auto) 0.0 Neutrophils % (Manual) 87 H Band Neutrophils % 0 L Lymphocytes % (Manual) 9 L Monocytes % (Manual) 4 Abs Neuts (Manual) 4.5 Lymphocytes # (Manual) 0.5 L Monocytes # (Manual) 0.2 Toxic Vacuolation PRESENT Platelet Estimate NORMAL Large Platelets PRESENT Plt Morphology Comment NOTED RBC Morphology NORMAL Macrocytosis 1+ (5-14) Spherocytes 1+ (0-2) Anion Gap 13 Estim Creat Clear Calc 44.6 Estimated GFR > 60 Random Glucose 162 H Calcium 10.2 Assessment and Plan (1) MDD (major depressive disorder), recurrent episode, moderate: Status: Acute (2) WHIT (generalized anxiety disorder): Status: Acute (3) Hypertension: Status: Acute (4) Bilateral carotid artery stenosis: Status: Acute (5) Small cell carcinoma of lung: Status: Acute (6) COPD (chronic obstructive pulmonary disease): Status: Acute (7) COPD exacerbation: Status: Acute (8) Hypoxia: Status: Acute Plan 74-year-old female with history of recently diagnosed squamous cell lung cancer who initiated chemotherapy on October 23, history of COPD, bilateral carotid stenosis status post carotid endarterectomy, hypertension, SVT who presents to the emergency department with shortness of breath, cough, sore throat found to have pneumonia, pharyngitis and possible epiglottitis Acute respiratory failure with hypoxia due to community-acquired pneumonia Infective exacerbation of COPD in a patient with recently diagnosed SCLC on chemotherapy IV ceftriaxone, vancomycin started 10/29 Improving since admission Transition to PO antibiotics as tolerated tomorrow Wean off oxygen as tolerated if unable to wean, can discharge patient with home oxygen Pharyngitis/early epiglottitis No difficulty swallowing IV antibiotics as above IV steroids --> PO steroids tomorrow Symptomatic support COPD no wheezing on exam will be on steroids as above continue baseline inhalers thrombocytopenia ?due to chemo follow cbc med rec pending at the time of admission [facility] - VTE: Enoxaparin - CODE STATUS: Full code - DIET: regular Total time managing care of this patient today: 35 minutes. Quality Stroke Does the patient have a stroke diagnosis?: No VTE Prior VTE?: No VTE Risk Level:: Medical - moderate - high VTE Device Contraindication: N/A - Device Ordered VTE Drug Contraindication: N/A - Med Ordered
[2025-10-30 16:00] VITALS: BP 176/75; PULSE 69; RESP 19; TEMP 36.5; O2SAT 92
[2025-10-30 19:11] VITALS: BP 161/77; PULSE 77; RESP 18; TEMP 36.8; O2SAT 95
[2025-10-31 03:37] VITALS: BP 153/79; PULSE 69; RESP 20; TEMP 36.6; O2SAT 92
[2025-10-31 04:00] VITALS: BP 153/79; PULSE 69; RESP 20; TEMP 36.6; O2SAT 92
[2025-10-31 07:14] LABS: Creatinine Clr Calc Pharmacy 54.3; Estimated Glomerular Filt Rate > 60
[2025-10-31 07:16] VITALS: BP 146/70; PULSE 69; RESP 16; TEMP 36.7; O2SAT 92
[2025-10-31] MEDS: Fluticasone/Vilanterol 200/25 BLST.W.DEV 1 PUFF INHALE (07:23)
[2025-10-31 07:25] VITALS: PULSE 74; RESP 16; O2SAT 98
[2025-10-31] MEDS: Metoprolol Succinate ER 50 MG TAB.ER.24H PO (08:18)
[2025-10-31] MEDS: 0.9 % Sodium Chloride Flush 3 ML SYRINGE IVFLUSH ×3 (08:20→19:49)
--- NOTE | 2025-10-31 11:13 | HO.PM.IMPN ---
Subjective Subjective Date of Service: 10/31/25 Interval History: Patient seen and examined at bedside this morning, patient mentions that she still requires oxygen, currently on IV antibiotics for community-acquired pneumonia. Review of Systems Review of Systems: Yes all other systems are reviewed and are negative Physical Exam Exam: Exam: General: A&O x3, oriented to time place person and situation, comfortable, no pain , on supplemental oxygen Cardiac: S1, S2 auscultated with no S3/4, no MRG. Well perfused. Respiratory: Normal breath sounds auscultated throughout all lung zones, without wheezing. Rales in BL bases, mild GI/ : No abdominal pain on palpation, no masses or distentions. MSK: Normal ambulation without pain at bony prominences or musculature Neurological: Normal neurological examination on overview, without obvious CN II-XII abnormalities. Vital Signs: Vital Signs: Last Vital Signs Temp 98.1 F 10/31/25 07:16 Pulse 74 10/31/25 07:25 Resp 16 10/31/25 07:25 BP 146/70 H 10/31/25 07:16 Pulse Ox 92 10/31/25 07:16 O2 Del Method Nasal Cannula 10/31/25 07:16 O2 Flow Rate 2 10/31/25 07:16 Oxygen Flow Rate 2 10/29/25 09:37 BMI result Body Mass Index 22.8 Objective Data Active Medications Acetaminophen (Acetaminophen 325 Mg Tablet) 650 mg PO Q6H PRN PRN Reason: Pain, Mild 1-3,fever,headache Last Admin: 10/29/25 21:35 Dose: 650 mg Documented By: LEFEBVA Albuterol/Ipratropium (Albuterol/Iprat 2.5/0.5mg 3 Ml Ampul.Neb) 3 ml INHALE Q4H PRN PRN Reason: Shortness of Breath/Wheezing Last Admin: 10/29/25 15:03 Dose: 3 ml Documented By: STEVE Atorvastatin Calcium (Atorvastatin Calcium 20 Mg Tablet) 20 mg PO DAILY [facility] Last Admin: 10/31/25 08:18 Dose: 20 mg Documented By: SHIVA Benzocaine (Throat Lozenge, Medicated Lozenge) 1 lozenge MUCOUS MEM Q2H PRN PRN Reason: Sore Throat Calcium Carbonate (Calcium Carbonate 750 Mg Tab.Chew) 750 mg PO Q4H PRN PRN Reason: Heartburn Clopidogrel Bisulfate (Clopidogrel Bisulfate 75 Mg Tablet) 75 mg PO DAILY [facility] Last Admin: 10/31/25 08:18 Dose: 75 mg Documented By: SHIVA Enoxaparin Sodium (Enoxaparin Sodium 40 Mg/0.4 Ml Syringe) 40 mg SUBCUT Q24H [facility] Last Admin: 10/30/25 13:51 Dose: Not Given Documented By: ROSY Non-Admin Reason: Patient Refused Fluticasone/Vilanterol (Fluticasone/Vilanterol 200/25 Blst.W.Dev) 1 puff INHALE RDAILY [facility] Last Admin: 10/31/25 07:23 Dose: 1 puff Documented By: JOSE D Guaifenesin/Dextromethorphan (Guaifenesin Dm 100/10/5 Ml 5 Ml Syrup) 5 ml PO Q6H PRN PRN Reason: Cough Hydroxyzine HCl (Hydroxyzine Hcl 50 Mg Tablet) 50 mg PO DAILY [facility] Last Admin: 10/31/25 08:18 Dose: 50 mg Documented By: SHIVA Vancomycin HCl 1,250 mg/ (Sodium Chloride) 250 mls @ 166.667 mls/hr IV Q24H [facility] Last Infusion: 10/30/25 19:11 Dose: Infused Documented By: PABLITO Ceftriaxone Sodium 1 gm/ (Sodium Chloride) 50 mls @ 100 mls/hr IV Q24H [facility] Last Infusion: 10/30/25 17:29 Dose: Infused Documented By: PABLITO Magnesium Hydroxide (Milk Of Magnesia 30 Ml Oral.Susp) 30 ml PO DAILY PRN PRN Reason: Constipation Melatonin (Melatonin 3 Mg Tablet) 6 mg PO BEDTIME PRN PRN Reason: Insomnia Last Admin: 10/29/25 21:35 Dose: 6 mg Documented By: LEFEBMARLENE Methylprednisolone Sodium Succinate (Methylprednisolone Sod Succ 125 Mg/2 Ml Vial) 60 mg IVPUSH Q12H [facility] Last Admin: 10/31/25 10:15 Dose: 60 mg Documented By: SHIVA Metoprolol Succinate (Metoprolol Succinate Er 50 Mg Tab.Er.24h) 50 mg PO DAILY [facility]; Protocol Last Admin: 10/31/25 08:18 Dose: 50 mg Documented By: SHIVA Pharmacy Consult (Consult Rx Vancomycin Dosing) 1 each MISCELLANE DAILY PRN PRN Reason: Consult order Sodium Chloride (0.9 % Sodium Chloride Flush 3 Ml Syringe) 3 ml IVFLUSH QSHIFT [facility] Last Admin: 10/31/25 08:20 Dose: 3 ml Documented By: SHIVA Vitamin D (Cholecalciferol (Vitamin D3) 25 Mcg Tablet) 50 mcg PO DAILY [facility] Last Admin: 10/31/25 08:18 Dose: 50 mcg Documented By: SHIVA Labs 10/30/25 05:35 10/31/25 05:48 Labs: Laboratory Results - last 24 hr 10/31/25 05:48 Estim Creat Clear Calc 54.3 Estimated GFR > 60 Assessment and Plan (1) MDD (major depressive disorder), recurrent episode, moderate: Status: Acute (2) WHIT (generalized anxiety disorder): Status: Acute (3) Hypertension: Status: Acute (4) Bilateral carotid artery stenosis: Status: Acute (5) Small cell carcinoma of lung: Status: Acute (6) COPD (chronic obstructive pulmonary disease): Status: Acute (7) COPD exacerbation: Status: Acute (8) Hypoxia: Status: Acute Plan 74-year-old female with history of recently diagnosed squamous cell lung cancer who initiated chemotherapy on October 23, history of COPD, bilateral carotid stenosis status post carotid endarterectomy, hypertension, SVT who presents to the emergency department with shortness of breath, cough, sore throat found to have pneumonia, pharyngitis and possible epiglottitis Acute respiratory failure with hypoxia due to community-acquired pneumonia COPD exacerbation Small cell lung cancer 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 Quality Stroke Does the patient have a stroke diagnosis?: No VTE Prior VTE?: No VTE Risk Level:: Medical - moderate - high VTE Device Contraindication: N/A - Device Ordered VTE Drug Contraindication: N/A - Med Ordered
--- NOTE | 2025-10-31 15:35 | P.PNHO-ONC_ITS ---
Medical Summary - Medical Summary Date of Service: 10/31/25 Chief complaint: Shortness of breath Primary Care Provider: Farzad Duron PA-C Medical Summary: Diagnosis: Extensive stage small-cell lung cancer, 2024 CT chest performed 08/23/2025 for lung cancer screening revealed large irregular anterior mediastinal mass inseparable from aorta and pulmonary artery measuring 5.9 x 4.8 x 5.5 cm. There was centrilobular emphysema. Interval development of localized irregular area of consolidation/mass in the left upper lobe. This was read as suspicious, patient underwent CT-guided biopsy of anterior mediastinal mass on 09/19/2025. Pathology revealed small-cell carcinoma. Immunostains revealed positivity for TTF 1, chromogranin and synaptophysin. Patient's past medical history significant for breast cancer diagnosed in 2012, she underwent left breast lumpectomy, she had ER positive AK negative HER2 positive left breast cancer. She received chemotherapy with AC followed by Taxol and Herceptin, she underwent radiation therapy followed by 5 years of tamoxifen. Family history significant for small-cell lung cancer in her daughter who of metastatic disease at age 45. Benefits Clerk Utilized?: No - Divehi Speaking Interval History Interval history: Laxmi Daley is a 74 year old female with recently diagnosed extensive stage/metastatic small-cell lung cancer who started 1st cycle chemotherapy last week, presented yesterday with symptoms of cough, shortness of breath as well as sore throat. She did not have any fever or chills. She has been feeling poorly since Thursday. She denied any other symptoms such as abdominal discomfort, nausea or emesis, no diarrhea or dysuria. No headache or dizziness. Imaging demonstrated increased consolidation in the right lower lobe concerning for either worsening disease near. CT neck demonstrated pharyngitis and epiglottitis. She has been started on IV antibiotics and steroids. She is feeling better. She is also on oxygen by nasal cannula and wants to know if she can be discharged home with home O2. She says she had a meltdown this morning. She was nervous about going home without oxygen. [facility] Medical History: Medical History (Last Reviewed 10/31/25 @ 13:04 by Michelle Garcia) Bilateral carotid artery stenosis BPPV (benign paroxysmal positional vertigo) COPD (chronic obstructive pulmonary disease) WHIT (generalized anxiety disorder) Heartburn History of left breast cancer Onset Date: ~2011 Hypertension MDD (major depressive disorder), recurrent episode, moderate Nicotine dependence, cigarettes, uncomplicated Osteopenia Onset Date: ~2012 Subclavian arterial stenosis Supraventricular tachycardia Tremor of left hand Family History: Family History (Last Reviewed 10/29/25 @ 14:53 by NAGRIS Hough) Father Medical history unknown Mother Medical history unknown Brother Throat cancer Brother Myocardial infarction H/O ETOH abuse Daughter Bone cancer Mental health disorder Substance use disorder Surgical History: Surgical History (Last Reviewed 10/31/25 @ 13:04 by Michelle Garcia) History of carotid endarterectomy Onset Date: ~2020 History of cataract surgery Onset Date: ~2019 History of colonoscopy Onset Date: ~2013 History of dilation and curettage Onset Date: ~2015 History of laparoscopic cholecystectomy Onset Date: ~2006 History of left breast biopsy Onset Date: ~2011 History of tonsillectomy History of tonsillectomy Social History: Social History (Last Reviewed 10/29/25 @ 14:53 by NARGIS Hough) Living Situation History: Household Members: None Housing: Apartment Are you a primary wound care center consultant to a significant other at home: No Do you presently have visiting nurse or other home services: No Tobacco History: Patient Tobacco Use Status: Never used Tobacco Tobacco use type: Cigarette Cigarette Packs Per Day: 1 Years Smoked: 60 e-Cigarette/Vaping Use: Never Used Second Hand Smoke Exposure: Yes Occupation Assessmet: service: No Current occupational status: retired Home Medications and Allergies Current Medications: Current Medications Acetaminophen (Acetaminophen 325 Mg Tablet) 650 mg PO Q6H PRN PRN Reason: Pain, Mild 1-3,fever,headache Last Admin: 10/29/25 21:35 Dose: 650 mg Albuterol/Ipratropium (Albuterol/Iprat 2.5/0.5mg 3 Ml Ampul.Neb) 3 ml INHALE Q4H PRN PRN Reason: Shortness of Breath/Wheezing Last Admin: 10/29/25 15:03 Dose: 3 ml Atorvastatin Calcium (Atorvastatin Calcium 20 Mg Tablet) 20 mg PO DAILY GEORGE Last Admin: 10/31/25 08:18 Dose: 20 mg Benzocaine (Throat Lozenge, Medicated Lozenge) 1 lozenge MUCOUS MEM Q2H PRN PRN Reason: Sore Throat Calcium Carbonate (Calcium Carbonate 750 Mg Tab.Chew) 750 mg PO Q4H PRN PRN Reason: Heartburn Clopidogrel Bisulfate (Clopidogrel Bisulfate 75 Mg Tablet) 75 mg PO DAILY [facility] Last Admin: 10/31/25 08:18 Dose: 75 mg Enoxaparin Sodium (Enoxaparin Sodium 40 Mg/0.4 Ml Syringe) 40 mg SUBCUT Q24H [facility] Last Admin: 10/31/25 15:02 Dose: Not Given Fluticasone/Vilanterol (Fluticasone/Vilanterol 200/25 Blst.W.Dev) 1 puff INHALE RDAILY [facility] Last Admin: 10/31/25 07:23 Dose: 1 puff Guaifenesin/Dextromethorphan (Guaifenesin Dm 100/10/5 Ml 5 Ml Syrup) 5 ml PO Q6H PRN PRN Reason: Cough Hydroxyzine HCl (Hydroxyzine Hcl 50 Mg Tablet) 50 mg PO DAILY [facility] Last Admin: 10/31/25 08:18 Dose: 50 mg Ceftriaxone Sodium 1 gm/ (Sodium Chloride) 50 mls @ 100 mls/hr IV Q24H [facility] Last Admin: 10/31/25 15:25 Dose: 100 mls/hr Vancomycin HCl 750 mg/ Sodium (Chloride) 265 mls @ 265 mls/hr IV Q12H [facility] Magnesium Hydroxide (Milk Of Magnesia 30 Ml Oral.Susp) 30 ml PO DAILY PRN PRN Reason: Constipation Melatonin (Melatonin 3 Mg Tablet) 6 mg PO BEDTIME PRN PRN Reason: Insomnia Last Admin: 10/29/25 21:35 Dose: 6 mg Methylprednisolone Sodium Succinate (Methylprednisolone Sod Succ 125 Mg/2 Ml Vial) 60 mg IVPUSH Q12H [facility] Last Admin: 10/31/25 10:15 Dose: 60 mg Metoprolol Succinate (Metoprolol Succinate Er 50 Mg Tab.Er.24h) 50 mg PO DAILY [facility]; Protocol Last Admin: 10/31/25 08:18 Dose: 50 mg Pharmacy Consult (Consult Rx Vancomycin Dosing) 1 each MISCELLANE DAILY PRN PRN Reason: Consult order Sodium Chloride (0.9 % Sodium Chloride Flush 3 Ml Syringe) 3 ml IVFLUSH QSHIFT [facility] Last Admin: 10/31/25 15:25 Dose: 3 ml Vitamin D (Cholecalciferol (Vitamin D3) 25 Mcg Tablet) 50 mcg PO DAILY [facility] Last Admin: 10/31/25 08:18 Dose: 50 mcg Home Medications ?Medication ?Instructions ?Recorded ?Confirmed ?Type ibuprofen-diphenhydramine citrate 2 cap PO BEDTIME 10/05/20 10/29/25 Histo ry 200 mg-38 mg tablet (Advil PM) hydroxyzine HCl 50 mg tablet 50 mg PO DAILY 09/28/25 10/29/25 History atorvastatin 20 mg tablet 20 mg PO DAILY 10/29/25 10/29/25 History cholecalciferol (vitamin D3) 50 50 mcg PO DAILY 10/29/25 10/29/25 Histor y mcg (2,000 unit) capsule metoprolol succinate 50 mg 50 mg PO DAILY 10/29/25 10/29/25 History tablet,extended release 24 hr Allergies Allergy/AdvReac Type Severity Reaction Status Date / Time aspirin AdvReac Intermediate Gastrointestinal Verified 10/29/25 09:44 Upset varenicline (From Chantix) AdvReac Intermediate Anxiety Verified 10/29/25 09:44 Exam Vital signs: Vital Signs Temp 98.1 F 10/31/25 07:16 Pulse 74 10/31/25 07:25 Resp 16 10/31/25 07:25 BP 146/70 H 10/31/25 07:16 Pulse Ox 92 10/31/25 07:16 O2 Del Method Nasal Cannula 10/31/25 07:16 O2 Flow Rate 2 10/31/25 07:16 Intake & Output 10/30/25 10/31/25 10/31/25 18:59 06:59 18:59 Intake Total 770 / 1260 490 / 1260 740 / 740 Balance 770 / 1260 490 / 1260 740 / 740 Intake: Intake, Oral Amount 720 / 960 240 / 960 740 / 740 Intake, IV Amount 50 / 300 250 / 300 cefTRIAXone sodium 1 gm In 0.9 50 / 50 % Sodium Chloride 50 ml @ 100 mls/hr IV Q24H [facility] Rx#: [id number] vancomycin HCL 1,250 mg In 0.9 250 / 250 % Sodium Chloride 250 ml @ 166. 667 mls/hr IV Q24H [facility] Rx#: [id number] Other: Breakfast % Eaten 100% 100% Lunch % Eaten 100% 100% Eating (Feeding) Ability Independent Number of Unmeasured Voids 4 2 2 Urine Bathroom Bathroom Weight 58.3 kg BMI result Body Mass Index 22.8 - Constitutional Present: no acute distress - Routine HEENT Exam Head: Present: normal inspection - Routine Respiratory Exam Present: CTAB. Absent: wheezes - Routine Cardiovascular Exam Cardiovascular: Present: RRR, S1, S2 - Routine Abdominal Exam Present: soft - Routine Extremities Exam Present: pulses intact - Routine Skin Exam Present: intact - Routine Neurological Exam Present: alert, oriented X3 Data - Labs CBC & Chem 7: 10/30/25 05:35 10/31/25 05:48 Labs: Laboratory Last Values WBC 5.2 X10*3/uL (4.8-10.8) 10/30/25 05:35 RBC 4.12 X10*6/uL (4.20-5.50) L 10/30/25 05:35 Hgb 12.5 g/dl (12.0-16.0) 10/30/25 05:35 Hct 38.5 % (37.0-47.0) 10/30/25 05:35 MCV 93.4 fL (80.0-98.0) 10/30/25 05:35 MCH 30.3 pg (27.0-33.0) 10/30/25 05:35 MCHC 32.5 g/dl (31.0-35.0) 10/30/25 05:35 RDW 12.0 % (11.0-16.0) 10/30/25 05:35 Plt Count 131 X10*3/uL (160-400) L 10/30/25 05:35 MPV 10.8 fL (9.4-12.3) 10/30/25 05:35 Immature Gran % (Auto) Cancelled 10/30/25 05:35 Neut % (Auto) Cancelled 10/30/25 05:35 Lymph % (Auto) Cancelled 10/30/25 05:35 [place] % (Auto) Cancelled 10/30/25 05:35 Eos % (Auto) Cancelled 10/30/25 05:35 Baso % (Auto) Cancelled 10/30/25 05:35 Lymph # (Auto) Cancelled 10/30/25 05:35 [place] # (Auto) Cancelled 10/30/25 05:35 Eos # (Auto) Cancelled 10/30/25 05:35 Baso # (Auto) Cancelled 10/30/25 05:35 Abs Immat Gran (auto) Cancelled 10/30/25 05:35 Absolute Neuts (auto) Cancelled 10/30/25 05:35 Absolute Nucleated RBC 0.000 X10*3/uL (0.0-0.012) 10/30/25 05:35 Nucleated RBC % (auto) 0.0 /100WBC (0.0-0.2) 10/30/25 05:35 Neutrophils % (Manual) 87 % (45-73) H 10/30/25 05:35 Band Neutrophils % 0 % (3-5) L 10/30/25 05:35 Lymphocytes % (Manual) 9 % (20-40) L 10/30/25 05:35 Monocytes % (Manual) 4 % (2-11) 10/30/25 05:35 Eosinophils % (Manual) 3 % (0-4) 10/29/25 10:37 Basophils % (Manual) 2 % (0-2) 10/29/25 10:37 Abs Neuts (Manual) 4.5 X10*3/uL (2.0-8.3) 10/30/25 05:35 Lymphocytes # (Manual) 0.5 X10*3/uL (1.2-4.9) L 10/30/25 05:35 Monocytes # (Manual) 0.2 X10*3/uL (0.1-1.2) 10/30/25 05:35 Eosinophils # (Manual) 0.3 X10*3/uL (0.0-0.4) 10/29/25 10:37 Basophils # (Manual) 0.2 X10*3/uL (0.0-0.2) 10/29/25 10:37 Toxic Granulation PRESENT 10/29/25 10:37 Toxic Vacuolation PRESENT 10/30/25 05:35 Platelet Estimate NORMAL (NORMAL) 10/30/25 05:35 Large Platelets PRESENT 10/30/25 05:35 Plt Morphology Comment NOTED 10/30/25 05:35 RBC Morphology NORMAL 10/30/25 05:35 Macrocytosis 1+ (5-14) /OIF 10/30/25 05:35 Spherocytes 1+ (0-2) /OIF 10/30/25 05:35 Sodium 139 mmol/L (135-145) 10/30/25 05:35 Potassium 5.0 mmol/L (3.3-5.1) 10/30/25 05:35 Chloride 106 mmol/L (96-108) 10/30/25 05:35 Carbon Dioxide 25 mmol/L (22-29) 10/30/25 05:35 Anion Gap 13 (12-20) 10/30/25 05:35 BUN 29 mg/dL (9-16) H 10/30/25 05:35 Creatinine 0.74 mg/dL (0.5-1.4) 10/31/25 05:48 Estim Creat Clear Calc 54.3 10/31/25 05:48 Estimated GFR > 60 10/31/25 05:48 Random Glucose 162 mg/dL (60-115) H 10/30/25 05:35 Calcium 10.2 mg/dL (8.4-10.2) 10/30/25 05:35 Total Bilirubin 1.7 mg/dL (0.0-1.0) H 10/29/25 10:37 Direct Bilirubin 0.4 mg/dL (0.0-0.5) 10/29/25 10:37 AST 48 U/L (5-31) H 10/29/25 10:37 ALT 72 U/L (0-31) H 10/29/25 10:37 Alkaline Phosphatase 95 U/L (39-117) 10/29/25 10:37 Troponin I High Sens < 2.7 ng/L (<3.5-17.0) 10/29/25 10:37 NT-Pro-B Natriuret Pep 548.2 pg/mL (<300) H 10/29/25 10:37 Total Protein 7.0 g/dL (6.5-8.0) 10/29/25 10:37 Albumin 3.8 g/dL (3.5-5.0) 10/29/25 10:37 Lipase 18 U/L (8-78) 10/29/25 10:37 Random Vancomycin 9.4 mcg/mL (15-20) L 10/31/25 14:01 COVID-19 (DARINEL) Negative (Negative) 10/29/25 10:03 COVID-19 Clin Com See Note 10/29/25 10:03 Influenza Type A (JOSE) Negative (Negative) 10/29/25 10:03 Influenza Type B (JOSE) Negative (Negative) 10/29/25 10:03 Influenza A & B Note See Note 10/29/25 10:03 Assessment and Plan Patient Active problem list reviewed?: Yes (1) Small cell carcinoma of lung Problem details: 09/19/25 mediastinal mass/ LT lung nodule - bx = small cell carcinoma) Status: Acute Assessment and plan: 1. This is a 74-year-old woman with metastatic small-cell lung cancer, on chemotherapy who presented with shortness of breath and sore throat. CT scan of the chest and neck revealed left upper lobe peribronchovascular consolidation concerning for interval progression of disease versus superimposed left upper lobe pneumonia. CT of the neck showed mild thickening of the epiglottis, findings suggestive of pharyngitis or developing epiglottitis. She was also noted to be hypoxic with oxygen saturation of 86% on room air, she improved to 93% on 2 L oxygen. She is receiving IV antibiotics with ceftriaxone and Solu-Medrol. She is feeling a lot better. She has remained afebrile. Agree with current management. She can be discharged home with oral antibiotics and short course of prednisone. Patient may need home O2 as her O2 sats have gradually been dropping. She has received Neulasta after chemotherapy. Thrombocytopenia is secondary to recent chemotherapy. She was advised to follow up next week in Oncology. - Time Spent With Patient Time Spent with Patient (in minutes): 10
[2025-10-31 15:54] VITALS: BP 157/69; PULSE 65; RESP 18; TEMP 36.5; O2SAT 94
[2025-10-31 20:00] VITALS: BP 178/84; PULSE 76; RESP 19; TEMP 36.4; O2SAT 93
[2025-11-01 01:11] VITALS: BP 152/72
[2025-11-01 03:16] VITALS: BP 158/82; PULSE 66; RESP 16; TEMP 36.1; O2SAT 93
[2025-11-01 06:56] VITALS: BP 154/80; PULSE 63; RESP 16; TEMP 36; O2SAT 92
[2025-11-01 07:14] LABS: Creatinine Clr Calc Pharmacy 62.8; Estimated Glomerular Filt Rate > 60
[2025-11-01] MEDS: Metoprolol Succinate ER 50 MG TAB.ER.24H PO (08:13)
[2025-11-01] MEDS: 0.9 % Sodium Chloride Flush 3 ML SYRINGE IVFLUSH (08:16)
[2025-11-01] MEDS: Fluticasone/Vilanterol 200/25 BLST.W.DEV 1 PUFF INHALE (08:34)
[2025-11-01 08:35] VITALS: PULSE 63; RESP 16; O2SAT 96
[2025-11-01 10:50] VITALS: PULSE 89; PULSE 92; PULSE 94; O2SAT 87; O2SAT 92; O2SAT 94
--- NOTE | 2025-11-01 14:08 | P.DS_ITS ---
DS: Providers Provider Date of admission: 10/29/25 14:26 Date of discharge: 11/01/25 Primary care physician: Farzad Duron PA-C Consults: 10/30/25 07:32 Consult to Hematology / Oncology Routine Consulting Provider: [facility] [place] Oncology/Hematology Reason for consultation: lung sq cell carcinoma on chemo DS: Diagnosis Discharge Diagnosis (1) MDD (major depressive disorder), recurrent episode, moderate: Status: Acute (2) WHIT (generalized anxiety disorder): Status: Acute (3) Hypertension: Status: Acute (4) Bilateral carotid artery stenosis: Status: Acute (5) Small cell carcinoma of lung: Status: Acute (6) COPD (chronic obstructive pulmonary disease): Status: Acute (7) COPD exacerbation: Status: Acute (8) Hypoxia: Status: Acute DS: Summary Hospital Course Hospital Course: 74-year-old female with history of recently diagnosed squamous cell lung cancer who initiated chemotherapy on October 23, history of COPD, bilateral carotid stenosis status post carotid endarterectomy, hypertension, SVT who presents to the emergency department with shortness of breath, cough, sore throat found to have pneumonia, pharyngitis and possible epiglottis. treated with IV abs, with improvement of symptoms. 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 in a patient with recently diagnosed SCLC on chemotherapy S/P IV ceftriaxone and vancomycin started 10/29, Transition to Augmentin and doxy to complete 7 days Medrol dose jhon ordered, protonix ordered as well for GI Prophylaxis Wean off oxygen as tolerated, continue with home oxygen Pharyngitis/early epiglottitis No difficulty swallowing Abs and steroids as above thrombocytopenia, likely secondary to chemo continue to follow up as outpatient Time Attestation Discharge Coordination Time (in mins): 35 minutes Quality: Safe Use of Opioids Does Pt have an Active Cancer Diagnosis on the Problem List?: No Quality: Stroke Does the patient have a stroke diagnosis?: No Physical Exam Exam: Exam: General: A&O x3, oriented to time place person and situation, comfortable, no pain , on supplemental oxygen Cardiac: S1, S2 auscultated with no S3/4, no MRG. Well perfused. Respiratory: Normal breath sounds auscultated throughout all lung zones, without wheezing. Rales in BL bases, mild GI/ : No abdominal pain on palpation, no masses or distentions. MSK: Normal ambulation without pain at bony prominences or musculature Neurological: Normal neurological examination on overview, without obvious CN II-XII abnormalities. Vital Signs: Vital Signs: Last Vital Signs Temp 96.8 F 11/01/25 06:56 Pulse 63 11/01/25 08:35 Resp 16 11/01/25 08:35 BP 154/80 H 11/01/25 06:56 Pulse Ox 92 11/01/25 06:56 O2 Del Method Nasal Cannula 11/01/25 06:56 O2 Flow Rate 2 11/01/25 06:56 Oxygen Flow Rate 2 10/29/25 09:37 BMI result Body Mass Index 22.8 DS: Data Data Completed and Pending Completed studies during hospitalization [Text1]: Procedures Extirpation of Matter from Left External Carotid Artery, Open Approach (03/21/24) Extirpation of Matter from Right Common Carotid Artery, Percutaneous Approach (09/23/21) Extirpation of Matter from Right External Carotid Artery, Percutaneous Approach (09/23/21) Extirpation of Matter from Right Internal Carotid Artery, Percutaneous Approach (09/23/21) Supplement Left External Carotid Artery with Synthetic Substitute, Open Approach (03/21/24) Supplement Right Common Carotid Artery with Synthetic Substitute, Percutaneous Approach (09/23/21) Supplement Right Internal Carotid Artery with Synthetic Substitute, Percutaneous Approach (09/23/21) Labs on day of discharge: Laboratory Results - last 24 hr 10/31/25 11/01/25 14:01 06:20 Creatinine 0.64 Estim Creat Clear Calc 62.8 Estimated GFR > 60 Random Vancomycin 9.4 L Discharge Plan Discharge Anticipated Discharge Date/Time: 11/01/25 14:30 Patient Disposition: Home, Self-Care Discharge Diagnosis: COPD exacerbation Acute hypoxic respiratory failure on supplemental oxygen Small cell lung cancer Referrals: Farzad Duron PA-C [Primary Care Provider, Internal Medicine] - 1 Week Discharge Medications: New dextromethorphan-guaifenesin 10-100 mg/5 mL Syrup 5 ml PO Q6H PRN (Reason: Cough) Qty: 237 0RF amoxicillin-pot clavulanate 875-125 mg tablet 1 tab PO BID 7 Days Qty: 14 0RF doxycycline hyclate 100 mg capsule 100 mg PO BID 7 Days Qty: 14 0RF pantoprazole 40 mg tablet,delayed release (DR/EC) 40 mg PO DAILY 7 Days Qty: 7 0RF methylprednisolone [Medrol (Jhon)] 4 mg tablets,dose pack 4 mg PO DAILY Qty: 21 0RF Rx Instructions: take as mentioned in jhon Continued clotrimazole-betamethasone 1-0.05 % cream 1 appl topical BID PRN (Reason: Rash) 30 Days Qty: 45 1RF clopidogrel 75 mg tablet 75 mg PO DAILY Qty: 90 3RF budesonide-formoterol [Symbicort] 160-4.5 mcg/actuation HFA aerosol inhaler 1 puff inhalation BID 28 Days Qty: 10.2 2RF albuterol sulfate [Ventolin HFA] 90 mcg/actuation HFA aerosol inhaler 1 puff inhalation QID PRN (Reason: shortness of breath or wheezing) 28 Days Qty: 8.5 2RF hydroxyzine HCl 50 mg Tablet 50 mg PO DAILY ondansetron 8 mg Tablet,Disintegrating 8 mg PO Q8H PRN (Reason: Nausea And Vomiting) Qty: 30 0RF atorvastatin 20 mg tablet 20 mg PO DAILY metoprolol succinate 50 mg tablet extended release 24 hr 50 mg PO DAILY cholecalciferol (vitamin D3) 50 mcg (2,000 unit) capsule 50 mcg PO DAILY Advil PM 200-38 mg tablet 2 cap PO BEDTIME Discharge Orders: Discharge Order (Routine); Ordered 11/01/25 Ordered By: Norman Brasher Activity on Discharge: As tolerated Stand Alone Forms: Patient Portal Discharge page Print Language: Greenlandic Care Plan Goals: continue oral antibiotics oral steroids protonix for GI prophylaxis while on antibiotics follow up with pulmonology, hematology/oncology and PCP as outpatient Health Concerns: COPD exacerbation Pneumonia Plan of Treatment: continue amoxicillin-pot twice a day for 7 days continue doxycycline 100mg twice a day for 7 day continue protonix 40mg every day Medrol dose jhon Continue supplemental oxygen Incentive spirometer follow up with primary care provider Assessment: 74-year-old female with history of recently diagnosed squamous cell lung cancer who initiated chemotherapy on October 23, history of COPD, bilateral carotid stenosis status post carotid endarterectomy, hypertension, SVT who presents to the emergency department with shortness of breath, cough, sore throat found to have pneumonia, pharyngitis and possible epiglottitis. treated with IV abs, with improvement of symptoms. Patient Instructions: Using Oxygen at Home (DC), COPD (Chronic Obstructive Pulmonary Disease) (DC)
--- NOTE | 2025-11-01 15:01 | MHC.CM.PN ---
pt dcd home self care
== END 2025-11-01 14:37 | disposition home or self-care (01) | DRG 139 ==
LOC: HO.ED 13:57 → HO.EDOVER 14:41 → HO.S3 19:40
PROVIDERS: Admitting Provider Physician Assistant Medical; Emergency Provider Emergency Medicine; PCP Physician Assistant; Visit Provider Student in an Organized Health Care Education/Training Program
DX: J18.9 Pneumonia, unspecified organism (principal); J96.01 Acute respiratory failure with hypoxia; J44.0 Chronic obstructive pulmonary disease with (acute) lower respiratory infection; C34.92 Malignant neoplasm of unspecified part of left bronchus or lung; D69.59 Other secondary thrombocytopenia; T45.1X5A Adverse effect of antineoplastic and immunosuppressive drugs, initial encounter; J44.1 Chronic obstructive pulmonary disease with (acute) exacerbation; Z20.822 Contact with and (suspected) exposure to COVID-19; Z79.899 Other long term (current) drug therapy
CPT/HCPCS: 36415; 70491; 71275; 80048; 80053; 80202; 82248; 82565; 83690; 83880; 84484; 85007; 85027; 87502; 87635; 93005; 94640; 97162; 97165; 99285; J0696; J1650; J2919; J3374; Q9967

== ENCOUNTER → 2025-10-29 09:45 | Outpatient (BNV) | payer BC, SELFPAY | PROVIDERS: Emergency Provider Emergency Medicine; PCP Physician Assistant; Visit Provider Internal Medicine Cardiovascular Disease | DX: R07.9 Chest pain, unspecified (principal) | CPT/HCPCS: 93010 ==

== ENCOUNTER → 2025-10-29 10:15 | Outpatient (BNV) | payer BC, SELFPAY | PROVIDERS: Emergency Provider Emergency Medicine; PCP Physician Assistant; Visit Provider Radiology Diagnostic Radiology | DX: C34.02 Malignant neoplasm of left main bronchus (principal); R06.02 Shortness of breath; R09.A2 Foreign body sensation, throat | CPT/HCPCS: 70491; 71275 ==

== ENCOUNTER → 2025-10-29 14:26 | Outpatient (BNV) | payer BC, SELFPAY | PROVIDERS: Admitting Provider Physician Assistant Medical; Emergency Provider Emergency Medicine; PCP Physician Assistant; Visit Provider Internal Medicine | DX: C34.12 Malignant neoplasm of upper lobe, left bronchus or lung (principal); D69.59 Other secondary thrombocytopenia | CPT/HCPCS: 99231 ==

== ENCOUNTER → 2025-10-29 14:26 | Outpatient (BNV) | payer BC, SELFPAY | PROVIDERS: Admitting Provider Physician Assistant Medical; Emergency Provider Emergency Medicine; PCP Physician Assistant; Visit Provider Physician Assistant Medical | DX: F33.1 Major depressive disorder, recurrent, moderate (principal); F41.1 Generalized anxiety disorder; I10 Essential (primary) hypertension; I65.23 Occlusion and stenosis of bilateral carotid arteries; C34.90 Malignant neoplasm of unspecified part of unspecified bronchus or lung; J41.0 Simple chronic bronchitis; J44.1 Chronic obstructive pulmonary disease with (acute) exacerbation; R09.02 Hypoxemia | CPT/HCPCS: 99232 ==

== ENCOUNTER 2025-11-04 00:57 | Emergency (ER) | payer BC, SELFPAY ==
--- NOTE | ~2025-11-04 | CT_ITS ---
CLINICAL HISTORY: Right Flank Sacroiliac Pain; Hx CA w Bone Mets CT abdomen and pelvis with contrast Comparison: None provided Findings: Bibasilar atelectasis. Mild emphysema. No pleural effusion. Small hiatal hernia. Severe coronary artery calcification. Aortoiliac atherosclerosis. Bulky soft atherosclerosis of the descending thoracic aorta (series 3, image 17). Indeterminate hepatic hypodensities, measuring up to 8 mm in hepatic segment 8 (series 3, image 23 ).Cholecystectomy. Intrahepatic and extrahepatic bile duct dilation. CBD measures 14 mm. Normal pancreas and spleen. Normal adrenals. Renal subcentimeter hypodensities are too small to characterize. No obstructive urolithiasis. Few colonic diverticula without or diverticulitis. Large colonic stool. No bowel obstruction, pneumoperitoneum, or pneumatosis. Normal appendix. Anteverted uterus. No significant urinary bladder wall thickening. No acute fracture. Indeterminate small sclerotic lesion at L1 (series 8, image 46). IMPRESSION: 1. Intrahepatic and extrahepatic bile duct dilation status post cholecystectomy. Correlate for biliary stasis. 2. Large volume colonic stool. Correlate for constipation. 3. Several subcentimeter hepatic hypodensities are indeterminate. Recommend comparison with prior imaging for stability. 4. Indeterminate L1 vertebral body sclerotic lesion. Recommend comparison with prior imaging for stability. This document has been electronically signed by: Niles Valdivia MD on 11/04/2025 03:51:13
--- NOTE | ~2025-11-04 | XR_ITS ---
CLINICAL HISTORY: pneumonia f u 2 view chest x-ray Comparison: CR/SR - XR CHEST 1 VIEW - 09/19/25 16:47 EST Findings: A 1.3 cm nodule is seen in the left lower lung field. There is bibasilar subsegmental atelectasis. Left lower lung airspace opacities are relatively unchanged. Heart size is normal. A MediPort is present. Mediastinal mass is poorly characterized. No acute fracture. IMPRESSION: 1. A 1.3 cm nodule is seen in the left lower lung field. 2. Left lower lung field airspace opacities are relatively unchanged. This document has been electronically signed by: Carlton Chow MD on 11/04/2025 08:47:09
[2025-11-04 01:01] VITALS: BP 129/88; PULSE 95; RESP 18; TEMP 36.1; O2SAT 93; BMI 22.1
--- NOTE | 2025-11-04 01:16 | ED.BACK ---
HPI - Back Pain/Injury General Chief Complaint: Back Pain/Injury Stated Complaint: back pain/oncology pt Time Seen by Provider: 11/04/25 01:15 Source: patient Mode of arrival: ambulatory Limitations: no limitations History of Present Illness ED Provider: Jl BARILLAS HPI Narrative: Patient is a 74-year-old female with known lung cancer currently undergoing chemotherapy (completed first session last week; second and third sessions scheduled after [place]). She presents today with right low back pain that began yesterday but then became acutely worse this morning and is now constant and severe. Pain radiates down into her right leg, and reports pain can worsen acutely spontaneously, or with movement or palpation. She denies any recent fall, motor-vehicle collision, or other trauma. She denies loss of bowel or bladder control. Last urination was approximately one hour prior to arrival without visible blood. No prior history of kidney stones. She endorses mild nausea. Patient reports that her cancer has reportedly metastasized to bone in her back and that she has lesions on her liver per prior scan. She also reports a recent scan showed no evidence of brain metastases. Related Data Home Medications ?Medication ?Instructions ?Recorded ?Confirmed ibuprofen-diphenhydramine citrate 2 cap PO BEDTIME 10/05/20 11/03/25 200 mg-38 mg tablet (Advil PM) hydroxyzine HCl 50 mg tablet 50 mg PO DAILY 09/28/25 11/03/25 atorvastatin 20 mg tablet 20 mg PO DAILY 10/29/25 11/03/25 cholecalciferol (vitamin D3) 50 50 mcg PO DAILY 10/29/25 11/03/25 mcg (2,000 unit) capsule metoprolol succinate 50 mg 50 mg PO DAILY 10/29/25 11/03/25 tablet,extended release 24 hr Previous Rx's ?Medication ?Instructions ?Recorded clotrimazole-betamethasone 1 1 appl topical BID PRN Rash 30 02/17/25 %-0.05 % topical cream days #45 grams clopidogrel 75 mg tablet 75 mg PO DAILY #90 tabs 08/03/25 albuterol sulfate 90 mcg/actuation 1 puff inhalation QID PRN 09/25/25 aerosol inhaler (Ventolin HFA) shortness of breath or wheezing 4 weeks #8.5 grams budesonide-formoterol HFA 160 1 puff inhalation BID 4 weeks 09/25/25 mcg-4.5 mcg/actuation aerosol #10.2 grams inhaler (Symbicort) ondansetron 8 mg disintegrating 8 mg PO Q8H PRN Nausea And 10/23/25 tablet Vomiting #30 tabs amoxicillin 875 mg-potassium 1 tab PO BID 7 days #14 tabs 11/01/25 clavulanate 125 mg tablet dextromethorphan-guaifenesin 10 5 ml PO Q6H PRN Cough #237 mL 11/01/25 mg-100 mg/5 mL oral syrup doxycycline hyclate 100 mg capsule 100 mg PO BID 7 days #14 caps 11/01/25 methylprednisolone 4 mg tablets in 4 mg PO DAILY #21 ea 11/01/25 a dose pack (Medrol (Jhon)) pantoprazole 40 mg tablet,delayed 40 mg PO DAILY 7 days #7 tabs 11/01/25 release alprazolam 0.25 mg tablet 0.25 mg PO BEDTIME PRN Insomnia 11/03/25 #10 tabs Allergies Allergy/AdvReac Type Severity Reaction Status Date / Time aspirin AdvReac Intermediate Gastrointestinal Verified 11/04/25 01:04 Upset varenicline (From Chantix) AdvReac Intermediate Anxiety Verified 11/04/25 01:04 Review of Systems Review of Systems: Yes all other systems are reviewed and are negative [facility] Past Medical History Medical History WHIT (generalized anxiety disorder) MDD (major depressive disorder), recurrent episode, moderate Heartburn COPD (chronic obstructive pulmonary disease) Nicotine dependence, cigarettes, uncomplicated History of left breast cancer (~2011) Tremor of left hand Supraventricular tachycardia Bilateral carotid artery stenosis Subclavian arterial stenosis BPPV (benign paroxysmal positional vertigo) Osteopenia (~2012) Hypertension Surgical History History of tonsillectomy History of tonsillectomy History of colonoscopy (~2013) History of left breast biopsy (~2011) History of dilation and curettage (~2015) History of cataract surgery (~2019) History of laparoscopic cholecystectomy (~2006) History of carotid endarterectomy (~2020) Family History Family History Father Medical history unknown Mother Medical history unknown Brother Throat cancer Brother Myocardial infarction H/O ETOH abuse Daughter Bone cancer Mental health disorder Substance use disorder Social History Social History Household Members: None Housing: Apartment Are you a primary career advisor to a significant other at home: No Do you presently have visiting nurse or other home services: No Alcohol intake: never Comment: aware of trip hazard Patient Tobacco Use Status: Never used Tobacco Tobacco use type: Cigarette Cigarette Packs Per Day: 1 Years Smoked: 60 Smoked in Last 30 Days: No e-Cigarette/Vaping Use: Never Used Second Hand Smoke Exposure: Yes Use of substances other than those prescribed or required for medical reasons: No Advance Directives: No Advance Directives Information Provided: No service: No Current occupational status: retired Cognitive needs: No Hearing needs: No Vision needs: Yes (reading glasses) Physical Exam Vital Signs: Vital Signs: Last Vital Signs Temp 97.8 F 11/04/25 06:04 Pulse 79 11/04/25 06:04 Resp 20 11/04/25 06:04 BP 116/66 11/04/25 06:04 Pulse Ox 93 11/04/25 06:04 O2 Del Method Oxymask 11/04/25 06:04 O2 Flow Rate 3 11/04/25 06:04 BMI result Body Mass Index 22.1 CONSTITUTIONAL: The patient appears in obvious discomfort, but is otherwise nontoxic, well nourished and in no acute distress. Vital signs as documented. HEAD: Atraumatic, normocephalic. EYES: EOMs grossly intact, pupils equal, conjunctiva clear, no exudate. ENT: Nares patent, no discharge. Airway patent, no audible stridor, visible mucosa is pink and moist without noted lesions. NECK: Trachea is midline, no obvious masses or gross abnormalities. CHEST: Symmetric movement, normal appearance. LUNGS: LS present and CTAB, no w/r/r. Non-labored work of breathing. CARDIAC: Regular Rhythm, S1/S2 appreciated, no murmurs, rubs or gallops. ABDOMEN: Abdomen soft and non-tender x4 quadrants, no palpable masses or organomegaly. BACK: Positive tenderness to palpation of the right low back immediately superior to the SI joint, no midline spinous process tenderness, crepitus, or step-off. : Deferred. EXTREMITIES: Normal tone, moves all extremities spontaneously without reported pain. No obvious acute injury or deformity noted. NEURO: Alert and oriented x3, CN II-XII appear grossly intact. Cerebellar Functioning grossly intact. No obvious sensory or motor deficits. Speech clear and appropriate. PSYCH: normal affect, appropriate eye contact, fluid speech, with appropriate response to questioning. No reported suicidality or homicidality. SKIN: Warm, dry, color appropriate, normal turgor. No rashes noted. Course Reevaluation(s) Reevaluation #1: 7:27 AM 11/04/2025 (Deyvi Wolff MD): This patient has been seen by the overnight providers and the plan was for the patient to be discharged home. The patient is a 74-year-old woman with a history of lung cancer who recently had her 1st chemotherapy treatments. she received Neulasta with her recent chemotherapy. She was also recently in the hospital for pneumonia. She was discharged 3 days ago and is still on antibiotics. At discharge she was provided with home oxygen. She also has a history of COPD and has a inhalers. The patient had presented last night with what seemed to be acute low back pain. She had a CT scan of the abdomen and pelvis that showed no definite acute findings although there was a nonspecific sclerotic lesion in L1.. Her pain was treated and she is feeling much better. The plan was for her to be discharged to continue her current medications at home. The patient is nurse was concerned that the patient was having oxygen saturations in the low 90s. I went to see the patient. She was on her nasal oxygen. Oxygen saturation was around 91% on room air. She did not seem short of breath and had no respiratory complaints. On exam I felt she had crackles at the left base. I ordered a chest x-ray that I feel does not show any remarkable developments compared to previous imaging. On her blood work today she has a white blood count of 6.9. She also has 20% bands on her manual differential. Additionally she has a platelet count of 38. She has not previously had such significant thrombocytopenia. I contacted Dr. Jimenez of Oncology. We agreed that the patient has hematological abnormalities are probably related to her recent chemotherapy and Neulasta treatment. The patient will call the office on Thursday for a repeat blood testing. Additionally with regard to this sclerotic lesion and L1 the oncology office will also likely set up bone scan testing in the near future. Time: 08:07 Medications Administered Discontinued Medications Generic Name Dose Route Start Last Admin Trade Name Binta PRN Reason Stop Dose Admin Acetaminophen 975 mg 11/04/25 01:24 11/04/25 01:42 Acetaminophen 325 Mg Tablet PO 11/04/25 01:25 975 mg ONCE ONE Administration Diazepam 5 mg 11/04/25 01:27 11/04/25 01:37 Diazepam 10 Mg/2 Ml Cartridge IVPUSH 11/04/25 01:28 5 mg STAT STA Administration Hydromorphone HCl 1 mg 11/04/25 01:24 11/04/25 01:40 Hydromorphone Hcl 1 Mg/Ml Syringe IVPUSH 11/04/25 01:25 1 mg ONCE ONE Administration Protocol Sodium Chloride 1,000 mls @ 999 mls/hr 11/04/25 01:30 11/04/25 05:25 Ns IV 11/04/25 02:30 Infused .Q1H1M GEORGE Infusion Iohexol 85 ml 11/04/25 02:11 11/04/25 02:11 Iohexol 350 Mg/Ml 100 Ml Infus..Btl IV 11/04/25 02:12 85 ml ONCE ONE Administration Ondansetron HCl 4 mg 11/04/25 01:24 11/04/25 01:37 Ondansetron Hcl 4 Mg/2 Ml Vial IVPUSH 11/04/25 01:25 4 mg ONCE ONE Administration Medical Decision Making Medical Decision Making MDM Narrative: 1:28 AM 11/04/2025 (Dorene BARILLAS): Patient is a 74-year-old female with known lung cancer currently undergoing chemotherapy (completed first session last week; second and third sessions scheduled after ). She presents today with right low back pain that began yesterday but then became acutely worse this morning and is now constant and severe. Pain radiates down into her right leg, and reports pain can worsen acutely spontaneously, or with movement or palpation. She denies any recent fall, motor-vehicle collision, or other trauma. She denies loss of bowel or bladder control, denies saddle paresthesias. Last urination was approximately one hour prior to arrival without visible blood. No prior history of kidney stones. She endorses mild nausea. Patient reports that her cancer has reportedly metastasized to bone in her back and that she has lesions on her liver per prior scan. She also reports a recent scan showed no evidence of brain metastases. On exam the patient appears in acute discomfort, yelling out in pain, and holding her right low back in the area of the SI joint. Palpation immediately superior to the SI joint causes markedly more severe pain, there was no midline spinous process tenderness appreciated. The patient's presentation is concerning for possible occult fracture secondary to metastasis, versus kidney stone versus lumbar radiculopathy. The patient has an allergy to aspirin and Chantix, patient takes Plavix, we will forego NSAIDs. Given the severity of the patient's pain we will treat with Dilaudid, IV fluid hydration, antispasmodics, Tylenol, Zofran, and obtain a CT abdomen and pelvis to assess for stone versus occult fracture, versus other acute process. 5:36 AM 11/04/2025 (Dorene BARILLAS): The patient's CT abdomen and pelvis showed no acute pathology, there was large volume colonic stool, as well as a sclerotic lesion of L1, and hepatic hypodensities consistent with the patient's known history of metastatic lung cancer. There is also intrahepatic and extrahepatic bile duct dilatation status post cholecystectomy, however patient's LFTs are unremarkable. The patient has been able to provide a urinalysis, bladder scan has now revealed the patient is retaining almost 400 mL urine, a Crews catheter will be placed in urine will be sent for evaluation of infection. At this time patient has no saddle paresthesias, no midline spinous process tenderness or pain, no lower extremity weakness, no recent trauma, and no fever, I do not suspect this urinary retention is secondary to cauda equina syndrome. 6:11 AM 11/04/2025 (Dorene BARILLAS): The patient reports her pain has fully resolved, patient's urinalysis is negative for infection. Patient is requesting discharge home. The Crews catheter will be left in place and patient will be discharged to follow up with her oncologist and the urology clinic. Of note patient has FiO2 with her in her vehicle which she was prescribed during her most recent admission, patient discharged with instructions to use FiO2 as directed.. Admission/Observation Consideration of admission/observation: Escalation of care including admission/observation considered Lab Data MDM Lab Attestation statement: I reviewed the patient's lab results. 11/04/25 02:29 11/04/25 02:29 Labs: Lab Results 11/04/25 11/04/25 Range/Units 02:29 05:50 WBC 6.9 (4.8-10.8) X10*3/uL RBC 3.49 L (4.20-5.50) X10*6/uL Hgb 10.8 L (12.0-16.0) g/dl Hct 32.1 L (37.0-47.0) % MCV 92.0 (80.0-98.0) fL MCH 30.9 (27.0-33.0) pg MCHC 33.6 (31.0-35.0) g/dl RDW 12.2 (11.0-16.0) % Plt Count 38 L D (160-400) X10*3/uL MPV 10.5 (9.4-12.3) fL Immature Gran % (Auto) Cancelled Neut % (Auto) Cancelled Lymph % (Auto) Cancelled Becker % (Auto) Cancelled Eos % (Auto) Cancelled Baso % (Auto) Cancelled Lymph # (Auto) Cancelled Becker # (Auto) Cancelled Eos # (Auto) Cancelled Baso # (Auto) Cancelled Abs Immat Gran (auto) Cancelled Absolute Neuts (auto) Cancelled Absolute Nucleated RBC 0.000 (0.0-0.012) X10*3/uL Nucleated RBC % (auto) 0.0 (0.0-0.2) /100WBC Neutrophils % (Manual) 44 L (45-73) % Band Neutrophils % 20 H (3-5) % Lymphocytes % (Manual) 16 L (20-40) % Atypical Lymphs % (Man) 2 (0-6) % Monocytes % (Manual) 14 H (2-11) % Eosinophils % (Manual) 1 (0-4) % Metamyelocytes % 2 % Myelocytes % 1 % Abs Neuts (Manual) 4.4 (2.0-8.3) X10*3/uL Lymphocytes # (Manual) 1.1 L (1.2-4.9) X10*3/uL Atyp Lymphs # (Manual) 0.1 x10*3/uL Monocytes # (Manual) 1.0 (0.1-1.2) X10*3/uL Eosinophils # (Manual) 0.1 (0.0-0.4) X10*3/uL Metamyelocytes # 0.1 X10*3/uL Myelocytes # 0.1 X10*/uL Toxic Granulation PRESENT Dohle Bodies PRESENT Platelet Estimate DECREASED (NORMAL) Plt Morphology Comment NORMAL RBC Morphology NORMAL Sodium 136 (135-145) mmol/L Potassium 3.6 D (3.3-5.1) mmol/L Chloride 104 (96-108) mmol/L Carbon Dioxide 24 (22-29) mmol/L Anion Gap 12 (12-20) BUN 23 H (9-16) mg/dL Creatinine 0.97 (0.5-1.4) mg/dL Estim Creat Clear Calc 41.4 Estimated GFR 56 Random Glucose 97 (60-115) mg/dL Calcium 8.4 D (8.4-10.2) mg/dL Total Bilirubin 0.6 (0.0-1.0) mg/dL AST 21 (5-31) U/L ALT 34 H (0-31) U/L Alkaline Phosphatase 63 (39-117) U/L Total Protein 5.3 L (6.5-8.0) g/dL Albumin 3.1 L (3.5-5.0) g/dL Urine Color Yellow Urine Appearance Clear Urine pH 5.0 (5.0-9.0) Ur Specific [place] >= 1.030 H (1.005-1.025) Urine Protein Negative (Neg-Trace) mg/dL Urine Glucose (UA) Negative (Negative) mg/dL Urine Ketones Negative (Negative) mg/dL Urine Blood Negative (Negative) Urine Nitrite Negative (Negative) Ur Leukocyte Esterase Negative (Negative) Radiology Impression Discussion of test interpretation with radiology: I have reviewed the radiologist's reading. Radiologist Impression: CT abdomen and pelvis with contrast Comparison: None provided Findings: Bibasilar atelectasis. Mild emphysema. No pleural effusion. Small hiatal hernia. Severe coronary artery calcification. Aortoiliac atherosclerosis. Bulky soft atherosclerosis of the descending thoracic aorta (series 3, image 17). Indeterminate hepatic hypodensities, measuring up to 8 mm in hepatic segment 8 (series 3, image 23 ).Cholecystectomy. Intrahepatic and extrahepatic bile duct dilation. CBD measures 14 mm. Normal pancreas and spleen. Normal adrenals. Renal subcentimeter hypodensities are too small to characterize. No obstructive urolithiasis. Few colonic diverticula without or diverticulitis. Large colonic stool. No bowel obstruction, pneumoperitoneum, or pneumatosis. Normal appendix. Anteverted uterus. No significant urinary bladder wall thickening. No acute fracture. Indeterminate small sclerotic lesion at L1 (series 8, image 46). IMPRESSION: 1. Intrahepatic and extrahepatic bile duct dilation status post cholecystectomy. Correlate for biliary stasis. 2. Large volume colonic stool. Correlate for constipation. 3. Several subcentimeter hepatic hypodensities are indeterminate. Recommend comparison with prior imaging for stability. 4. Indeterminate L1 vertebral body sclerotic lesion. Recommend comparison with prior imaging for stability. This document has been electronically signed by: Niles Valdivia MD on 11/04/2025 03:51:13 Discharge Plan Discharge Clinical Impression: Spasm of lumbar paraspinous muscle, Acute right lumbar radiculopathy, Acute urinary retention Patient Disposition: Home, Self-Care Instructions: Acute Urinary Retention in Women (ED), Lumbar Radiculopathy (ED), Muscle Spasm (ED) Additional Instructions: Please contact Dr. Ortiz's office on Thursday to arrange repeat blood testing. Also, I believe that Dr. Ortiz's office will also be ordering a bone scan to follow up on the CAT scan that you had today. In the meantime continue the current medications you were taking. Rest and take it easy. Avoid lifting or straining. Return to the emergency room if you feel significantly worse. Prescriptions: No Action clotrimazole-betamethasone 1-0.05 % cream 1 appl topical BID PRN (Reason: Rash) 30 Days Qty: 45 1RF clopidogrel 75 mg tablet 75 mg PO DAILY Qty: 90 3RF budesonide-formoterol [Symbicort] 160-4.5 mcg/actuation HFA aerosol inhaler 1 puff inhalation BID 28 Days Qty: 10.2 2RF albuterol sulfate [Ventolin HFA] 90 mcg/actuation HFA aerosol inhaler 1 puff inhalation QID PRN (Reason: shortness of breath or wheezing) 28 Days Qty: 8.5 2RF hydroxyzine HCl 50 mg Tablet 50 mg PO DAILY ondansetron 8 mg Tablet,Disintegrating 8 mg PO Q8H PRN (Reason: Nausea And Vomiting) Qty: 30 0RF alprazolam 0.25 mg Tablet 0.25 mg PO BEDTIME PRN (Reason: Insomnia) Qty: 10 0RF atorvastatin 20 mg tablet 20 mg PO DAILY metoprolol succinate 50 mg tablet extended release 24 hr 50 mg PO DAILY cholecalciferol (vitamin D3) 50 mcg (2,000 unit) capsule 50 mcg PO DAILY dextromethorphan-guaifenesin 10-100 mg/5 mL Syrup 5 ml PO Q6H PRN (Reason: Cough) Qty: 237 0RF amoxicillin-pot clavulanate 875-125 mg tablet 1 tab PO BID 7 Days Qty: 14 0RF doxycycline hyclate 100 mg capsule 100 mg PO BID 7 Days Qty: 14 0RF pantoprazole 40 mg tablet,delayed release (DR/EC) 40 mg PO DAILY 7 Days Qty: 7 0RF methylprednisolone [Medrol (Jhon)] 4 mg tablets,dose pack 4 mg PO DAILY Qty: 21 0RF Rx Instructions: take as mentioned in jhon Advil PM 200-38 mg tablet 2 cap PO BEDTIME Referrals: [facility] [Provider Group, Urology] Clinical Impression: Acute urinary retention Farzad Duron PA-C [Primary Care Provider, Internal Medicine] Print Language: Ghanaian
--- OUTSIDE RECORDS SUMMARY | 2025-11-04 01:30 | XMS_ITS | Clinical Summary ---
Author Organization [facility] Address [address] [place] [address] Phone Care Team Providers Care Swing Manager Name Role Phone Unavailable Primary Care Provider Unavailabl e Encounters Date Type Department Care Team Description 10/17/2025 8:17 AM EST - 10/17/2025 11:59 PM EST Hospital Encounter [facility] PET Scan [address] [place] [address] Small cell lung cancer, left upper lobe (CMS/HCC V24, CMS/FORMERLY [facility] V28) Discharge Disposition: Home or Self Care from Last 3 Months Surgical History Surgery Date Site/Laterality Comments TONSILLECTOMY ADENOIDECTOMY, BILATERAL MYRINGOTOMY AND TUBES PROCEDURE: [place] TONSILLECTOMY & ADENOIDECTOMY <AGE 11 CHOLECYSTECTOMY PROCEDURE: [place] LAPAROSCOPY SURG CHOLECYSTECTOMY TUBAL LIGATION PROCEDURE: HISTORICAL [...] Small cell lung cancer, left upper lobe ([facility] V24, [facility] V28) from Last 3 Months Results * [...] Signed Date: 10/19/2025 08:54 ET Workstation ID: [id number] Transcribed By: Self Edit Transcribed Date: 10/19/2025 [...] Signed Date: 10/19/2025 08:54 ET Workstation ID: [id number] Transcribed By: Self Edit Transcribed Date: 10/19/2025 07:13 ET Shanna Ortiz MD IM NM PROCEDURES Final Result from Last 3 Months Insurance * Guarantor: Laxmi Krishnamurthy Account Type Relation to Patient Date of Phone Billing Address Personal/Family Self 1950 [phone] (Work) [address] [place] [id number] [facility]
[2025-11-04] MEDS: diazePAM 10 MG/2 ML CARTRIDGE 5 MG IVPUSH (01:37)
[2025-11-04 01:48] VITALS: O2SAT 76
[2025-11-04 01:49] VITALS: BP 139/62; PULSE 87; RESP 20; O2SAT 93
[2025-11-04] MEDS: iohexoL 350 MG/ML 100 ML INFUS..BTL 85 ML IV (02:11)
[2025-11-04 02:33] LABS: Hematocrit 32.1 % (37.0-47.0); Hemoglobin 10.8 g/dl (12.0-16.0); Mean Corpuscular HGB Conc 33.6 g/dl (31.0-35.0); Mean Corpuscular Hemoglobin 30.9 pg (27.0-33.0); Mean Corpuscular Volume 92.0 fL (80.0-98.0); NRBC Abs Auto 0.000 X10*3/uL (0.0-0.012); NRBC Pct Auto 0.0 /100WBC (0.0-0.2); Red Blood Count 3.49 X10*6/uL (4.20-5.50); WBC ABN SCTR FOR CBC 1
[2025-11-04 02:35] LABS: White Blood Count 6.9 X10*3/uL (4.8-10.8)
[2025-11-04 02:49] LABS: Alanine Aminotransferase 34 U/L (0-31); Albumin Level 3.1 g/dL (3.5-5.0); Alkaline Phosphatase 63 U/L (39-117); Anion Gap 12 (12-20); Aspartate Amino Transferase 21 U/L (5-31); Blood Urea Nitrogen 23 mg/dL (9-16); Calcium 8.4 mg/dL (8.4-10.2); Carbon Dioxide 24 mmol/L (22-29); Chloride 104 mmol/L (96-108); Creatinine Clr Calc Pharmacy 41.4; Estimated Glomerular Filt Rate 56; Potassium 3.6 mmol/L (3.3-5.1); Sodium 136 mmol/L (135-145); Total Protein 5.3 g/dL (6.5-8.0)
[2025-11-04 02:53] LABS: Platelet Count 38 X10*3/uL (160-400)
[2025-11-04 02:59] LABS: Neutrophils Percent Manual 44 % (45-73)
[2025-11-04 03:01] LABS: Atypical Lymph Absolute Manual 0.1 x10*3/uL; Atypical Lymphs Percent Manual 2 % (0-6); Band Neutrophils Percent 20 % (3-5); Eosinophils Absolute Manual 0.1 X10*3/uL (0.0-0.4); Eosinophils Percent Manual 1 % (0-4); Lymphocytes Absolute Manual 1.1 X10*3/uL (1.2-4.9); Lymphocytes Percent Manual 16 % (20-40); Metamyelocytes Absolute 0.1 X10*3/uL; Metamyelocytes Percent 2 %; Monocytes Absolute Manual 1.0 X10*3/uL (0.1-1.2); Monocytes Percent Manual 14 % (2-11); Myelocytes Absolute 0.1 X10*/uL; Myelocytes Percent 1 %; Neutrophils Absolute Manual 4.4 X10*3/uL (2.0-8.3)
[2025-11-04 03:03] LABS: Dohle Bodies PRESENT; RBC Morphology NORMAL; Toxic Granulation PRESENT
--- NOTE | 2025-11-04 05:26 | PC.NURSE ---
Addendum entered by Eusebio Gallo RN 11/04/25 06:01: bladder scan showed 383mL urine. pt states she feels urge to urinate however unable to. felt relief upon munoz insertion. approx 400mL clear yellow urine output. urine sent to lab. Original Note: pt ambulatory with steady gait to bathroom and back, unable to urinate. obtaining bladder scan at this time.
[2025-11-04 05:59] LABS: Appearance Urine Clear; Glucose Urine UA Negative (Negative); PH 5.0 (5.0-9.0); Specific Gravity - Urine >= 1.030 (1.005-1.025)
[2025-11-04 06:04] VITALS: BP 116/66; PULSE 79; RESP 20; TEMP 36.6; O2SAT 93
--- NOTE | 2025-11-04 07:13 | PC.NURSE ---
at time of d/c pt educated on munoz cathetedr use and leg bag provided. pt and Garcia at bedside both verbalize understanding. while getting dressed pt o2 85% on 2L NC, which is the baseline o2 at home for her. pt also noted to be slightly unsteady. pt adamant about going home. MD Wolff called to bedside. spoke with pt and plan to obtain cxr then go from there. handover care to cristy stack.
--- NOTE | 2025-11-04 07:46 | PC.NURSE ---
Provider reaching out to Oncology. Patient made aware. Awaiting dispo.
[2025-11-04 08:35] VITALS: BP 116/66; PULSE 79; RESP 20; TEMP 36.6; O2SAT 93
== END 2025-11-04 08:37 | disposition home or self-care (01) ==
PROVIDERS: Physician Assistant; Emergency Provider Emergency Medicine; PCP Physician Assistant
DX: M62.830 Muscle spasm of back (principal); M54.16 Radiculopathy, lumbar region; R33.9 Retention of urine, unspecified; C79.52 Secondary malignant neoplasm of bone marrow; K76.9 Liver disease, unspecified; I10 Essential (primary) hypertension; J44.9 Chronic obstructive pulmonary disease, unspecified; C78.00 Secondary malignant neoplasm of unspecified lung; Z85.3 Personal history of malignant neoplasm of breast; Z87.01 Personal history of pneumonia (recurrent); Z79.899 Other long term (current) drug therapy
CPT/HCPCS: 36415; 71046; 74177; 80053; 81003; 85007; 85027; 96361; 96374; 96375; 99285; J1171; J2405; J3360; Q9967

== ENCOUNTER → 2025-11-04 01:24 | Outpatient (BNV) | payer BC, SELFPAY | PROVIDERS: Emergency Provider Emergency Medicine; PCP Physician Assistant; Visit Provider Student in an Organized Health Care Education/Training Program | DX: R10.A1 Flank pain, right side (principal); M53.3 Sacrococcygeal disorders, not elsewhere classified; R91.8 Other nonspecific abnormal finding of lung field | CPT/HCPCS: 71046 ==

== ENCOUNTER 2025-11-07 09:16 | Outpatient (AMB) | payer BC, SELFPAY ==
--- NOTE | 2025-11-07 09:25 | MHC.PC.OV ---
Vital Signs 11/07/25 09:28 Height 5 ft 3 in Weight 131 lb BMI 23.2 BP 134/62 Blood Pressure Location Rt brachial Position Sitting Respiration 20 Pulse 83 Pulse Source Pulse Oximeter Temp 97.7 F Temp Source Temporal Artery Scan Pulse Oximetry (%) 98 Oxygen Delivery Method Nasal Cannula Intake Visit Reasons: [facility] 11/01 PNU Dispatcher Maintenance Required: No Accompanied by: Daughter Allergies aspirin Adverse Reaction (Intermediate, Verified 11/07/25 09:29) Gastrointestinal Upset varenicline (From Chantix) Adverse Reaction (Intermediate, Verified 11/07/25 09:29) Anxiety Medication List - Last Reconciled 11/07/25 by Mare Lemons MD albuterol sulfate 90 mcg/actuation (Ventolin HFA) 1 puff inhalation QID PRN 4 weeks alprazolam 0.25 mg PO BEDTIME PRN atorvastatin 20 mg PO DAILY budesonide-formoterol 160-4.5 mcg/actuation (Symbicort) 1 puff inhalation BID 4 weeks cholecalciferol (vitamin D3) 50 mcg PO DAILY clopidogrel 75 mg PO DAILY clotrimazole-betamethasone 1-0.05 % 1 appl topical BID PRN 30 days dextromethorphan-guaifenesin 10-100 mg/5 mL 5 mL PO Q6H PRN hydroxyzine HCl 50 mg PO DAILY ibuprofen-diphenhydramine cit 200-38 mg (Advil PM) 2 caps PO BEDTIME methylprednisolone (Medrol (Jhon)) 4 mg PO DAILY metoprolol succinate ER 50 mg PO DAILY ondansetron 8 mg PO Q8H PRN pantoprazole 40 mg PO DAILY 7 days sertraline 25 mg PO DAILY sertraline 50 mg PO DAILY Tobacco use date assessed: 08/01/25 Fall risk assessment: No Falls in past year Last assessed Fall Risk: 11/07/25 Dental Screening Dental Screen Date: 08/01/25 [facility] TCM Information Date of Discharge 11/01/25 Discharged From [facility] Interactive Contact Date (Reference documentation from this date) 11/02/25 HPI Comments History of Present Illness Details Patient is a 75-year-old female with recently diagnosed extensive stage/metastatic small cell lung cancer who initiated chemotherapy in 10/2025, COPD, bilateral carotid stenosis s/p carotid endarterectomy, hypertension, SVT who was admitted to [facility] from 10/29/2025 to 11/01/2025 after she presented to the ED with shortness of breath, cough and sore throat, found to be in acute respiratory failure with hypoxia due to COPD exacerbation due to community-acquired pneumonia. Patient also had soft tissue neck CT scan that showed mild thickening of the epiglottis with some effacement of the right piriform sinus, suggestive of pharyngitis and possible epiglottitis. Treated with IV antibiotics ceftriaxone and vancomycin. Symptoms improved and patient was discharged on home oxygen, Augmentin and doxycycline to complete 7 days' course, as well as Medrol Jhon and omeprazole 40 mg for GI prophylaxis. Patient was seen again in the ED on 11/04/2025 for acute low back pain, had CT scan of the abdomen and pelvis that showed no definitive acute findings, large volume colonic stool, a nonspecific sclerotic lesion in L1 and hepatic hypodensities. Patient was treated with Dilaudid, IV fluid hydration. Patient also had bladder scan that shows she is retaining 400 mL urine, Munoz catheter is placed, urinalysis was negative for infection. Pain resolved and patient discharged with Munoz catheter in place to follow up with Oncology and Neurology clinic. Today, patient reports completing course of Augmentin and doxycycline and feels better from respiratory standpoint. She continues on home oxygen at all times. Patient was not previously on home oxygen until this recent hospitalization for pneumonia when she was discharged on oxygen. However, reports she has developed diarrhea occurring 3-4 times daily without associated abdominal pain for the past few days. She also reports discomfort due to the catheter in place with a skin irritation. She has a follow up appointment with Urology on 11/22/2025. Per daughter accompanying patient, small blood clots were previously noted in the urine but has since resolved and the urine color has lightened. She also reports overwhelming daily anxiety, worry, and restlessness. Patient has Xanax to use p.r.n. prescribed by her oncologist that she has used and helped but hesitant to use. [facility] Medical History DEREK (generalized anxiety disorder) MDD (major depressive disorder), recurrent episode, moderate Heartburn COPD (chronic obstructive pulmonary disease) Nicotine dependence, cigarettes, uncomplicated History of left breast cancer (~2011) Tremor of left hand Supraventricular tachycardia Bilateral carotid artery stenosis Subclavian arterial stenosis BPPV (benign paroxysmal positional vertigo) Osteopenia (~2012) Hypertension Surgical History History of tonsillectomy History of tonsillectomy History of colonoscopy (~2013) History of left breast biopsy (~2011) History of dilation and curettage (~2015) History of cataract surgery (~2019) History of laparoscopic cholecystectomy (~2006) History of carotid endarterectomy (~2020) Family History Father Medical history unknown Mother Medical history unknown Brother Throat cancer Brother Myocardial infarction H/O ETOH abuse Daughter Bone cancer Mental health disorder Substance use disorder Social History Household Members: None Housing: Apartment Are you a primary before and after school daycare worker to a significant other at home: No Do you presently have visiting nurse or other home services: No Alcohol intake: never Comment: aware of trip hazard Patient Tobacco Use Status: Never used Tobacco Tobacco use type: Cigarette Cigarette Packs Per Day: 1 Years Smoked: 60 e-Cigarette/Vaping Use: Never Used Second Hand Smoke Exposure: Yes service: No Current occupational status: retired Cognitive needs: No Hearing needs: No Vision needs: Yes (reading glasses) Questionnaire Thrive Questionnaire Date Thrive assessed: 07/25/25 I am a: Patient What is your living situation today?: I have a steady place to live Within the past 12 months, did the food you bought not last and you didn't have the money to get more?: Sometimes True Within the past 12 months, did you worry whether your food would run out before you got money to buy more?: Sometimes True Do you have trouble paying for medicines?: No Do you have trouble getting transportation to medical appointments?: No Do you have trouble paying your heating and electricity bill?: No Do you have trouble taking care of your child, family member or friend?: I choose not to answer this question Do you have trouble with day-to-day activities such as bathing, preparing meals, shopping, managing finances, etc.?: No Are you currently unemployed and looking for a job?: No Are you interested in more education?: No Currently or been in a relationship where the following occur: No concerns reported THRIVE Score: 2 DEREK-7 AMB Questionnaire DEREK-7 Date DEREK - 7 assessed: 11/07/25 Feeling nervous, anxious, or on edge: 3 = Nearly every day Not being able to stop or control worryin = Nearly every day Worrying too much about different things: 3 = Nearly every day Trouble relaxin = Nearly every day Being so restless that it is hard to sit still: 3 = Nearly every day Becoming easily annoyed or irritable: 3 = Nearly every day Feeling afraid as if something awful might happen: 3 = Nearly every day Total DEREK-7 score (0-4 normal; 5-9 mild; 10-14 moderate; 15-21 severe): 21 Source: Developed by Drs. Nabeel Markham, Jeanine Nettles, Raffi Daigle and colleagues, with an educational jodi from [employer]. DEREK-7 Assessment Billing DEREK-7 Assessment Tool: DEREK-7 Assessment 40090 Physical exam (Primary Care) Vital Signs: Last Vital Signs Temp 97.7 F 11/07/25 09:28 Pulse 83 11/07/25 09:28 Resp 20 11/07/25 09:28 BP 134/62 11/07/25 09:28 Pulse Ox 98 11/07/25 09:28 Oxygen Delivery Method Nasal Cannula 11/07/25 09:28 General: Well-appearing, alert, oriented ?3, in no acute distress. Cardiovascular: RRR, S1-S2 appreciated, no murmurs, rubs or gallops. Respiratory: on 2 L supplemental oxygen, no wheezes or crackles appreciated Abdomen: Soft, nontender, nondistended. Normoactive bowel sounds. Mild erythema noted in the outside of vulvar area Urine clear in the munoz catheter bag, no hematuria or blood clots noted BMI result Body Mass Index 23.2 Tobacco/Smoking Status: Tobacco use Status Tobacco use date assessed 08/01/25 11/07/25 09:27 Patient Tobacco Use Status Never used Tobacco 11/07/25 09:27 Tobacco use type Cigarette 11/07/25 09:27 e-Cigarette/Vaping Use Never Used 11/07/25 09:27 Thrive Assessment: Date of Thrive Assessment Date Thrive assessed 07/25/25 11/07/25 09:27 Currently or been in a relationship where the following occur: No concerns reported Coding Level of Care Code TCM Mod MDM <= 7 Days Diagnoses Hospital discharge follow-up Z51.89 Community acquired pneumonia of left upper lobe of lung J18.9 Laterality: left Lung location: upper lobe of lung DEREK (generalized anxiety disorder) F41.1 Thrombocytopenia D69.6 Diarrhea, unspecified type R19.7 Diarrhea type: unspecified type Indwelling Munoz catheter present Z97.8 Additional Codes DEREK-7 Assessment Billing - DEREK-7 Assessment Tool: DEREK-7 Assessment 90970 ([id number]) Assessment & Plan Assessment & Plan (1) Hospital discharge follow-up: Code(s): Z51.89 - Encounter for other specified aftercare Plan: Patient is a 75-year-old female with recently diagnosed extensive stage/metastatic small cell lung cancer who initiated chemotherapy in 10/2025, COPD, bilateral carotid stenosis s/p carotid endarterectomy, hypertension, SVT who was admitted to [facility] from 10/29/2025 to 11/01/2025 after she presented to the ED with shortness of breath, cough and sore throat, found to be in acute respiratory failure with hypoxia due to COPD exacerbation due to community-acquired pneumonia. Patient also had soft tissue neck CT scan that showed mild thickening of the epiglottis with some effacement of the right piriform sinus, suggestive of pharyngitis and possible epiglottitis. Treated with IV antibiotics ceftriaxone and vancomycin. Symptoms improved and patient was discharged on home oxygen, Augmentin and doxycycline to complete 7 days' course, as well as Medrol Jhon and omeprazole 40 mg for GI prophylaxis. Patient completed course of antibiotics, feels better, denies shortness of breath or chest pain, fever or chills. Uses home oxygen at all times. Patient was not previously on oxygen until this recent hospitalization during which she was discharged on home oxygen. (2) Community acquired pneumonia: Code(s): J18.9 - Pneumonia, unspecified organism Category: Medical Qualifiers: Laterality: left Lung location: upper lobe of lung Qualified Code(s): J18.9 - Pneumonia, unspecified organism Plan: As above (3) DEREK (generalized anxiety disorder): Code(s): F41.1 - Generalized anxiety disorder Category: Medical Plan: Patient reports overwhelming daily anxiety, worry, and restlessness, for which he uses Xanax 0.25 mg p.r.n. prescribed by her oncologist, but reports hesitant to use. Derek 7 score of 21 indicative of severe anxiety. Plan - start sertraline 25 mg daily for 7 days, then increase to 50 mg daily for better control of anxiety - may continue to use Xanax 0.25 mg at bedtime only as needed - refill provided (4) Thrombocytopenia: Code(s): D69.6 - Thrombocytopenia, unspecified Category: Medical Plan: Patient noted to have thrombocytopenia on most recent blood work dropping from 150s to 130s to most recent 38 on 11/04/2025. This is likely secondary to recently started chemotherapy. Repeat blood work in a week. Patient has a chemotherapy session and follow up with Dr. Ortiz, her oncologist scheduled in a week during which they will repeat blood work. (5) Diarrhea: Code(s): R19.7 - Diarrhea, unspecified Qualifiers: Diarrhea type: unspecified type Qualified Code(s): R19.7 - Diarrhea, unspecified Plan: Patient reports diarrhea without associated abdominal pain, 3-4 times daily for the past few days, likely secondary to recent use of antibiotics including Augmentin and doxycycline in addition to IV antibiotics in the hospital. Test for C diff. Also advised she may benefit from using probiotics. (6) Indwelling Munoz catheter present: Code(s): Z97.8 - Presence of other specified devices Plan: Patient was seen in the ED on 11/04/2025 for acute low back pain. During that visit, she had bladder scan that shows she is retaining 400 mL urine, Munoz catheter is placed, urinalysis was negative for infection. She was discharged with a Munoz catheter in place, to follow up with Urology on 11/22/2024. Clear urine noted in the Munoz catheter bag without hematuria with blood clots. The patient experiences significant discomfort and skin irritation from her Munoz catheter. Physical exam confirms erythema and irritation without lesions. She is advised to apply her existing betamethasone cream topically to the affected skin as needed for up to two weeks. Orders: Orders CDiff Gene PCR Today R19.7 - Diarrhea, unspecified Medications: New sertraline 25 mg PO DAILY 7 tabs 0RF sertraline 50 mg PO DAILY 30 tabs 2RF Refilled alprazolam 0.25 mg PO BEDTIME PRN 20 tabs 0RF Insomnia Discontinued amoxicillin-pot clavulanate 875-125 mg Discontinued Reason: Patient Completed Course 1 tab PO BID 7 days 14 tabs 0RF doxycycline hyclate Discontinued Reason: Patient Completed Course 100 mg PO BID 7 days 14 caps 0RF
[2025-11-07 09:28] VITALS: BP 134/62; PULSE 83; RESP 20; TEMP 36.5; O2SAT 98; BMI 23.2
--- OUTSIDE RECORDS SUMMARY | 2025-11-07 09:58 | XMS_ITS | Clinical Summary ---
Author Organization [facility] Address [address] [place] [address] Phone Care Team Providers Care Fur Blower Operator Name Role Phone Unavailable Primary Care Provider Unavailabl e Encounters Date Type Department Care Team Description 10/17/2025 8:17 AM EST - 10/17/2025 11:59 PM EST Hospital Encounter [facility] PET Scan [address] [place] [address] Small cell lung cancer, left upper lobe (CMS/HCC V24, [facility] V28) Discharge Disposition: Home or Self Care from Last 3 Months Surgical History Surgery Date Site/Laterality Comments TONSILLECTOMY ADENOIDECTOMY, BILATERAL MYRINGOTOMY AND TUBES PROCEDURE: [place] TONSILLECTOM[place] & ADENOIDECTOMY <AGE 11 CHOLECYSTECTOMY PROCEDURE: [place] LAPAROSCOPY SURG CHOLECYSTECTOMY TUBAL LIGATION PROCEDURE: HISTORICAL [...] Small cell lung [facility], [facility] ([facility], [facility] V28) from Last 3 Months Results * [...] Signed Date: 10/19/2025 08:54 ET Workstation ID: [id number] Transcribed By: Self Edit Transcribed Date: 10/19/2025 [...] Signed Date: 10/19/2025 08:54 ET Workstation ID: [id number] Transcribed By: Self Edit Transcribed Date: 10/19/2025 07:13 ET Shanna Ortiz MD IM NM PROCEDURES Final Result from Last 3 Months Insurance * Guarantor: Laxmi Krishnamurthy Account Type Relation to Patient Date of Phone Billing Address Personal/Family Self 1950 [phone] (Work) [address] [place] [id number] [facility]
== END 2025-11-07 10:20 | disposition home or self-care (01) ==
LOC: HO.HMCH 09:17
PROVIDERS: PCP Physician Assistant; Visit Provider Student in an Organized Health Care Education/Training Program
DX: Z51.89 Encounter for other specified aftercare (principal); J18.9 Pneumonia, unspecified organism; F41.1 Generalized anxiety disorder; D69.6 Thrombocytopenia, unspecified; R19.7 Diarrhea, unspecified; Z97.8 Presence of other specified devices

== ENCOUNTER → 2025-11-07 09:16 | Outpatient (BNVA) | payer BC, SELFPAY | PROVIDERS: PCP Physician Assistant; Visit Provider Student in an Organized Health Care Education/Training Program | DX: Z13.39 Encounter for screening examination for other mental health and behavioral disorders (principal) | CPT/HCPCS: 96127 ==

== ENCOUNTER 2025-11-13 11:37 | Emergency (ER) | payer BC, SELFPAY ==
--- NOTE | ~2025-11-13 | XR_ITS ---
EXAMINATION: XR CHEST 2 VIEWS HISTORY: chest pain COMPARISON: Comparison is made with the prior examination dated 11/04/2025. FINDINGS: PA and lateral views of the chest are submitted. A right-sided port is unchanged in position. There is scarring in the left midlung zone. The left-sided nodule noted on the prior study is less well visualized. The right lung is clear. There is no pleural effusion, pneumothorax, or pulmonary vascular congestion. The heart is normal in size. The bones are intact. There are surgical clips in the right upper quadrant. XR/XR chest 2V IMPRESSION: No acute cardiopulmonary abnormality. The patient's known left sided lung nodule is less well visualized than on the prior study. Electronically signed by: Nabeel Kaye MD 11/13/2025 12:57 PM [facility]
--- NOTE | ~2025-11-13 | CT_ITS ---
EXAMINATION: CT ABDOMEN PELVIS WITHOUT IV CONTRAST HISTORY: Hematuria COMPARISON: Comparison is made with the prior examination dated 11/04/2025. TECHNIQUE: CT scan of the abdomen and pelvis was performed without contrast using standard departmental protocol. Coronal and sagittal reformatted images were generated and reviewed. Oral contrast material was not administered per department protocol. This CT exam was performed with one or more of the following dose reduction techniques: automated exposure control, adjustment of the mA and/or kV according to patient size, use of iterative reconstruction technique. DLP: 370 mGy-cm FINDINGS: LOWER CHEST: Again seen is scarring at the right lung base. The visualized left lung base is clear.. There is no pleural effusion. CARDIOVASCULATURE: The heart is normal in size. There is no pericardial effusion. LIVER: The liver is normal in size and contour. The liver has an unremarkable unenhanced appearance. GALLBLADDER / BILE DUCTS: The gallbladder is surgically absent. There is no intra or extrahepatic biliary ductal dilatation. SPLEEN: The spleen is normal in size and has an unremarkable unenhanced appearance. PANCREAS: The pancreas has an unremarkable unenhanced appearance. ADRENAL GLANDS: Unremarkable. KIDNEYS/RETROPERITONEUM: There is a punctate nonobstructing calculus in an upper pole calyx of the right kidney. No definite renal calculi are identified. There is no hydronephrosis or hydroureter. No ureteral calculi are seen. LYMPH NODES: No retroperitoneal lymphadenopathy is identified in the abdomen or pelvis. VASCULATURE: The abdominal aorta demonstrates atherosclerotic calcification, but is normal in caliber. MESENTERY/PERITONEUM: No free fluid. No masses. There is no free intraperitoneal gas. STOMACH: The stomach is collapsed, limiting evaluation. SMALL BOWEL: The small bowel is normal in caliber. COLON: There is a moderate amount of stool in the colon. There is diverticulosis of the descending and sigmoid colon, without evidence of diverticulitis. APPENDIX: Normal. URINARY BLADDER/PELVIC ORGANS: The urinary bladder is collapsed with Crews catheter. The uterus has an unremarkable unenhanced appearance. BONES / SOFT TISSUES: No suspicious bony or soft tissue abnormalities. CT/CT abdomen pelvis wo IV con IMPRESSION: 1. Punctate nonobstructing calculus at the upper pole of the right kidney. 2. Moderate amount of stool in the colon. Diverticulosis of the descending and sigmoid colon, without evidence of diverticulitis. Electronically signed by: Nabeel Kaye MD 11/13/2025 03:01 PM [facility]
[2025-11-13 12:21] VITALS: BP 129/60; PULSE 90; RESP 16; TEMP 36.4; O2SAT 98; BMI 23.0
--- NOTE | 2025-11-13 12:23 | ED.GENADULT ---
HPI - General Adult General Chief complaint: General Medical Stated complaint: Stage 4 Cancer Patient: ABD Pain, Erge To Pee Time Seen by Provider: 11/13/25 12:30 Source: patient, family (Daughter, and significant other.) and old records reviewed Mode of arrival: ambulatory Limitations: no limitations History of Present Illness ED Provider: DR. Panchal HPI narrative: 74-year-old female with underlying history of HLD, HTN, SVT, breast cancer, left carotid endarterectomy, anxiety, lung cancer stage IV with bag and liver metastases on chemotherapy, urinary retention s/p Munoz catheter was inserted in the ED 10 days ago for unclear reason and patient is scheduled to see urologist next week patient started to notice blood in the urine in the Munoz catheter today that the patient is complaining of discomfort and wishes to discontinue Munoz catheter., patient also is complaining of generalized body ache and feeling overall weak, Related Data Home Medications ?Medication ?Instructions ?Recorded ?Confirmed ibuprofen-diphenhydramine citrate 2 cap PO BEDTIME 10/05/20 11/07/25 200 mg-38 mg tablet (Advil PM) hydroxyzine HCl 50 mg tablet 50 mg PO DAILY 09/28/25 11/07/25 atorvastatin 20 mg tablet 20 mg PO DAILY 10/29/25 11/07/25 cholecalciferol (vitamin D3) 50 50 mcg PO DAILY 10/29/25 11/07/25 mcg (2,000 unit) capsule metoprolol succinate 50 mg 50 mg PO DAILY 10/29/25 11/07/25 tablet,extended release 24 hr Previous Rx's ?Medication ?Instructions ?Recorded clotrimazole-betamethasone 1 1 appl topical BID PRN Rash 30 02/17/25 %-0.05 % topical cream days #45 grams clopidogrel 75 mg tablet 75 mg PO DAILY #90 tabs 08/03/25 albuterol sulfate 90 mcg/actuation 1 puff inhalation QID PRN 09/25/25 aerosol inhaler (Ventolin HFA) shortness of breath or wheezing 4 weeks #8.5 grams budesonide-formoterol HFA 160 1 puff inhalation BID 4 weeks 09/25/25 mcg-4.5 mcg/actuation aerosol #10.2 grams inhaler (Symbicort) ondansetron 8 mg disintegrating 8 mg PO Q8H PRN Nausea And 10/23/25 tablet Vomiting #30 tabs dextromethorphan-guaifenesin 10 5 ml PO Q6H PRN Cough #237 mL 11/01/25 mg-100 mg/5 mL oral syrup methylprednisolone 4 mg tablets in 4 mg PO DAILY #21 ea 11/01/25 a dose pack (Medrol (Jhon)) pantoprazole 40 mg tablet,delayed 40 mg PO DAILY 7 days #7 tabs 11/01/25 release alprazolam 0.25 mg tablet 0.25 mg PO BEDTIME PRN Insomnia 11/07/25 #20 tabs sertraline 25 mg tablet 25 mg PO DAILY #7 tabs 11/07/25 sertraline 50 mg tablet 50 mg PO DAILY #30 tabs 11/07/25 Allergies Allergy/AdvReac Type Severity Reaction Status Date / Time aspirin AdvReac Intermediate Gastrointestinal Verified 11/13/25 12:24 Upset varenicline (From Chantix) AdvReac Intermediate Anxiety Verified 11/13/25 12:24 Review of Systems Review of Systems: All other systems are reviewed and are negative Constitutional: Reports as per HPI and Reports no additional constitutional complaints Eyes: Reports as per HPI and Reports no additional eye complaints Reports system reviewed and no additional complaints, except as documented Cardiovascular: Reports as per HPI and Reports no additional cardiovascular complaints Respiratory: Reports as per HPI and Reports no additional respiratory complaints Gastrointestinal: Reports as per HPI and Reports no additional gastrointestinal complaints Genitourinary: Reports no additional female genitourinary complaints Musculoskeletal: Reports no additional musculoskeletal complaints Skin/Breast: Reports system reviewed and no additional complaints, except as docu Psychiatric: Reports no additional psychiatric complaints Endocrine: Reports no additional endocrine complaints Hematologic/Lymphatic: Reports no additional hematologic/lymphatic complaints Allergic/Immunologic: Reports no additional allergic/immunologic complaints Reports system reviewed and no additional complaints, except as documented and Reports Abnormal speech present [facility] Past Medical History Medical History WHIT (generalized anxiety disorder) MDD (major depressive disorder), recurrent episode, moderate Heartburn COPD (chronic obstructive pulmonary disease) Nicotine dependence, cigarettes, uncomplicated History of left breast cancer (~2011) Tremor of left hand Supraventricular tachycardia Bilateral carotid artery stenosis Subclavian arterial stenosis BPPV (benign paroxysmal positional vertigo) Osteopenia (~2012) Hypertension Surgical History History of tonsillectomy History of tonsillectomy History of colonoscopy (~2013) History of left breast biopsy (~2011) History of dilation and curettage (~2015) History of cataract surgery (~2019) History of laparoscopic cholecystectomy (~2006) History of carotid endarterectomy (~2020) Family History Family History Father Medical history unknown Mother Medical history unknown Brother Throat cancer Brother Myocardial infarction H/O ETOH abuse Daughter Bone cancer Mental health disorder Substance use disorder Social History Social History Household Members: None Housing: Apartment Are you a primary director medicare sales to a significant other at home: No Do you presently have visiting nurse or other home services: No Unable to assess alcohol history related to: Unknown Alcohol intake: never Comment: aware of trip hazard Patient Tobacco Use Status: Never used Tobacco Tobacco use type: Cigarette Cigarette Packs Per Day: 1 Years Smoked: 60 e-Cigarette/Vaping Use: Never Used Second Hand Smoke Exposure: Yes Use of substances other than those prescribed or required for medical reasons: Unknown Advance Directives: Yes Advance Directives Information Provided: No Advance Directives on File: No Do you have a plan to hurt others: No Plan service: No Current occupational status: retired Cognitive needs: No Hearing needs: No Vision needs: Yes (reading glasses) Physical Exam ED Vital Signs: Vital Signs - 24 hr 11/13/25 12:21 11/13/25 14:26 Temperature 97.5 F 98.1 F Pulse Rate 90 68 Respiratory Rate 16 18 Blood Pressure 129/60 121/61 Pulse Oximetry 98 96 Oxygen Delivery Method Nasal Cannula Nasal Cannula Oxygen Flow Rate 2 BMI result Body Mass Index 23.0 Vital signs have been reviewed and appear to be correct. Blood pressure elevated. Heart rate normal. Respiratory rate normal. Temperature normal. Oxygen saturation normal. Appearance: Alert. Oriented X3. No acute distress. Head: Normal external exam. Normocephalic. Atraumatic. No Benoit signs noted. No raccoon eyes noted Eyes: PERRLA. EOMI. Conjunctiva and sclera normal. Eyelids normal. ENT: TM's Normal. Pharynx normal. Uvula midline. Moist mucous membranes. No trismus noted. No drooling noted. No muffled voice noted. Neck: Normal inspection. Neck supple. FROM. No adenopathy. Thyroid Normal. No meningeal signs. No neck mass noted. CVS: Normal heart rate and rhythm. Heart sound normal. No murmurs noted. Pulses normal throughout. Respiratory: No respiratory distress. Painless inspiration. Breath sounds normal. No wheezes/rales/rhonchi noted. Chest nontender. No accessory muscle usage noted or decreased air movement noted. Abdomen: Soft and nontender. Bowel sounds normal in all 4 quadrants. No distention noted. No organomegaly noted. No visible injury noted. Back: No CVA tenderness. Full range of motion noted. Skin: Skin warm and dry. Normal skin color. Normal skin turgor. No rashes/lesions/lacerations noted. Extremities: No lower extremity edema. Extremities exhibit normal range of motion. Extremities nontender. Neuro: Oriented X 3. Cranial nerve exam: II-XII are grossly intact No motor deficit. No sensory deficit. Reflexes normal. Course Course Course Narrative: Rapid medical examination performed in triage by Harmony Potter PA-C: Patient is a 75 year old female presenting to the emergency department with blood in her munoz catheter, chest pain, and feeling generally unwell. Detailed physical exam and review of systems are deferred to the manager primary. EKG, labs, imaging, swabs ordered. Patient placed back in the waiting room pending room availability and results. Reevaluation(s) Reevaluation #1: 75-year-old female history of lung cancer on chemotherapy presented with generalized weakness and Munoz catheter complication. 1. No clear reason of inserting Munoz catheter 10 days ago will discontinue Munoz catheter, patient is able to urinate in the emergency department with no Munoz catheter. 2. Leukocytosis of unclear etiology no source of infection could be stress secondary to malignancy and chemotherapy. 3. Troponin is unremarkable, chest x-ray is unremarkable. Time: 19:25 Medical Decision Making Differential Diagnosis Differential Diagnoses: The differential diagnosis associated with the presentation includes (Leukocytosis, electrolyte derangement, pneumonia, UTI, ANJUM, urinary retention.) Admission/Observation Consideration of admission/observation: Escalation of care including admission/observation considered Lab Data MDM Lab Attestation statement: I reviewed the patient's lab results. 11/13/25 14:09 11/13/25 14:09 Labs: Lab Results 11/13/25 11/13/25 11/13/25 Range/Units 13:48 14:09 15:05 WBC 18.1 H (4.8-10.8) X10*3/uL RBC 3.90 L (4.20-5.50) X10*6/uL Hgb 11.8 L (12.0-16.0) g/dl Hct 36.7 L (37.0-47.0) % MCV 94.1 (80.0-98.0) fL MCH 30.3 (27.0-33.0) pg MCHC 32.2 (31.0-35.0) g/dl RDW 13.2 (11.0-16.0) % Plt Count 319 D (160-400) X10*3/uL MPV 9.6 (9.4-12.3) fL Immature Gran % (Auto) 2.8 H (0.0-0.4) % Neut % (Auto) 78.4 H (45-73) % Lymph % (Auto) 12.2 L (20-40) % Yell % (Auto) 5.5 (2-11) % Eos % (Auto) 0.2 (0-4) % Baso % (Auto) 0.9 (0-2) % Lymph # (Auto) 2.2 (1.2-4.9) X10*3/uL Yell # (Auto) 1.0 (0.1-1.2) X10*3/uL Eos # (Auto) 0.0 (0.0-0.4) X10*3/uL Baso # (Auto) 0.2 (0.0-0.2) X10*3/uL Abs Immat Gran (auto) 0.50 H (0.00-0.03) X10*3/uL Absolute Neuts (auto) 14.2 H (2.0-8.3) x10*3/uL Absolute Nucleated RBC 0.000 (0.0-0.012) X10*3/uL Nucleated RBC % (auto) 0.0 (0.0-0.2) /100WBC PT 12.6 (11.2-13.5) SEC INR 1.0 (0.9-1.1) Sodium 141 (135-145) mmol/L Potassium 4.4 D (3.3-5.1) mmol/L Chloride 107 (96-108) mmol/L Carbon Dioxide 28 (22-29) mmol/L Anion Gap 10 L (12-20) BUN 16 (9-16) mg/dL Creatinine 0.91 (0.5-1.4) mg/dL Estim Creat Clear Calc 43.4 Estimated GFR > 60 Random Glucose 78 (60-115) mg/dL Calcium 10.1 D (8.4-10.2) mg/dL Magnesium 1.8 (1.6-2.6) mg/dL Total Bilirubin 0.4 (0.0-1.0) mg/dL AST 32 H (5-31) U/L ALT 28 (0-31) U/L Alkaline Phosphatase 99 (39-117) U/L Troponin I High Sens < 2.7 (<3.5-17.0) ng/L Total Protein 6.4 L (6.5-8.0) g/dL Albumin 3.5 (3.5-5.0) g/dL Urine Color Dark Yellow Urine Appearance Cloudy Urine pH 5.5 (5.0-9.0) Ur Specific Morrison 1.015 (1.005-1.025) Urine Protein 100 (2+) H (Neg-Trace) mg/dL Urine Glucose (UA) Negative (Negative) mg/dL Urine Ketones Negative (Negative) mg/dL Urine Blood Large (3+) H (Negative) Urine Nitrite Negative (Negative) Ur Leukocyte Esterase Moderate (2+) H (Negative) Urine RBC >20 H (0-2) /HPF Urine WBC 21-50 (0-5) /HPF Ur Squamous Epith Cells 0-2 (0-2) /HPF Urine Bacteria 1+ (None Seen) Hyaline Casts 0-2 (0-2) /LPF C. diff Tox B Gene (PCR) NEGATIVE (Negative) Influenza Type A (PCR) NEGATIVE (Negative) Influenza Type B (PCR) NEGATIVE (Negative) RSV RNA Qual (PCR) NEGATIVE (Negative) SARS-CoV-2 RNA (RT-PCR) NEGATIVE (Negative) Independent Interpretation I performed an independent interpretation of an: Plain X-Ray (Chest x-ray:No acute cardiopulmonary abnormality. The patient's known left sided lung nodule is less well visualized than on the prior study.) and CT Scan (Abdomen and pelvis:1. Punctate nonobstructing calculus at the upper pole of the right kidney. 2. Moderate amount of stool in the colon. Diverticulosis of the descending and sigmoid colon, without evidence of diverticulitis. ) Radiology Impression Discussion of test interpretation with radiology: I have reviewed the radiologist's reading. Discharge Plan Discharge Clinical Impression: Leukocytosis, Generalized body aches Patient Disposition: Home, Self-Care Instructions: Leukocytosis (ED) Prescriptions: No Action clotrimazole-betamethasone 1-0.05 % cream 1 appl topical BID PRN (Reason: Rash) 30 Days Qty: 45 1RF clopidogrel 75 mg tablet 75 mg PO DAILY Qty: 90 3RF budesonide-formoterol [Symbicort] 160-4.5 mcg/actuation HFA aerosol inhaler 1 puff inhalation BID 28 Days Qty: 10.2 2RF albuterol sulfate [Ventolin HFA] 90 mcg/actuation HFA aerosol inhaler 1 puff inhalation QID PRN (Reason: shortness of breath or wheezing) 28 Days Qty: 8.5 2RF hydroxyzine HCl 50 mg Tablet 50 mg PO DAILY ondansetron 8 mg Tablet,Disintegrating 8 mg PO Q8H PRN (Reason: Nausea And Vomiting) Qty: 30 0RF atorvastatin 20 mg tablet 20 mg PO DAILY metoprolol succinate 50 mg tablet extended release 24 hr 50 mg PO DAILY cholecalciferol (vitamin D3) 50 mcg (2,000 unit) capsule 50 mcg PO DAILY dextromethorphan-guaifenesin 10-100 mg/5 mL Syrup 5 ml PO Q6H PRN (Reason: Cough) Qty: 237 0RF pantoprazole 40 mg tablet,delayed release (DR/EC) 40 mg PO DAILY 7 Days Qty: 7 0RF methylprednisolone [Medrol (Jhon)] 4 mg tablets,dose pack 4 mg PO DAILY Qty: 21 0RF Rx Instructions: take as mentioned in jhon Advil PM 200-38 mg tablet 2 cap PO BEDTIME sertraline 25 mg tablet 25 mg PO DAILY Qty: 7 0RF sertraline 50 mg tablet 50 mg PO DAILY Qty: 30 2RF alprazolam 0.25 mg tablet 0.25 mg PO BEDTIME PRN (Reason: Insomnia) Qty: 20 0RF Referrals: Farzad Duron PA-C [Primary Care Provider, Internal Medicine] Print Language: Slovenian
--- NOTE | 2025-11-13 12:24 | ECG_ITS ---
Test Reason : WEAKNESS Blood Pressure : */* mmHG Vent. Rate : 71 BPM Atrial Rate : 71 BPM P-R Int : 152 ms QRS Dur : 74 ms QT Int : 366 ms P-R-T Axes : 69 32 41 degrees QTcB Int : 397 ms Normal sinus rhythm Normal ECG When compared with ECG of 29-Oct-2025 09:55, No significant change was found Referred By: Harmony Potter Electronically Signed By: CARLITO BAILEY
[2025-11-13 13:59] LABS: Appearance Urine Cloudy; Glucose Urine UA Negative (Negative); PH 5.5 (5.0-9.0); Specific Gravity - Urine 1.015 (1.005-1.025); UMIC TRIGGER UACC YES
[2025-11-13 14:20] LABS: UACC Culture Trigger YES
[2025-11-13 14:21] LABS: MANUAL DIFF FLAG NO
[2025-11-13 14:24] LABS: Hematocrit 36.7 % (37.0-47.0); Hemoglobin 11.8 g/dl (12.0-16.0); Imm Gran Abs Auto 0.50 X10*3/uL (0.00-0.03); Imm Gran Pct Auto 2.8 % (0.0-0.4); Lymphocytes Absolute Auto 2.2 X10*3/uL (1.2-4.9); Mean Corpuscular HGB Conc 32.2 g/dl (31.0-35.0); Mean Corpuscular Hemoglobin 30.3 pg (27.0-33.0); Mean Corpuscular Volume 94.1 fL (80.0-98.0); NRBC Abs Auto 0.000 X10*3/uL (0.0-0.012); NRBC Pct Auto 0.0 /100WBC (0.0-0.2); Platelet Count 319 X10*3/uL (160-400); Red Blood Count 3.90 X10*6/uL (4.20-5.50); White Blood Count 18.1 X10*3/uL (4.8-10.8)
[2025-11-13 14:26] VITALS: BP 121/61; PULSE 68; RESP 18; TEMP 36.7; O2SAT 96
[2025-11-13 14:29] LABS: INTERNATIONAL NORM RATIO 1.0 (0.9-1.1); Prothrombin Time 12.6 SEC (11.2-13.5)
--- OUTSIDE RECORDS SUMMARY | 2025-11-13 14:35 | XMS_ITS | Clinical Summary ---
Author Organization [facility] Address [address] [place] [address] Phone Care Team Providers Care Binding Stitcher Name Role Phone Unavailable Primary Care Provider Unavailabl e Encounters Date Type Department Care Team Description 10/17/2025 8:17 AM EST - 10/17/2025 11:59 PM EST Hospital Encounter [facility] PET Scan [address] [place] [address] Small cell lung cancer, left upper lobe (CMS/HCC V24, CMS/[facility] V28) Discharge Disposition: Home or Self Care from Last 3 Months Surgical History Surgery Date Site/Laterality Comments TONSILLECTOMY ADENOIDECTOMY, BILATERAL MYRINGOTOMY AND TUBES PROCEDURE: HI TONSILLECTOMY & ADENOIDECTOMY <AGE 11 CHOLECYSTECTOMY PROCEDURE: HI LAPAROSCOPY SURG CHOLECYSTECTOMY TUBAL LIGATION PROCEDURE: HISTORICAL [...] Health Maintenance Due Date Last Done Comments Zoster Vaccines (1 of 2) 1968 DTaP,Tdap,and [...] Small cell lung cancer, left upper lobe ([facility] V24, [facility] V28) from Last 3 Months Results * [...] Signed Date: 10/19/2025 08:54 ET Workstation ID: [id number] Transcribed By: Self Edit Transcribed Date: 10/19/2025 [...] Signed Date: 10/19/2025 08:54 ET Workstation ID: [id number] Transcribed By: Self Edit Transcribed Date: 10/19/2025 07:13 ET Shanna Ortiz MD IM NM PROCEDURES Final Result from Last 3 Months Insurance * Guarantor: Laxmi Krishnamurthy Account Type Relation to Patient Date of Phone Billing Address Personal/Family Self 1950 [phone] (Work) [address] [place] [address]
[2025-11-13 14:41] LABS: Alanine Aminotransferase 28 U/L (0-31); Albumin Level 3.5 g/dL (3.5-5.0); Alkaline Phosphatase 99 U/L (39-117); Anion Gap 10 (12-20); Aspartate Amino Transferase 32 U/L (5-31); Blood Urea Nitrogen 16 mg/dL (9-16); Calcium 10.1 mg/dL (8.4-10.2); Carbon Dioxide 28 mmol/L (22-29); Chloride 107 mmol/L (96-108); Creatinine Clr Calc Pharmacy 43.4; Estimated Glomerular Filt Rate > 60; Magnesium 1.8 mg/dL (1.6-2.6); Potassium 4.4 mmol/L (3.3-5.1); Sodium 141 mmol/L (135-145); Total Protein 6.4 g/dL (6.5-8.0)
[2025-11-13 14:51] LABS: Troponin-I High Sensitivity < 2.7 ng/L (<3.5-17.0)
[2025-11-13 15:02] LABS: Resp Syncy Virus RNA Qual PCR NEGATIVE (Negative); SARS COV2 PCR INHOUSE NEGATIVE (Negative)
[2025-11-13 16:56] LABS: CDiff Gene PCR NEGATIVE (Negative)
[2025-11-13 19:43] VITALS: BP 121/61; PULSE 68; RESP 18; TEMP 36.7; O2SAT 96
[2025-11-14 12:47] LABS: E. coli EAEC Not Detected (Not Detect.); E. coli EPEC Not Detected (Not Detect.); E. coli ETEC Not Detected (Not Detect.); E. coli STEC Not Detected (Not Detect.); Shigella sp./EIEC Not Detected (Not Detect.)
== END 2025-11-13 19:44 | disposition home or self-care (01) ==
PROVIDERS: Physician Assistant Medical; Emergency Provider Emergency Medicine; PCP Physician Assistant
DX: D72.829 Elevated white blood cell count, unspecified (principal); M79.10 Myalgia, unspecified site; R07.89 Other chest pain; R53.1 Weakness; R10.23 Pelvic and perineal pain bilateral; Z79.899 Other long term (current) drug therapy; Z03.818 Encounter for observation for suspected exposure to other biological agents ruled out
CPT/HCPCS: 51702; 71046; 74176; 80053; 81001; 83735; 84484; 85025; 85610; 87086; 87088; 87493; 87507; 87637; 93005; 99285

== ENCOUNTER → 2025-11-13 12:24 | Outpatient (BNV) | payer BC, SELFPAY | PROVIDERS: Emergency Provider Emergency Medicine; PCP Physician Assistant; Visit Provider Internal Medicine | DX: R53.1 Weakness (principal) | CPT/HCPCS: 93010 ==

== ENCOUNTER → 2025-11-13 12:24 | Outpatient (BNV) | payer BC, SELFPAY | PROVIDERS: Emergency Provider Emergency Medicine; PCP Physician Assistant; Visit Provider Radiology Diagnostic Radiology | DX: N20.0 Calculus of kidney (principal); K57.30 Diverticulosis of large intestine without perforation or abscess without bleeding; R91.1 Solitary pulmonary nodule | CPT/HCPCS: 71046; 74176 ==